=== PATIENT | male | born 1960 | race Caucasian/White ===

== ENCOUNTER 2016-11-01 15:23 | Emergency (ER) | payer BC ==
[~2016-11-01] VITALS: Ht 188 cm; Wt 111.1 kg
[~2016-11-01 15:23] MED LIST: ATEN25TA PO; HYDR25CA PO; LISI-552 PO; OMEP10CA4 PO; PRED10TA22 PO
--- OUTSIDE RECORDS SUMMARY | 2016-11-01 15:29 | XMS REPORT ---
Author Author MARIANA SOLER Organization [employer] Address Unknown Phone Unavailable Care Team Providers Care Transmission Line Engineer Name Role Phone MARIANA SOLER CP Unavailable Allergies, Adverse Reactions, Alerts Substance Reaction Event Type N.K.D.A. Info Not Available Non Drug Allergy Problems Problem Type Condition Code Onset Dates Condition Status Problem Unspecified genital herpes 054.10 Active Problem Dermatophytosis of groin and perianal area 110.3 Active Problem Unspecified viral infection, in conditions classified elsewhere and of unspecified site 079.99 Active Problem Cellulitis and abscess of unspecified site 682.9 Active Problem Accident caused by unspecified cutting and piercing instrument or object E920.9 Active Problem Impacted cerumen 380.4 Active Problem Other acute otitis externa 380.22 Active Problem Screening examination for venereal disease V74.5 Active Problem Other and unspecified hyperlipidemia 272.4 Active Problem Anxiety state, unspecified 300.00 Active Problem Other abnormal glucose 790.29 Active Problem 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 [address]-45 25 MG Orally Once a day 1 tablet Lisinopril-Hydrochlorothiazide [facility] [address]-79 20-12.5 MG Orally Once a day Jan 27, 2013 2 tablets Omeprazole [facility] [address]-52 20 mg Orally Once a day 1 capsule Results No Known Results Summary Purpose [employer] Submission
--- OUTSIDE RECORDS SUMMARY | 2016-11-01 15:29 | XMS REPORT ---
Author Author MARIANA SOLER Organization [employer] Address Unknown Phone Unavailable Care Team Providers Care Rn Surgical [facility] Name Role Phone MARIANA SOLER CP Unavailable Allergies, Adverse Reactions, Alerts Substance Reaction Event Type N.K.D.A. 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 Problem Impacted cerumen 380.4 Active Problem Other acute otitis externa 380.22 Active Problem Cellulitis and abscess of unspecified site 682.9 Active Problem Accident caused by unspecified cutting and piercing instrument or object E920.9 Active Assessment Colon cancer screening Z12.11 Active Problem Unspecified genital herpes 054.10 Active Assessment Essential hypertension I10 Active Problem Unspecified viral infection, in conditions classified elsewhere and of unspecified site 079.99 Active Medications Medication Code System Code Instructions Start Date End Date Status Dosage Atenolol [facility] [address]-34 25 MG Orally Once a day 1 tablet Lisinopril-Hydrochlorothiazide [facility] [address]-39 20-12.5 MG Orally Once a day Jan 27, 2013 [address] [facility] [address]-04 20 mg Orally Once a day 1 capsule Procedures Procedure Coding System Code Date Office Visit, Est Pt., Level 3 CPT-4 60159 Dec 17, 2015 Vital Signs Date/Time: Dec 17, 2015 Cardiac Monitoring Heart Rate 70 bpm Weight 231 lbs Height 75 in BMI 28.87 Index Blood Pressure Diastolic 76 mmHg Blood Pressure Systolic 138 mmHg Results No Known Results Summary Purpose [employer] Submission
--- NOTE | 2016-11-01 15:39 | ED GI ---
General Chief Complaint: Abdominal/GI Problems Stated Complaint: STOMACH PAIN Nursing Triage Note: pt reports nausea and diahrrea/comstipation x 2 weeks. Sepsis Screen: No Definite Risk Source of Information: Patient Exam Limitations: No Limitations History of Present Illness Time Seen By Provider: 15:37 Initial Comments To ER with nausea without vomiting, alternating diarrhea and constipation for the past 2 weeks. Intermittently he has some right-sided abdominal pain. He has not sought care for this. He did take Zofran at home without relief, most recently 2 Zofran tablets 30 minutes prior to arrival to ER but still reports nausea. This time he denies pain. He reports chills but no fevers. No history of this. He formerly drank about 8 beers every night but quit 3 days ago. He also ran out of his lisinopril 2-3 days ago. Timing/Duration: Other (2 weeks) Severity/Quality: Moderate Location: RUQ Radiation: No Radiation Allergies and Home Medications Allergies Coded Allergies: No Known Drug Allergies (Unverified , 01/10/16) Home Medications Atenolol 25 Mg Tablet, 25 MG PO DAILY, (Reported) Hydroxyzine Pamoate 25 Mg Capsule, 25 MG PO Q6H PRN for ITCHING, #30 Ref 0 Prescribed by: HUNTER PALMA on 01/10/16 0940 Lisinopril 20 Mg Tablet, 20 MG PO DAILY, (Reported) Prednisone 10 Mg Tab.ds.pk, 10 MG PO UD, #1 Prescribed by: LENORA CATHERINE on 01/14/16 1751 Promethazine HCl 25 Mg Tablet, 25 MG PO Q8H PRN for NAUSEA/VOMITING, #10 Prescribed by: JD FLORES on 11/01/16 1739 Review of Systems Constitutional: see HPI, chills EENTM: No Symptoms Reported Respiratory: No Symptoms Reported Cardiovascular: No Symptoms Reported Gastrointestinal: See HPI, Abdominal Pain, Constipated, Diarrhea, Nausea, Denies Vomiting Genitourinary: No Symptoms Reported Musculoskeletal: no symptoms reported Skin: no symptoms reported Psychiatric/Neurological: No Symptoms Reported Endocrine: No Symptoms Reported Past Bltkkge-Wuvabw-Uzxavh Hx Patient Social History Alcohol Use: Occasionally Uses Number of Drinks Today: 0 Alcohol Beverage of Choice: Beer Recreational Drug Use: No Smoking Status: Former Smoker Type Used: Cigarettes Former Smoker, Quit: Nov 09, 2015 Recent Foreign Travel: No Contact w/Someone Who Travel: No Recent Infectious Disease Expo: No Recent Hopitalizations: No Physical Abuse: No Sexual Abuse: No Mistreated: No Fear: No Surgeries History of Surgeries: Yes (left elbow surgery) Respiratory History of Respiratory Disorde: No Cardiovascular History of Cardiac Disorders: Yes Cardiac Disorders: Hypertension Neurological History of Neurological Disord: No Reproductive System Hx Reproductive Disorders: No Sexually Transmitted Disease: No Genitourinary History of Genitourinary Disor: No Gastrointestinal History of Gastrointestinal Di: No Musculoskeletal History of Musculoskeletal Dis: No Endocrine History of Endocrine Disorders: No HEENT History of HEENT Disorders: No Cancer History of Cancer: No Psychosocial History of Psychiatric Problem: No Suicide Risk Score: 0 Integumentary History of Skin or Integumenta: No Blood Transfusions History of Blood Disorders: No Physical Exam Vital Signs VS - Last 72 Hours, by Label 11/01/16 15:28 Temp 97.2 Pulse 75 Resp 18 B/P (MAP) 154/104 Pulse Ox 94 Capillary Refill : Less Than 3 Seconds General Appearance: WD/WN, no apparent distress HEENT: PERRL/EOMI, normal ENT inspection Neck: non-tender, full range of motion Respiratory: normal breath sounds, no respiratory distress, no accessory muscle use Cardiovascular: regular rate, rhythm, no murmur Gastrointestinal: normal bowel sounds, soft, other (mild right upper quadrant tenderness to palpation but otherwise no pain) Extremities: normal range of motion, non-tender Neurologic/Psychiatric: alert, normal mood/affect, oriented x 3 Skin: normal color, warm/dry Progress/Results/Core Measures Results/Orders Lab Results Laboratory Tests Test 11/01/16 15:30 11/01/16 17:16 Range/Units White Blood Count 7.4 4.3-11.0 10^3/uL Red Blood Count 5.11 4.35-5.85 10^6/uL Hemoglobin 16.0 13.3-17.7 G/DL Hematocrit 46 40-54 % Mean Corpuscular Volume 89 80-99 FL Mean Corpuscular Hemoglobin 31 25-34 PG Mean Corpuscular Hemoglobin Concent 35 32-36 G/DL Red Cell Distribution Width 12.0 10.0-14.5 % Platelet Count 257 130-400 10^3/uL Mean Platelet Volume 9.7 7.4-10.4 FL Neutrophils (%) (Auto) 38 L 42-75 % Lymphocytes (%) (Auto) 46 H 12-44 % Monocytes (%) (Auto) 14 H 0-12 % Eosinophils (%) (Auto) 3 0-10 % Basophils (%) (Auto) 0 0-10 % Neutrophils # (Auto) 2.8 1.8-7.8 X 10^3 Lymphocytes # (Auto) 3.4 1.0-4.0 X 10^3 Monocytes # (Auto) 1.0 0.0-1.0 X 10^3 Eosinophils # (Auto) 0.2 0.0-0.3 10^3/uL Basophils # (Auto) 0.0 0.0-0.1 10^3/uL Sodium Level 141 135-145 MMOL/L Potassium Level 3.6 3.6-5.0 MMOL/L Chloride Level 104 98-107 MMOL/L Carbon Dioxide Level 27 21-32 MMOL/L Anion Gap 10 5-14 MMOL/L Blood Urea Nitrogen 14 7-18 MG/DL Creatinine 1.23 0.60-1.30 MG/DL Estimat Glomerular Filtration Rate > 60 BUN/Creatinine Ratio 11 Glucose Level 82 70-105 MG/DL Calcium Level 9.3 8.5-10.1 MG/DL Total Bilirubin 0.9 0.1-1.0 MG/DL Aspartate Amino Transf (AST/SGOT) 98 H 5-34 U/L Alanine Aminotransferase (ALT/SGPT) 254 H 0-55 U/L Alkaline Phosphatase 57 40-136 U/L Total Protein 7.3 6.4-8.2 GM/DL Albumin 4.2 3.2-4.5 GM/DL Lipase 47 8-78 U/L Serum Alcohol < 10 <10 MG/DL Urine Color VANDANA H Urine Clarity SLIGHTLY CLOUDY Urine pH 5 5-9 Urine Specific [place] 1.020 1.016-1.022 Urine Protein 2+ H NEGATIVE Urine Glucose (UA) 2+ H NEGATIVE Urine Ketones NEGATIVE NEGATIVE Urine Nitrite NEGATIVE NEGATIVE Urine Bilirubin NEGATIVE NEGATIVE Urine Urobilinogen NORMAL NORMAL MG/DL Urine Leukocyte Esterase NEGATIVE NEGATIVE Urine RBC (Auto) NEGATIVE NEGATIVE Urine RBC NONE /HPF Urine WBC RARE /HPF Urine Squamous Epithelial Cells NONE /HPF Urine Crystals NONE /LPF Urine Bacteria NEGATIVE /HPF Urine Casts NONE /LPF Urine Mucus NEGATIVE /LPF Urine Culture Indicated NO My Orders Orders - JD FLORES APRN Cbc With Automated Diff (11/01/16 15:35) Comprehensive Metabolic Panel (11/01/16 15:35) Lipase (11/01/16 15:35) Ua Culture If Indicated (11/01/16 15:35) Alcohol (11/01/16 15:35) Ct Abdomen/Pelvis W (11/01/16 15:35) Ns Iv 1000 Ml (Sodium Chloride 0.9%) (11/01/16 15:45) Promethazine Injection (Phenergan Injec (11/01/16 15:45) Iohexol Injection (Omnipaque 350 Mg/Ml 1 (11/01/16 16:30) Ns (Ivpb) (Sodium Chloride 0.9% Ivpb Bag (11/01/16 16:30) Us Gallbladder [address] (11/01/16 16:35) Hepatitis Panel Acute (11/01/16 17:39) Medications Given in ED Current Medications Medications Dose Ordered Sig/Eboni Route Start Time Stop Time Status Last Admin Dose Admin Iohexol 100 ml ONCE ONCE IV 11/01/16 16:30 11/01/16 16:34 DC 11/01/16 16:24 100 ML Promethazine HCl 25 mg ONCE ONCE IVP 11/01/16 15:45 11/01/16 15:46 DC 11/01/16 16:36 25 MG Sodium Chloride 100 ml ONCE ONCE IV 11/01/16 16:30 11/01/16 16:34 DC 11/01/16 16:24 100 ML Vital Signs/I&O Vital Sign - Last 12Hours 11/01/16 15:28 Temp 97.2 Pulse 75 Resp 18 B/P (MAP) 154/104 Pulse Ox 94 Blood Pressure Mean: 121 Diagnostic Imaging Diagonstic Imaging: CT Comments NAME: KARLA LLAMAS Sean [facility] REC#: [id number] PT STATUS: REG ER : 1960 PHYSICIAN: JD FLORES APRN ADMIT DATE: 11/01/16/ER Draft Date of Exam:11/01/16 CT ABDOMEN/PELVIS W PROCEDURE: CT abdomen and pelvis with contrast. TECHNIQUE: Multiple contiguous axial images were obtained through the abdomen and pelvis after administration of intravenous contrast. INDICATION: Right-sided abdominal pain, loose stools, one week's duration of symptoms. FINDINGS: The air-containing appendix visualized and normal. There is no large or small bowel wall thickening and no pericolonic or perienteric edema. There is no focal inflammatory process and no abnormal small or large bowel mucosal hyperenhancement. There is no mesenteric or retroperitoneal edema or focal inflammation. There is fatty infiltration of the liver. The pancreas is negative. There is no adrenal mass. The spleen is unremarkable. There is no hydronephrosis. The kidneys are normal. No lymphadenopathy or mass. Prostate, seminal vesicles, and urinary bladder are unremarkable. IMPRESSION: No bowel, biliary, or urinary tract obstruction. Fatty liver with no inflammatory process. No acute abnormality, ascites, or fluid collection. Dictated on workstation # [id number] Dict: 11/01/161642 Trans: 11/01/161648 [id number] Interpreted by: BEATRIZ FERMIN Electronically signed by: Departure Impression Impression: Primary Impression: Elevated liver enzymes Additional Impression: Nausea Disposition: 01 HOME, SELF-CARE Condition: Stable Departure-Patient Inst. Decision time for Depature: 17:37 Referrals: [facility] (PCP/Family) Primary Care Physician Patient Instructions: Nausea and Vomiting, Adult Add. Discharge Instructions: 1. Follow-up with Dr. Soler later this week to recheck liver enzymes 2. Return to ER for any concerns 3. All discharge instructions reviewed with patient and/or family. Voiced understanding. Scripts Promethazine HCl (Promethazine Tablet) 25 Mg Tablet 25 MG PO Q8H Y for NAUSEA/VOMITING, #10 TAB Prov: JD FLORES APRN 11/01/16 Copy Copies To 1: MARIANA SOLER MD, PETER J APRN Nov 01, 2016 15:38
[2016-11-01 15:42] LABS: BASOPHILS % (AUTO) 0 % (0-10); EOSINOPHILS # (AUTO) 0.2 10^3/uL (0.0-0.3); EOSINOPHILS % (AUTO) 3 % (0-10); LYMPHOCYTES # (AUTO) 3.4 X 10^3 (1.0-4.0); LYMPHOCYTES % (AUTO) 46 % (12-44); MEAN CORPUSCULAR HEMOGLOBIN 31 PG (25-34); MEAN CORPUSCULAR HGB CONC 35 G/DL (32-36); MEAN CORPUSCULAR VOLUME 89 FL (80-99); MEAN PLATELET VOLUME 9.7 FL (7.4-10.4); MONOCYTES % (AUTO) 14 % (0-12); NEUTROPHILS # (AUTO) 2.8 X 10^3 (1.8-7.8); NEUTROPHILS % (AUTO) 38 % (42-75); PLATELET COUNT 257 10^3/uL (130-400); RED BLOOD COUNT 5.11 10^6/uL (4.35-5.85); WHITE BLOOD COUNT 7.4 10^3/uL (4.3-11.0)
[2016-11-01] MEDS ORDERED: NS IV 1000 ML 1,000 ML IV SCH (15:45)
[2016-11-01] MEDS ORDERED: PROMETHAZINE INJ 25 MG/ML (PHENERGAN) AMP IVP ONE (15:45)
[2016-11-01 16:04] LABS: ALANINE AMINOTRANSFERASE 254 U/L (0-55); ALBUMIN 4.2 GM/DL (3.2-4.5); ALCOHOL < 10 MG/DL (<10); ANION GAP 10 MMOL/L (5-14); ASPARTATE AMINO TRANSFERASE 98 U/L (5-34); BILIRUBIN,TOTAL 0.9 MG/DL (0.1-1.0); BLOOD UREA NITROGEN 14 MG/DL (7-18); BUN/CREATININE RATIO 11; CALCIUM 9.3 MG/DL (8.5-10.1); CARBON DIOXIDE 27 MMOL/L (21-32); CHLORIDE 104 MMOL/L (98-107); CREATININE SERUM 1.23 MG/DL (0.60-1.30); GFR ESTIMATED > 60; GLUCOSE 82 MG/DL (70-105); LIPASE 47 U/L (8-78); POTASSIUM 3.6 MMOL/L (3.6-5.0); SODIUM 141 MMOL/L (135-145); TOTAL PROTEIN 7.3 GM/DL (6.4-8.2)
[2016-11-01] MEDS ORDERED: NS 100 ML (IVPB) BAG IV ONE (16:30)
[2016-11-01] MEDS ORDERED: IOHEXOL 350 MG/ML 100 ML (OMNIPAQUE 350) VIAL IV ONE (16:30)
--- NOTE | 2016-11-01 16:50 | Diagnostic Imaging Report ---
PROCEDURE: CT abdomen and pelvis with contrast. TECHNIQUE: Multiple contiguous axial images were obtained through the abdomen and pelvis after administration of intravenous contrast. INDICATION: Right-sided abdominal pain, loose stools, one week's duration of symptoms. FINDINGS: The air-containing appendix visualized and normal. There is no large or small bowel wall thickening and no pericolonic or perienteric edema. There is no focal inflammatory process and no abnormal small or large bowel mucosal hyperenhancement. There is no mesenteric or retroperitoneal edema or focal inflammation. There is fatty infiltration of the liver. The pancreas is negative. There is no adrenal mass. The spleen is unremarkable. There is no hydronephrosis. The kidneys are normal. No lymphadenopathy or mass. Prostate, seminal vesicles, and urinary bladder are unremarkable. IMPRESSION: No bowel, biliary, or urinary tract obstruction. Fatty liver with no inflammatory process. No acute abnormality, ascites, or fluid collection. Dictated by: Dictated on workstation # [id number]
--- NOTE | 2016-11-01 17:14 | Diagnostic Imaging Report ---
INDICATION: Abdominal pain with nausea. TECHNIQUE: Multiple grayscale sonographic images were obtained of the right upper quadrant of the abdomen. CORRELATION STUDY: None. FINDINGS: LIVER: Diffuse heterogeneous increased echogenicity may be reflective of fatty infiltration. No definitive focal lesion. Liver size approximately 18 cm. GALLBLADDER: The gallbladder is present and demonstrates no definitive shadowing gallstones. No abnormal gallbladder wall thickening or pericholecystic fluid. COMMON BILE DUCT: Obscured and not visualized. PANCREAS: Obscured by overlying bowel gas. RIGHT KIDNEY: Measures 12.6 cm. No hydronephrosis. OTHER: None. IMPRESSION: 1. Likely changes of hepatic steatosis. 2. Negative for gallstones. Biliary tree is obscured. Dictated by: Dictated on workstation # [id number]
[2016-11-01 17:27] LABS: BILIRUBIN,URINE NEGATIVE (NEGATIVE); KETONES,URINE NEGATIVE (NEGATIVE); LEUKOCYTE ESTERASE ,URINE NEGATIVE (NEGATIVE); NITRITE,URINE NEGATIVE (NEGATIVE); PH,URINE 5 (5-9); PROTEIN,URINE 2+ (NEGATIVE); UROBILINOGEN,URINE NORMAL (NORMAL)
[2016-11-01 17:37] LABS: WBC,URINE RARE /HPF
[2016-11-01] MEDS ORDERED: PROM25TA14 PO (17:39)
[2016-11-01 18:06] VITALS: BP 143/98
== END 2016-11-01 18:06 | disposition home or self-care (01) ==
LOC: EDUNIT# 15:23 → ER 15:24
DX: R94.5 Abnormal results of liver function studies (principal); R11.0 Nausea; I10 Essential (primary) hypertension; Z87.891 Personal history of nicotine dependence
CPT/HCPCS: 36415; 74177; 76705; 80053; 80074; 80320; 81000; 83690; 85025

== ENCOUNTER 2016-11-05 21:34 | Emergency (ER) | payer BC ==
[~2016-11-05] VITALS: Ht 190.5 cm; Wt 108.9 kg
[~2016-11-05 21:34] MED LIST changes: +PROM25TA14 PO
[2016-11-05] MEDS ORDERED: METF500T4 (21:46)
--- NOTE | 2016-11-05 22:01 | ED General ---
General Chief Complaint: General Problems/Pain Stated Complaint: RT KNEE PAIN,LEG CRAMPING Nursing Triage Note: BILATERAL LEG CRAMPING. WORSE TONIGHT Nursing Sepsis Screen: No Definite Risk Source of Information: Patient, Other (significant other) Exam Limitations: No Limitations History of Present Illness Time Seen by Provider: 23:57 Initial Comments Patient presents to ER by private conveyance with his significant other stating that he has had leg cramps in his right thigh tonight that were debilitating. He says he was working on his knees all day she does not typically do. He has a history of these leg cramps for the past several years but has never had them worked up. He is not a smoker nor does he have any discoloration or swelling of his leg or feet. He is not having any pain in his calves. He says a few days ago he was here in the ER to be evaluated for nausea vomiting diarrhea probably a gastroenteritis given some promethazine which helped and he has no motor having the symptoms. He says he gets these cramps couple times a week and sometimes it can make it hard for him to extend his legs. It's better when he stands and moves around. No things tried for this is pickle juice because of the alcohol that might in pickle juice. Allergies and Home Medications Allergies Coded Allergies: No Known Drug Allergies (Unverified , 01/10/16) Home Medications Atenolol 25 Mg Tablet, 25 MG PO DAILY, (Reported) Lisinopril 20 Mg Tablet, 20 MG PO DAILY, (Reported) Metformin HCl 500 Mg Tablet, (Reported) Promethazine HCl 25 Mg Tablet, 25 MG PO Q8H PRN for NAUSEA/VOMITING, #10 Prescribed by: JD FLORES on 11/01/16 8055 Constitutional: No chills, No diaphoresis EENTM: No ear pain, No eye pain, No vision loss Respiratory: No cough, No short of breath Cardiovascular: No chest pain, No palpitations Gastrointestinal: No abdominal pain, No constipation, No diarrhea, No nausea Genitourinary: No discharge, No dysuria Musculoskeletal: No joint pain, No joint swelling Skin: No pruritus, No rash Psychiatric/Neurological: Denies Headache, Denies Numbness, Denies Paresthesia Past Ovnxnmh-Basfnc-Jkhcwe Hx Patient Social History Alcohol Use: Denies Use Number of Drinks Today: AA Alcohol Beverage of Choice: Beer Recreational Drug Use: No Smoking Status: Former Smoker Type Used: Cigarettes Former Smoker, Quit: Nov 09, 2015 2nd Hand Smoke Exposure: Yes Recent Foreign Travel: No Contact w/Someone Who Travel: No Recent Infectious Disease Expo: No Recent Hopitalizations: No Immunizations Up To Date Tetanus Booster (TDap): Unknown Seasonal Allergies Seasonal Allergies: No Surgeries History of Surgeries: Yes (left elbow surgery) Surgeries: Orthopedic Respiratory History of Respiratory Disorde: No Cardiovascular History of Cardiac Disorders: Yes Cardiac Disorders: Hypertension Neurological History of Neurological Disord: No Reproductive System Hx Reproductive Disorders: No Sexually Transmitted Disease: No Genitourinary History of Genitourinary Disor: No Gastrointestinal History of Gastrointestinal Di: No Musculoskeletal History of Musculoskeletal Dis: Yes Musculoskeletal Disorders: Arthritis Endocrine History of Endocrine Disorders: Yes Endocrine Disorders: Diabetes, Non-Insulin dep HEENT History of HEENT Disorders: No Cancer History of Cancer: No Psychosocial History of Psychiatric Problem: No Integumentary History of Skin or Integumenta: No Blood Transfusions History of Blood Disorders: No Physical Exam Vital Signs Vital Sign - Last 12Hours 11/05/16 21:47 Temp 98.1 Pulse 99 Resp 16 B/P (MAP) 145/97 Pulse Ox 96 O2 Delivery Room Air Capillary Refill : Less Than 3 Seconds General Appearance: No Apparent Distress, WD/WN Eyes: Bilateral Eye Normal Inspection, Bilateral Eye PERRL, Bilateral Eye EOMI HEENT: PERRL/EOMI, Pharynx Normal Neck: Non Tender, Supple Respiratory: Lungs Clear, Normal Breath Sounds Cardiovascular: Regular Rate, Rhythm, No Murmur, Normal Peripheral Pulses Gastrointestinal: Normal Bowel Sounds, Non Tender, Soft Extremity: Normal Capillary Refill, Normal Inspection, Normal Range of Motion, Non Tender, No Calf Tenderness, No Pedal Edema Neurologic/Psychiatric: Alert, Oriented x3 Reflexes: 2+ Knee (R), 2+ Knee (L) Skin: Normal Color, Warm/Dry Lymphatic: No Adenopathy Progress/Results/Core Measures Results/Orders Lab Results Laboratory Tests Test 11/05/16 22:11 Range/Units White Blood Count 7.4 4.3-11.0 10^3/uL Red Blood Count 5.16 4.35-5.85 10^6/uL Hemoglobin 16.4 13.3-17.7 G/DL Hematocrit 46 40-54 % Mean Corpuscular Volume 89 80-99 FL Mean Corpuscular Hemoglobin 32 25-34 PG Mean Corpuscular Hemoglobin Concent 36 32-36 G/DL Red Cell Distribution Width 12.4 10.0-14.5 % Platelet Count 250 130-400 10^3/uL Mean Platelet Volume 9.9 7.4-10.4 FL Neutrophils (%) (Auto) 46 42-75 % Lymphocytes (%) (Auto) 39 12-44 % Monocytes (%) (Auto) 12 0-12 % Eosinophils (%) (Auto) 2 0-10 % Basophils (%) (Auto) 1 0-10 % Neutrophils # (Auto) 3.5 1.8-7.8 X 10^3 Lymphocytes # (Auto) 2.9 1.0-4.0 X 10^3 Monocytes # (Auto) 0.9 0.0-1.0 X 10^3 Eosinophils # (Auto) 0.2 0.0-0.3 10^3/uL Basophils # (Auto) 0.1 0.0-0.1 10^3/uL Sodium Level 138 135-145 MMOL/L Potassium Level 3.7 3.6-5.0 MMOL/L Chloride Level 105 98-107 MMOL/L Carbon Dioxide Level 18 L 21-32 MMOL/L Anion Gap 15 H 5-14 MMOL/L Blood Urea Nitrogen 20 H 7-18 MG/DL Creatinine 1.45 H 0.60-1.30 MG/DL Estimat Glomerular Filtration Rate 50 BUN/Creatinine Ratio 14 Glucose Level 148 H 70-105 MG/DL Calcium Level 9.8 8.5-10.1 MG/DL Total Bilirubin 0.7 0.1-1.0 MG/DL Aspartate Amino Transf (AST/SGOT) 76 H 5-34 U/L Alanine Aminotransferase (ALT/SGPT) 191 H 0-55 U/L Alkaline Phosphatase 66 40-136 U/L Total Protein 7.7 6.4-8.2 GM/DL Albumin 4.5 3.2-4.5 GM/DL My Orders Orders - HUNTER PALMA Cbc With Automated Diff (11/05/16 21:58) Comprehensive Metabolic Panel (11/05/16 21:58) Vital Signs/I&O Vital Sign - Last 12Hours 11/05/16 21:47 Temp 98.1 Pulse 99 Resp 16 B/P (MAP) 145/97 Pulse Ox 96 O2 Delivery Room Air Blood Pressure Mean: 113 Progress Note : Time: 22:37 Progress Note This does not appear to be vascular related however he should have that worked up by his primary care physician with an [facility] outpatient. His labs are okay will recommend Gatorade and something quinine and it such as ana kay. Departure Impression Impression: Primary Impression: Leg cramping Disposition: 01 HOME, SELF-CARE Condition: Stable Departure-Patient Inst. Decision time for Depature: 23:26 Referrals: [facility] (PCP/Family) Primary Care Physician Patient Instructions: Nocturnal (Nighttime) Leg Cramps (DC) Add. Discharge Instructions: For leg cramps I recommend drinking a drink with quinine and such as diet ana kay one last night. Follow-up with her primary care physician. Things to discuss with your primary care physician would include your decreased kidney function as well as her elevated liver enzymes. You may also use heating pads and Tylenol to try and block the severity of the cramps. Drink plenty of fluids. All discharge instructions reviewed with patient and/or family. Voiced understanding. Copy Copies To 1: MARION URIBE TITUS J Nov 05, 2016 22:01
[2016-11-05 22:25] LABS: BASOPHILS # (AUTO) 0.1 10^3/uL (0.0-0.1); BASOPHILS % (AUTO) 1 % (0-10); EOSINOPHILS # (AUTO) 0.2 10^3/uL (0.0-0.3); EOSINOPHILS % (AUTO) 2 % (0-10); LYMPHOCYTES # (AUTO) 2.9 X 10^3 (1.0-4.0); LYMPHOCYTES % (AUTO) 39 % (12-44); MEAN CORPUSCULAR HEMOGLOBIN 32 PG (25-34); MEAN CORPUSCULAR HGB CONC 36 G/DL (32-36); MEAN CORPUSCULAR VOLUME 89 FL (80-99); MEAN PLATELET VOLUME 9.9 FL (7.4-10.4); MONOCYTES # (AUTO) 0.9 X 10^3 (0.0-1.0); MONOCYTES % (AUTO) 12 % (0-12); NEUTROPHILS # (AUTO) 3.5 X 10^3 (1.8-7.8); NEUTROPHILS % (AUTO) 46 % (42-75); PLATELET COUNT 250 10^3/uL (130-400); RED BLOOD COUNT 5.16 10^6/uL (4.35-5.85); RED CELL DISTRIBUTION WIDTH 12.4 % (10.0-14.5); WHITE BLOOD COUNT 7.4 10^3/uL (4.3-11.0)
[2016-11-05 22:38] LABS: ALBUMIN 4.5 GM/DL (3.2-4.5); BILIRUBIN,TOTAL 0.7 MG/DL (0.1-1.0); CALCIUM 9.8 MG/DL (8.5-10.1); CREATININE SERUM 1.45 MG/DL (0.60-1.30); POTASSIUM 3.7 MMOL/L (3.6-5.0); TOTAL PROTEIN 7.7 GM/DL (6.4-8.2)
[2016-11-05 23:31] VITALS: BP 145/97
== END 2016-11-05 23:31 | disposition home or self-care (01) ==
LOC: EDUNIT# 21:34 → ER 21:36
DX: R25.2 Cramp and spasm (principal); I10 Essential (primary) hypertension; E11.9 Type 2 diabetes mellitus without complications; Z79.84 Long term (current) use of oral hypoglycemic drugs; Z87.891 Personal history of nicotine dependence
CPT/HCPCS: 36415; 80053; 85025; 99283

== ENCOUNTER 2017-09-28 09:31 | Emergency (ER) | payer BC ==
[~2017-09-28] VITALS: Ht 188 cm; Wt 110.7 kg
[~2017-09-28 09:31] MED LIST changes: +METF500T5
[2017-09-28] MEDS ORDERED: NS IV 1000 ML 1,000 ML IV ONE (10:04)
[2017-09-28 10:12] LABS: BASOPHILS % (AUTO) 1 % (0-10); EOSINOPHILS # (AUTO) 0.1 10^3/uL (0.0-0.3); EOSINOPHILS % (AUTO) 1 % (0-10); HEMATOCRIT 41 % (40-54); HEMOGLOBIN 15.2 G/DL (13.3-17.7); LYMPHOCYTES # (AUTO) 1.7 X 10^3 (1.0-4.0); LYMPHOCYTES % (AUTO) 28 % (12-44); MEAN CORPUSCULAR HEMOGLOBIN 33 PG (25-34); MEAN CORPUSCULAR HGB CONC 37 G/DL (32-36); MEAN CORPUSCULAR VOLUME 88 FL (80-99); MEAN PLATELET VOLUME 9.7 FL (7.4-10.4); MONOCYTES # (AUTO) 0.7 X 10^3 (0.0-1.0); MONOCYTES % (AUTO) 12 % (0-12); NEUTROPHILS # (AUTO) 3.6 X 10^3 (1.8-7.8); NEUTROPHILS % (AUTO) 59 % (42-75); PLATELET COUNT 197 10^3/uL (130-400); RED BLOOD COUNT 4.65 10^6/uL (4.35-5.85); RED CELL DISTRIBUTION WIDTH 11.9 % (10.0-14.5); WHITE BLOOD COUNT 6.1 10^3/uL (4.3-11.0)
--- NOTE | 2017-09-28 10:20 | ED Upper Extremity ---
General Stated Complaint: SPIDER OR SNAKE BITE Source: patient Exam Limitations: no limitations (BARBARA OLIVA MD) History of Present Illness Date Seen by Provider: Sep 28, 2017 Time Seen by Provider: 10:05 Initial Comments Seen and evaluated. Patient presents after being bitten by a presumed insect while moving hay in a barn this past Tuesday. Since that time he states that he has experienced fatigue, shortness of breath, and lightheadedness that worsens when he attempts to exert himself and improves when he rests. He has had an upset stomach that began on Tuesday and has been experiencing occasional diarrhea for the past week. Patient described cold sweats and subjective fever Tuesday which prompted him to seek medical attention today. Onset: other (Tuesday) Pain/Injury Location: right arm Method of Injury: incised Modifying Factors: Worse With Movement; Improves With Rest (YOLANDA PECK) Onset: other (Tuesday) Method of Injury: unknown (BARBARA OLIVA MD) Allergies and Home Medications Allergies Coded Allergies: No Known Allergies (Verified Allergy, Unknown, 09/28/17) Home Medications Atenolol 25 Mg Tablet, 25 MG PO DAILY, (Reported) Lisinopril 20 Mg Tablet, 20 MG PO DAILY, (Reported) Promethazine HCl 25 Mg Tablet, 25 MG PO Q8H PRN for NAUSEA/VOMITING Prescribed by: JD FLORES on 11/01/16 1739 Patient Home Medication List Home Medication List Reviewed: Yes (YOLANDA PECK) Home Medication List Reviewed: Yes (BARBARA OLIVA MD) Constitutional: see HPI EENTM: No blurred vision, No double vision Respiratory: short of breath Cardiovascular: No palpitations, No syncope Gastrointestinal: abdominal pain; No constipation; diarrhea, nausea; No vomiting Genitourinary: no symptoms reported Musculoskeletal: No muscle pain, No muscle stiffness Skin: No pruritus, No rash Psychiatric/Neurological: No Symptoms Reported (YOLANDA PECK) All Other Systems Reviewed Negative Unless Noted: Yes (BARBARA OLIVA MD) Past Wdwqhtm-Ymknxp-Fmjepb Hx Past Med/Social Hx: Reviewed Nursing Past Med/Soc Hx (BARBARA OLIVA MD) Patient Social History Alcohol Use: Denies Use Alcohol Beverage of Choice: Beer Recreational Drug Use: No Type Used: Cigarettes Former Smoker, Quit: Nov 09, 2015 2nd Hand Smoke Exposure: Yes Recent Foreign Travel: No Contact w/Someone Who Travel: No Recent Hopitalizations: No (YOLANDA PECK) Immunizations Up To Date Tetanus Booster (TDap): Unknown (YOLANDA PECK) Seasonal Allergies Seasonal Allergies: No (YOLANDA PECK) Past Medical History Surgeries: Yes (left elbow surgery) Orthopedic Respiratory: No Cardiac: Yes Hypertension Neurological: No Reproductive Disorders: No Sexually Transmitted Disease: No Genitourinary: No Gastrointestinal: Yes Chronic Diarrhea (admits occasional, intermittent diarrhea for years) Musculoskeletal: Yes Arthritis Endocrine: Yes Diabetes, Non-Insulin dep HEENT: No Cancer: No Psychosocial: No Integumentary: No Blood Disorders: No (YOLANDA PECK) Family Medical History Reviewed Nursing Family Hx (BARBARA OLIVA MD) Heart Disease, Diabetes, Hypertension (YOLANDA PECK) Physical Exam Vital Signs Capillary Refill : (YOLANDA PECK) Height, Weight, BMI Height: 6'3.00" Weight: 240lbs. oz. 108.544893no; BMI Method:Stated General Appearance: WD/WN, no apparent distress Cardiovascular: normal peripheral pulses Gastrointestinal: No guarding, No tenderness Elbow/Forearm: non-tender, normal ROM, Bilateral Neurologic/Tendon: normal sensation, normal motor functions (YOLANDA PECK) HEENT: PERRL/EOMI, pharynx normal Neck: full range of motion, supple Cardiovascular: regular rate, rhythm, no murmur Respiratory: lungs clear, normal breath sounds Gastrointestinal: non tender, soft Neurologic/Psychiatric: alert, oriented x 3 Skin: warm/dry, other (small, macular lesions to the right forearm without significant surrounding erythema or significant inflammation.) (BARBARA OLIVA MD) Progress/Results/Core Measures Results/Orders Lab Results Laboratory Tests Test 09/28/17 09:55 09/28/17 11:40 Range/Units White Blood Count 6.1 4.3-11.0 10^3/uL Red Blood Count 4.65 4.35-5.85 10^6/uL Hemoglobin 15.2 13.3-17.7 G/DL Hematocrit 41 40-54 % Mean Corpuscular Volume 88 80-99 FL Mean Corpuscular Hemoglobin 33 25-34 PG Mean Corpuscular Hemoglobin Concent 37 H 32-36 G/DL Red Cell Distribution Width 11.9 10.0-14.5 % Platelet Count 197 130-400 10^3/uL Mean Platelet Volume 9.7 7.4-10.4 FL Neutrophils (%) (Auto) 59 42-75 % Lymphocytes (%) (Auto) 28 12-44 % Monocytes (%) (Auto) 12 0-12 % Eosinophils (%) (Auto) 1 0-10 % Basophils (%) (Auto) 1 0-10 % Neutrophils # (Auto) 3.6 1.8-7.8 X 10^3 Lymphocytes # (Auto) 1.7 1.0-4.0 X 10^3 Monocytes # (Auto) 0.7 0.0-1.0 X 10^3 Eosinophils # (Auto) 0.1 0.0-0.3 10^3/uL Basophils # (Auto) 0.0 0.0-0.1 10^3/uL Sodium Level 136 135-145 MMOL/L Potassium Level 4.8 3.6-5.0 MMOL/L Chloride Level 104 98-107 MMOL/L Carbon Dioxide Level 26 21-32 MMOL/L Anion Gap 6 5-14 MMOL/L Blood Urea Nitrogen 15 7-18 MG/DL Creatinine 0.96 0.60-1.30 MG/DL Estimat Glomerular Filtration Rate > 60 BUN/Creatinine Ratio 16 Glucose Level 119 H 70-105 MG/DL Calcium Level 9.7 8.5-10.1 MG/DL Corrected Calcium 9.5 8.5-10.1 MG/DL Total Bilirubin 0.6 0.1-1.0 MG/DL Aspartate Amino Transf (AST/SGOT) 21 5-34 U/L Alanine Aminotransferase (ALT/SGPT) 36 0-55 U/L Alkaline Phosphatase 55 40-136 U/L Troponin I < 0.30 <0.30 NG/ML C-Reactive Protein High Sensitivity 0.79 H 0.00-0.50 MG/DL Total Protein 6.9 6.4-8.2 GM/DL Albumin 4.2 3.2-4.5 GM/DL Urine Color YELLOW Urine Clarity CLEAR Urine pH 5 5-9 Urine Specific [place] 1.020 1.016-1.022 Urine Protein NEGATIVE NEGATIVE Urine Glucose (UA) NEGATIVE NEGATIVE Urine Ketones NEGATIVE NEGATIVE Urine Nitrite NEGATIVE NEGATIVE Urine Bilirubin NEGATIVE NEGATIVE Urine Urobilinogen NORMAL NORMAL MG/DL Urine Leukocyte Esterase 1+ H NEGATIVE Urine RBC (Auto) NEGATIVE NEGATIVE Urine RBC RARE /HPF Urine WBC 0-2 /HPF Urine Squamous Epithelial Cells NONE /HPF Urine Renal Epithelial Cells NONE /HPF Urine Crystals NONE /LPF Urine Bacteria NEGATIVE /HPF Urine Casts NONE /LPF Urine Mucus NEGATIVE /LPF Urine Culture Indicated NO (BARBARA OLIVA MD) My Orders Orders - BARBARA OLIVA MD Cbc With Automated Diff (09/28/17 10:04) Comprehensive Metabolic Panel (09/28/17 10:04) Hs C Reactive Protein (09/28/17 10:04) Troponin I (09/28/17 10:04) Chest 1 View, Ap/Pa Only (09/28/17 10:04) Ekg Tracing (09/28/17 10:04) Saline Lock/Iv-Start (09/28/17 10:04) Ns Iv 1000 Ml (Sodium Chloride 0.9%) (09/28/17 10:04) Ua Culture If Indicated (09/28/17 11:41) (BARBARA OLIVA MD) Medications Given in ED Current Medications Medications Dose Ordered Sig/Eboni Route Start Time Stop Time Status Last Admin Dose Admin Sodium Chloride 1,000 ml @ 0 mls/hr Q0M ONCE IV 09/28/17 10:04 09/28/17 10:06 DC 09/28/17 10:26 1,000 MLS/HR (BARBARA OLIVA MD) Progress Progress Note : Progress Note I have seen and evaluated the patient and agree with above except as indicated. I have directed the plan of care. Patient here with concerns of bug bite to the right arm as well as some nausea and overall not feeling well for the past couple of days. He was working in a barn on Tuesday when all of this began and has not had any relief since. He is concerned that the bug bite to the right arm may be the cause of his problems. He is not sure what got him but he does note that on the right forearm that he felt something sting him. That wound looks better but he still feels weak and is short of breath with activity. Denies chest pain.. Denies vomiting. We will check labs, UA and chest x-ray as well as EKG. Monitor patient. 1220: Overall feeling much better. No significant findings. Discharged home with return precautions. Patient verbalize understanding instructions and agreement with plan (BARBARA OLIVA MD) Initial ECG Impression Date: Sep 28, 2017 Initial ECG Impression Time: 10:24 Initial ECG Rate: 73 Initial ECG Rhythm: Normal Sinus Initial ECG Impression: Normal Comment Sinus rhythm with normal axis. No evidence of ST elevation ID. No previous available for comparison. Interpreted by me. (BARBARA OLIVA MD) Diagnostic Imaging Diagonstic Imaging: Xray Plain Films/CT/US/NM/MRI: chest Comments [place]IA [place], [place] NAME: KARLA LLAMAS [facility] REC#: [id number] PT STATUS: REG ER : 1960 PHYSICIAN: BARBARA OLIVA MD ADMIT DATE: 09/28/17/ER Draft Date of Exam:09/28/17 CHEST 1 VIEW, AP/PA ONLY INDICATION: Dizziness and nausea. TIME OF EXAM: 10:27 AM No prior studies are available for comparison. FINDINGS: The heart size is normal. The pulmonary vascularity is unremarkable. The lungs are clear. No infiltrate, effusion or pneumothorax is detected. IMPRESSION: No acute cardiopulmonary process is detected. Dictated on workstation # [id number] Dict: 09/28/17 1040 Trans: 09/28/17 1042 [id number] Interpreted by: SERA RICCI MD Electronically signed by: (BARBARA OLIVA MD) Departure Impression Primary Impression: Abdominal pain, epigastric Additional Impressions: Insect bite Qualified Codes: W57.XXXA - Bitten or stung by nonvenomous insect and other nonvenomous arthropods, initial encounter Dehydration Disposition: 01 HOME, SELF-CARE Condition: Improved Departure-Patient Inst. Decision time for Depature: 12:21 (BARBARA OLIVA MD) Referrals: [facility] (PCP/Family) Primary Care Physician Patient Instructions: Acute Abdomen (Belly Pain), Adult (DC), Dehydration, Adult (DC), Insect Bites and Stings (DC) Add. Discharge Instructions: Clear liquid for 24 hours and then advance as tolerated. Follow-up with your Dr. in a few days for recheck. Return for worse pain, fever, vomiting, weakness , breathing problems or other concerns as needed. Work/School Note: Work Release Form Date Seen in the Emergency Department: Sep 28, 2017 Return to Work: Sep 29, 2017 Restrictions: No Restrictions YOLANDA PECK STUDENT Sep 28, 2017 10:20 BARBARA OLIVA MD Sep 28, 2017 11:07
[2017-09-28 10:30] LABS: ALANINE AMINOTRANSFERASE 36 U/L (0-55); ALBUMIN 4.2 GM/DL (3.2-4.5); ALKALINE PHOSPHATASE 55 U/L (40-136); BILIRUBIN,TOTAL 0.6 MG/DL (0.1-1.0); BUN/CREATININE RATIO 16; CALCIUM 9.7 MG/DL (8.5-10.1); CARBON DIOXIDE 26 MMOL/L (21-32); CHLORIDE 104 MMOL/L (98-107); CREATININE SERUM 0.96 MG/DL (0.60-1.30); GFR ESTIMATED > 60; GLUCOSE 119 MG/DL (70-105); POTASSIUM 4.8 MMOL/L (3.6-5.0); SODIUM 136 MMOL/L (135-145); TOTAL PROTEIN 6.9 GM/DL (6.4-8.2)
--- NOTE | 2017-09-28 10:42 | Diagnostic Imaging Report ---
INDICATION: Dizziness and nausea. TIME OF EXAM: 10:27 AM No prior studies are available for comparison. FINDINGS: The heart size is normal. The pulmonary vascularity is unremarkable. The lungs are clear. No infiltrate, effusion or pneumothorax is detected. IMPRESSION: No acute cardiopulmonary process is detected. Dictated by: Dictated on workstation # [id number]
[2017-09-28 11:57] LABS: BILIRUBIN,URINE NEGATIVE (NEGATIVE); CLARITY,URINE CLEAR; COLOR,URINE YELLOW; GLUCOSE, URINE (UA) NEGATIVE (NEGATIVE); KETONES,URINE NEGATIVE (NEGATIVE); LEUKOCYTE ESTERASE ,URINE 1+ (NEGATIVE); NITRITE,URINE NEGATIVE (NEGATIVE); PH,URINE 5 (5-9); PROTEIN,URINE NEGATIVE (NEGATIVE); UROBILINOGEN,URINE NORMAL (NORMAL)
[2017-09-28 12:08] LABS: BACTERIA,URINE NEGATIVE /HPF; RBC,URINE RARE /HPF; WBC,URINE 0-2 /HPF
[2017-09-28 12:46] VITALS: BP 144/91
== END 2017-09-28 12:48 | disposition home or self-care (01) ==
LOC: EDUNIT# 09:31 → ER 09:34
DX: S40.861A Insect bite (nonvenomous) of right upper arm, initial encounter (principal); R10.13 Epigastric pain; E86.0 Dehydration; I10 Essential (primary) hypertension; E11.9 Type 2 diabetes mellitus without complications; Z77.22 Contact with and (suspected) exposure to environmental tobacco smoke (acute) (chronic); W57.XXXA Bitten or stung by nonvenomous insect and other nonvenomous arthropods, initial encounter
CPT/HCPCS: 36415; 71045; 80053; 81000; 84484; 85025; 86141; 93005; 96360; 96361

== ENCOUNTER → 2017-11-17 | Outpatient (CLI) | payer BC ==
[~2017-11-17] MED LIST changes: +FAMO-119 PO; +IOHEXOL 350 MG/ML 100 ML (OMNIPAQUE 350) VIAL IV ONE; +LISI1TAB8 PO; +METF-397; -METF500T5; +NS 250 ML (IVPB) BAG IV ONE; +ONDA4TAB8 SL; +TRAM-42 PO
[2017-11-17 07:53] LABS: BASOPHILS % (AUTO) 1 % (0-10); EOSINOPHILS # (AUTO) 0.1 10^3/uL (0.0-0.3); EOSINOPHILS % (AUTO) 2 % (0-10); HEMATOCRIT 44 % (40-54); HEMOGLOBIN 15.9 G/DL (13.3-17.7); LYMPHOCYTES # (AUTO) 1.9 X 10^3 (1.0-4.0); LYMPHOCYTES % (AUTO) 35 % (12-44); MEAN CORPUSCULAR HEMOGLOBIN 32 PG (25-34); MEAN CORPUSCULAR HGB CONC 36 G/DL (32-36); MEAN CORPUSCULAR VOLUME 87 FL (80-99); MEAN PLATELET VOLUME 9.3 FL (7.4-10.4); MONOCYTES # (AUTO) 0.6 X 10^3 (0.0-1.0); MONOCYTES % (AUTO) 11 % (0-12); NEUTROPHILS # (AUTO) 2.8 X 10^3 (1.8-7.8); NEUTROPHILS % (AUTO) 51 % (42-75); PLATELET COUNT 247 10^3/uL (130-400); RED BLOOD COUNT 5.05 10^6/uL (4.35-5.85); RED CELL DISTRIBUTION WIDTH 12.4 % (10.0-14.5); WHITE BLOOD COUNT 5.5 10^3/uL (4.3-11.0)
[2017-11-17 08:10] LABS: ALANINE AMINOTRANSFERASE 43 U/L (0-55); ALBUMIN 4.4 GM/DL (3.2-4.5); ALKALINE PHOSPHATASE 55 U/L (40-136); BILIRUBIN,TOTAL 0.7 MG/DL (0.1-1.0); BUN/CREATININE RATIO 13; CALCIUM 9.1 MG/DL (8.5-10.1); CARBON DIOXIDE 23 MMOL/L (21-32); CHLORIDE 106 MMOL/L (98-107); CREATININE SERUM 1.21 MG/DL (0.60-1.30); GFR ESTIMATED > 60; GLUCOSE 134 MG/DL (70-105); POTASSIUM 4.4 MMOL/L (3.6-5.0); SODIUM 138 MMOL/L (135-145)
--- NOTE | 2017-11-17 08:54 | Diagnostic Imaging Report ---
PROCEDURE: CT abdomen and pelvis with contrast. TECHNIQUE: Multiple contiguous axial images were obtained through the abdomen and pelvis after administration of intravenous contrast. INDICATION: Nausea and abdominal pain. The prior CT abdomen/pelvis exam of 11/01/2016 failed to show any sign of an acute abnormality of the abdomen or pelvis. On this study there are few fluid-filled segments of small bowel in the upper abdomen. This appearance is somewhat similar to the prior exam and could be secondary to mild ileus perhaps related to enteritis. There is no evidence for a bowel obstruction. If as noted on the prior exam, the liver is of lower density than usually seen. This does suggest fatty metamorphosis. There is no focal mass involving liver and the biliary tree is not abnormally dilated. The spleen, gallbladder, pancreas, adrenals, kidneys, aorta and inferior vena cava are unremarkable for an acute abnormality. The stomach is not well distended and consequently difficult to assess. There is no pelvic mass or free fluid collection noted. The urinary bladder and prostate gland are grossly unremarkable. The appendix was visualized and is not abnormally thickened. The bone windows show no sign of a fracture or destructive lesion. The lung bases are clear. IMPRESSION: 1. There are a few dilated fluid-filled segments of small bowel in the upper abdomen. This appearance is nonspecific but could be secondary to an ileus, perhaps related to mild enteritis. Clinical followup is recommended. 2. There is no acute abnormality of the abdomen or pelvis noted otherwise. Dictated by: Dictated on workstation # [id number]
== END ==
LOC: RAD 07:42
PROVIDERS: ATTEND Surgery
DX: R10.9 Unspecified abdominal pain (principal); R11.0 Nausea
CPT/HCPCS: 36415; 74177; 80053; 85025

== ENCOUNTER 2017-11-18 13:25 | Emergency (ER) | payer BC ==
[~2017-11-18] VITALS: Ht 188 cm; Wt 108.9 kg
[~2017-11-18 13:25] MED LIST changes: -FAMO-119 PO; -IOHEXOL 350 MG/ML 100 ML (OMNIPAQUE 350) VIAL IV ONE; -LISI1TAB8 PO; -NS 250 ML (IVPB) BAG IV ONE; -ONDA4TAB8 SL; -TRAM-42 PO
[2017-11-18 13:58] LABS: BILIRUBIN,URINE NEGATIVE (NEGATIVE); CLARITY,URINE CLEAR; COLOR,URINE YELLOW; GLUCOSE, URINE (UA) NEGATIVE (NEGATIVE); KETONES,URINE NEGATIVE (NEGATIVE); LEUKOCYTE ESTERASE ,URINE 1+ (NEGATIVE); NITRITE,URINE NEGATIVE (NEGATIVE); PH,URINE 5 (5-9); PROTEIN,URINE 1+ (NEGATIVE); UROBILINOGEN,URINE NORMAL (NORMAL)
[2017-11-18 14:04] LABS: BACTERIA,URINE NEGATIVE /HPF; WBC,URINE RARE /HPF
--- OUTSIDE RECORDS SUMMARY | 2017-11-18 14:10 | XMS REPORT ---
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 Name Role Phone MARIANA SOLER Unavailable PROBLEMS Type Condition ICD9-CM Code OGH36-DQ Code Onset Dates Condition Status SNOMED Code Problem History of herpes genitalis Z86.19 Active 189755063 Problem Essential hypertension I10 Active 65658060 Problem Gastroesophageal reflux disease, esophagitis presence not specified K21.9 Active 611166215 Problem Type 2 diabetes mellitus with other specified complication, without long-term current use of insulin E11.69 Active 72837254 Problem Carpal tunnel syndrome of right wrist G56.01 Active 398559236568405 Problem Biceps tendonitis, right M75.21 Active 728361883 Problem Arthritis M19.90 Active 9505241 Problem Mixed hyperlipidemia E78.2 Active 890284453 Problem Prediabetes R73.03 Active 413456824 ALLERGIES No Information ENCOUNTERS Encounter Location Date Diagnosis [place] [address] [address] Nov, [place] [address] [address] Oct, [place] [address] [place] [id number] [place] [address] Oct, Bilateral hand numbness R20.0 [place] [address] [address] Oct, [place] [address] [address] Oct, Dehydration E86.0 ; Acute kidney insufficiency N28.9 ; Essential hypertension I10 ; Bilateral impacted cerumen H61.23 and Colon cancer screening Z12.11 [place] [address] [place] [id number] [place] [address] Sep, Bilateral hand numbness R20.0 and Type 2 diabetes mellitus with other specified complication, without long-term current use of insulin E11.69 [facility] [address] [place] [id number] [place] [address] Aug, Bilateral hand numbness R20.0 ; Essential hypertension I10 ; Mixed hyperlipidemia E78.2 ; Prediabetes R73.03 and Type 2 diabetes mellitus with other specified complication, without long-term current use of insulin E11.69 [place] [address] [place] [id number] [place] [address] Aug, [place] [address] [place] [id number] [place] [address] Jul, Bilateral leg cramps R25.2 [place] [address] [address] June, [place] [address] [place] [id number] [place] [address] May, Essential hypertension I10 ; Mixed hyperlipidemia E78.2 and Prediabetes R73.03 [facility] [address] [place] [id number] [place] [address] Apr, Acute non-recurrent maxillary sinusitis J01.00 and Cough R05 [place] [address] [place] [id number] [place] [address] Apr, [place] [address] [place] [id number] [place] [address] Mar, Pneumonia of right lower lobe due to infectious organism J18.1 [place] [address] [place] [id number] [place] [address] Mar, Pneumonia of right lower lobe due to infectious organism J18.1 and Shortness of breath R06.02 [place] [address] [place] [id number] [place] [address] Mar, [place] [address] [place] [id number] [place] [address] 13 Mar, 2017 Influenza-like illness R69 and Impacted cerumen of both ears H61.23 [place] [address] [place] [id number] [place] [address]10- 58[address] 25 Oct, 2016 [place] [address] [address] 14 Oct, 2016 [place] [address] [address] 08 Oct, 2016 Carpal tunnel syndrome of right wrist G56.01 and RUQ abdominal pain R10.11 [place] [address] [address] Sep, Essential hypertension I10 ; Mixed hyperlipidemia E78.2 and Prediabetes R73.03 [place] [address] [address]- [address] 09 Sep, 2016 Essential hypertension I10 [place] [address] [address]- [address] 08 Jul, 2016 Acute otitis externa of right ear, unspecified type H60.501 [place] [address] [place] [id number] [place] [address] 61069- [address] 16 Jun, 2016 Biceps tendonitis, right M75.21 and Essential hypertension I10 [place] [address] [place] [id number] [place] [address] 38070- 9[address] June, [place] [address] [address] May, Essential hypertension I10 and Cramp of both lower extremities R25.2 [place] [address] [address] 18 May, 2016 Arthritis M19.90 and Cramp of both lower extremities R25.2 [facility] [address] [address] 18 Mar, 2016 [facility] [address] [facility] [id number] 26 Nov, 2015 Essential hypertension I10 and Colon cancer screening Z12.11 [facility] [address] [id number] [place] [address] 14 Nov, 2015 [facility] [address] [id number] [place] [id number] Jul, Dental examination Z01.20 [facility] [address] [facility] [id number] [place] [address] 14 May, 2014 [facility] [address] [place] [id number] [place] [address]70- [address] 13 May, 2014 [facility] [address] [place] [id number] [address] 07 Jan, 2013 [facility] [id number] [address] Jan, [facility] [address] [place] [id number] [address] Aug, [facility] [address] [address] 16 May, 2012 [facility] [address] [address] Mar, [facility] [address] [place] [id number] [address] Feb, [facility] [address] [facility] [id number] [place] [address] Jan, [facility] [address] [facility] [id number] [place] [address] Jan, [facility] [address] [facility] [id number] [place] [address] Jan, [facility] [id number] [address] Jan, [facility] [place] [facility] [address] [id number] [place] [address] Jan, [facility] [place] [facility] [address] [id number] [place] [address] Jan, [facility] [place] [facility] [address] [facility] [id number] [place] [address] Jan, [facility] [place] [facility] [address] [id number] [place] [address] Jan, [facility] [place] [facility] [address] [id number] [place] [address] Jan, [facility] [place] [facility] [address] [id number] [place] [address]- [address] Jan, [facility] [place] [facility] [address] [id number] [place] [address]- [address] Jan, [facility] [place] [facility] [address] [id number] [place] [address]- [address] Jan, [facility] [place] [facility] [address] [id number] [place] [address]- 4598 Jan, [facility] [place] [facility] [address] [id number] [place] [address]- [address] Jan, [facility] [place] [facility] [address] [id number] [place] [address]- [address] Jan, [facility] [place] [facility] [address] [id number] [place] [address]- [address] Dec, [facility] [place] [facility] [address] [id number] [place] [address]- [address] Dec, [facility] [place] [facility] [address] [id number] [place] [address]- [address] Dec, [facility] [place] [facility] [address] [facility] [id number] [place] [address]- [address] Dec, [facility] [place] [facility] [id number] [address] Dec, [facility] [id number] [address] Dec, [facility] [id number] [address] Sep, [facility] [id number] [address] Sep, [facility] [id number] [address]- [address] Sep, [facility] [id number] [place] [address]- [address] Aug, [facility] [id number] [address] Aug, [facility] [id number] [address] May, [facility] [id number] [address]- [address] May, [facility] [address] [address]- [address] May, [facility] [id number] [address] May, [facility] [address] [address] Apr, [facility] [id number] [address] Mar, [facility] [address] [place] [id number] [address] Mar, IMMUNIZATIONS No Known Immunizations SOCIAL HISTORY Never Assessed REASON FOR VISIT PLAN OF CARE VITAL SIGNS MEDICATIONS Unknown Medications RESULTS No Results PROCEDURES No Known procedures INSTRUCTIONS MEDICATIONS ADMINISTERED No Known Medications MEDICAL (GENERAL) HISTORY Type Description Date Medical History hypertension Medical History hyperlipidemia Medical History Arthritis Surgical History orthopedic surgery--Left elbow, removal of bone spur and scar tissue Hospitalization History Surgery only
[2017-11-18 14:11] LABS: BASOPHILS % (AUTO) 0 % (0-10); EOSINOPHILS # (AUTO) 0.1 10^3/uL (0.0-0.3); EOSINOPHILS % (AUTO) 1 % (0-10); HEMATOCRIT 42 % (40-54); HEMOGLOBIN 15.7 G/DL (13.3-17.7); LYMPHOCYTES # (AUTO) 1.7 X 10^3 (1.0-4.0); LYMPHOCYTES % (AUTO) 29 % (12-44); MEAN CORPUSCULAR HEMOGLOBIN 33 PG (25-34); MEAN CORPUSCULAR HGB CONC 37 G/DL (32-36); MEAN CORPUSCULAR VOLUME 87 FL (80-99); MEAN PLATELET VOLUME 9.9 FL (7.4-10.4); MONOCYTES # (AUTO) 0.5 X 10^3 (0.0-1.0); MONOCYTES % (AUTO) 8 % (0-12); NEUTROPHILS # (AUTO) 3.6 X 10^3 (1.8-7.8); NEUTROPHILS % (AUTO) 62 % (42-75); PLATELET COUNT 232 10^3/uL (130-400); RED BLOOD COUNT 4.82 10^6/uL (4.35-5.85); RED CELL DISTRIBUTION WIDTH 12.4 % (10.0-14.5); WHITE BLOOD COUNT 5.8 10^3/uL (4.3-11.0)
--- OUTSIDE RECORDS SUMMARY | 2017-11-18 14:11 | XMS REPORT ---
Author Author MARIANA SOLER Organization [facility] Address [address] [place] [address] Care Team Providers Care Application Software Developer Name Role Phone MARIANA SOLER Unavailable PROBLEMS Type Condition ICD9-CM Code MRZ92-FO Code Onset Dates Condition Status SNOMED Code Problem History of herpes genitalis Z86.19 Active 525273477 Problem Essential hypertension I10 Active 94497120 Problem Gastroesophageal reflux disease, esophagitis presence not specified K21.9 Active 599235930 Problem Type 2 diabetes mellitus with other specified complication, without long-term current use of insulin E11.69 Active 91469730 Problem Carpal tunnel syndrome of right wrist G56.01 Active 241169202071706 Problem Biceps tendonitis, right M75.21 Active 567921944 Problem Arthritis M19.90 Active 8612239 Problem Mixed hyperlipidemia E78.2 Active 405870209 Problem Prediabetes R73.03 Active 386827987 ALLERGIES No Known Allergies ENCOUNTERS Encounter Location Date Diagnosis [place] [address] [address] Nov, [place] [address] [address]- 27[address] Oct, Bilateral hand numbness R20.0 [place] [address] [address]- 9[address] Oct, [place] [address] 8[address]47- 3138 Oct, Dehydration E86.0 ; Acute kidney insufficiency N28.9 ; Essential hypertension I10 ; Bilateral impacted cerumen H61.23 and Colon cancer screening Z12.11 [place] [address] 6[address]- 9245 Sep, Bilateral hand numbness R20.0 and Type 2 diabetes mellitus with other specified complication, without long-term current use of insulin E11.69 [facility] [address] [place] [id number] [place] [address]58- 1825 Aug, Bilateral hand numbness R20.0 ; Essential hypertension I10 ; Mixed hyperlipidemia E78.2 ; Prediabetes R73.03 and Type 2 diabetes mellitus with other specified complication, without long-term current use of insulin E11.69 [facility] [address] [place] [id number] [place] [address] 60398- 7094 Aug, [place] [address] [place] [id number] [place] [address] 17719- 6488 Jul, Bilateral leg cramps R25.2 [place] [address] [place] [id number] [place] [address] 36089- 2168 June, [place] [address] [place] [id number] [place] [address] 93426- 2461 May, Essential hypertension I10 ; Mixed hyperlipidemia E78.2 and Prediabetes R73.03 [facility] [address] [place] [address] [id number] [place] [address] 05855 -6010 Apr, Acute non-recurrent maxillary sinusitis J01.00 and Cough R05 [place] [address] [place] [id number] [place] [address] 80568- 9668 Apr, [place] [address] [place] [id number] [place] [address] 94434- 2389 Mar, Pneumonia of right lower lobe due to infectious organism J18.1 [place] [address] [place] [id number] [place] [address] 35521- 3057 Mar, Pneumonia of right lower lobe due to infectious organism J18.1 and Shortness of breath R06.02 [facility] [address] [place] [id number] [place] [address] 54121- 7129 14 Mar, 2017 [place] [address] [place] [id number] [place] [address] 10331- 3125 Mar, Influenza-like illness R69 and Impacted cerumen of both ears H61.23 [place] [address] [place] [id number] [place] [address] 82077- 1912 25 Oct, 2016 [place] [address] 61225- 1791 14 Oct, 2016 [place] [address] 26409- 6295 08 Oct, 2016 Carpal tunnel syndrome of right wrist G56.01 and RUQ abdominal pain R10.11 [place] [address] 31287- 9332 Sep, Essential hypertension I10 ; Mixed hyperlipidemia E78.2 and Prediabetes R73.03 [place] [address] 72483- 4643 Sep, Essential hypertension I10 [place] [address] 84308- 4445 Jul, Acute otitis externa of right ear, unspecified type H60.501 [place] [address] 76034- 3677 June, Biceps tendonitis, right M75.21 and Essential hypertension I10 [place] [address] 11196- 2450 June, [place] [address] 42405- 2813 May, Essential hypertension I10 and Cramp of both lower extremities R25.2 [place] [address] 42547- 0018 May, Arthritis M19.90 and Cramp of both lower extremities R25.2 [facility] [address] [place] [id number] [place] [address] 90130 -8405 18 Mar, 2016 [facility] [address] 92704- 9233 Nov, Essential hypertension I10 and Colon cancer screening Z12.11 [facility] [address] [id number] [address] 14 Nov, 2015 [facility] [address] [id number] [id number] Jul, Dental examination Z01.20 [facility] [address] [id number] [address]- 1869 14 May, 2014 [facility] [address] [id number] [place] [address]- 0521 13 May, 2014 [facility] [address] [facility] [id number] [place] [address], [place] [address]- 2485 07 Jan, 2013 [facility] [address] [facility] [id number] [place] [address]- 3518 Jan, [facility] [address] [id number] [address]- 2592 Aug, [facility] [address] [facility] [id number] [place] [address]- 2306 16 May, 2012 [facility] [address] [facility] [id number] [place] [address]- 0525 Mar, [facility] [address] [facility] [id number] [place] [address] Feb, [facility] [address] [facility] [id number] [place] [address] Jan, [facility] [address] [id number] [place] [address]- 3272 Jan, [facility] [address] [facility] [id number] [place] [address]- 4606 Jan, [facility] [address] [facility] [id number] [place] [address]- 9246 Jan, [facility] [address] [facility] [id number] [place] [address]- 7031 Jan, [facility] [place] [facility] [address] [id number] [place] [address]- 8572 Jan, [facility] [place] [facility] [address] [id number] [place] [address]- 9026 Jan, [facility] [place] [facility] [address] [facility] [id number] [place] [address]- 1196 Jan, [facility] [place] [facility] [address] [id number] [place] [address]- 9771 Jan, [facility] [place] [facility] [address] [id number] [place] [address]- 4892 Jan, [facility] [place] [facility] [address] [id number] [place] [address]- 0834 Jan, [facility] [place] [facility] [address] [facility] [id number] [place] [address]- 0926 Jan, [facility] [place] [facility] [address] [id number] [place] [address]- 1548 Jan, [facility] [place] [facility] [address] [id number] [place] [address]- 1045 Jan, [facility] [place] [facility] [address] [facility] [id number] [place] [address]- 1958 Jan, [facility] [place] [facility] [address] [id number] [place] [address]- 9602 Dec, [facility] [place] [facility] [address] [id number] [place] [address]- 4278 Dec, [facility] [place] [facility] [address] [id number] [place] [address]- 2360 Dec, [facility] [place] [facility] [address] [facility] [id number] [place] [address]- 2830 Dec, [facility] [place] [facility] [address] [facility] [id number] [place] [address]- 2565 Dec, [facility] [place] [facility] [address] [address]- 3886 Dec, [facility] [address]65100[place] [address]- 6261 Sep, [facility] [address]65[address] Sep, [facility] [address]65100[place] [address]- 0318 Sep, [facility] [address]65[address] [address]- 3530 Aug, [facility] [address] [place] [address] 70626- 5973 Aug, [facility] [address] [place] [id number] [place] [address] 072269- 7054 May, [facility] [address] [place] [id number] [place] [address] 43055- 2885 May, [facility] [address] 5777 May, [facility] [address] 6077 May, [facility] [address] [address]- 0591 Apr, [facility] [address] [address]- 1652 Mar, [facility] [address] [place] [id number] [address]- 5674 Mar, IMMUNIZATIONS No Known Immunizations SOCIAL HISTORY Never Assessed REASON FOR VISIT VC-ER F/U (dehydration/diarrhea); follow up hand numbness -- manuel santillan PLAN OF CARE Activity Details Follow Up 3 Months with Flora COMBS Reason: VITAL SIGNS Height 75 in 2017-10-04 Weight 241.0 lbs 2017-10-04 Temperature 97.4 degrees Fahrenheit 2017-10-04 Heart Rate 86 bpm 2017-10-04 Respiratory Rate 20 2017-10-04 BMI 30.12 kg/m2 2017-10-04 Blood pressure systolic 136 mmHg 2017-10-04 Blood pressure diastolic 84 mmHg 2017-10-04 MEDICATIONS Medication Instructions Dosage Frequency Start Date End Date Duration Status Metformin HCl 500 mg Orally Twice a day (take one tablet for the first week) 1 tablet with meals 30 Active Omeprazole 20 mg Orally Once a day 1 capsule 24h Active Lisinopril-Hydrochlorothiazide 20-12.5 MG Orally Once a day 2 tablets 24h 30 Active Atenolol 25 MG Orally Once a day 1 tablet 24h 1 month Active RESULTS No Results PROCEDURES No Known procedures INSTRUCTIONS MEDICATIONS ADMINISTERED No Known Medications MEDICAL (GENERAL) HISTORY Type Description Date Medical History hypertension Medical History hyperlipidemia Medical History Arthritis Surgical History orthopedic surgery--Left elbow, removal of bone spur and scar tissue Hospitalization History Surgery only
--- OUTSIDE RECORDS SUMMARY | 2017-11-18 14:11 | XMS REPORT ---
Author Author MARIANA SOLER Organization [facility] Address [address] [place] [address] Care Team Providers Care Machine Stone Polisher Apprentice Name Role Phone MARIANA SOLER Unavailable PROBLEMS Type Condition ICD9-CM Code EVL97-SM Code Onset Dates Condition Status SNOMED Code Problem History of herpes genitalis Z86.19 Active 621364214 Problem Essential hypertension I10 Active 39520350 Problem Gastroesophageal reflux disease, esophagitis presence not specified K21.9 Active 454354030 Problem Type 2 diabetes mellitus with other specified complication, without long-term current use of insulin E11.69 Active 63224921 Problem Carpal tunnel syndrome of right wrist G56.01 Active 482820429466153 Problem Biceps tendonitis, right M75.21 Active 594282179 Problem Arthritis M19.90 Active 5345641 Problem Mixed hyperlipidemia E78.2 Active 913152611 Problem Prediabetes R73.03 Active 103931491 ALLERGIES No Known Allergies ENCOUNTERS Encounter Location Date Diagnosis [place] [address] [address] Aug, Bilateral hand numbness R20.0 ; Essential hypertension I10 ; Mixed hyperlipidemia E78.2 ; Prediabetes R73.03 and Type 2 diabetes mellitus with other specified complication, without long-term current use of insulin E11.69 [facility] [address] [place] [address] 23075- 6960 Aug, [facility] [address] [place] [id number] [place] [address] 67722- 1609 Jul, Bilateral leg cramps R25.2 [facility] [address] [place] [id number] [place] [address] 35725- 9882 June, [place] [address] 17965- 7918 May, Essential hypertension I10 ; Mixed hyperlipidemia E78.2 and Prediabetes R73.03 [facility] [address] [place] [id number] [place] [address] 47231 -2920 Apr, Acute non-recurrent maxillary sinusitis J01.00 and Cough R05 [place] [address] [place] [id number] [place] [address] 24965- 6973 Apr, [place] [address] 44561- 2874 Mar, Pneumonia of right lower lobe due to infectious organism J18.[address] [address]- 3368 19 Mar, 2017 Pneumonia of right lower lobe due to infectious organism J18.1 and Shortness of breath R06.[address] 89327- 6510 14 Mar, 2017 [place] [address] 70890- 8621 13 Mar, 2017 Influenza-like illness R69 and Impacted cerumen of both ears H61.23 [place] [address] [place] [id number] [place] [address] 04395- 8658 Oct, [place] [address] 80941- 9528 14 Oct, 2016 [place] [address] 70583- 2006 08 Oct, 2016 Carpal tunnel syndrome of right wrist G56.01 and RUQ abdominal pain R10.[address] 96693- 1174 Sep, Essential hypertension I10 ; Mixed hyperlipidemia E78.2 and Prediabetes R73.03 [place] [address] [place] [id number] [place] [address] 95542- 4236 Sep, Essential hypertension I10 [place] [id number] [place] [address] 78468- 9073 Jul, Acute otitis externa of right ear, unspecified type H60.501 [facility] [address] [place] [id number] [place] [address] 63531- 0973 June, Biceps tendonitis, right M75.21 and Essential hypertension I10 [facility] [address] [place] [id number] [place] [address] 05904- 6644 June, [facility] [address] [place] [id number] [place] [address] 71523- 6096 May, Essential hypertension I10 and Cramp of both lower extremities R25.2 [place] [address] [place] [id number] [place] [address] 03793- 2046 May, Arthritis M19.90 and Cramp of both lower extremities R25.2 [facility] [address] [place] [id number] [place] [address] 13425 -2556 Mar, [facility] [address] [place] [id number] [place] [address] 36363- 8036 Nov, Essential hypertension I10 and Colon cancer screening Z12.11 [place] [address] [place] [id number] [place] [address] 51934- 2535 Nov, [facility] [address] [place] [address] [id number] Jul, Dental examination Z01.20 [facility] [address] [place] [id number] [place] [address] 88698- 0726 May, [facility] [address] [place] [id number] [place] [address] 26582- 1569 May, [facility] [address] [place] [id number] [place] [address] 71262- 8490 Jan, [facility] [address] [place] [id number] [place] [address] 22978- 3135 Jan, [facility] [address] [place] [address]- 1641 Aug, [facility] [address] [id number] [place] [address]- 9746 16 May, 2012 [facility] [place] [facility] [address] [id number] [place] [address]- 2856 Mar, [facility] [address] [id number] [place] [address]- 9316 Feb, [facility] [place] [facility] [address] [id number] [place] [address] 2546 Jan, [facility] [address] [id number] [place] [address]- 1546 Jan, [facility] [place] [facility] [address] [id number] [place] [address]- 7686 Jan, [facility] [address] [id number] [place] [address]- 7751 Jan, [facility] [address] [id number] [place] [address]- 1868 Jan, [facility] [place] [facility] [address] [id number] [place] [address]- 4126 Jan, [facility] [address] [id number] [place] [address]- 9385 Jan, [facility] [place] [facility] [address] [id number] [place] [address] 2546 07 Jan, 2012 [facility] [place] [facility] [address] [id number] [place] [address] 2546 06 Jan, 2012 [facility] [place] [facility] [address] [id number] [place] [address] 2546 05 Jan, 2012 [facility] [place] [facility] [address] [id number] [place] [address] 2546 05 Jan, 2012 [facility] [place] [facility] [address] [id number] [place] [address]- 7496 Jan, [facility] [place] [facility] [address] [id number] [place] [address]- 2746 Jan, [facility] [place] [facility] [address] [id number] [place] [address]- 6411 Jan, [facility] [place] [facility] [address] [id number] [place] [address]- 0759 Jan, [facility] [place] [facility] [address] [id number] [place] [address]- 1749 Dec, [facility] [place] [facility] [address] [id number] [place] [address]- 1933 Dec, [facility] [place] [facility] [address] [id number] [place] [address]- 0648 Dec, [facility] [place] [facility] [address] [id number] [place] [address]- 7208 Dec, [facility] [place] [facility] [address] [id number] [place] [address]- 1039 Dec, [facility] [place] [facility] [address] [id number] [place] [address]- 4176 Dec, [facility] [place] [facility] [address] [id number] [place] [address]- 8714 Sep, [facility] [place] [facility] [address] [id number] [place] [address]- 5754 Sep, [facility] [place] [facility] [address] [id number] [place] [address]- 2504 Sep, [facility] [place] [facility] [address] [id number] [place] [address]- 8342 Aug, [facility] [place] [facility] [address] [id number] [place] [address]- 5372 Aug, [facility] [place] [facility] [address] [id number] [place] [address]- 6913 May, [facility] [place] [facility] [address] [id number], [place] [address]- 6477 May, [facility] [address] [facility] [id number] [address]- 0916 May, [facility] [address] [facility] [id number], [place] [address]- 2026 May, [facility] [address] [facility] [id number], [place] [address]- 2424 Apr, [facility] [address] [facility] [id number], [place] [address]- 8910 Mar, [facility] [address] [facility] [id number]- 9287 Mar, IMMUNIZATIONS No Known Immunizations SOCIAL HISTORY Never Assessed REASON FOR VISIT 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 PLAN OF CARE Activity Details Follow Up 2 Months with Flora f/u HTN Reason: VITAL SIGNS Height 75 in 2017-06-13 Weight 247 lbs 2017-06-13 Temperature 98.3 degrees Fahrenheit 2017-06-13 Heart Rate 90 bpm 2017-06-13 Respiratory Rate 20 2017-06-13 BMI 30.87 kg/m2 2017-06-13 Blood pressure systolic 160 mmHg 2017-06-13 Blood pressure diastolic 110 mmHg 2017-06-13 MEDICATIONS Medication Instructions Dosage Frequency Start Date End Date Duration Status Albuterol Sulfate (2.5 MG/3ML) 0.083% Inhalation 4 times a day as needed 3 ml as needed Apr, Active Metformin HCl 500 mg Orally Twice a day (take one tablet for the first week) 1 tablet with meals 30 Active Nebulizers - as directed Apr, Active Atenolol 25 MG Orally Once a day 1 tablet 24h 1 month Active Lisinopril-Hydrochlorothiazide 20-12.5 MG Orally Once a day 2 tablets 24h 30 Active Omeprazole 20 mg Orally Once a day 1 capsule 24h Active RESULTS No Results PROCEDURES Procedure Date Ordered Result Body Site LIPID PANEL June 13, 2017 COMPREHEN METABOLIC PANEL June 13, 2017 VENIPUNCT, ROUTINE* June 13, 2017 Hemoglobin Test Send Out 0 dollar June 13, 2017 COMPLETE CBC W/AUTO DIFF WBC June 13, 2017 MICROALBUMIN, QUANTITATIVE June 13, 2017 ASSAY OF URINE CREATININE June 13, 2017 INSTRUCTIONS MEDICATIONS ADMINISTERED No Known Medications MEDICAL (GENERAL) HISTORY Type Description Date Medical History hypertension Medical History hyperlipidemia Medical History Arthritis Surgical History orthopedic surgery--Left elbow, removal of bone spur and scar tissue Hospitalization History Surgery only
--- OUTSIDE RECORDS SUMMARY | 2017-11-18 14:11 | XMS REPORT ---
Author Author MARIANA SOLER Organization [facility] Address [address] [place] [address] Care Team Providers Care Bmet Name Role Phone MARIANA SOLER Unavailable PROBLEMS Type Condition ICD9-CM Code XPH17-HE Code Onset Dates Condition Status SNOMED Code Problem History of herpes genitalis Z86.19 Active 785528088 Problem Essential hypertension I10 Active 07394761 Problem Gastroesophageal reflux disease, esophagitis presence not specified K21.9 Active 930217835 Problem Type 2 diabetes mellitus with other specified complication, without long-term current use of insulin E11.69 Active 75641669 Problem Carpal tunnel syndrome of right wrist G56.01 Active 364860613453287 Problem Biceps tendonitis, right M75.21 Active 904473990 Problem Arthritis M19.90 Active 2755441 Problem Mixed hyperlipidemia E78.2 Active 642746566 Problem Prediabetes R73.03 Active 221633846 ALLERGIES No Information ENCOUNTERS Encounter Location Date Diagnosis [place] [address] [address] Sep, Bilateral hand numbness R20.0 and Type 2 diabetes mellitus with other specified complication, without long-term current use of insulin E11.69 [facility] [address] [place] [place] [id number] [place] [address] 88512- 3868 Aug, Bilateral hand numbness R20.0 ; Essential hypertension I10 ; Mixed hyperlipidemia E78.2 ; Prediabetes R73.03 and Type 2 diabetes mellitus with other specified complication, without long-term current use of insulin E11.69 [facility] [address] [id number] [place] [address] 73585- 4533 Aug, [facility] [address] 10[address]- 5048 Jul, Bilateral leg cramps R25.2 [place] [address] [place] [id number] [place] [address] 92126- 0504 June, [place] [address] 42697- 1378 May, Essential hypertension I10 ; Mixed hyperlipidemia E78.2 and Prediabetes R73.03 [facility] WALK IN [facility] [address] [address] Apr, Acute non-recurrent maxillary sinusitis J01.00 and Cough R05 [place] [address] 42684- 2802 Apr, [place] [address] 42886- 6708 21 Mar, 2017 Pneumonia of right lower lobe due to infectious organism J18.1 [place] [address] 49549- 7462 19 Mar, 2017 Pneumonia of right lower lobe due to infectious organism J18.1 and Shortness of breath R06.02 [place] [address] [id number] [place] [address] 20920- 6295 14 Mar, 2017 [place] [address] [id number] [place] [address] 00093- 1655 13 Mar, 2017 Influenza-like illness R69 and Impacted cerumen of both ears H61.23 [place] [address] [place] [id number] [place] [address] 67292- 0087 Oct, [place] [address] [id number] [place] [address] 86893- 7640 14 Oct, 2016 [place] [address] 20914- 3926 08 Oct, 2016 Carpal tunnel syndrome of right wrist G56.01 and RUQ abdominal pain R10.11 [place] [address] [place] [id number] [place] [address] 61579- 8642 Sep, Essential hypertension I10 ; Mixed hyperlipidemia E78.2 and Prediabetes R73.03 [facility] [address] [place] [address] [id number] [place] [address] 88395- 5155 Sep, Essential hypertension I10 [facility] [address] [id number] [place] [address] 42429- 2545 Jul, Acute otitis externa of right ear, unspecified type H60.501 [facility] [address] [place] [id number] [place] [address] 76934- 2798 June, Biceps tendonitis, right M75.21 and Essential hypertension I10 [place] [address] [id number] [place] [address] 71185- 2285 June, [facility] [address] [place] [address] [id number] [place] [address] 01131- 4872 May, Essential hypertension I10 and Cramp of both lower extremities R25.2 [facility] [address] [place] [id number] [place] [address] 12154- 1537 May, Arthritis M19.90 and Cramp of both lower extremities R25.2 [facility] WALK IN [facility] [address] [id number] [place] [address] 49671 -6468 Mar, [facility] [address] [place] [address] [id number] [place] [address] 68367- 4616 Nov, Essential hypertension I10 and Colon cancer screening Z12.11 [facility] [address] [place] [id number] [place] [address] 60857- 5779 Nov, [facility] [address] [id number] [place] [address] [id number] Jul, Dental examination Z01.20 [facility] [address] [place] [id number] [place] [address] 93325- 4531 14 May, 2014 [facility] [address] [place] [id number] [place] [address] 06079- 2541 13 May, 2014 [facility] [address] [address] [id number] [place] [address] 10633- 5046 07 Jan, 2013 [facility] [address] [id number] [place] [address]- 6786 07 Jan, 2013 [facility] [address] [id number] [place] [address]- 6896 Aug, [facility] [address] [id number] [place] [address]- 0806 16 May, 2012 [facility] [address] [id number] [place] [address]- 5893 Mar, [facility] [address] [id number] [place] [address]- 2286 Feb, [facility] [address] [id number] [place] [address]- 5606 Jan, [facility] [address] [id number] [place] [address]- 7590 31 Jan, 2012 [facility] [address] [id number] [place] [address]- 2238 26 Jan, 2012 [facility] [address] [id number] [place] [address]- 0793 18 Jan, 2012 [facility] [address] [facility] [id number] [place] [address]- 2261 Jan, [facility] [address] [id number] [place] [address]- 2201 10 Jan, 2012 [facility] [address] [id number] [place] [address]- 5736 07 Jan, 2012 [facility] [address] [id number] [place] [address]- 7911 07 Jan, 2012 [facility] [address] [id number] [place] [address]- 3016 06 Jan, 2012 [facility] [address] [facility] [id number] [place] [address]- 4824 05 Jan, 2012 [facility] [place] [facility] [address] [id number] [place] [address]- 9802 Jan, [facility] [place] [facility] [address] [id number] [place] [address]- 7326 Jan, [facility] [place] [facility] [address] [id number] [place] [address]- 6416 Jan, [facility] [place] [facility] [address] [id number] [place] [address]- 1676 Jan, [facility] [place] [facility] [address] [id number] [place] [address]- 9996 Jan, [facility] [place] [facility] [address] [id number] [place] [address]- 8902 Dec, [facility] [place] [facility] [address] [id number] [place] [address]- 8295 Dec, [facility] [place] [facility] [address] [id number] [place] [address]- 4229 Dec, [facility] [place] [facility] [address] [id number] [place] [address]- 8768 Dec, [facility] [place] [facility] [address] [id number] [place] [address]- 3215 Dec, [facility] [place] [facility] [address] [id number] [place] [address]- 7742 Dec, [facility] [place] [facility] [address] [id number] [place] [address]- 0913 Sep, [facility] [place] [facility] [address] [id number] [place] [address]- 1781 Sep, [facility] [place] [facility] [address] [id number] [place] [address]- 5026 Sep, [facility] [place] [facility] [address] [id number] [place] [address]- 6227 Aug, [facility] [place] [facility] [address] [id number] [place] 8027 Aug, [facility] [address] [facility] [id number] [address]- 8323 May, [facility] [address] [address]- 8840 May, [facility] [address] [id number] [address]- 2266 May, [facility] [address] [address]- 8213 May, [facility] [address] [address]- 7490 Apr, [facility] [address] [id number] [address]- 3123 Mar, [facility] [address] [address]- 8043 Mar, IMMUNIZATIONS No Known Immunizations SOCIAL HISTORY Never Assessed REASON FOR VISIT Phone call PLAN OF CARE VITAL SIGNS MEDICATIONS No Known Medications RESULTS No Results PROCEDURES No Known procedures INSTRUCTIONS MEDICATIONS ADMINISTERED No Known Medications MEDICAL (GENERAL) HISTORY Type Description Date Medical History hypertension Medical History hyperlipidemia Medical History Arthritis Surgical History orthopedic surgery--Left elbow, removal of bone spur and scar tissue Hospitalization History Surgery only
--- OUTSIDE RECORDS SUMMARY | 2017-11-18 14:11 | XMS REPORT ---
Author Author MARIANA SOLER Organization [facility] Address [address] [place] [address] Care Team Providers Care Jigsawyer Name Role Phone MARIANA SOLER Unavailable PROBLEMS Type Condition ICD9-CM Code RGB25-IG Code Onset Dates Condition Status SNOMED Code Problem History of herpes genitalis Z86.19 Active 377961825 Problem Essential hypertension I10 Active 79455585 Problem Gastroesophageal reflux disease, esophagitis presence not specified K21.9 Active 781183483 Problem Type 2 diabetes mellitus with other specified complication, without long-term current use of insulin E11.69 Active 79973903 Problem Carpal tunnel syndrome of right wrist G56.01 Active 258992844372635 Problem Biceps tendonitis, right M75.21 Active 950046707 Problem Arthritis M19.90 Active 7414730 Problem Mixed hyperlipidemia E78.2 Active 380884452 Problem Prediabetes R73.03 Active 634666817 ALLERGIES No Information ENCOUNTERS Encounter Location Date Diagnosis [place] [address] [address]- 4510 Oct, Bilateral hand numbness R20.0 [place] [address] 69798- 0550 Oct, [place] [address] [place] [id number]- 2647 Oct, Dehydration E86.0 ; Acute kidney insufficiency N28.9 ; Essential hypertension I10 ; Bilateral impacted cerumen H61.23 and Colon cancer screening Z12.11 [place] [address] 39646- 7597 Sep, Bilateral hand numbness R20.0 and Type 2 diabetes mellitus with other specified complication, without long-term current use of insulin E11.69 [place] [address] [place] [address]- 6811 Aug, Bilateral hand numbness R20.0 ; Essential hypertension I10 ; Mixed hyperlipidemia E78.2 ; Prediabetes R73.03 and Type 2 diabetes mellitus with other specified complication, without long-term current use of insulin E11.69 [facility] [address] [place] [id number] [place] [address] 05042- 0597 Aug, [place] [address] 30906- 7465 Jul, Bilateral leg cramps R25.2 [place] [address] 480483- 2519 June, [place] [address] [place] [id number] [place] [address] 03007- 2237 May, Essential hypertension I10 ; Mixed hyperlipidemia E78.2 and Prediabetes R73.03 [facility] IN [facility] [address] [address] -[address]36 Apr, Acute non-recurrent maxillary sinusitis J01.00 and Cough R05 [place] [address] [place] [id number] [place] [address] 47455- 1032 Apr, [place] [address] [place] [id number] [place] [address] 18122- 8939 Mar, Pneumonia of right lower lobe due to infectious organism J18.1 [place] [address] [place] [id number] [place] [address] 23190- 4240 Mar, Pneumonia of right lower lobe due to infectious organism J18.1 and Shortness of breath R06.02 [place] [address] [place] [id number] [place] [address] 65481- 5831 14 Mar, 2017 [place] [address] [place] [id number] [place] [address] 27678- 3857 13 Mar, 2017 Influenza-like illness R69 and Impacted cerumen of both ears H61.23 [place] [address] [place] [id number] [place] [address] 07108- 0755 25 Oct, 2016 [place] [address] [place] [id number] [place] [address] 86195- 1280 14 Oct, 2016 [place] [address] [place] [id number] [place] [address] 13490- 9121 08 Oct, 2016 Carpal tunnel syndrome of right wrist G56.01 and RUQ abdominal pain R10.11 [place] [address] [place] [id number] [place] [address] 42298- 5194 Sep, Essential hypertension I10 ; Mixed hyperlipidemia E78.2 and Prediabetes R73.03 [place] [address] 80199- 9089 Sep, Essential hypertension I10 [place] [address] [place] [id number] [place] [address] 81970- 6547 Jul, Acute otitis externa of right ear, unspecified type H60.501 [place] [address] [place] [id number] [place] [address] 27449- 3331 June, Biceps tendonitis, right M75.21 and Essential hypertension I10 [place] [address] [place] [id number] [place] [address] 38907- 4604 June, [place] [address] [place] [id number] [place] [address] 08117- 9497 May, Essential hypertension I10 and Cramp of both lower extremities R25.2 [place] [address] [place] [id number] [place] [address] 44575- 8713 May, Arthritis M19.90 and Cramp of both lower extremities R25.2 [facility] IN [facility] [address] [place] [id number] [place] [address] 03101 -6835 18 Mar, 2016 [place] [address] [place] [id number] [place] [address] 31848- 3827 Nov, Essential hypertension I10 and Colon cancer screening Z12.11 [place] [address] [id number] [address]- 3824 14 Nov, 2015 [facility] [address] [id number] [place] [id number] Jul, Dental examination Z01.20 [facility] [address] [id number] [place] [address]- 2936 14 May, 2014 [facility] [address] [id number] [place] [address]- 0156 13 May, 2014 [facility] [address] [id number] [place] [address]- 8836 07 Jan, 2013 [facility] [address] [id number] [place] [address]- 2106 Jan, [facility] [address] [id number] [place] [address]- 8396 Aug, [facility] [address] [id number] [place] [address]- 2394 16 May, 2012 [facility] [address] [id number] [place] [address]- 4663 Mar, [facility] [address] [id number] [place] [address]- 6386 Feb, [facility] [address] [id number] [place] [address]75 31 Jan, 2012 [facility] [address] [id number] [place] [address]376 31 Jan, 2012 [facility] [address] [id number] [place] [address]- 7692 26 Jan, 2012 [facility] [address] [id number] [place] [address]- 1966 18 Jan, 2012 [facility] [address] [id number] [place] [address] 2546 Jan, [facility] [address] [id number] [place] [address]- 5896 Jan, [facility] [place] [facility] [address] [id number] [place] [address]- 9082 Jan, [facility] [place] [facility] [address] [id number] [place] [address]- 3386 Jan, [facility] [place] [facility] [address] [facility] [id number] [place] [address]- 7800 Jan, [facility] [place] [facility] [address] [id number] [place] [address]- 8090 Jan, [facility] [place] [facility] [address] [id number] [place] [address]- 1387 Jan, [facility] [place] [facility] [address] [id number] [place] [address]- 1536 Jan, [facility] [place] [facility] [address] [facility] [id number] [place] [address]- 5338 Jan, [facility] [place] [facility] [address] [id number] [place] [address]- 8585 Jan, [facility] [place] [facility] [address] [id number] [place] [address]- 4206 Jan, [facility] [place] [facility] [address] [facility] [id number] [place] [address]- 3024 Dec, [facility] [place] [facility] [address] [id number] [address]- 0841 Dec, [facility] [place] [facility] [address] [id number] [address]- 1932 Dec, [facility] [place] [facility] [address] [id number] [place] [address]- 0954 Dec, [facility] [place] [facility] [address] [id number] [place] [address]- 8541 Dec, [facility] [place] [facility] [address] [facility] [id number] [place] [address]- 6363 Dec, [facility] [place] [facility] [address] [id number], [place] [address]- 7168 Sep, [facility] [address], [place] [address]- 2830 Sep, [facility] [address], [place] [address]- 9373 Sep, [facility] [address], [place] [address]- 4456 Aug, [facility] [address], [place] [address]- 3369 Aug, [facility] [address], [place] [address]- 2209 May, [facility] [address] 2796 May, [facility] [address], [place] [address]- 4641 May, [facility] [address], [place] [address]- 9522 May, [facility] [address], [place] [address]- 7406 Apr, [facility] [address] [id number], [place] [address]- 9116 Mar, [facility] [address] [id number] [address]- 2302 Mar, IMMUNIZATIONS No Known Immunizations SOCIAL HISTORY Never Assessed REASON FOR VISIT Requests return call PLAN OF CARE VITAL SIGNS MEDICATIONS Unknown Medications RESULTS No Results PROCEDURES No Known procedures INSTRUCTIONS MEDICATIONS ADMINISTERED No Known Medications MEDICAL (GENERAL) HISTORY Type Description Date Medical History hypertension Medical History hyperlipidemia Medical History Arthritis Surgical History orthopedic surgery--Left elbow, removal of bone spur and scar tissue Hospitalization History Surgery only
--- OUTSIDE RECORDS SUMMARY | 2017-11-18 14:12 | XMS REPORT ---
Author Author MARIANA SOLER Organization [facility] Address [address] [place] [address] Care Team Providers Care Sales Agent [employer] Name Role Phone MARIANA SOLER Unavailable PROBLEMS Type Condition ICD9-CM Code PFM06-AX Code Onset Dates Condition Status SNOMED Code Problem Unspecified viral infection, in conditions classified elsewhere and of unspecified site 079.99 Active 52412244 Problem Gastroesophageal reflux disease, esophagitis presence not specified K21.9 Active 367228997 Problem Unspecified genital herpes 054.10 Active 16018749 Problem Carpal tunnel syndrome of right wrist G56.01 Active 772026893589810 Problem Mixed hyperlipidemia E78.2 Active 674188306 Problem Arthritis M19.90 Active 1463097 Problem Essential hypertension I10 Active 35357236 Problem Prediabetes R73.03 Active 229506326 Problem Biceps tendonitis, right M75.21 Active 873408749 Problem Other abnormal glucose 790.29 Active 697898024 Problem Cellulitis and abscess of unspecified site 682.9 Active 696855269 Problem Screening examination for venereal disease V74.5 Active 958751564 Problem Accident caused by unspecified cutting and piercing instrument or object E920.9 Active Problem Psychosexual dysfunction with inhibited sexual excitement 302.72 Active 113619421799534 Problem Anxiety state, unspecified 300.00 Active 251836227 Problem Impacted cerumen 380.4 Active 66242658 Problem Other and unspecified hyperlipidemia 272.4 Active 08236353 Problem Other acute otitis externa 380.22 Active 57758587 Problem Dermatophytosis of groin and perianal area 110.3 Active 305129004 ALLERGIES No Information SOCIAL HISTORY Never Assessed PLAN OF CARE VITAL SIGNS MEDICATIONS Medication Instructions Dosage Frequency Start Date End Date Duration Status Lisinopril-Hydrochlorothiazide 20-12.5 MG Orally Once a day 2 tablets 24h 30 Active RESULTS No Results PROCEDURES No Known procedures IMMUNIZATIONS No Known Immunizations MEDICAL (GENERAL) HISTORY Type Description Date Medical History hypertension Medical History hyperlipidemia Medical History Arthritis Surgical History orthopedic surgery--Left elbow, removal of bone spur and scar tissue Hospitalization History Surgery only
--- OUTSIDE RECORDS SUMMARY | 2017-11-18 14:12 | XMS REPORT ---
Author Author NISA HAYNES Organization [facility] Address [address] [place] [address] Care Team Providers Care Hospital Pharmacy Technician Name Role Phone NISA HAYNES Unavailable PROBLEMS Type Condition ICD9-CM Code AVQ73-DU Code Onset Dates Condition Status SNOMED Code Problem Gastroesophageal reflux disease, esophagitis presence not specified K21.9 Active 890581472 Problem History of herpes genitalis Z86.19 Active 802941455 Problem Carpal tunnel syndrome of right wrist G56.01 Active 877633257566707 Problem Mixed hyperlipidemia E78.2 Active 903844998 Problem Arthritis M19.90 Active 1066952 Problem Essential hypertension I10 Active 70567026 Problem Prediabetes R73.03 Active 109594239 Problem Biceps tendonitis, right M75.21 Active 473094902 ALLERGIES No Known Allergies ENCOUNTERS Encounter Location Date Diagnosis [place] [id number] [address] Jul, Bilateral leg cramps R25.2 [facility] [address] [address] June, [facility] [address] [address] May, Essential hypertension I10 ; Mixed hyperlipidemia E78.2 and Prediabetes R73.03 [facility] [address] [address] Apr, Acute non-recurrent maxillary sinusitis J01.00 and Cough R05 [facility] [address] [address] Apr, [facility] [address] [address] Mar, Pneumonia of right lower lobe due to infectious organism J18.1 [place] [address] [place] [id number] [place] [address]- [address] 19 Mar, 2017 Pneumonia of right lower lobe due to infectious organism J18.1 and Shortness of breath R06.02 [place] [address] [address] 14 Mar, 2017 [place] [address] [address] 13 Mar, 2017 Influenza-like illness R69 and Impacted cerumen of both ears H61.23 [place] [address] [address]- [address] 25 Oct, 2016 [place] [address] [address] 14 Oct, 2016 [place] [address] [address] 08 Oct, 2016 Carpal tunnel syndrome of right wrist G56.01 and RUQ abdominal pain R10.11 [place] [address] [address] Sep, Essential hypertension I10 ; Mixed hyperlipidemia E78.2 and Prediabetes R73.03 [place] [address] [address] Sep, Essential hypertension I10 [place] [address] [address] Jul, Acute otitis externa of right ear, unspecified type H60.501 [place] [address] [address] June, Biceps tendonitis, right M75.21 and Essential hypertension I10 [place] [address] [address] June, [place] [address] [address] May, Essential hypertension I10 and Cramp of both lower extremities R25.2 [facility] [address] [place] [id number] [place] [address] 339735- 0992 May, Arthritis M19.90 and Cramp of both lower extremities R25.2 [facility] [address] [place] [address] Mar, [facility] [address] [place] [id number] [place] [address] 093896- 9838 Nov, Essential hypertension I10 and Colon cancer screening Z12.11 [facility] [address] [place] [id number] [place] [address] 037333- 2863 Nov, [facility] [address] [place] [id number] [place] [id number] Jul, Dental examination Z01.20 [facility] [address] [place] [id number] [place] [address]- 4538 May, [facility] [address] [place] [id number] [place] [address] 07886- 8651 May, [facility] [address] [place] [id number] [place] [address]25- 4895 Jan, [facility] [address] [address] Jan, [facility] [address] [place] [address] 75994- 6884 Aug, [facility] [address] [place] [address] 605469- 8714 May, [facility] [address] [place] [id number] [place] [address] 308485- 3079 Mar, [facility] [address] [address] 5[address] Feb, [facility] [address] [place] [id number] [place] [address] 24608- 4710 Jan, [facility] [place] [facility] [address] [id number] [place] [address]- 5086 31 Jan, 2012 [facility] [place] [facility] [address] [id number] [place] [address]- 4436 26 Jan, 2012 [facility] [place] [facility] [address] [id number] [place] [address]- 0706 18 Jan, 2012 [facility] [place] [facility] [address] [id number] [place] [address]- 8696 10 Jan, 2012 [facility] [place] [facility] [address] [id number] [place] [address]- 4326 10 Jan, 2012 [facility] [place] [facility] [address] [id number] [place] [address]- 4096 Jan, [facility] [place] [facility] [address] [id number] [place] [address]- 3613 Jan, [facility] [place] [facility] [address] [id number] [place] [address]- 0617 Jan, [facility] [place] [facility] [address] [id number] [place] [address]- 1107 Jan, [facility] [place] [facility] [address] [id number] [place] [address]- 0578 Jan, [facility] [place] [facility] [address] [id number] [place] [address]- 3241 Jan, [facility] [place] [facility] [address] [id number] [place] [address]- 9666 Jan, [facility] [place] [facility] [address] [id number] [place] [address]- 5086 Jan, [facility] [place] [facility] [address] [id number] [place] [address]- 9766 Jan, [facility] [place] [facility] [address] [id number] [place] [address]- 4340 Dec, [facility] [place] [facility] [address] [id number] [place] [address]- 5968 Dec, [facility] [place] [facility] [address] [id number] [place] [address]- 0426 Dec, [facility] [place] [facility] [address] [id number] [place] [address]- 8856 Dec, [facility] [place] [facility] [address] [id number] [place] [address]- 7389 Dec, [facility] [place] [facility] [address] [id number] [place] [address]- 3789 Dec, [facility] [place] [facility] [address] [id number] [place] [address]- 5032 Sep, [facility] [place] [facility] [address] [id number] [place] [address]- 6800 Sep, [facility] [place] [facility] [address] [id number] [place] [address]- 7667 Sep, [facility] [place] [facility] [address] [id number] [place] [address]- 2442 Aug, [facility] [place] [facility] [address] [id number] [place] [address]- 3743 Aug, [facility] [place] [facility] [address] [id number] [place] [address]- 6489 May, [facility] [place] [facility] [address] [id number] [place] [address]- 4099 May, [facility] [place] [facility] [address] [id number] [place] [address]- 7174 May, [facility] [place] [facility] [address] [id number] [place] [address]- 1676 May, [facility] [place] [facility] [address] [id number] [place] [address]- 2546 Apr, [facility] [place] [facility] [address] [id number] [place] [address] Mar, [facility] [address] [facility] [id number] [place] [address]- [address] Mar, IMMUNIZATIONS No Known Immunizations SOCIAL HISTORY Never Assessed REASON FOR VISIT pt had influenza 3 weeks ago...then developed pneumonia in [place]...was treated outpt...still not feeling well. cough, congestion. [email or web address] PLAN OF CARE Activity Details Follow Up prn Reason: VITAL SIGNS Height 75 in 2017-04-22 Weight 235.0 lbs 2017-04-22 Temperature 99.6 degrees Fahrenheit 2017-04-22 Heart Rate 94 bpm 2017-04-22 Respiratory Rate 20 2017-04-22 BMI 29.37 kg/m2 2017-04-22 Blood pressure systolic 132 mmHg 2017-04-22 Blood pressure diastolic 86 mmHg 2017-04-22 MEDICATIONS Medication Instructions Dosage Frequency Start Date End Date Duration Status Mobic 15 MG Orally Once a day, pc 1 tablet 30 Active Omeprazole 20 mg Orally Once a day 1 capsule 24h Active Nebulizers - as directed Apr, Active Albuterol Sulfate (2.5 MG/3ML) 0.083% Inhalation 4 times a day as needed 3 ml as needed Apr, Active Ondansetron 4 MG Orally every 8 hrs 1 tablet on the tongue and allow to dissolve 8h Oct, 30 day(s) Not-Taking Nebulizers - as directed Apr, Active Levofloxacin 750 MG Orally Once a day 1 tablet 24h Apr, Apr, 10 day(s) Active Promethazine-Codeine 6.25-10 MG/5ML Orally every 6 hrs 5 ml as needed 6h Apr, Active Lisinopril-Hydrochlorothiazide 20-12.5 MG Orally Once a day 2 tablets 24h 30 Active DayQuil Multi-Symptom Not-Taking Atenolol 25 MG Orally Once a day 1 tablet 24h 1 month Active Multivitamin Adults 50+ - Not-Taking Metformin HCl 500 mg Orally Twice a day (take one tablet for the first week) 1 tablet with meals 30 Active RESULTS No Results PROCEDURES Procedure Date Ordered Result Body Site NEBULIZER TREATMENT 2017-04-22 N/A NEB/MDI RX INITIAL April 22, 2017 INSTRUCTIONS MEDICATIONS ADMINISTERED No Known Medications MEDICAL (GENERAL) HISTORY Type Description Date Medical History hypertension Medical History hyperlipidemia Medical History Arthritis Surgical History orthopedic surgery--Left elbow, removal of bone spur and scar tissue Hospitalization History Surgery only
--- OUTSIDE RECORDS SUMMARY | 2017-11-18 14:12 | XMS REPORT ---
Author Author MARIANA SOLER Organization [facility] Address [address] [place] [address] Care Team Providers Care Bushwalking Guide Name Role Phone MARIANA SOLER Unavailable PROBLEMS Type Condition ICD9-CM Code ODO49-JL Code Onset Dates Condition Status SNOMED Code Problem Gastroesophageal reflux disease, esophagitis presence not specified K21.9 Active 937316002 Problem History of herpes genitalis Z86.19 Active 827757775 Problem Carpal tunnel syndrome of right wrist G56.01 Active 890429621204160 Problem Mixed hyperlipidemia E78.2 Active 817123178 Problem Arthritis M19.90 Active 9100922 Problem Essential hypertension I10 Active 38435016 Problem Prediabetes R73.03 Active 593993265 Problem Biceps tendonitis, right M75.21 Active 121602568 ALLERGIES No Known Allergies ENCOUNTERS Encounter Location Date Diagnosis [facility] [address] [address] Aug, [facility] [address] [address] June, [facility] [address] [address]- [address] May, Essential hypertension I10 ; Mixed hyperlipidemia E78.2 and Prediabetes R73.03 [facility] [address] [address] Apr, Acute non-recurrent maxillary sinusitis J01.[address] [facility] [address] [address] Apr, [facility] [address] [address] Mar, Pneumonia of right lower lobe due to infectious organism J18.1 [place] [address] [place] [id number] [place] [address]- 2184 19 Mar, 2017 Pneumonia of right lower lobe due to infectious organism J18.1 and Shortness of breath R06.02 [place] [address] [place] [id number] [place] [address]07- 5862 14 Mar, 2017 [place] [address] [address]- [address] 13 Mar, 2017 Influenza-like illness R69 and Impacted cerumen of both ears H61.23 [place] [address] [address]- 9663 25 Oct, 2016 [place] [address] [address]- 4262 14 Oct, 2016 [place] [address] [address]- 1176 08 Oct, 2016 Carpal tunnel syndrome of right wrist G56.01 and RUQ abdominal pain R10.11 [place] [address] [place] [id number] [place] [address]49- 8746 Sep, Essential hypertension I10 ; Mixed hyperlipidemia E78.2 and Prediabetes R73.03 [place] [address] [place] [id number] [place] [address]019- 2349 09 Sep, 2016 Essential hypertension I10 [place] [address] [address]- 1730 08 Jul, 2016 Acute otitis externa of right ear, unspecified type H60.501 [place] [address] [place] [id number] [place] [address]15- 3855 June, Biceps tendonitis, right M75.21 and Essential hypertension I10 [place] [address] [place] [id number] [place] [address]35- 3287 June, [place] [address] [address]- [address] May, Essential hypertension I10 and Cramp of both lower extremities R25.2 [facility] [address] [address]- [address] May, Arthritis M19.90 and Cramp of both lower extremities R25.2 [facility] [address] [address] Mar, [facility] [address] [place] [id number] [place] [address] 07384- 5785 Nov, Essential hypertension I10 and Colon cancer screening Z12.11 [facility] [address] [place] [id number] [place] [address] 646066- 1193 Nov, [facility] [address] [id number] Jul, Dental examination Z01.20 [facility] [address] [place] [id number] [place] [address] 98248- 2563 14 May, 2014 [facility] [address] [place] [address] 52341- 9477 May, [facility] [address] [place] [address] 003880- 3829 Jan, [facility] [address] [address] Jan, [facility] [address], [place] [address]- [address]444 Aug, [facility] [address], [place] [address]- 5892 [address], [address] [facility] [address], [place] [address]- 5727 Mar, [facility] [address], [place] [address]- [address] Feb, [facility] [address] [place] [address] 019879- 4221 Jan, [facility] [place] [facility] [address] [id number] [place] [address]- 4219 Jan, [facility] [place] [facility] [address] [id number] [place] [address]- 2736 Jan, [facility] [place] [facility] [address] [id number] [place] [address]- 1286 Jan, [facility] [place] [facility] [address] [id number] [place] [address]- 1986 Jan, [facility] [address] [id number] [place] [address]- 3877 Jan, [facility] [place] [facility] [address] [id number] [place] [address]- 9846 Jan, [facility] [address] [id number] [place] [address]- 8074 Jan, [facility] [address] [id number] [place] [address]- 0418 Jan, [facility] [place] [facility] [address] [id number] [place] [address]- 0913 Jan, [facility] [place] [facility] [address] [id number] [place] [address]- 8609 Jan, [facility] [place] [facility] [address] [id number] [place] [address]- 9236 Jan, [facility] [place] [facility] [address] [id number] [place] [address]- 0377 Jan, [facility] [place] [facility] [address] [id number] [place] [address]- 2436 Jan, [facility] [place] [facility] [address] [id number] [place] [address]- 9896 Jan, [facility] [place] [facility] [address] [id number] [place] [address]- 7784 Dec, [facility] [place] [facility] [address] [id number] [place] [address]- 0590 Dec, [facility] [place] [facility] [address] [id number] [place] [address]- 9409 Dec, [facility] [place] [facility] [address] [id number] [place] [address]- 6506 Dec, [facility] [place] [facility] [address] [id number] [place] [address]- 2698 Dec, [facility] [place] [facility] [address] [id number] [place] [address]- 5727 Dec, [facility] [place] [facility] [address] [id number] [place] [address]- 8523 Sep, [facility] [place] [facility] [address] [id number] [place] [address]- 4459 Sep, [facility] [place] [facility] [address] [id number] [place] [address]- 4618 Sep, [facility] [place] [facility] [address] [id number] [place] [address]- 4206 Aug, [facility] [place] [facility] [address] [id number] [place] [address]- 5285 Aug, [facility] [place] [facility] [address] [id number] [place] [address]- 2227 May, [facility] [place] [facility] [address] [id number] [place] [address]- 9926 May, [facility] [place] [facility] [address] [id number] [place] [address]- 0107 May, [facility] [place] [facility] [address] [id number] [place] [address]- 0293 May, [facility] [place] [facility] [address] [id number] [place] [address]- 6779 16 Apr, 2011 [facility] [place] [facility] [address] [id number] [place] [address]- 4949 Mar, [facility] [place] [facility] [address] [facility] [id number] [place] [address]- [address] 10 Mar, 2011 IMMUNIZATIONS No Known Immunizations SOCIAL HISTORY Never Assessed REASON FOR VISIT Blood Pressure f/u -ANA Hightower PLAN OF CARE Activity Details Follow Up 3 Months with Flora for HTN Reason: VITAL SIGNS Height 75 in 2016-07-06 Weight 240 lbs 2016-07-06 Temperature 98 degrees Fahrenheit 2016-07-06 Heart Rate 90 bpm 2016-07-06 Respiratory Rate 18 2016-07-06 BMI 29.99 kg/m2 2016-07-06 Blood pressure systolic 140 mmHg 2016-07-06 Blood pressure diastolic 90 mmHg 2016-07-06 MEDICATIONS Medication Instructions Dosage Frequency Start Date End Date Duration Status Multivitamin Adults 50+ - Active Metformin HCl 500 mg Orally Twice a day (take one tablet for the first week) 1 tablet with meals June, 30 day(s) Active Mobic 15 MG Orally Once a day, pc 1 tablet May, June, 30 day(s) Active Lisinopril-Hydrochlorothiazide 20-12.5 MG Orally Once a day 2 tablets 24h Jan, 1 month Active Atenolol 25 MG Orally Once a day 1 tablet 24h 1 month Active Omeprazole 20 mg Orally Once a day 1 capsule 24h Active RESULTS No Results PROCEDURES No Known procedures INSTRUCTIONS MEDICATIONS ADMINISTERED No Known Medications MEDICAL (GENERAL) HISTORY Type Description Date Medical History hypertension Medical History hyperlipidemia Medical History Arthritis Surgical History orthopedic surgery--Left elbow, removal of bone spur and scar tissue Hospitalization History Surgery only
--- OUTSIDE RECORDS SUMMARY | 2017-11-18 14:12 | XMS REPORT ---
Author Author JOHN CHAPIS Organization [facility] Address [address] [place] [address] Care Team Providers Care Mopper Name Role Phone CHAPIS LOPEZ Unavailable PROBLEMS Type Condition ICD9-CM Code GBX04-YV Code Onset Dates Condition Status SNOMED Code Problem Gastroesophageal reflux disease, esophagitis presence not specified K21.9 Active 164974268 Problem History of herpes genitalis Z86.19 Active 700657982 Problem Carpal tunnel syndrome of right wrist G56.01 Active 955539204476142 Problem Mixed hyperlipidemia E78.2 Active 908806564 Problem Arthritis M19.90 Active 6441845 Problem Essential hypertension I10 Active 09870330 Problem Prediabetes R73.03 Active 671483447 Problem Biceps tendonitis, right M75.21 Active 902494400 ALLERGIES No Known Allergies ENCOUNTERS Encounter Location Date Diagnosis [facility] [address] [address] May, Essential hypertension I10 ; Mixed hyperlipidemia E78.2 and Prediabetes R73.03 [facility] [id number] [place] [address]10 Apr, Acute non-recurrent maxillary sinusitis J01.[address] [facility] [id number] [place] [address]75- 6470 Apr, [facility] [address] [address]- [address] Mar, Pneumonia of right lower lobe due to infectious organism J18.1 [facility] [id number] [place] [address] 01909- 8863 Mar, Pneumonia of right lower lobe due to infectious organism J18.1 and Shortness of breath R06.02 [place] [id number] [place] [address] 27547- 2816 14 Mar, 2017 [place] [address] [address]- [address] 13 Mar, 2017 Influenza-like illness R69 and Impacted cerumen of both ears H61.23 [place] [address] 7[address]- 3852 25 Oct, 2016 [place] [address] 09165- 2458 14 Oct, 2016 [place] [address] 12278- 8132 08 Oct, 2016 Carpal tunnel syndrome of right wrist G56.01 and RUQ abdominal pain R10.[address] [address]- 6[address] Sep, Essential hypertension I10 ; Mixed hyperlipidemia E78.2 and Prediabetes R73.03 [place] [id number] [place] [address] 64063- 9592 Sep, Essential hypertension I10 [address] [address]- 2257 Jul, Acute otitis externa of right ear, unspecified type H60.501 [place] [id number] [place] [address] 83850- 0632 June, Biceps tendonitis, right M75.21 and Essential hypertension I10 [place] [id number] [place] [address] 10166- 6516 June, [address] [address]- 0055 May, Essential hypertension I10 and Cramp of both lower extremities R25.2 [place] [id number] [place] [address] 80857- 8436 18 May, 2016 Arthritis M19.90 and Cramp of both lower extremities R25.2 [facility] [address] [address] Mar, [facility] [id number] [place] [address] 172122- 1212 Nov, Essential hypertension I10 and Colon cancer screening Z12.11 [facility] [id number] [place] [address] 611829- 9108 14 Nov, 2015 [facility] [id number] [place] [address] [id number] Jul, Dental examination Z01.20 [facility] [id number] [place] [address] 73450- 3126 [address] May, [address] [facility] [id number] [place] [address] 21819- 9497 May, [facility] [id number] [place] [address] 01982- 7958 Jan, [facility] [id number] [place] [address]168- 4510 Jan, [facility] [id number] [place] [address] 16530- 5288 Aug, [facility] [id number] [place] [address] 53146- 4056 May, [facility] [id number] [place] [address] 92044- 9928 Mar, [facility] [address] [address] Feb, [facility] [id number] [place] [address] 995651- [address]71 Jan, [facility] [address] [address] Jan, [facility] [id number] [place] [address] 66560- 4169 Jan, [facility] [place] [facility] [address] [id number] [place] [address]- 8206 18 Jan, 2012 [facility] [place] [facility] [address] [id number] [place] [address] Jan, [facility] [place] [facility] [address] [facility] [id number] [place] [address] Jan, [facility] [place] [facility] [address] [id number] [place] [address]- 7866 Jan, [facility] [place] [facility] [address] [id number] [place] [address]- 3166 Jan, [facility] [place] [facility] [address] [id number] [place] [address]- 2711 Jan, [facility] [place] [facility] [address] [id number] [place] [address]- 2002 Jan, [facility] [place] [facility] [address] [id number] [place] [address]- 1147 Jan, [facility] [place] [facility] [address] [id number] [place] [address]- 5074 Jan, [facility] [place] [facility] [address] [id number] [place] [address]- 7888 Jan, [facility] [place] [facility] [address] [id number] [place] [address]- 2176 Jan, [facility] [place] [facility] [address] [id number] [address] 9[address] Jan, [facility] [place] [facility] [address] [id number] [place] [address]- 1366 Dec, [facility] [place] [facility] [address] [id number] [place] [address]- 2741 Dec, [facility] [place] [facility] [address] [facility] [id number] [place] [address]- 3701 Dec, [facility] [place] [facility] [address] [id number] [place] [address] Dec, [facility] [address] [facility] [id number] [place] [address]- 0975 Dec, [facility] [address] [facility] [id number] [place] [address]- 6036 Dec, [facility] [address] [facility] [id number] [place] [address]- [address]309 Sep, [facility] [address] [facility] [id number] [place] [address]- [address]17 Sep, [facility] [address] [facility] [id number] [place] [address]- [address] Sep, [facility] [address] [facility] [id number] [place] [address] Aug, [facility] [id number] [place] [address] Aug, [facility] [id number] [address]- [address]86 May, [facility] [address] [place] [address]- [address] May, [facility] [id number] [address]- 6026 May, [facility] [address] [address]- [address] May, [facility] [address] [facility] [id number] [address] 16 Apr, 2011 [facility] [address] [id number] [address]- 0079 10 [address], [address] 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 Hines after ultrasound Reason: VITAL SIGNS Height 75 in 2016-10-29 Weight 245.0 lbs 2016-10-29 Temperature 98.1 degrees Fahrenheit 2016-10-29 Heart Rate 77 bpm 2016-10-29 Respiratory Rate 18 2016-10-29 BMI 30.62 kg/m2 2016-10-29 Blood pressure systolic 148 mmHg 2016-10-29 Blood pressure diastolic 77 mmHg 2016-10-29 MEDICATIONS Medication Instructions Dosage Frequency Start Date End Date Duration Status Multivitamin Adults 50+ - Active Omeprazole 20 mg Orally Once a day 1 capsule 24h Active Ondansetron 4 MG Orally every 8 hrs 1 tablet on the tongue and allow to dissolve 8h Oct, 30 day(s) Active Mobic 15 MG Orally Once a day, pc 1 tablet 30 Active Metformin HCl 500 mg Orally Twice a day (take one tablet for the first week) 1 tablet with meals June, 30 day(s) Active Atenolol 25 MG Orally Once a day 1 tablet 24h 1 month Active Lisinopril-Hydrochlorothiazide 20-12.5 MG Orally Once a day 2 tablets 24h 30 Active RESULTS Name Result Date Reference Range Ultrasound : Gallbladder 2016-11-05 PROCEDURES No Known procedures INSTRUCTIONS MEDICATIONS ADMINISTERED No Known Medications MEDICAL (GENERAL) HISTORY Type Description Date Medical History hypertension Medical History hyperlipidemia Medical History Arthritis Surgical History orthopedic surgery--Left elbow, removal of bone spur and scar tissue Hospitalization History Surgery only
--- OUTSIDE RECORDS SUMMARY | 2017-11-18 14:12 | XMS REPORT ---
Author Author DOMÍNGUEZBRIAN Mills Organization [facility] Address [address] [place] [address] Care Team Providers Care Cloth Stock Sorter Name Role Phone BRIAN DOMÍNGUEZ Unavailable PROBLEMS Type Condition ICD9-CM Code CZD03-XH Code Onset Dates Condition Status SNOMED Code Problem Gastroesophageal reflux disease, esophagitis presence not specified K21.9 Active 347916247 Problem History of herpes genitalis Z86.19 Active 243168418 Problem Carpal tunnel syndrome of right wrist G56.01 Active 971358963664630 Problem Mixed hyperlipidemia E78.2 Active 090680878 Problem Arthritis M19.90 Active 2370597 Problem Essential hypertension I10 Active 29207118 Problem Prediabetes R73.03 Active 774456497 Problem Biceps tendonitis, right M75.21 Active 988335862 ALLERGIES No Information ENCOUNTERS Encounter Location Date Diagnosis [facility] [address] [address]- [address] Aug, [place] [address] [address]- [address] Jul, Bilateral leg cramps R25.2 [facility] [address] [address]- 8801 June, [facility] [address] 723[address]- 8697 May, Essential hypertension I10 ; Mixed hyperlipidemia E78.2 and Prediabetes R73.03 [facility] [address] [address] -[address]162 Apr, Acute non-recurrent maxillary sinusitis J01.00 and Cough R05 [facility] [address] [address]- 2698 Apr, [place] [id number] [place] [address] 08188- 0450 21 Mar, 2017 Pneumonia of right lower lobe due to infectious organism J18.1 [place] [id number] [place] [address] 61134- 5607 19 Mar, 2017 Pneumonia of right lower lobe due to infectious organism J18.1 and Shortness of breath R06.[address] [address]- 5523 14 Mar, [address] [address]79- 0916 13 Mar, 2017 Influenza-like illness R69 and Impacted cerumen of both ears H61.23 [place] [id number] [place] [address] 01143- 3886 25 Oct, [address] [address]99- 3662 14 Oct, [address] 66[address]- 6834 08 Oct, 2016 Carpal tunnel syndrome of right wrist G56.01 and RUQ abdominal pain R10.11 [place] [id number] [place] [address] 91607- 9908 Sep, Essential hypertension I10 ; Mixed hyperlipidemia E78.2 and Prediabetes R73.03 [place] [id number] [place] [address] 04103- 9352 Sep, Essential hypertension I10 [place] [id number] [place] [address] 76709- 3351 08 Jul, 2016 Acute otitis externa of right ear, unspecified type H60.501 [place] [id number] [place] [address] 88642- 0812 16 Jun, 2016 Biceps tendonitis, right M75.21 and Essential hypertension I10 [address] [address]- 7576 June, [facility] [address] [address]- [address]28 May, Essential hypertension I10 and Cramp of both lower extremities R25.2 [facility] [address] [address]- 9736 May, Arthritis M19.90 and Cramp of both lower extremities R25.2 [facility] [address] [facility] [id number] [address] Mar, [facility] [id number] [place] [address] 016183- 9765 Nov, Essential hypertension I10 and Colon cancer screening Z12.11 [facility] [address] [address]- 5516 Nov, [facility] [id number] [place] [address] [id number] Jul, Dental examination Z01.20 [facility] [address] [address]- 7688 14 May, 2014 [facility] [address] [place] [address] 88527- 2950 May, [facility] [address] [address] Jan, [facility] [address] [address]- 2956 Jan, [facility] [address] [address]- 1099 Aug, [facility] [id number] [place] [address] 179703- 2349 May, [facility] [address] Mar, [facility] [id number] [place] [address] 20175- 2592 Feb, [facility] [address] [id number] [place] [address]- 0566 Jan, [facility] [place] [facility] [address] [id number] [place] [address]- 6286 Jan, [facility] [place] [facility] [address] [facility] [id number] [place] [address]- 9416 Jan, [facility] [place] [facility] [address] [id number] [place] [address]- 1146 18 Jan, 2012 [facility] [place] [facility] [address] [id number] [place] [address]- 1216 Jan, [facility] [place] [facility] [address] [id number] [place] [address]- 8346 Jan, [facility] [place] [facility] [address] [id number] [place] [address]- 3040 Jan, [facility] [place] [facility] [address] [id number] [place] [address]- 7668 Jan, [facility] [place] [facility] [address] [id number] [place] [address]- 3936 Jan, [facility] [place] [facility] [address] [id number] [place] [address]- 1526 Jan, [facility] [place] [facility] [address] [id number] [place] [address]- 1684 Jan, [facility] [place] [facility] [address] [id number] [address]- 1774 Jan, [facility] [place] [facility] [address] [id number] [place] [address]- 9376 Jan, [facility] [place] [facility] [address] [id number] [place] [address]- 2216 Jan, [facility] [place] [facility] [address] [id number] [place] [address]- 4916 Jan, [facility] [place] [facility] [address] [id number] [place] [address]- 9992 Dec, [facility] [place] [facility] [address] [id number] [place] [address]- 0966 Dec, [facility] [place] [facility] [address] [id number] [place] [address]- 2316 Dec, [facility] [place] [facility] [address] [id number] [place] [address]- 2916 Dec, [facility] [place] [facility] [address] [id number] [place] [address]- 4312 Dec, [facility] [place] [facility] [address] [id number] [place] [address]- 7616 Dec, [facility] [place] [facility] [address] [id number] [place] [address]- 2837 Sep, [facility] [place] [facility] [address] [id number] [place] [address]- 0439 Sep, [facility] [place] [facility] [address] [id number] [place] [address]- 2290 Sep, [facility] [place] [facility] [address] [id number] [place] [address]- 7537 Aug, [facility] [place] [facility] [address] [id number] [place] [address]- 6640 Aug, [facility] [place] [facility] [address] [id number] [place] [address]- 2010 May, [facility] [place] [facility] [address] [id number] [place] [address]- 2740 13 May, 2011 [facility] [place] [facility] [address] [id number] [place] [address]- 9669 May, [facility] [place] [facility] [address] [id number] [place]- 3989 10 May, 2011 [facility] [place] [facility] [address] [id number] [place] [address]- 8953 Apr, [facility] [address] [facility] [id number] [place] [address] Mar, [facility] [address] [facility] [id number] [address]- 7581 Mar, IMMUNIZATIONS No Known Immunizations SOCIAL HISTORY Never Assessed REASON FOR VISIT Requesting medication PLAN OF CARE VITAL SIGNS MEDICATIONS Medication Instructions Dosage Frequency Start Date End Date Duration Status Levaquin 750 MG Orally Once a day 1 tablet 24h Mar, Mar, 03 days Active RESULTS No Results PROCEDURES No Known procedures INSTRUCTIONS MEDICATIONS ADMINISTERED No Known Medications MEDICAL (GENERAL) HISTORY Type Description Date Medical History hypertension Medical History hyperlipidemia Medical History Arthritis Surgical History orthopedic surgery--Left elbow, removal of bone spur and scar tissue Hospitalization History Surgery only
--- OUTSIDE RECORDS SUMMARY | 2017-11-18 14:13 | XMS REPORT ---
Author Author DOMÍNGUEZBRIAN Mills Organization [facility] Address [address] [place] [address] Care Team Providers Care Rn Care Transition Name Role Phone BRIAN DOMÍNGUEZ Unavailable PROBLEMS Type Condition ICD9-CM Code DLO52-HB Code Onset Dates Condition Status SNOMED Code Problem Gastroesophageal reflux disease, esophagitis presence not specified K21.9 Active 218042695 Problem History of herpes genitalis Z86.19 Active 402038705 Problem Carpal tunnel syndrome of right wrist G56.01 Active 022192138176922 Problem Mixed hyperlipidemia E78.2 Active 097708539 Problem Arthritis M19.90 Active 3863279 Problem Essential hypertension I10 Active 12949051 Problem Prediabetes R73.03 Active 096883960 Problem Biceps tendonitis, right M75.21 Active 273618897 ALLERGIES No Known Allergies ENCOUNTERS Encounter Location Date Diagnosis [facility] [address] [address] Aug, [facility] [address] [address] Jul, Bilateral leg cramps R25.2 [facility] [address] [address] June, [facility] [address] [address] May, Essential hypertension I10 ; Mixed hyperlipidemia E78.2 and Prediabetes R73.03 [facility] [address] [address] Apr, Acute non-recurrent maxillary sinusitis J01.00 and Cough R05 [facility] [address] [address] Apr, [place] [address] [place] [id number] [place] [address]- 4985 Mar, Pneumonia of right lower lobe due to infectious organism J18.1 [place] [address] [place] [id number] [place] [address]23- 4467 19 Mar, 2017 Pneumonia of right lower lobe due to infectious organism J18.1 and Shortness of breath R06.[address] [address]- [address] 14 Mar, [address] [address]- [address] 13 Mar, 2017 Influenza-like illness R69 and Impacted cerumen of both ears H61.23 [place] [id number] [place] [address]68- [address] 25 Oct, [address] [address]- [address] 14 Oct, 2016 [place] [id number] [place] [address] 35278- 2852 08 Oct, 2016 Carpal tunnel syndrome of right wrist G56.01 and RUQ abdominal pain R10.11 [place] [id number] [place] [address]358- 6773 Sep, Essential hypertension I10 ; Mixed hyperlipidemia E78.2 and Prediabetes R73.03 [place] [id number] [place] [address]26- 7144 Sep, Essential hypertension I10 [place] [id number] [place] [address] 85221- 7306 08 Jul, 2016 Acute otitis externa of right ear, unspecified type H60.501 [place] [id number] [place] [address]12- 7921 16 Jun, 2016 Biceps tendonitis, right M75.21 and Essential hypertension I10 [address] [address]- [address] June, [facility] [address] [address] May, Essential hypertension I10 and Cramp of both lower extremities R25.2 [facility] [address] [address] May, Arthritis M19.90 and Cramp of both lower extremities R25.2 [facility] [address] [facility] [id number] [address] Mar, [facility] [id number] [place] [address] 786826- 0720 Nov, Essential hypertension I10 and Colon cancer screening Z12.11 [facility] [address] [address] Nov, [facility] [place] [facility] [address] [place] [id number] Jul, Dental examination Z01.20 [facility] [address] [address] May, [facility] [id number] [place] [address]998- 7427 May, [facility] [address] [address] Jan, [facility] [address] [address] 16[address] Jan, [facility] [address] [address] Aug, [facility] [address] [address] 16 May, 2012 [facility] [address] [address] Mar, [facility] [id number] [place] [address]90- 7266 Feb, [facility] [place] [facility] [address] [id number] [place] [address]- 7[address] 31 Jan, 2012 [facility] [place] [facility] [address] [id number] [place] [address]- 0726 Jan, [facility] [place] [facility] [address] [id number] [place] [address]- 3166 Jan, [facility] [place] [facility] [address] [id number] [place] [address]- 4796 18 Jan, 2012 [facility] [place] [facility] [address] [id number] [place] [address]- 8076 Jan, [facility] [place] [facility] [address] [id number] [place] [address]- 3996 Jan, [facility] [place] [facility] [address] [id number] [place] [address]- 7758 Jan, [facility] [place] [facility] [address] [id number] [place] [address]- 1689 Jan, [facility] [place] [facility] [address] [id number] [place] [address]- 4671 Jan, [facility] [place] [facility] [address] [id number] [place] [address]- 7835 Jan, [facility] [place] [facility] [address] [id number] [place] [address]- 6820 Jan, [facility] [place] [facility] [address] [id number], [place] [address]- 75[address] Jan, [facility] [place] [facility] [address] [id number] [place] [address]- 4946 Jan, [facility] [place] [facility] [address] [id number] [place] [address]- 6816 Jan, [facility] [place] [facility] [address] [id number] [place] [address]- 5336 Jan, [facility] [place] [facility] [address] [id number] [place] [address]- 1593 Dec, [facility] [address] [id number] [place] [address]- 5008 Dec, [facility] [place] [facility] [address] [id number] [place] [address] Dec, [facility] [place] [facility] [address] [id number] [place] [address]- 8587 Dec, [facility] [place] [facility] [address] [id number] [place] [address]- 7200 Dec, [facility] [place] [facility] [address] [id number] [place] [address]- 3300 Dec, [facility] [place] [facility] [address] [id number] [place] [address]- 1675 Sep, [facility] [place] [facility] [address] [id number] [place] [address]- 5593 Sep, [facility] [place] [facility] [address] [id number] [place] [address]- 4362 Sep, [facility] [place] [facility] [address] [id number] [place] [address]- 2255 Aug, [facility] [place] [facility] [address] [id number] [place] [address]- 5626 Aug, [facility] [place] [facility] [address] [id number] [place] [address]- 5929 May, [facility] [place] [facility] [address] [id number] [place] [address]- 4084 13 May, 2011 [facility] [place] [facility] [address] [id number] [place] [address]- 4186 11 May, 2011 [facility] [place] [facility] [address] [id number] [place] [address]- 1954 10 May, 2011 [facility] [place] [facility] [address] [id number] [place] [address]- 5134 16 Apr, 2011 [facility] [address] [facility] [id number] [place] [address]- 4[address] Mar, [facility] [address] [facility] [id number] [place] [address]- 2546 10 Mar, 2011 IMMUNIZATIONS No Known Immunizations SOCIAL HISTORY Never Assessed REASON FOR VISIT cough/fever/congestion: fever off an and on for 5 days (max 100), productive cough with white mucus neal ruiz PLAN OF CARE Activity Details Follow Up prn Reason: VITAL SIGNS Height 75 in 2017-04-05 Weight 238.8 lbs 2017-04-05 Temperature 97.6 degrees Fahrenheit 2017-04-05 Heart Rate 90 bpm 2017-04-05 Respiratory Rate 20 2017-04-05 Oximetry 99 % 2017-04-05 BMI 29.84 kg/m2 2017-04-05 Blood pressure systolic 138 mmHg 2017-04-05 Blood pressure diastolic 84 mmHg 2017-04-05 MEDICATIONS Medication Instructions Dosage Frequency Start Date End Date Duration Status Lisinopril-Hydrochlorothiazide 20-12.5 MG Orally Once a day 2 tablets 24h 30 Active Mobic 15 MG Orally Once a day, pc 1 tablet 30 Active Ondansetron 4 MG Orally every 8 hrs 1 tablet on the tongue and allow to dissolve 8h Oct, 30 day(s) Not-Taking DayQuil Multi-Symptom Active Atenolol 25 MG Orally Once a day 1 tablet 24h 1 month Active Multivitamin Adults 50+ - Not-Taking Omeprazole 20 mg Orally Once a day 1 capsule 24h Active Metformin HCl 500 mg Orally Twice a day (take one tablet for the first week) 1 tablet with meals 30 Active RESULTS No Results PROCEDURES Procedure Date Ordered Result Body Site EAR LAVAGE 2017-04-05 N/A MEASURE BLOOD OXYGEN LEVEL Apr 05, 2017 INSTRUCTIONS MEDICATIONS ADMINISTERED No Known Medications MEDICAL (GENERAL) HISTORY Type Description Date Medical History hypertension Medical History hyperlipidemia Medical History Arthritis Surgical History orthopedic surgery--Left elbow, removal of bone spur and scar tissue Hospitalization History Surgery only
--- OUTSIDE RECORDS SUMMARY | 2017-11-18 14:13 | XMS REPORT ---
Author Author DOMÍNGUEZBRIAN Mills Organization [facility] Address [address] [place] [address] Care Team Providers Care Vessel Specialist Name Role Phone BRIAN DOMÍNGUEZ Unavailable PROBLEMS Type Condition ICD9-CM Code CXW71-TA Code Onset Dates Condition Status SNOMED Code Problem Gastroesophageal reflux disease, esophagitis presence not specified K21.9 Active 599524687 Problem History of herpes genitalis Z86.19 Active 229439478 Problem Carpal tunnel syndrome of right wrist G56.01 Active 410984617550283 Problem Mixed hyperlipidemia E78.2 Active 952739110 Problem Arthritis M19.90 Active 2171916 Problem Essential hypertension I10 Active 03244650 Problem Prediabetes R73.03 Active 990963213 Problem Biceps tendonitis, right M75.21 Active 566561960 ALLERGIES No Information ENCOUNTERS Encounter Location Date Diagnosis [facility] [address] [address] Aug, [place] [address] [address]- [address] Jul, Bilateral leg cramps R25.2 [facility] [address] [address]- [address] June, [facility] [address] [address]- [address] May, Essential hypertension I10 ; Mixed hyperlipidemia E78.2 and Prediabetes R73.03 [facility] [address] [address] Apr, Acute non-recurrent maxillary sinusitis J01.00 and Cough R05 [facility] [address] [address]- [address] Apr, [place] [address] [place] [id number] [place] [address]- 7518 21 Mar, 2017 Pneumonia of right lower lobe due to infectious organism J18.1 [place] [address] [place] [id number] [place] [address]12- 8133 19 Mar, 2017 Pneumonia of right lower lobe due to infectious organism J18.1 and Shortness of breath R06.[address] [address]- [address] 14 Mar, [address] [address]- 59[address] 13 Mar, 2017 Influenza-like illness R69 and Impacted cerumen of both ears H61.23 [place] [id number] [place] [address]- 2964 25 Oct, [address] [address]- 0163 14 Oct, [address] [address]- 2128 08 Oct, 2016 Carpal tunnel syndrome of right wrist G56.01 and RUQ abdominal pain R10.11 [place] [id number] [place] [address] 25478- 0515 Sep, Essential hypertension I10 ; Mixed hyperlipidemia E78.2 and Prediabetes R73.03 [place] [id number] [place] [address] 40590- 8156 Sep, Essential hypertension I10 [place] [id number] [place] [address] 50496- 5137 08 Jul, 2016 Acute otitis externa of right ear, unspecified type H60.501 [place] [id number] [place] [address] 15073- 2049 16 Jun, 2016 Biceps tendonitis, right M75.21 and Essential hypertension I10 [address] [address]- [address] June, [facility] [address] [address]- 9[address] May, Essential hypertension I10 and Cramp of both lower extremities R25.2 [facility] [address] [address]- 8106 May, Arthritis M19.90 and Cramp of both lower extremities R25.2 [facility] [address] [facility] [id number] [address] Mar, [facility] [id number] [place] [address] 152553- 2723 Nov, Essential hypertension I10 and Colon cancer screening Z12.11 [facility] [address] [address]- 0[address] Nov, [facility] [address] [place] [id number] [place] [address] [id number] Jul, Dental examination Z01.20 [facility] [address] [address]- 7065 14 May, 2014 [facility] [id number] [place] [address] 53874- 6805 May, [facility] [id number] [address] Jan, [facility] [address], [place] [address]- 7246 Jan, [facility] [address], [place] [address]- 0400 Aug, [facility] [address] [place] [id number] [place] [address] 161484- 7673 May, [facility] [address] 7946 Mar, [facility] [id number] [place] [address] 03354- 6546 Feb, [facility] [address] [id number] [place] [address]- 2386 Jan, [facility] [place] [facility] [address] [id number] [place] [address]- 0656 Jan, [facility] [place] [facility] [address] [facility] [id number] [place] [address]- 6046 Jan, [facility] [place] [facility] [address] [id number] [place] [address]- 6646 18 Jan, 2012 [facility] [place] [facility] [address] [id number] [place] [address]- 6556 Jan, [facility] [place] [facility] [address] [id number] [place] [address]- 1746 Jan, [facility] [place] [facility] [address] [id number] [place] [address]- 7301 Jan, [facility] [place] [facility] [address] [id number] [place] [address]- 7560 Jan, [facility] [place] [facility] [address] [id number] [place] [address]- 7724 Jan, [facility] [place] [facility] [address] [id number] [place] [address]- 1766 Jan, [facility] [place] [facility] [address] [id number] [place] [address]- 3775 Jan, [facility] [place] [facility] [address] [id number] [address]- 1396 Jan, [facility] [place] [facility] [address] [id number] [place] [address]- 1836 Jan, [facility] [place] [facility] [address] [id number] [place] [address]- 2796 Jan, [facility] [place] [facility] [address] [id number] [place] [address]- 2906 Jan, [facility] [place] [facility] [address] [id number] [place] [address]- 1139 Dec, [facility] [place] [facility] [address] [id number] [place] [address]- 5336 Dec, [facility] [place] [facility] [address] [id number] [place] [address]- 4206 Dec, [facility] [place] [facility] [address] [id number] [place] [address]- 3016 Dec, [facility] [place] [facility] [address] [id number] [place] [address]- 4908 Dec, [facility] [place] [facility] [address] [id number] [place] [address]- 0618 Dec, [facility] [place] [facility] [address] [id number] [place] [address]- 1131 Sep, [facility] [place] [facility] [address] [id number] [place] [address]- 2315 Sep, [facility] [place] [facility] [address] [id number] [place] [address]- 7202 Sep, [facility] [place] [facility] [address] [id number] [place] [address]- 7197 Aug, [facility] [place] [facility] [address] [id number] [place] [address]- 7426 Aug, [facility] [place] [facility] [address] [id number] [place] [address]- 9151 May, [facility] [place] [facility] [address] [id number] [place] [address]- 3218 13 May, 2011 [facility] [place] [facility] [address] [id number] [place] [address]- 9293 May, [facility] [place] [facility] [address] [id number] [place] [address] 10 May, 2011 [facility] [place] [facility] [address] [id number] [place] [address]- 2508 Apr, [facility] [address] [facility] [id number] [place] [address]- 4857 Mar, [facility] [address] [facility] [id number] [place] [address] Mar, IMMUNIZATIONS No Known Immunizations SOCIAL HISTORY Never Assessed REASON FOR VISIT triage PLAN OF CARE VITAL SIGNS MEDICATIONS Unknown Medications RESULTS No Results PROCEDURES No Known procedures INSTRUCTIONS MEDICATIONS ADMINISTERED No Known Medications MEDICAL (GENERAL) HISTORY Type Description Date Medical History hypertension Medical History hyperlipidemia Medical History Arthritis Surgical History orthopedic surgery--Left elbow, removal of bone spur and scar tissue Hospitalization History Surgery only
--- OUTSIDE RECORDS SUMMARY | 2017-11-18 14:13 | XMS REPORT ---
Author Author MARIANA SOLER Organization [facility] Address [address] [place] [address] Care Team Providers Care [employer] Feeder Name Role Phone MARIANA SLOER Unavailable PROBLEMS Type Condition ICD9-CM Code HBV05-KN Code Onset Dates Condition Status SNOMED Code Problem Gastroesophageal reflux disease, esophagitis presence not specified K21.9 Active 728992309 Problem History of herpes genitalis Z86.19 Active 273509657 Problem Carpal tunnel syndrome of right wrist G56.01 Active 200818793355175 Problem Mixed hyperlipidemia E78.2 Active 488890333 Problem Arthritis M19.90 Active 3721880 Problem Essential hypertension I10 Active 83779473 Problem Prediabetes R73.03 Active 980943372 Problem Biceps tendonitis, right M75.21 Active 501093071 ALLERGIES No Information ENCOUNTERS Encounter Location Date Diagnosis [facility] [address] [address] May, Essential hypertension I10 ; Mixed hyperlipidemia E78.2 and Prediabetes R73.03 [facility] [id number] [place] [address] Apr, Acute non-recurrent maxillary sinusitis J01.00 and Cough R05 [facility] [id number] [place] [address] Apr, [facility] [id number] [place] [address] Mar, Pneumonia of right lower lobe due to infectious organism J18.1 [facility] [address] [address] Mar, Pneumonia of right lower lobe due to infectious organism J18.1 and Shortness of breath R06.02 [facility] [id number] [place] [address] 14 Mar, 2017 [place] [address] [address] 13 Mar, 2017 Influenza-like illness R69 and Impacted cerumen of both ears H61.23 [place] [address] [address] 25 Oct, 2016 [place] [address] [address] 14 Oct, 2016 [place] [address] [address] 08 Oct, 2016 Carpal tunnel syndrome of right wrist G56.01 and RUQ abdominal pain R10.11 [place] [address] [address] Sep, Essential hypertension I10 ; Mixed hyperlipidemia E78.2 and Prediabetes R73.03 [place] [address] [address] Sep, Essential hypertension I10 [place] [address] [address] 08 Jul, 2016 Acute otitis externa of right ear, unspecified type H60.501 [place] [id number] [place] [address] June, Biceps tendonitis, right M75.21 and Essential hypertension I10 [place] [id number] [place] [address] June, [place] [address] [address] May, Essential hypertension I10 and Cramp of both lower extremities R25.2 [place] [id number] [place] [address] May, Arthritis M19.90 and Cramp of both lower extremities R25.2 [facility] [address] [place] [address] 18 Mar, 2016 [facility] [id number] [address] Nov, Essential hypertension I10 and Colon cancer screening Z12.11 [facility] [address] [place] [address] 14 Nov, 2015 [facility] [address] [id number] Jul, Dental examination Z01.20 [facility] [id number] [place] [address] 14 May, 2014 [facility] [id number] [place] [address] May, [facility] [id number] [place] [address] Jan, [facility] [address], [place] [address] Jan, [facility] [id number] [place] [address] Aug, [facility] [address] [place] [address] May, [facility] [address] [place] [address] Mar, [facility] [address] [place] [address] Feb, [facility] [address] Jan, [facility] [address] Jan, [facility] [address] Jan, [facility] [address] [id number] [place] [address] Jan, [facility] [place] [facility] [address] [id number] [place] [address] Jan, [facility] [place] [facility] [address] [id number] [place] [address] Jan, [facility] [place] [facility] [address] [id number] [place] [address] Jan, [facility] [address] [id number] [place] [address] Jan, [facility] [place] [facility] [address] [id number] [place] [address] Jan, [facility] [address] [id number] [place] [address] Jan, [facility] [place] [facility] [address] [id number] [place] [address] Jan, [facility] [place] [facility] [address] [id number] [place] [address] Jan, [facility] [place] [facility] [address] [id number] [place] [address] Jan, [facility] [place] [facility] [address] [id number] [place] [address] Jan, [facility] [place] [facility] [address] [id number] [place] [address] Jan, [facility] [place] [facility] [address] [id number] [place] [address]- [address] Dec, [facility] [place] [facility] [address] [id number] [place] [address] Dec, [facility] [place] [facility] [address] [id number] [place] [address] Dec, [facility] [place] [facility] [address] [id number] [address] Dec, [facility] [address] [place] [address] Dec, [facility] [address], [place] [address] Dec, [facility] [address] [place] [address] Sep, [facility] [address], [place] [address] Sep, [facility] [address] [place] [address] Sep, [facility] [address] [place] [address] Aug, [facility] [address] [place] [address] Aug, [facility] [address] [place] [address] May, [facility] [address] May, [facility] [address], [place] [address] May, [facility] [address], [place] [address] May, [facility] [address], [place] [address] Apr, [facility] [address], [place] [address] Mar, [facility] [address] Mar, IMMUNIZATIONS No Known Immunizations SOCIAL HISTORY Never Assessed REASON FOR VISIT [facility] PLAN OF CARE VITAL SIGNS MEDICATIONS No Known Medications RESULTS No Results PROCEDURES No Known procedures INSTRUCTIONS MEDICATIONS ADMINISTERED No Known Medications MEDICAL (GENERAL) HISTORY Type Description Date Medical History hypertension Medical History hyperlipidemia Medical History Arthritis Surgical History orthopedic surgery--Left elbow, removal of bone spur and scar tissue Hospitalization History Surgery only
--- OUTSIDE RECORDS SUMMARY | 2017-11-18 14:13 | XMS REPORT ---
Author Author MARIANA SOLER Organization [facility] Address [address] [place] [address] Care Team Providers Care Strategy Lead Name Role Phone MARIANA SOLER Unavailable PROBLEMS Type Condition ICD9-CM Code GSX92-NA Code Onset Dates Condition Status SNOMED Code Problem Unspecified viral infection, in conditions classified elsewhere and of unspecified site 079.99 Active 51905523 Problem Gastroesophageal reflux disease, esophagitis presence not specified K21.9 Active 484187853 Problem Unspecified genital herpes 054.10 Active 15052094 Problem Carpal tunnel syndrome of right wrist G56.01 Active 936818959743735 Problem Mixed hyperlipidemia E78.2 Active 317876033 Problem Arthritis M19.90 Active 3336832 Problem Essential hypertension I10 Active 48639799 Problem Prediabetes R73.03 Active 946040301 Problem Biceps tendonitis, right M75.21 Active 005389467 Problem Other abnormal glucose 790.29 Active 437112676 Problem Cellulitis and abscess of unspecified site 682.9 Active 242113378 Problem Screening examination for venereal disease V74.5 Active 835784129 Problem Accident caused by unspecified cutting and piercing instrument or object E920.9 Active Problem Psychosexual dysfunction with inhibited sexual excitement 302.72 Active 999463398378811 Problem Anxiety state, unspecified 300.00 Active 434360464 Problem Impacted cerumen 380.4 Active 90376535 Problem Other and unspecified hyperlipidemia 272.4 Active 74056861 Problem Other acute otitis externa 380.22 Active 35188709 Problem Dermatophytosis of groin and perianal area 110.3 Active 792634806 ALLERGIES No Information SOCIAL HISTORY Never Assessed PLAN OF CARE VITAL SIGNS MEDICATIONS Unknown Medications RESULTS No Results PROCEDURES No Known procedures IMMUNIZATIONS No Known Immunizations MEDICAL (GENERAL) HISTORY Type Description Date Medical History hypertension Medical History hyperlipidemia Medical History Arthritis Surgical History orthopedic surgery--Left elbow, removal of bone spur and scar tissue Hospitalization History Surgery only
--- OUTSIDE RECORDS SUMMARY | 2017-11-18 14:14 | XMS REPORT | Continuity of Care Document ---
Author Author [facility] Address Unknown Phone Unavailable Allergies Active Description Code Type Severity Reaction Onset Reported/Identified Relationship to Patient Clinical Status Yes No Known Drug Allergies [id number] Drug Allergy Unknown N/A 01/10/2016 Yes No Known Allergies [id number] Drug Allergy Unknown N/A 09/28/2017 Medications There is no data. Problems Date Dx Coded Attending Type Code Diagnosis Diagnosed By 04/18/2009 CAITIE BARNES APRN 401.1 ESSENTIAL HYPERTENSION BENIGN 04/18/2009 CAITIE BARNES APRN 401.1 ESSENTIAL HYPERTENSION BENIGN 04/18/2009 CAITIE BARNES APRN 401.1 ESSENTIAL HYPERTENSION BENIGN 04/18/2009 401.1 ESSENTIAL HYPERTENSION BENIGN 04/18/2009 NISA HAYNES APRN 401.1 ESSENTIAL HYPERTENSION BENIGN 04/18/2009 CAITIE BARNES APRN 401.1 ESSENTIAL HYPERTENSION BENIGN 05/07/2011 CAITIE BARNES APRN 110.3 DERMATOPHYTOSIS OF GROIN AND PERIANAL AREA 05/07/2011 CAITIE BARNES APRN 110.3 DERMATOPHYTOSIS OF GROIN AND PERIANAL AREA 05/07/2011 CAITIE BARNES APRN 110.3 DERMATOPHYTOSIS OF GROIN AND PERIANAL AREA 05/07/2011 110.3 DERMATOPHYTOSIS OF GROIN AND PERIANAL AREA 05/07/2011 NISA HAYNES APRN 110.3 DERMATOPHYTOSIS OF GROIN AND PERIANAL AREA 05/07/2011 CAITIE BARNES APRN 110.3 DERMATOPHYTOSIS OF GROIN AND PERIANAL AREA 09/21/2011 CAITIE BARNES APRN 682.9 CELLULITIS AND ABSCESS OF UNSPECIFIED SITES 09/21/2011 CAITIE BARNES APRN E920.9 ACCIDENTS CAUSED BY UNSPECIFIED CUTTING AND PIERCING INSTRUMENT OR OBJECT 09/21/2011 CAITIE BARNES APRN 682.9 CELLULITIS AND ABSCESS OF UNSPECIFIED SITES 09/21/2011 CAMERON WATER RESOURCE SPECIALIST, CAITIE T E920.9 ACCIDENTS CAUSED BY UNSPECIFIED CUTTING AND PIERCING INSTRUMENT OR OBJECT 09/21/2011 CAITIE BARNES APRN 682.9 CELLULITIS AND ABSCESS OF UNSPECIFIED SITES 09/21/2011 CAITIE BARNES APRN E920.9 ACCIDENTS CAUSED BY UNSPECIFIED CUTTING AND PIERCING INSTRUMENT OR OBJECT 09/21/2011 682.9 CELLULITIS AND ABSCESS OF UNSPECIFIED SITES 09/21/2011 E920.9 ACCIDENTS CAUSED BY UNSPECIFIED CUTTING AND PIERCING INSTRUMENT OR OBJECT 09/21/2011 NISA HAYNES APRN S 682.9 CELLULITIS AND ABSCESS OF UNSPECIFIED SITES 09/21/2011 NISA HAYNES APRN S E920.9 ACCIDENTS CAUSED BY UNSPECIFIED CUTTING AND PIERCING INSTRUMENT OR OBJECT 09/21/2011 CAITIE BARNES APRN 682.9 CELLULITIS AND ABSCESS OF UNSPECIFIED SITES 09/21/2011 CAITIE BARNES APRN E920.9 ACCIDENTS CAUSED BY UNSPECIFIED CUTTING AND PIERCING INSTRUMENT OR OBJECT 12/23/2011 CAITIE BARNES APRN 380.4 CERUMEN IMPACTION 12/23/2011 CAITIE BARNES APRN 380.4 CERUMEN IMPACTION 12/23/2011 CAITIE BARNES APRN 380.4 CERUMEN IMPACTION 12/23/2011 380.4 CERUMEN IMPACTION 12/23/2011 NISA HAYNES APRN 380.4 CERUMEN IMPACTION 12/23/2011 CAITIE BARNES APRN 380.4 CERUMEN IMPACTION 12/24/2011 CAITIE BARNES APRN 380.22 OTHER ACUTE OTITIS EXTERNA 12/24/2011 CAITIE BARNES APRN 380.22 OTHER ACUTE OTITIS EXTERNA 12/24/2011 CAITIE BARNES APRN 380.22 OTHER ACUTE OTITIS EXTERNA 12/24/2011 380.22 OTHER ACUTE OTITIS EXTERNA 12/24/2011 NISA HAYNES APRN S 380.22 OTHER ACUTE OTITIS EXTERNA 12/24/2011 CAITIE BARNES APRN 380.22 OTHER ACUTE OTITIS EXTERNA 01/22/2012 CAITIE BARNES APRN V74.5 STD SCREEN 01/22/2012 CAITIE BARNES APRN V74.5 STD SCREEN 01/22/2012 CAITIE BARNES APRN V74.5 STD SCREEN 01/22/2012 V74.5 STD SCREEN 01/22/2012 [place] DANIEL NISA S V74.5 STD SCREEN 01/22/2012 CAMERON WATER RESOURCE SPECIALISTCAITIE Holcomb V74.5 STD SCREEN 01/31/2012 CAITIE BARNES APRN 272.4 HYPERLIPIDEMIA 01/31/2012 CAITIE BARNES APRN T 302.72 ERECTILE DISORDER 01/31/2012 CAITIE BARNES APRN 790.29 HYPERGLYCEMIA 01/31/2012 272.4 HYPERLIPIDEMIA 01/31/2012 302.72 ERECTILE DISORDER 01/31/2012 790.29 HYPERGLYCEMIA 01/31/2012 [place] WATER RESOURCE SPECIALISTKAYCE HolcombNDA S 272.4 HYPERLIPIDEMIA 01/31/2012 [place] DASN, NISA S 302.72 ERECTILE DISORDER 01/31/2012 [place] WATER RESOURCE SPECIALISTKAYCE HolcombNDA S 790.29 HYPERGLYCEMIA 01/31/2012 CAITIE BARNES APRN 272.4 HYPERLIPIDEMIA 01/31/2012 CAITIE BARNES APRN 302.72 ERECTILE DISORDER 01/31/2012 CAITIE BARNES APRN 790.29 HYPERGLYCEMIA 03/15/2012 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 03/15/2012 [place] WATER RESOURCE SPECIALISTYAN HolcombA S 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 03/15/2012 CAMERON WATER RESOURCE SPECIALISTCAITIE Holcomb 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 04/13/2012 KAYCE HAYNES APRNNDA S 079.99 VIRAL SYNDROME 04/13/2012 CAITIE BARNES APRN 079.99 VIRAL SYNDROME 09/01/2012 CAITIE BARNES APRN 300.00 ANXIETY UNSPEC 01/10/2016 MINERVA SOW, HUNTER Fernández Ot L23.5 ALLERGIC CONTACT DERMATITIS DUE TO OTHER 01/10/2016 MINERVA SOW, HUNTER Fernández Ot L30.9 DERMATITIS, UNSPECIFIED 01/14/2016 LENORA CATHERINE COFFERDAM CONSTRUCTION SUPERVISOR Ot I10 ESSENTIAL (PRIMARY) HYPERTENSION 01/14/2016 LENORA CATHERINEP Ot L25.3 UNSP CONTACT DERMATITIS DUE TO OTHER SARAI 01/14/2016 LENORA CATHERINEP Ot Z79.899 OTHER PEDIGREE RESEARCHER (CURRENT) DRUG THERAPY 01/16/2016 LENORA CATHERINE COFFERDAM CONSTRUCTION SUPERVISOR Ot I10 ESSENTIAL (PRIMARY) HYPERTENSION 01/16/2016 LENORA CATHERINEP Ot L25.3 UNSP CONTACT DERMATITIS DUE TO OTHER SARAI 01/16/2016 LENORA CATHERINEP Ot Z79.899 OTHER PEDIGREE RESEARCHER (CURRENT) DRUG THERAPY 11/01/2016 JD FLORES WATER RESOURCE SPECIALIST Ot I10 ESSENTIAL (PRIMARY) HYPERTENSION 11/01/2016 JD FLORES WATER RESOURCE SPECIALIST Ot R10.11 RIGHT UPPER QUADRANT PAIN 11/01/2016 JD FLORES WATER RESOURCE SPECIALIST Ot R11.0 NAUSEA 11/01/2016 JD FLORES WATER RESOURCE SPECIALIST Ot R94.5 ABNORMAL RESULTS OF LIVER FUNCTION STUDI 11/01/2016 JD FLORES WATER RESOURCE SPECIALIST Ot Z87.891 PERSONAL HISTORY OF NICOTINE DEPENDENCE 11/02/2016 JD FLORES WATER RESOURCE SPECIALIST Ot I10 ESSENTIAL (PRIMARY) HYPERTENSION 11/02/2016 JD FLORES WATER RESOURCE SPECIALIST Ot R10.11 RIGHT UPPER QUADRANT PAIN 11/02/2016 JD FLORES WATER RESOURCE SPECIALIST Ot R11.0 NAUSEA 11/02/2016 JD FLORES WATER RESOURCE SPECIALIST Ot R94.5 ABNORMAL RESULTS OF LIVER FUNCTION STUDI 11/02/2016 JD FLORES WATER RESOURCE SPECIALIST Ot Z87.891 PERSONAL HISTORY OF NICOTINE DEPENDENCE 11/05/2016 HUNTER PALMA MD Ot E11.9 TYPE 2 DIABETES MELLITUS WITHOUT COMPLIC 11/05/2016 HUNTER PALMA MD Ot I10 ESSENTIAL (PRIMARY) HYPERTENSION 11/05/2016 HUNTER PALMA MD Ot R25.2 CRAMP AND SPASM 11/05/2016 HUNTER PALMA MD Ot Z79.84 CORRECTION (CURRENT) USE OF ORAL HYPOGLYC 11/05/2016 HUNTER PALMA MD Ot Z87.891 PERSONAL HISTORY OF NICOTINE DEPENDENCE 11/11/2016 HUNTER PALMA MD Ot E11.9 TYPE 2 DIABETES MELLITUS WITHOUT COMPLIC 11/11/2016 HUNTER PALMA MD Ot I10 ESSENTIAL (PRIMARY) HYPERTENSION 11/11/2016 HUNTER PALMA MD Ot M19.90 UNSPECIFIED OSTEOARTHRITIS, UNSPECIFIED 11/11/2016 HUNTER PALMA MD Ot R25.2 CRAMP AND SPASM 11/11/2016 HUNTER PALMA MD Ot Z79.84 PEDIGREE RESEARCHER (CURRENT) USE OF ORAL HYPOGLYC 11/11/2016 HUNTER PALMA MD Ot Z87.891 PERSONAL HISTORY OF NICOTINE DEPENDENCE 11/16/2016 HUNTER PALMA MD Ot E11.9 TYPE 2 DIABETES MELLITUS WITHOUT COMPLIC 11/16/2016 HUNTER PALMA MD Ot I10 ESSENTIAL (PRIMARY) HYPERTENSION 11/16/2016 MINERVA SOW, HUNTER Fernández Ot R25.2 CRAMP AND SPASM 11/16/2016 MINERVA SOW, HUNTER Fernández Ot Z79.84 PEDIGREE RESEARCHER (CURRENT) USE OF ORAL HYPOGLYC 11/16/2016 MINERVA SOW, HUNTER Fernández Ot Z87.891 PERSONAL HISTORY OF NICOTINE DEPENDENCE 09/28/2017 Ot E11.9 TYPE 2 DIABETES MELLITUS WITHOUT COMPLIC 09/28/2017 Ot E86.0 DEHYDRATION 09/28/2017 Ot I10 ESSENTIAL ( PRIMARY) HYPERTENSION 09/28/2017 Ot R10.13 EPIGASTRIC PAIN 09/28/2017 Ot S40.861A INSECT BITE (NONVENOMOUS) OF RIGHT UPPER 09/28/2017 Ot W57.XXXA BIT/STUNG BY NONVENOM INSECT OTH NONVE 09/28/2017 Ot Z77.22 CNTCT W AND EXPSR TO ENVIRON TOBACCO SMO 10/18/2017 JD FLORES APRN Ot E11.9 TYPE 2 DIABETES MELLITUS WITHOUT COMPLIC 10/18/2017 JD FLORES APRN Ot I10 ESSENTIAL (PRIMARY) HYPERTENSION 10/18/2017 JD FLORES APRN Ot N28.9 DISORDER OF KIDNEY AND URETER, UNSPECIFI 10/18/2017 JD FLORES APRN Ot R11.2 NAUSEA WITH VOMITING, UNSPECIFIED 10/18/2017 JD FLORES APRN Ot T67.5XXA HEAT EXHAUSTION, UNSPECIFIED, INITIAL EN 10/18/2017 JD FLORES APRN Ot Z77.22 CNTCT W AND EXPSR TO ENVIRON TOBACCO SMO 10/18/2017 JD FLORES APRN Ot Z87.19 PERSONAL HISTORY OF OTHER DISEASES OF TH 10/20/2017 JD FLORES APRN Ot E11.9 TYPE 2 DIABETES MELLITUS WITHOUT COMPLIC 10/20/2017 JD FLORES APRN Ot I10 ESSENTIAL (PRIMARY) HYPERTENSION 10/20/2017 JD FLORES APRN Ot N28.9 DISORDER OF KIDNEY AND URETER, UNSPECIFI 10/20/2017 JD FLORES APRN Ot R11.2 NAUSEA WITH VOMITING, UNSPECIFIED 10/20/2017 JD FLORES APRN Ot T67.5XXA HEAT EXHAUSTION, UNSPECIFIED, INITIAL EN 10/20/2017 JD FLORES APRN Ot Z77.22 CNTCT W AND EXPSR TO ENVIRON TOBACCO SMO 10/20/2017 FLORESJD WATER RESOURCE SPECIALIST Ot Z87.19 PERSONAL HISTORY OF OTHER DISEASES OF TH Procedures Code Description [place] [address] ROUTINE VENIPUNCTURE 01/26/2012 HERPSM1,2 HERPES SIMPLEX 1 AND 2, IGM, IGG 01/26/2012 88488 ROUTINE VENIPUNCTURE 01/31/2012 55252 PSA FREE AND TOTAL 01/31/2012 93813 TESTOSTERONE FREE 01/31/2012 02377 A1C (IN-HOUSE) 01/31/2012 47654 BMP 01/31/2012 59318 LIPID PANEL 01/31/20125126055 GFR CALC (RESULT ONLY) 01/31/2012 Results Test Result Range Complete blood count (CBC) with automated white blood cell (WBC) differential - 11/01/16 15:30 Blood leukocytes automated count (number/volume) 7.4 10*3/uL 4.3-11.0 Blood erythrocytes automated count (number/volume) 5.11 10*6/uL 4.35-5.85 Venous blood hemoglobin measurement (mass/volume) 16.0 g/dL 13.3-17.7 Blood hematocrit (volume fraction) 46 % 40-54 Automated erythrocyte mean corpuscular volume 89 [foz_us] 80-99 Automated erythrocyte mean corpuscular hemoglobin (mass per erythrocyte) 31 pg 25-34 Automated erythrocyte mean corpuscular hemoglobin concentration measurement ( mass/volume) 35 g/dL 32-36 Automated erythrocyte distribution width ratio 12.0 % 10.0-14.5 Automated blood platelet count (count/volume) 257 10*3/uL 130-400 Automated blood platelet mean volume measurement 9.7 [foz_us] 7.4-10.4 Automated blood neutrophils/100 leukocytes 38 % 42-75 Automated blood lymphocytes/100 leukocytes 46 % 12-44 Blood monocytes/100 leukocytes 14 % 0-12 Automated blood eosinophils/100 leukocytes 3 % 0-10 Automated blood basophils/100 leukocytes 0 % 0-10 Blood neutrophils automated count (number/volume) 2.8 10*3 1.8-7.8 Blood lymphocytes automated count (number/volume) 3.4 10*3 1.0-4.0 Blood monocytes automated count (number/volume) 1.0 10*3 0.0-1.0 Automated eosinophil count 0.2 10*3/uL 0.0-0.3 Automated blood basophil count (count/volume) 0.0 10*3/uL 0.0-0.1 Comprehensive metabolic panel - 11/01/16 15:30 Serum or plasma sodium measurement (moles/volume) 141 mmol/L 135-145 Serum or plasma potassium measurement (moles/volume) 3.6 mmol/L 3.6-5.0 Serum or plasma chloride measurement (moles/volume) 104 mmol/L 98-107 Carbon dioxide 27 mmol/L 21-32 Serum or plasma anion gap determination (moles/volume) 10 mmol/L 5-14 Serum or plasma urea nitrogen measurement (mass/volume) 14 mg/dL 7-18 Serum or plasma creatinine measurement (mass/volume) 1.23 mg/dL 0.60-1.30 Serum or plasma urea nitrogen/creatinine mass ratio 11 NRG Serum or plasma creatinine measurement with calculation of estimated glomerular filtration rate > NRG Serum or plasma glucose measurement (mass/volume) 82 mg/dL 70-105 Serum or plasma calcium measurement (mass/volume) 9.3 mg/dL 8.5-10.1 Serum or plasma total bilirubin measurement (mass/volume) 0.9 mg/dL 0.1-1.0 Serum or plasma alkaline phosphatase measurement (enzymatic activity/volume) 57 U/L 40-136 Serum or plasma aspartate aminotransferase measurement (enzymatic activity/ volume) 98 U/L 5-34 Serum or plasma alanine aminotransferase measurement (enzymatic activity/volume ) 254 U/L 0-55 Serum or plasma protein measurement (mass/volume) 7.3 g/dL 6.4-8.2 Serum or plasma albumin measurement (mass/volume) 4.2 g/dL 3.2-4.5 Lipase - 11/01/16 15:30 Lipase 47 U/L 8-78 Serum or plasma ethanol measurement (mass/volume) - 11/01/16 15:30 Serum or plasma ethanol measurement (mass/volume) < mg/dL <10 Complete urinalysis with reflex to culture - 11/01/16 17:16 Urine color determination VANDANA NRG Urine clarity determination SLIGHTLY CLOUDY NRG Urine pH measurement by test strip 5 5-9 Specific gravity of urine by test strip 1.020 1.016- 1.022 Urine protein assay by test strip, semi-quantitative 2+ NEGATIVE Urine glucose detection by automated test strip 2+ NEGATIVE Erythrocytes detection in urine sediment by light microscopy NEGATIVE NEGATIVE Urine ketones detection by automated test strip NEGATIVE NEGATIVE Urine nitrite detection by test strip NEGATIVE NEGATIVE Urine total bilirubin detection by test strip NEGATIVE NEGATIVE Urine urobilinogen measurement by automated test strip (mass/volume) NORMAL NORMAL Urine leukocyte esterase detection by dipstick NEGATIVE NEGATIVE Automated urine sediment erythrocyte count by microscopy (number/high power field) NONE NRG Automated urine sediment leukocyte count by microscopy (number/high power field ) RARE NRG Bacteria detection in urine sediment by light microscopy NEGATIVE NRG Squamous epithelial cells detection in urine sediment by light microscopy NONE NRG Crystals detection in urine sediment by light microscopy NONE NRG Casts detection in urine sediment by light microscopy NONE NRG Mucus detection in urine sediment by light microscopy NEGATIVE NRG Complete urinalysis with reflex to culture NO NRG Acute hepatitis panel - 11/01/16 17:40 Confirmatory quantitative serum or plasma hepatitis B virus surface antigen measurement Non-Reactive Non-Reactive Hepatitis A virus IgM antibody assay Non-Reactive Non- Reactive Hepatitis B virus core IgM antibody assay Non-Reactive Non-Reactive Serum hepatitis C virus antibody detection Non-Reactive Non-Reactive Complete blood count (CBC) with automated white blood cell (WBC) differential - 11/05/16 22:11 Blood leukocytes automated count (number/volume) 7.4 10*3/uL 4.3-11.0 Blood erythrocytes automated count (number/volume) 5.16 10*6/uL 4.35-5.85 Venous blood hemoglobin measurement (mass/volume) 16.4 g/dL 13.3-17.7 Blood hematocrit (volume fraction) 46 % 40-54 Automated erythrocyte mean corpuscular volume 89 [foz_us] 80-99 Automated erythrocyte mean corpuscular hemoglobin (mass per erythrocyte) 32 pg 25-34 Automated erythrocyte mean corpuscular hemoglobin concentration measurement ( mass/volume) 36 g/dL 32-36 Automated erythrocyte distribution width ratio 12.4 % 10.0-14.5 Automated blood platelet count (count/volume) 250 10*3/uL 130-400 Automated blood platelet mean volume measurement 9.9 [foz_us] 7.4-10.4 Automated blood neutrophils/100 leukocytes 46 % 42-75 Automated blood lymphocytes/100 leukocytes 39 % 12-44 Blood monocytes/100 leukocytes 12 % 0-12 Automated blood eosinophils/100 leukocytes 2 % 0-10 Automated blood basophils/100 leukocytes 1 % 0-10 Blood neutrophils automated count (number/volume) 3.5 10*3 1.8-7.8 Blood lymphocytes automated count (number/volume) 2.9 10*3 1.0-4.0 Blood monocytes automated count (number/volume) 0.9 10*3 0.0-1.0 Automated eosinophil count 0.2 10*3/uL 0.0-0.3 Automated blood basophil count (count/volume) 0.1 10*3/uL 0.0-0.1 Comprehensive metabolic panel - 11/05/16 22:11 Serum or plasma sodium measurement (moles/volume) 138 mmol/L 135-145 Serum or plasma potassium measurement (moles/volume) 3.7 mmol/L 3.6-5.0 Serum or plasma chloride measurement (moles/volume) 105 mmol/L 98-107 Carbon dioxide 18 mmol/L 21-32 Serum or plasma anion gap determination (moles/volume) 15 mmol/L 5-14 Serum or plasma urea nitrogen measurement (mass/volume) 20 mg/dL 7-18 Serum or plasma creatinine measurement (mass/volume) 1.45 mg/dL 0.60-1.30 Serum or plasma urea nitrogen/creatinine mass ratio 14 NRG Serum or plasma creatinine measurement with calculation of estimated glomerular filtration rate 50 NRG Serum or plasma glucose measurement (mass/volume) 148 mg/dL 70-105 Serum or plasma calcium measurement (mass/volume) 9.8 mg/dL 8.5-10.1 Serum or plasma total bilirubin measurement (mass/volume) 0.7 mg/dL 0.1-1.0 Serum or plasma alkaline phosphatase measurement (enzymatic activity/volume) 66 U/L 40-136 Serum or plasma aspartate aminotransferase measurement (enzymatic activity/ volume) 76 U/L 5-34 Serum or plasma alanine aminotransferase measurement (enzymatic activity/volume ) 191 U/L 0-55 Serum or plasma protein measurement (mass/volume) 7.7 g/dL 6.4-8.2 Serum or plasma albumin measurement (mass/volume) 4.5 g/dL 3.2-4.5 A1C - 06/13/17 16:19 HEMOGLOBIN A1c 5.9 % of total Hgb <5.7 CMP - 08/11/17 17:02 GLUCOSE 88 mg/dL 65-99 UREA NITROGEN (BUN) 19 mg/dL 7-25 CREATININE 1.28 mg/dL 0.70-1.33 eGFR NON-AFR. BELARUSIAN 62 mL/min/1.73m2 > OR=60 eGFR 72 mL/min/1.73m2 > OR=60 BUN/CREATININE RATIO NOT APPLICABLE (calc) 6-22 SODIUM 139 mmol/L 135-146 POTASSIUM 4.3 mmol/L 3.5-5.3 CHLORIDE 102 mmol/L 98-110 CARBON DIOXIDE 26 mmol/L 20-31 CALCIUM 10.0 mg/dL 8.6-10.3 PROTEIN, TOTAL 7.5 g/dL 6.1-8.1 ALBUMIN 4.8 g/dL 3.6-5.1 GLOBULIN 2.7 g/dL (calc) 1.9-3.7 ALBUMIN/GLOBULIN RATIO 1.8 (calc) 1.0-2.5 BILIRUBIN, TOTAL 0.6 mg/dL 0.2-1.2 ALKALINE PHOSPHATASE 58 U/L 40-115 AST 30 U/L 10-35 ALT 52 U/L 9-46 MAGNESIUM SERUM - 08/11/17 17:02 MAGNESIUM 2.0 mg/dL 1.5-2.5 Complete blood count (CBC) with automated white blood cell (WBC) differential - 09/28/17 09:55 Blood leukocytes automated count (number/volume) 6.1 10*3/uL 4.3-11.0 Blood erythrocytes automated count (number/volume) 4.65 10*6/uL 4.35-5.85 Venous blood hemoglobin measurement (mass/volume) 15.2 g/dL 13.3-17.7 Blood hematocrit (volume fraction) 41 % 40-54 Automated erythrocyte mean corpuscular volume 88 [foz_us] 80-99 Automated erythrocyte mean corpuscular hemoglobin (mass per erythrocyte) 33 pg 25-34 Automated erythrocyte mean corpuscular hemoglobin concentration measurement ( mass/volume) 37 g/dL 32-36 Automated erythrocyte distribution width ratio 11.9 % 10.0-14.5 Automated blood platelet count (count/volume) 197 10*3/uL 130-400 Automated blood platelet mean volume measurement 9.7 [foz_us] 7.4-10.4 Automated blood neutrophils/100 leukocytes 59 % 42-75 Automated blood lymphocytes/100 leukocytes 28 % 12-44 Blood monocytes/100 leukocytes 12 % 0-12 Automated blood eosinophils/100 leukocytes 1 % 0-10 Automated blood basophils/100 leukocytes 1 % 0-10 Blood neutrophils automated count (number/volume) 3.6 10*3 1.8-7.8 Blood lymphocytes automated count (number/volume) 1.7 10*3 1.0-4.0 Blood monocytes automated count (number/volume) 0.7 10*3 0.0-1.0 Automated eosinophil count 0.1 10*3/uL 0.0-0.3 Automated blood basophil count (count/volume) 0.0 10*3/uL 0.0-0.1 Comprehensive metabolic panel - 09/28/17 09:55 Serum or plasma sodium measurement (moles/volume) 136 mmol/L 135-145 Serum or plasma potassium measurement (moles/volume) 4.8 mmol/L 3.6-5.0 Serum or plasma chloride measurement (moles/volume) 104 mmol/L 98-107 Carbon dioxide 26 mmol/L 21-32 Serum or plasma anion gap determination (moles/volume) 6 mmol/L 5-14 Serum or plasma urea nitrogen measurement (mass/volume) 15 mg/dL 7-18 Serum or plasma creatinine measurement (mass/volume) 0.96 mg/dL 0.60-1.30 Serum or plasma urea nitrogen/creatinine mass ratio 16 NRG Serum or plasma creatinine measurement with calculation of estimated glomerular filtration rate > NRG Serum or plasma glucose measurement (mass/volume) 119 mg/dL 70-105 Serum or plasma calcium measurement (mass/volume) 9.7 mg/dL 8.5-10.1 Serum or plasma total bilirubin measurement (mass/volume) 0.6 mg/dL 0.1-1.0 Serum or plasma alkaline phosphatase measurement (enzymatic activity/volume) 55 U/L 40-136 Serum or plasma aspartate aminotransferase measurement (enzymatic activity/ volume) 21 U/L 5-34 Serum or plasma alanine aminotransferase measurement (enzymatic activity/volume ) 36 U/L 0-55 Serum or plasma protein measurement (mass/volume) 6.9 g/dL 6.4-8.2 Serum or plasma albumin measurement (mass/volume) 4.2 g/dL 3.2-4.5 CALCIUM CORRECTED 9.5 mg/dL 8.5-10.1 Serum or plasma troponin i.cardiac measurement (mass/volume) - 09/28/17 09:55 Serum or plasma troponin i.cardiac measurement (mass/volume) < ng/ mL <0.30 Serum or plasma C reactive protein measurement (mass/volume) - 09/28/17 09:55 Serum or plasma C reactive protein measurement (mass/volume) 0.79 mg /dL 0.00-0.50 Complete urinalysis with reflex to culture - 09/28/17 11:40 Urine color determination YELLOW NRG Urine clarity determination CLEAR NRG Urine pH measurement by test strip 5 5-9 Specific gravity of urine by test strip 1.020 1.016- 1.022 Urine protein assay by test strip, semi-quantitative NEGATIVE NEGATIVE Urine glucose detection by automated test strip NEGATIVE NEGATIVE Erythrocytes detection in urine sediment by light microscopy NEGATIVE NEGATIVE Urine ketones detection by automated test strip NEGATIVE NEGATIVE Urine nitrite detection by test strip NEGATIVE NEGATIVE Urine total bilirubin detection by test strip NEGATIVE NEGATIVE Urine urobilinogen measurement by automated test strip (mass/volume) NORMAL NORMAL Urine leukocyte esterase detection by dipstick 1+ NEGATIVE Automated urine sediment erythrocyte count by microscopy (number/high power field) RARE NRG Automated urine sediment leukocyte count by microscopy (number/high power field ) [HPF] NRG Bacteria detection in urine sediment by light microscopy NEGATIVE NRG Squamous epithelial cells detection in urine sediment by light microscopy NONE NRG Crystals detection in urine sediment by light microscopy NONE NRG Casts detection in urine sediment by light microscopy NONE NRG Mucus detection in urine sediment by light microscopy NEGATIVE NRG Complete urinalysis with reflex to culture NO NRG Renal epithelial cells detection in urine sediment by light microscopy NONE NRG Complete blood count (CBC) with automated white blood cell (WBC) differential - 10/18/17 12:10 Blood leukocytes automated count (number/volume) 7.4 10*3/uL 4.3-11.0 Blood erythrocytes automated count (number/volume) 4.99 10*6/uL 4.35-5.85 Venous blood hemoglobin measurement (mass/volume) 16.0 g/dL 13.3-17.7 Blood hematocrit (volume fraction) 43 % 40-54 Automated erythrocyte mean corpuscular volume 87 [foz_us] 80-99 Automated erythrocyte mean corpuscular hemoglobin (mass per erythrocyte) 32 pg 25-34 Automated erythrocyte mean corpuscular hemoglobin concentration measurement ( mass/volume) 37 g/dL 32-36 Automated erythrocyte distribution width ratio 12.5 % 10.0-14.5 Automated blood platelet count (count/volume) 257 10*3/uL 130-400 Automated blood platelet mean volume measurement 10.0 [foz_us] 7.4-10.4 Automated blood neutrophils/100 leukocytes 59 % 42-75 Automated blood lymphocytes/100 leukocytes 32 % 12-44 Blood monocytes/100 leukocytes 8 % 0-12 Automated blood eosinophils/100 leukocytes 1 % 0-10 Automated blood basophils/100 leukocytes 0 % 0-10 Blood neutrophils automated count (number/volume) 4.4 10*3 1.8-7.8 Blood lymphocytes automated count (number/volume) 2.3 10*3 1.0-4.0 Blood monocytes automated count (number/volume) 0.6 10*3 0.0-1.0 Automated eosinophil count 0.1 10*3/uL 0.0-0.3 Automated blood basophil count (count/volume) 0.0 10*3/uL 0.0-0.1 Comprehensive metabolic panel - 10/18/17 12:10 Serum or plasma sodium measurement (moles/volume) 137 mmol/L 135-145 Serum or plasma potassium measurement (moles/volume) 3.5 mmol/L 3.6-5.0 Serum or plasma chloride measurement (moles/volume) 102 mmol/L 98-107 Carbon dioxide 20 mmol/L 21-32 Serum or plasma anion gap determination (moles/volume) 15 mmol/L 5-14 Serum or plasma urea nitrogen measurement (mass/volume) 25 mg/dL 7-18 Serum or plasma creatinine measurement (mass/volume) 1.37 mg/dL 0.60-1.30 Serum or plasma urea nitrogen/creatinine mass ratio 18 NRG Serum or plasma creatinine measurement with calculation of estimated glomerular filtration rate 54 NRG Serum or plasma glucose measurement (mass/volume) 174 mg/dL 70-105 Serum or plasma calcium measurement (mass/volume) 9.5 mg/dL 8.5-10.1 Serum or plasma total bilirubin measurement (mass/volume) 1.3 mg/dL 0.1-1.0 Serum or plasma alkaline phosphatase measurement (enzymatic activity/volume) 57 U/L 40-136 Serum or plasma aspartate aminotransferase measurement (enzymatic activity/ volume) 27 U/L 5-34 Serum or plasma alanine aminotransferase measurement (enzymatic activity/volume ) 43 U/L 0-55 Serum or plasma protein measurement (mass/volume) 7.5 g/dL 6.4-8.2 Serum or plasma albumin measurement (mass/volume) 4.5 g/dL 3.2-4.5 CALCIUM CORRECTED 9.1 mg/dL 8.5-10.1 Serum or plasma creatine kinase measurement (enzymatic activity/volume) - 10/18 12:10 Serum or plasma creatine kinase measurement (enzymatic activity/volume) 185 U/L 30-200 Myoglobin, serum - 10/18/17 12:10 Myoglobin, serum 84.0 ng/mL 10.0-92.0 Complete urinalysis with reflex to culture - 10/18/17 14:10 Urine color determination YELLOW NRG Urine clarity determination SLIGHTLY CLOUDY NRG Urine pH measurement by test strip 5 5-9 Specific gravity of urine by test strip 1.020 1.016- 1.022 Urine protein assay by test strip, semi-quantitative NEGATIVE NEGATIVE Urine glucose detection by automated test strip 2+ NEGATIVE Erythrocytes detection in urine sediment by light microscopy NEGATIVE NEGATIVE Urine ketones detection by automated test strip NEGATIVE NEGATIVE Urine nitrite detection by test strip NEGATIVE NEGATIVE Urine total bilirubin detection by test strip NEGATIVE NEGATIVE Urine urobilinogen measurement by automated test strip (mass/volume) NORMAL NORMAL Urine leukocyte esterase detection by dipstick 1+ NEGATIVE Automated urine sediment erythrocyte count by microscopy (number/high power field) NONE NRG Automated urine sediment leukocyte count by microscopy (number/high power field ) [HPF] NRG Bacteria detection in urine sediment by light microscopy TRACE NRG Squamous epithelial cells detection in urine sediment by light microscopy RARE NRG Crystals detection in urine sediment by light microscopy NONE NRG Casts detection in urine sediment by light microscopy PRESENT NRG Mucus detection in urine sediment by light microscopy SMALL NRG Complete urinalysis with reflex to culture NO NRG Hyaline casts detection in urine sediment by light microscopy 0-2 NRG Complete blood count (CBC) with automated white blood cell (WBC) differential - 11/17/17 07:50 Blood leukocytes automated count (number/volume) 5.5 10*3/uL 4.3-11.0 Blood erythrocytes automated count (number/volume) 5.05 10*6/uL 4.35-5.85 Venous blood hemoglobin measurement (mass/volume) 15.9 g/dL 13.3-17.7 Blood hematocrit (volume fraction) 44 % 40-54 Automated erythrocyte mean corpuscular volume 87 [foz_us] 80-99 Automated erythrocyte mean corpuscular hemoglobin (mass per erythrocyte) 32 pg 25-34 Automated erythrocyte mean corpuscular hemoglobin concentration measurement ( mass/volume) 36 g/dL 32-36 Automated erythrocyte distribution width ratio 12.4 % 10.0-14.5 Automated blood platelet count (count/volume) 247 10*3/uL 130-400 Automated blood platelet mean volume measurement 9.3 [foz_us] 7.4-10.4 Automated blood neutrophils/100 leukocytes 51 % 42-75 Automated blood lymphocytes/100 leukocytes 35 % 12-44 Blood monocytes/100 leukocytes 11 % 0-12 Automated blood eosinophils/100 leukocytes 2 % 0-10 Automated blood basophils/100 leukocytes 1 % 0-10 Blood neutrophils automated count (number/volume) 2.8 10*3 1.8-7.8 Blood lymphocytes automated count (number/volume) 1.9 10*3 1.0-4.0 Blood monocytes automated count (number/volume) 0.6 10*3 0.0-1.0 Automated eosinophil count 0.1 10*3/uL 0.0-0.3 Automated blood basophil count (count/volume) 0.0 10*3/uL 0.0-0.1 Comprehensive metabolic panel - 11/17/17 07:50 Serum or plasma sodium measurement (moles/volume) 138 mmol/L 135-145 Serum or plasma potassium measurement (moles/volume) 4.4 mmol/L 3.6-5.0 Serum or plasma chloride measurement (moles/volume) 106 mmol/L 98-107 Carbon dioxide 23 mmol/L 21-32 Serum or plasma anion gap determination (moles/volume) 9 mmol/L 5-14 Serum or plasma urea nitrogen measurement (mass/volume) 16 mg/dL 7-18 Serum or plasma creatinine measurement (mass/volume) 1.21 mg/dL 0.60-1.30 Serum or plasma urea nitrogen/creatinine mass ratio 13 NRG Serum or plasma creatinine measurement with calculation of estimated glomerular filtration rate > NRG Serum or plasma glucose measurement (mass/volume) 134 mg/dL 70-105 Serum or plasma calcium measurement (mass/volume) 9.1 mg/dL 8.5-10.1 Serum or plasma total bilirubin measurement (mass/volume) 0.7 mg/dL 0.1-1.0 Serum or plasma alkaline phosphatase measurement (enzymatic activity/volume) 55 U/L 40-136 Serum or plasma aspartate aminotransferase measurement (enzymatic activity/ volume) 24 U/L 5-34 Serum or plasma alanine aminotransferase measurement (enzymatic activity/volume ) 43 U/L 0-55 Serum or plasma protein measurement (mass/volume) 7.0 g/dL 6.4-8.2 Serum or plasma albumin measurement (mass/volume) 4.4 g/dL 3.2-4.5 CALCIUM CORRECTED 8.8 mg/dL 8.5-10.1 Encounters ACCT No. Visit Date/Time Discharge Status Pt. Type Provider Facility Loc./Unit Complaint [id number] 01/27/2013 14:49:00 01/27/2013 23:59:59 CLS Outpatient CAITIE BARNES APRN [id number] 04/13/2012 11:16:00 04/13/2012 23:59:59 CLS Outpatient NISA HAYNES APRN [id number] 03/15/2012 16:57:00 03/15/2012 23:59:59 CLS Outpatient [id number] 01/31/2012 11:03:00 01/31/2012 23:59:59 CLS Outpatient CAITIE BARNES APRN [id number] 01/26/2012 09:23:00 01/26/2012 23:59:59 CLS Outpatient CAITIE BARNES APRN [id number] 12/23/2011 16:45:00 12/23/2011 23:59:59 CLS Outpatient CAITIE BARNES APRN [id number] 10/18/2017 11:48:00 10/18/2017 15:17:00 DIS Emergency JD FLORES APRN [facility] ER NAUSEA,DIZZY [id number] 11/05/2016 21:36:00 11/05/2016 23:31:00 DIS Emergency HUNTER PALMA MD [facility] ER RT KNEE PAIN,LEG CRAMPING [id number] 11/01/2016 13:42:00 11/01/2016 23:59:59 CLS Preadmit OTHER, UNLISTED [facility] RAD RUQ PAIN R10.11 [id number] 11/01/2016 15:24:00 11/01/2016 18:06:00 DIS Emergency JD FLORES APRN [facility] ER STOMACH PAIN [id number] 01/14/2016 16:40:00 01/14/2016 18:07:00 DIS Emergency LENORA CATHERINE [facility] ER DRUG TEST/RASH ON ARM [id number] 01/10/2016 08:54:00 01/10/2016 09:35:00 DIS Emergency HUNTER PALMA MD [facility] ER L EYE SWELLING/POSS FOREIGN PARTICLES IN EYE [id number] 11/17/2017 07:56:00 Document Registration [id number] 09/28/2017 10:13:00 Document Registration [id number] 10/04/2017 13:40:00 10/04/2017 23:59:59 [facility] Outpatient MARIANA SOLER [facility] [id number] 08/11/2017 16:40:00 Document Registration [id number] 06/13/2017 15:40:00 Document Registration [id number] 01/27/2013 15:37:47 ACT Document Registration
[2017-11-18] MEDS ORDERED: LIDOCAINE 2% VISCOUS 15 ML UDC PO ONE (14:15)
[2017-11-18] MEDS ORDERED: FAMOTIDINE 20MG/2ML IV (PEPCID) IVP ONE (14:15)
[2017-11-18] MEDS ORDERED: ONDANSETRON 4 MG/2 ML (SDV) Z0FRAN IVP ONE (14:15)
[2017-11-18] MEDS ORDERED: ANTACID SUSP 30 ML UDC (MYLANTA) PO ONE (14:15)
[2017-11-18 14:24] LABS: ALBUMIN 4.4 GM/DL (3.2-4.5); CALCIUM 9.4 MG/DL (8.5-10.1); CREATININE SERUM 1.26 MG/DL (0.60-1.30); POTASSIUM 3.8 MMOL/L (3.6-5.0); TOTAL PROTEIN 7.3 GM/DL (6.4-8.2)
--- NOTE | 2017-11-18 14:58 | ED Abdominal Pain ---
General Chief Complaint: Abdominal/GI Problems Stated Complaint: DIZZY ABD PAIN Nursing Triage Note: pt presents to ed with complaints of abdominal pain x 6 weeks, progressively getting worse. pt reports nausea/diahrrea. pt states he had a ct scan and lab work done yesterday but has not seen results. Sepsis Screen: No Definite Risk Source of Information: Patient, Old Records Exam Limitations: No Limitations History of Present Illness Date Seen by Provider: Nov 18, 2017 Time Seen by Provider: 13:37 Initial Comments This 57-year-old gentleman presents to the emergency room with complaints of generalized abdominal pain, worse on the right, for about 6 weeks. He also complains of some occasional subjective fever, nausea without vomiting, and some dizziness. He also reports some dark stools. He has had some intermittent loose and constipated stools alternating. Vital signs are unremarkable. He has seen Dr. Moreno who ordered a CT scan and labs which were performed yesterday. These were relatively unremarkable. There was mention of possible enteritis versus mild ileus on the CT scan. His last bowel movement was just before coming to the ER. It was solid and dark. He last ate a sandwich about one hour prior to arrival. Patient states it hurts more with exertion and movement. Pain feels better when he is still. Allergies and Home Medications Allergies Coded Allergies: No Known Allergies (Verified Allergy, Unknown, 09/28/17) Home Medications Atenolol 25 Mg Tablet, 25 MG PO DAILY, (Reported) Famotidine 20 Mg Tablet, 20 MG PO BID Prescribed by: YOLANDA WORLEY on 11/18/17 1640 Lisinopril 20 Mg Tablet, 20 MG PO DAILY, (Reported) Ondansetron 4 Mg Tab.rapdis, 4 MG SL Q4H PRN for NAUSEA/VOMITING-1ST LINE Prescribed by: YOLANDA WORLEY on 11/18/17 1628 Promethazine HCl 25 Mg Tablet, 25 MG PO Q8H PRN for NAUSEA/VOMITING Prescribed by: JD FLORES on 11/01/16 1739 Tramadol HCl 50 Mg Tablet, 50 MG PO QID PRN for PAIN-MODERATE TO SEVERE Prescribed by: YOLANDA WORLEY on 11/18/17 1624 Patient Home Medication List Home Medication List Reviewed: Yes Review of Systems Review of Systems Constitutional: no symptoms reported EENTM: No Symptoms Reported Cardiovascular: No Symptoms Reported Gastrointestinal: See HPI Genitourinary: No Symptoms Reported Musculoskeletal: no symptoms reported Skin: no symptoms reported Psychiatric/Neurological: No Symptoms Reported Endocrine: No Symptoms Reported Hematologic/Lymphatic: No Symptoms Reported Past Cmjzgga-Waeucd-Shrfso Hx Patient Social History Alcohol Use: Rarely Uses Number of Drinks Today: AA Alcohol Beverage of Choice: Beer Recreational Drug Use: No Type Used: Cigarettes Former Smoker, Quit: Nov 09, 2015 2nd Hand Smoke Exposure: Yes Recent Foreign Travel: No Contact w/Someone Who Travel: No Recent Infectious Disease Expo: No Recent Hopitalizations: No Physical Abuse: No Sexual Abuse: No Mistreated: No Fear: No Immunizations Up To Date Tetanus Booster (TDap): Unknown Seasonal Allergies Seasonal Allergies: No Past Medical History Surgeries: Yes (left elbow surgery) Orthopedic Respiratory: No Cardiac: Yes Hypertension Neurological: No Reproductive Disorders: No Sexually Transmitted Disease: No Genitourinary: No Gastrointestinal: Yes Chronic Diarrhea Musculoskeletal: Yes Arthritis Endocrine: Yes Diabetes, Non-Insulin dep HEENT: No Cancer: No Psychosocial: No Integumentary: No Blood Disorders: No Family Medical History Heart Disease, Diabetes, Hypertension Physical Exam Vital Signs Vital Signs - First Documented 11/18/17 13:35 Temp 97.9 Pulse 82 Resp 16 B/P (MAP) 157/97 (117) Pulse Ox 96 Capillary Refill : Less Than 3 Seconds Height/Weight/BMI Height: 6'2.00" Weight: 240lbs. oz. 108.410602nb; BMI Method:Stated General Appearance: WD/WN, no apparent distress HEENT: PERRL/EOMI, normal ENT inspection Neck: normal inspection Respiratory: lungs clear, normal breath sounds, no respiratory distress, no accessory muscle use Cardiovascular: regular rate, rhythm, no edema, no murmur Gastrointestinal: normal bowel sounds, soft, tenderness (throughout the abdomen but seems to spare the left lower quadrant. 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, no motor/sensory deficits, alert, normal mood/affect, oriented x 3 Skin: normal color, warm/dry Progress/Results/Core Measures Results/Orders Lab Results Laboratory Tests Test 11/18/17 13:52 11/18/17 13:55 Range/Units Urine Color YELLOW Urine Clarity CLEAR Urine pH 5 5-9 Urine Specific [place] 1.030 H 1.016-1.022 Urine Protein 1+ H NEGATIVE Urine Glucose (UA) NEGATIVE NEGATIVE Urine Ketones NEGATIVE NEGATIVE Urine Nitrite NEGATIVE NEGATIVE Urine Bilirubin NEGATIVE NEGATIVE Urine Urobilinogen NORMAL NORMAL MG/DL Urine Leukocyte Esterase 1+ H NEGATIVE Urine RBC (Auto) NEGATIVE NEGATIVE Urine RBC NONE /HPF Urine WBC RARE /HPF Urine Squamous Epithelial Cells NONE /HPF Urine Crystals NONE /LPF Urine Bacteria NEGATIVE /HPF Urine Casts NONE /LPF Urine Mucus SMALL H /LPF Urine Culture Indicated NO White Blood Count 5.8 4.3-11.0 10^3/uL Red Blood Count 4.82 4.35-5.85 10^6/uL Hemoglobin 15.7 13.3-17.7 G/DL Hematocrit 42 40-54 % Mean Corpuscular Volume 87 80-99 FL Mean Corpuscular Hemoglobin 33 25-34 PG Mean Corpuscular Hemoglobin Concent 37 H 32-36 G/DL Red Cell Distribution Width 12.4 10.0-14.5 % Platelet Count 232 130-400 10^3/uL Mean Platelet Volume 9.9 7.4-10.4 FL Neutrophils (%) (Auto) 62 42-75 % Lymphocytes (%) (Auto) 29 12-44 % Monocytes (%) (Auto) 8 0-12 % Eosinophils (%) (Auto) 1 0-10 % Basophils (%) (Auto) 0 0-10 % Neutrophils # (Auto) 3.6 1.8-7.8 X 10^3 Lymphocytes # (Auto) 1.7 1.0-4.0 X 10^3 Monocytes # (Auto) 0.5 0.0-1.0 X 10^3 Eosinophils # (Auto) 0.1 0.0-0.3 10^3/uL Basophils # (Auto) 0.0 0.0-0.1 10^3/uL Sodium Level 137 135-145 MMOL/L Potassium Level 3.8 3.6-5.0 MMOL/L Chloride Level 106 98-107 MMOL/L Carbon Dioxide Level 24 21-32 MMOL/L Anion Gap 7 5-14 MMOL/L Blood Urea Nitrogen 14 7-18 MG/DL Creatinine 1.26 0.60-1.30 MG/DL Estimat Glomerular Filtration Rate 59 BUN/Creatinine Ratio 11 Glucose Level 150 H 70-105 MG/DL Calcium Level 9.4 8.5-10.1 MG/DL Corrected Calcium 9.1 8.5-10.1 MG/DL Total Bilirubin 1.0 0.1-1.0 MG/DL Aspartate Amino Transf (AST/SGOT) 27 5-34 U/L Alanine Aminotransferase (ALT/SGPT) 43 0-55 U/L Alkaline Phosphatase 53 40-136 U/L C-Reactive Protein High Sensitivity 0.14 0.00-0.50 MG/DL Total Protein 7.3 6.4-8.2 GM/DL Albumin 4.4 3.2-4.5 GM/DL Lipase 59 8-78 U/L My Orders Orders - YOLANDA HASSAN MD Cbc With Automated Diff (11/18/17 13:45) Comprehensive Metabolic Panel (11/18/17 13:45) Hs C Reactive Protein (11/18/17 13:45) Lipase (11/18/17 13:45) Ua Culture If Indicated (11/18/17 13:45) Saline Lock/Iv-Start (11/18/17 13:45) Famotidine Injection (Pepcid Injection) (11/18/17 14:15) Ondansetron Injection (Zofran Injectio (11/18/17 14:15) Lidocaine 2% Viscous 15 Ml (Xylocaine Vi (11/18/17 14:15) Antacid Suspension (Mylanta Suspension (11/18/17 14:15) Us Gallbladder 91421 (11/18/17 15:21) Medications Given in ED Current Medications Medications Dose Ordered Sig/Eboni Route Start Time Stop Time Status Last Admin Dose Admin Al Hydrox/Mg Hydrox/Simethicone 30 ml ONCE ONCE PO 11/18/17 14:15 11/18/17 14:16 DC 11/18/17 14:40 30 ML Famotidine 20 mg ONCE ONCE IVP 11/18/17 14:15 11/18/17 14:16 DC 11/18/17 14:40 20 MG Lidocaine HCl 15 ml ONCE ONCE PO 11/18/17 14:15 11/18/17 14:16 DC 11/18/17 14:40 15 ML Ondansetron HCl 4 mg ONCE ONCE IVP 11/18/17 14:15 11/18/17 14:16 DC 11/18/17 14:40 4 MG Vital Signs/I&O 11/18/17 11/18/17 13:35 16:46 Temp 97.9 Pulse 82 72 Resp 16 16 B/P (MAP) 157/97 (117) 132/80 Pulse Ox 96 98 Blood Pressure Mean: 117 Progress Progress Note : Progress Note Lab evaluation was unremarkable. Patient received Pepcid, GI cocktail, and Zofran without much benefit. He was reexamined and found to be just as tender as he was prior to treatment. Since there was no improvement, gallbladder ultrasound was obtained. This study also was unremarkable. Case was discussed with Dr. Moreno who agrees with treating symptoms and increasing treatment for possible gastritis or gastric or duodenal ulcer. His omeprazole was increased to twice daily and Pepcid was added. Zofran and Ultram were prescribed for symptom management. Departure Impression Primary Impression: Abdominal pain, generalized Additional Impression: Nausea Disposition: HOME, SELF-CARE Condition: Stable Departure-Patient Inst. Decision time for Depature: 16:23 Referrals: [facility] (PCP/Family) Primary Care Physician Patient Instructions: Acute Abdomen (Belly Pain), Adult (DC), Clear Liquid Diet Add. Discharge Instructions: Take Tylenol (acetaminophen) for primary pain control. Add Ultram (tramadol) as prescribed for pain not controlled by Tylenol. You may take Zofran (ondansetron) as prescribed for nausea. Increase your omeprazole to 20 mg twice daily. Add Pepcid (famotidine) as prescribed. Observe a clear liquid diet which may include Jell-O, broth, sports drinks, etc. for the next 3 days. After that gradually introduce small quantities of bland food as tolerated. Avoid the following: Eating large meals, eating close to bedtime, lying down completely flat, caffeine, carbonation, citrus fruits and juices, chocolate, alcohol, tobacco, tomato products, spicy foods, NSAID medications such as ibuprofen or naproxen, mints, fatty or greasy foods, or anything else you know irritates your stomach. Return to care if symptoms are worsening despite these measures. Please follow-up with Dr. Moreno as soon as possible. He may advise additional studies such as upper endoscopy, colonoscopy, or hepatobiliary scan. All discharge instructions reviewed with patient and/or family. Voiced understanding. Scripts Famotidine (Pepcid) 20 Mg Tablet 20 MG PO BID, #60 TAB Prov: YOLANDA HASSAN MD 11/18/17 Ondansetron (Zofran Odt) 4 Mg Tab.rapdis 4 MG SL Q4H PRN for NAUSEA/VOMITING-1ST LINE, #10 TAB Prov: YOLANDA HASSAN MD 11/18/17 Tramadol HCl (Ultram) 50 Mg Tablet 50 MG PO QID PRN for PAIN-MODERATE TO SEVERE, #15 TAB Prov: YOLANDA HASSAN MD 11/18/17 Work/School Note: Work Release Form Date Seen in the Emergency Department: Nov 18, 2017 Return to Work: Nov 22, 2017 Restrictions: No Restrictions Copy Copies To 1: AMY MORENO DO Copies To 2: MARIANA SOLER MD, JOSHUA T MD Nov 18, 2017 14:58
--- NOTE | 2017-11-18 15:58 | Diagnostic Imaging Report ---
INDICATION: Abdominal pain. TECHNIQUE: Gallbladder sonography performed in the routine fashion. FINDINGS: The liver shows mild diffuse increased echogenicity compatible with fatty change. There is no focal liver lesion. Gallbladder shows no stones or wall thickening. Common duct measures 4.2 mm. Pancreas is not well seen due to overlying gas. Right kidney is normal and measures 11.6 cm in length. There is no ascites. IMPRESSION: The liver shows mild fatty infiltration with no focal lesion. Gallbladder appears unremarkable. Dictated by: Dictated on workstation # [id number]
[2017-11-18] MEDS ORDERED: TRAM-42 PO (16:24)
[2017-11-18] MEDS ORDERED: ONDA4TAB8 SL (16:28)
[2017-11-18] MEDS ORDERED: FAMO-119 PO (16:40)
[2017-11-18 16:46] VITALS: BP 132/80
== END 2017-11-18 16:46 | disposition home or self-care (01) ==
LOC: EDUNIT# 13:25 → ER 13:26
DX: R10.84 Generalized abdominal pain (principal); R11.0 Nausea; I10 Essential (primary) hypertension; E11.9 Type 2 diabetes mellitus without complications; Z87.19 Personal history of other diseases of the digestive system; Z82.49 Family history of ischemic heart disease and other diseases of the circulatory system; Z87.891 Personal history of nicotine dependence
CPT/HCPCS: 36415; 76705; 80053; 81000; 83690; 85025; 86141

== ENCOUNTER 2017-11-23 06:41 | Outpatient (CLI) | payer BC ==
[~2017-11-23] VITALS: Ht 188 cm; Wt 108.9 kg
[~2017-11-23 06:41] MED LIST changes: +FAMO-119 PO; +ONDA4TAB8 SL; +TRAM-42 PO
[2017-11-23] MEDS ORDERED: LISI1TAB8 PO (11:37)
== END 2017-11-23 11:41 | disposition home or self-care (01) ==
LOC: PREOP 06:41
PROVIDERS: ATTEND Surgery
DX: Z01.818 Encounter for other preprocedural examination (principal)

== ENCOUNTER 2017-11-29 12:19 | Day surgery (SDC) | payer BC ==
[~2017-11-29] VITALS: Ht 188 cm; Wt 108.9 kg
[~2017-11-29 12:19] MED LIST changes: +LISI1TAB8 PO
--- OUTSIDE RECORDS SUMMARY | 2017-11-29 12:23 | XMS REPORT ---
Author Author MARIANA SOLER Organization [facility] Address [address] [place] [address] Care Team Providers Care Table Games Floor Supervisor Name Role Phone MARIANA SOLER Unavailable PROBLEMS Type Condition ICD9-CM Code IJH38-WB Code Onset Dates Condition Status SNOMED Code Problem History of herpes genitalis Z86.19 Active 181934695 Problem Essential hypertension I10 Active 31339172 Problem Gastroesophageal reflux disease, esophagitis presence not specified K21.9 Active 754969628 Problem Type 2 diabetes mellitus with other specified complication, without long-term current use of insulin E11.69 Active 05865126 Problem Carpal tunnel syndrome of right wrist G56.01 Active 273168545039942 Problem Biceps tendonitis, right M75.21 Active 006976990 Problem Arthritis M19.90 Active 4964352 Problem Mixed hyperlipidemia E78.2 Active 214521105 Problem Prediabetes R73.03 Active 701223641 ALLERGIES No Information ENCOUNTERS Encounter Location Date Diagnosis [place] [address] [address] Nov, [place] [address] [address] Oct, [place] [address] [place] [id number] [place] [address] Oct, Bilateral hand numbness R20.0 [place] [address] [address] Oct, [place] [address] [address] Oct, Dehydration E86.0 ; Acute kidney insufficiency N28.9 ; Essential hypertension I10 ; Bilateral impacted cerumen H61.23 and Colon cancer screening Z12.11 [place] [address] [place] [id number] [place] [address] Sep, Bilateral hand numbness R20.0 and Type 2 diabetes mellitus with other specified complication, without long-term current use of insulin E11.69 [facility] [address] [place] [id number] [place] [address] 27[address] Aug, Bilateral hand numbness R20.0 ; Essential hypertension I10 ; Mixed hyperlipidemia E78.2 ; Prediabetes R73.03 and Type 2 diabetes mellitus with other specified complication, without long-term current use of insulin E11.69 [place] [address] [place] [id number] [place] [address]- [address] Aug, [place] [address] [place] [id number] [place] [address]- 8611 Jul, Bilateral leg cramps R25.2 [place] [address] [address] June, [place] [address] [place] [id number] [place] [address] May, Essential hypertension I10 ; Mixed hyperlipidemia E78.2 and Prediabetes R73.03 [facility] [address] [place] [id number] [place] [address] Apr, Acute non-recurrent maxillary sinusitis J01.00 and Cough R05 [place] [address] [place] [id number] [place] [address]- [address] Apr, [place] [address] [place] [id number] [place] [address]- 6[address] Mar, Pneumonia of right lower lobe due to infectious organism J18.1 [place] [address] [place] [id number] [place] [address] 31[address] 87[address] Mar, Pneumonia of right lower lobe due to infectious organism J18.1 and Shortness of breath R06.02 [place] [address] [place] [id number] [place] [address]98- 3[address] Mar, [place] [address] [place] [id number] [place] [address] 30749- 0689 13 Mar, 2017 Influenza-like illness R69 and Impacted cerumen of both ears H61.23 [place] [address] [place] [id number] [place] [address] 66078- 37[address] 25 Oct, 2016 [place] [address] [address]- 118[address] 14 Oct, 2016 [place] [address] 6[address]- 32[address] 08 Oct, 2016 Carpal tunnel syndrome of right wrist G56.01 and RUQ abdominal pain R10.11 [place] [address] [address]- 6[address] Sep, Essential hypertension I10 ; Mixed hyperlipidemia E78.2 and Prediabetes R73.03 [place] [address] [address]- 9[address] 09 Sep, 2016 Essential hypertension I10 [place] [address] [address]- [address] 08 Jul, 2016 Acute otitis externa of right ear, unspecified type H60.501 [place] [address] [place] [id number] [place] [address] 35979- 1502 16 Jun, 2016 Biceps tendonitis, right M75.21 and Essential hypertension I10 [place] [address] [place] [id number] [place] [address] 75759- 9277 June, [place] [address] [address]- 6[address] May, Essential hypertension I10 and Cramp of both lower extremities R25.2 [place] [address] [address]- 5697 18 May, 2016 Arthritis M19.90 and Cramp of both lower extremities R25.2 [facility] [address] [address] 18 Mar, 2016 [facility] [address] [facility] [id number] [address] [address] 26 Nov, 2015 Essential hypertension I10 and Colon cancer screening Z12.11 [facility] [address] [id number] [place] [address] 14 Nov, 2015 [facility] [address] [id number] [id number] Jul, Dental examination Z01.20 [facility] [address] [facility] [id number] [address] 14 May, 2014 [facility] [address] [place] [id number] [place] [address] 25127- 2562 13 May, 2014 [facility] [address] [id number] [address] 07 Jan, 2013 [facility] [address] [address] Jan, [facility] [address] [id number] [address] Aug, [facility] [address] [address] 16 May, 2012 [facility] [address] [address] Mar, [facility] [address] [id number] [address] Feb, [facility] [address] [facility] [id number] [address] Jan, [facility] [address] [facility] [id number] [address] 3[address] Jan, [facility] [address] [facility] [id number] [address] 84[address] Jan, [facility] [address] [address] 15[address] Jan, [facility] [place] [facility] [address] [id number] [place] [address]- 95[address] Jan, [facility] [place] [facility] [address] [id number] [place] [address]- 9486 Jan, [facility] [place] [facility] [address] [facility] [id number] [place] [address]- 7270 Jan, [facility] [place] [facility] [address] [id number] [place] [address]- 69[address] Jan, [facility] [place] [facility] [address] [id number] [place] [address]- 2380 Jan, [facility] [place] [facility] [address] [id number] [place] [address]- 3110 Jan, [facility] [place] [facility] [address] [id number] [place] [address]- 5405 Jan, [facility] [place] [facility] [address] [id number] [place] [address]- 0038 Jan, [facility] [place] [facility] [address] [id number] [place] [address]- 6283 Jan, [facility] [place] [facility] [address] [id number] [place] [address]- 8388 Jan, [facility] [place] [facility] [address] [id number] [place] [address]- 7448 Jan, [facility] [place] [facility] [address] [id number] [address]- [address] Dec, [facility] [place] [facility] [address] [id number] [place] [address]- 3[address] Dec, [facility] [place] [facility] [address] [id number] [place] [address]- 0090 Dec, [facility] [place] [facility] [address] [facility] [id number] [place] [address]- 4300 Dec, [facility] [place] [facility] [address] [address]- [address] Dec, [facility] [address] [address]- 117[address] Dec, [facility] [address] [address]- [address] Sep, [facility] [address] [address]- 6[address] Sep, [facility] [address] [address]- [address] Sep, [facility] [id number] [place] [address]25- 8636 Aug, [facility] [address] [address]- 85[address] Aug, [facility] [address] [address]- 7[address] May, [facility] [address] [address]- 9448 May, [facility] [address] [address] May, [facility] [address] [address]- 9053 May, [facility] [address] [address]- 5262 Apr, [facility] [address] [place] [id number] [address]- 12[address] Mar, [facility] [address] [place] [id number] [address] Mar, IMMUNIZATIONS No Known Immunizations SOCIAL HISTORY Never Assessed REASON FOR VISIT Requesting return call PLAN OF CARE VITAL SIGNS MEDICATIONS Unknown Medications RESULTS No Results PROCEDURES No Known procedures INSTRUCTIONS MEDICATIONS ADMINISTERED No Known Medications MEDICAL (GENERAL) HISTORY Type Description Date Medical History hypertension Medical History hyperlipidemia Medical History Arthritis Surgical History orthopedic surgery--Left elbow, removal of bone spur and scar tissue Hospitalization History Surgery only
[2017-11-29] MEDS ORDERED: LACTATED RINGERS 1,000 ML IV ONE (12:24)
[2017-11-29] MEDS ORDERED: LACTATED RINGERS 1,000 ML IV STA (12:25)
--- OUTSIDE RECORDS SUMMARY | 2017-11-29 12:27 | XMS REPORT | Continuity of Care Document ---
Author Author [facility] Address Unknown Phone Unavailable Allergies Active Description Code Type Severity Reaction Onset Reported/Identified Relationship to Patient Clinical Status Yes No Known Drug Allergies [id number] Drug Allergy Unknown N/A 01/10/2016 Yes No Known Allergies [id number] Drug Allergy Unknown N/A 11/23/2017 Medications There is no data. Problems Date Dx Coded Attending Type Code Diagnosis Diagnosed By 04/18/2009 CAITIE BARNES APRN 401.1 ESSENTIAL HYPERTENSION BENIGN 04/18/2009 CAITIE BARNSE APRN 401.1 ESSENTIAL HYPERTENSION BENIGN 04/18/2009 CAITIE [...] AND ABSCESS OF UNSPECIFIED SITES 09/21/2011 CAMERON [employer] SUPERVISOR, CAITIE T E920.9 ACCIDENTS CAUSED BY UNSPECIFIED [...] NISA S V74.5 STD SCREEN 01/22/2012 CAMERON ELECT[employer] PLUM[employer] SUPERVISORCAITIE Holcomb V74.5 STD SCREEN 01/31/2012 CAITIE BARNES APRN 272.4 HYPERLIPIDEMIA 01/31/2012 CAITIE BARNES APRN T 302.72 ERECTILE DISORDER 01/31/2012 CAITIE BARNES APRN 790.29 HYPERGLYCEMIA 01/31/2012 272.4 HYPERLIPIDEMIA 01/31/2012 302.72 ERECTILE DISORDER 01/31/2012 790.29 HYPERGLYCEMIA 01/31/2012 [place] ELECTRICAL PLUMBING SUPERVISORKAYCE HolcombNDA S 272.4 HYPERLIPIDEMIA 01/31/2012 [place] DASN, NISA S 302.72 ERECTILE DISORDER 01/31/2012 [place] E[employer] PLUM[employer] SUPERVISORKAYCE HolcombNDA S 790.29 HYPERGLYCEMIA 01/31/2012 CAITIE BARNES APRN 272.4 HYPERLIPIDEMIA 01/31/2012 CAITIE BARNES APRN 302.72 ERECTILE DISORDER 01/31/2012 CAITIE BARNES APRN 790.29 HYPERGLYCEMIA 03/15/2012 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 03/15/2012 [place] [employer] SUPERVISORYAN HolcombA S 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 03/15/2012 CAMERON E[employer] PLUM[employer] SUPERVISORCAITIE Holcomb 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 04/13/2012 KAYCE HAYNES APRNNDA S 079.99 VIRAL SYNDROME 04/13/2012 CAITIE BARNES APRN 079.99 VIRAL SYNDROME 09/01/2012 CAITIE BARNES APRN 300.00 ANXIETY UNSPEC 01/10/2016 MINERVA SOW, HUNTER Fernández Ot L23.5 ALLERGIC CONTACT DERMATITIS DUE TO OTHER 01/10/2016 MINERVA SOW, HUNTER Fernández Ot L30.9 DERMATITIS, UNSPECIFIED 01/14/2016 LENORA CATHERINE METAL CHECKER Ot I10 ESSENTIAL (PRIMARY) HYPERTENSION 01/14/2016 LENORA CATHERINEP Ot L25.3 UNSP CONTACT DERMATITIS DUE TO OTHER SARAI 01/14/2016 LENORA CATHERINEP Ot Z79.899 OTHER CANE SPLICER (CURRENT) DRUG THERAPY 01/16/2016 LENORA CATHERINE METAL CHECKER Ot I10 ESSENTIAL (PRIMARY) HYPERTENSION 01/16/2016 LENORA CATHERINEP Ot L25.3 UNSP CONTACT DERMATITIS DUE TO OTHER SARAI 01/16/2016 LENORA CATHERINEP Ot Z79.899 OTHER CANE SPLICER (CURRENT) DRUG THERAPY 11/01/2016 JD FLORES ELECTRICAL PLUMBING SUPERVISOR Ot I10 ESSENTIAL (PRIMARY) HYPERTENSION 11/01/2016 JD FLORES ELECTRICAL PLUMBING SUPERVISOR Ot R10.11 RIGHT UPPER QUADRANT PAIN 11/01/2016 JD FLORES ELECTRICAL PLUMBING SUPERVISOR Ot R11.0 NAUSEA 11/01/2016 JD FLORES ELECTRICAL PLUMBING SUPERVISOR Ot R94.5 ABNORMAL RESULTS OF LIVER FUNCTION STUDI 11/01/2016 JD FLORES ELECTRICAL PLUMBING SUPERVISOR Ot Z87.891 PERSONAL HISTORY OF NICOTINE DEPENDENCE 11/02/2016 JD FLORES ELECTRICAL PLUMBING SUPERVISOR Ot I10 ESSENTIAL (PRIMARY) HYPERTENSION 11/02/2016 JD FLORES ELECTRICAL PLUMBING SUPERVISOR Ot R10.11 RIGHT UPPER QUADRANT PAIN 11/02/2016 JD FLORES ELECTRICAL PLUMBING SUPERVISOR Ot R11.0 NAUSEA 11/02/2016 JD FLORES ELECTRICAL PLUMBING SUPERVISOR Ot R94.5 ABNORMAL RESULTS OF LIVER FUNCTION STUDI 11/02/2016 JD FLORES ELECTRICAL PLUMBING SUPERVISOR Ot Z87.891 PERSONAL HISTORY OF NICOTINE DEPENDENCE 11/05/2016 HUNTER PALMA MD Ot E11.9 TYPE 2 DIABETES MELLITUS WITHOUT COMPLIC 11/05/2016 HUNTER PALMA MD Ot I10 ESSENTIAL (PRIMARY) HYPERTENSION 11/05/2016 HUNTER PALMA MD Ot R25.2 CRAMP AND SPASM 11/05/2016 HUNTER PALMA MD Ot Z79.84 SHELTER (CURRENT) USE OF ORAL HYPOGLYC 11/05/2016 HUNTER PALMA MD Ot Z87.891 PERSONAL HISTORY OF NICOTINE DEPENDENCE 11/11/2016 HUNTER PALMA MD Ot E11.9 TYPE 2 DIABETES MELLITUS WITHOUT COMPLIC 11/11/2016 HUNTER PALMA MD Ot I10 ESSENTIAL (PRIMARY) HYPERTENSION 11/11/2016 HUNTER PALMA MD Ot M19.90 UNSPECIFIED OSTEOARTHRITIS, UNSPECIFIED 11/11/2016 HUNTER PALMA MD Ot R25.2 CRAMP AND SPASM 11/11/2016 HUNTER PALMA MD Ot Z79.84 CANE SPLICER (CURRENT) USE OF ORAL HYPOGLYC 11/11/2016 HUNTER PALMA MD Ot Z87.891 PERSONAL HISTORY OF NICOTINE DEPENDENCE 11/16/2016 HUNTER PALMA MD Ot E11.9 TYPE 2 DIABETES MELLITUS WITHOUT COMPLIC 11/16/2016 HUNTER PALMA MD Ot I10 ESSENTIAL (PRIMARY) HYPERTENSION 11/16/2016 MINERVA SOW, HUNTER Fernández Ot R25.2 CRAMP AND SPASM 11/16/2016 MINERVA SOW, HUNTER Fernández Ot Z79.84 CANE SPLICER (CURRENT) USE OF ORAL HYPOGLYC 11/16/2016 MINERVA [...] EXPSR TO ENVIRON TOBACCO SMO 10/20/2017 FLORESJD MCCALL Pradeep DANIEL Ot Z87.19 PERSONAL HISTORY OF OTHER DISEASES OF TH 11/18/2017 AMY MORENO DO Ot R10.9 UNSPECIFIED ABDOMINAL PAIN 11/18/2017 MORENO AMY CLEMENT Ot R11.0 NAUSEA 11/18/2017 AMY MORENO DO Ot R10.9 UNSPECIFIED ABDOMINAL PAIN 11/18/2017 AMY MORENO DO Ot R11.0 NAUSEA 11/21/2017 MO SOW, YOLANDA Richards Ot E11.9 TYPE 2 DIABETES MELLITUS WITHOUT COMPLIC 11/21/2017 MO SOW, YOLANDA Richards Ot I10 ESSENTIAL (PRIMARY) HYPERTENSION 11/21/2017 MO SOW, YOLANDA Richards Ot R10.84 GENERALIZED ABDOMINAL PAIN 11/21/2017 YOLANDA HASSAN MD Ot R11.0 NAUSEA 11/21/2017 MO SOW, YOLANDA Richards Ot Z82.49 FAMILY HX OF ISCHEM HEART DIS AND OTH DI 11/21/2017 YOLANDA HASSAN MD Ot Z87.19 PERSONAL HISTORY OF OTHER DISEASES OF TH 11/21/2017 YOLANDA HASSAN MD Ot Z87.891 PERSONAL HISTORY OF NICOTINE DEPENDENCE 11/24/2017 AMY MORENO DO Ot Z01.818 ENCOUNTER FOR OTHER PREPROCEDURAL EXAMIN Procedures Code Description [place] [address] ROUTINE VENIPUNCTURE 01/26/2012 HERPSM1,2 HERPES SIMPLEX 1 AND 2, IGM, IGG 01/26/2012 05406 ROUTINE VENIPUNCTURE 01/31/2012 39841 PSA FREE AND TOTAL 01/31/2012 61625 TESTOSTERONE FREE 01/31/2012 29894 A1C (IN-HOUSE) 01/31/2012 51980 BMP 01/31/2012 00503 LIPID PANEL 01/31/2012 1218474 GFR CALC (RESULT ONLY) 01/31/2012 Results Test [...] 7-25 CREATININE 1.28 mg/dL 0.70-1.33 eGFR NON-AFR. MALAWIAN 62 mL/min/1.73m2 > OR=60 eGFR 72 mL/min/1.73m2 [...] g/dL 3.2-4.5 CALCIUM CORRECTED 8.8 mg/dL 8.5-10.1 Complete urinalysis with reflex to culture - 11/18/17 13:52 Urine color determination YELLOW NRG Urine clarity determination CLEAR NRG Urine pH measurement by test strip 5 5-9 Specific gravity of urine by test strip 1.030 1.016- 1.022 Urine protein assay by test strip, semi-quantitative 1+ NEGATIVE Urine glucose detection by automated test [...] urinalysis with reflex to culture NO NRG Complete blood count (CBC) with automated white blood cell (WBC) differential - 11/18/17 13:55 Blood leukocytes automated count (number/volume) 5.8 10*3/uL 4.3-11.0 Blood erythrocytes automated count (number/volume) 4.82 10*6/uL 4.35-5.85 Venous blood hemoglobin measurement (mass/volume) 15.7 g/dL 13.3-17.7 Blood hematocrit (volume fraction) 42 % 40-54 Automated erythrocyte mean corpuscular volume 87 [foz_us] 80-99 Automated erythrocyte mean corpuscular hemoglobin (mass per erythrocyte) 33 pg 25-34 Automated erythrocyte mean corpuscular hemoglobin concentration measurement ( mass/volume) 37 g/dL 32-36 Automated erythrocyte distribution width ratio 12.4 % 10.0-14.5 Automated blood platelet count (count/volume) 232 10*3/uL 130-400 Automated blood platelet mean volume measurement 9.9 [foz_us] 7.4-10.4 Automated blood neutrophils/100 leukocytes 62 % 42-75 Automated blood lymphocytes/100 leukocytes 29 % 12-44 Blood monocytes/100 leukocytes 8 % 0-12 Automated blood eosinophils/100 leukocytes 1 % 0-10 Automated blood basophils/100 leukocytes 0 % 0-10 Blood neutrophils automated count (number/volume) 3.6 10*3 1.8-7.8 Blood lymphocytes automated count (number/volume) 1.7 10*3 1.0-4.0 Blood monocytes automated count (number/volume) 0.5 10*3 0.0-1.0 Automated eosinophil count 0.1 10*3/uL 0.0-0.3 Automated blood basophil count (count/volume) 0.0 10*3/uL 0.0-0.1 Comprehensive metabolic panel - 11/18/17 13:55 Serum or plasma sodium measurement (moles/volume) 137 mmol/L 135-145 Serum or plasma potassium measurement (moles/volume) 3.8 mmol/L 3.6-5.0 Serum or plasma chloride measurement (moles/volume) 106 mmol/L 98-107 Carbon dioxide 24 mmol/L 21-32 Serum or plasma anion gap determination (moles/volume) 7 mmol/L 5-14 Serum or plasma urea nitrogen measurement (mass/volume) 14 mg/dL 7-18 Serum or plasma creatinine measurement (mass/volume) 1.26 mg/dL 0.60-1.30 Serum or plasma urea nitrogen/creatinine mass ratio 11 NRG Serum or plasma creatinine measurement with calculation of estimated glomerular filtration rate 59 NRG Serum or plasma glucose measurement (mass/volume) 150 mg/dL 70-105 Serum or plasma calcium measurement (mass/volume) 9.4 mg/dL 8.5-10.1 Serum or plasma total bilirubin measurement (mass/volume) 1.0 mg/dL 0.1-1.0 Serum or plasma alkaline phosphatase measurement (enzymatic activity/volume) 53 U/L 40-136 Serum or plasma aspartate aminotransferase measurement (enzymatic activity/ volume) 27 U/L 5-34 Serum or plasma alanine aminotransferase measurement (enzymatic activity/volume ) 43 U/L 0-55 Serum or plasma protein measurement (mass/volume) 7.3 g/dL 6.4-8.2 Serum or plasma albumin measurement (mass/volume) 4.4 g/dL 3.2-4.5 CALCIUM CORRECTED 9.1 mg/dL 8.5-10.1 Lipase - 11/18/17 13:55 Lipase 59 U/L 8-78 Serum or plasma C reactive protein measurement (mass/volume) - 11/18/17 13:55 Serum or plasma C reactive protein measurement (mass/volume) 0.14 mg /dL 0.00-0.50 Encounters ACCT No. Visit Date/Time Discharge Status Pt. Type Provider Facility Loc./Unit Complaint [id number] 01/27/2013 14:49:00 01/27/2013 23:59:59 CLS Outpatient CAITIE BARNES APRN [id number] 04/13/2012 11:16:00 04/13/2012 23:59:59 CLS Outpatient NISA HAYNES APRN [id number] 03/15/2012 16:57:00 03/15/2012 23:59:59 CLS Outpatient [id number] 01/31/2012 11:03:00 01/31/2012 23:59:59 CLS Outpatient CAITIE BARNES APRN [id number] 01/26/2012 09:23:00 01/26/2012 23:59:59 CLS Outpatient CAITIE BARNES APRN [id number] 12/23/2011 16:45:00 12/23/2011 23:59:59 CLS Outpatient CAITIE BARNES APRN [id number] 11/23/2017 06:41:00 11/23/2017 11:41:00 DIS Outpatient AMY MORENO DO [facility] PREOP COLONOSCOPY/EGD [id number] 11/18/2017 13:26:00 11/18/2017 16:46:00 DIS Outpatient MO SOW, YOLANDA Richards [facility] ER DIZZY ABD PAIN [id number] 11/17/2017 07:42:00 11/17/2017 23:59:59 CLS Outpatient AMY MORENO DO [facility] RAD ABDOMINAL PAIN [id number] 10/18/2017 11:48:00 10/18/2017 15:17:00 DIS Emergency JD FLORES [employer] SUPERVISOR [facility] ER NAUSEA,DIZZY [id number] 11/05/2016 21:36:00 11/05/2016 23:31:00 DIS Emergency HUNTER PALMA MD [facility] ER RT KNEE PAIN,LEG CRAMPING [id number] 11/01/2016 13:42:00 11/01/2016 23:59:59 CLS Preadmit OTHER, UNLISTED [facility] RAD RUQ PAIN R10.11 [id number] 11/01/2016 15:24:00 11/01/2016 18:06:00 DIS Emergency JD FLORES [employer]LECT[employer]UM[employer] SUPERVISOR [facility] ER STOMACH PAIN [id number] 01/14/2016 16:40:00 01/14/2016 18:07:00 DIS Emergency LENORA CATHERINE [facility] ER DRUG TEST/RASH ON ARM [id number] 01/10/2016 08:54:00 01/10/2016 09:35:00 DIS Emergency HUNTER PALMA MD [facility] ER L EYE SWELLING/POSS FOREIGN PARTICLES IN EYE [id number] 11/29/2017 12:19:00 ACT Outpatient AMY MORENO DO [facility] ENDO DIARRHEA/RLQ ABD PAIN/GERD [id number] 09/28/2017 10:13:00 Document Registration [id number] 10/04/2017 13:40:00 10/04/2017 23:59:59 CLS Outpatient MARIANA SOLER [facility] [id number] 08/11/2017 16:40:00 Document Registration [id number] 06/13/2017 15:40:00 Document Registration [email or web address] 01/27/2013 15:37:47 ACT Document Registration
[2017-11-29] MEDS ORDERED: HURRICAINE EXT TUBE (BENZOCAINE) XX PRN (12:30)
[2017-11-29] MEDS ORDERED: MIDAZOLAM 2 MG/2 ML (VERSED) VIAL ONE (12:51)
[2017-11-29] MEDS ORDERED: PROPOFOL INJECTION 50 ML IV ONE (12:52)
--- NOTE | 2017-11-29 13:17 | Progress Note-Pre Operative ---
Pre-Operative Progress Note H&P Reviewed The H&P was reviewed, patient examined and no changes noted. Date Seen by Provider: Nov 29, 2017 Time Seen by Provider: 13:16 Date H&P Reviewed: Nov 29, 2017 Time H&P Reviewed: 13:16 Pre-Operative Diagnosis: rlq abdominal pain, diarrhea GERD AMY MORENO DO Nov 29, 2017 13:17
[2017-11-29 13:18] VITALS: BP 142/97
[2017-11-29] MEDS ORDERED: proPOfol 200 MG/20 ML (DIPRIVAN) VIAL IV ONE (13:38)
--- NOTE | 2017-11-29 13:52 | Progress Note-Post Operative ---
Post-Operative Progess Note Surgeon (s)/Gandy Dancer (s) Surgeon AMY MORENO DO Gandy Dancer: na Pre-Operative Diagnosis rlq abdominal pain, diarrhea GERD Post-Operative Diagnosis gastritis, minimal esophageal varices, rectal polyp Procedure & Operative Findings Date of Procedure 11/29/17 Procedure Performed/Findings egd c biopsy, colonoscopy c cold biopsies random, hot bx polypectomy rectum Anesthesia Type per starch dumper Estimated Blood Loss Estimated blood loss (mL): none Specimens/Packing Specimens Removed antrum, random colon, rectal polyp AMY MORENO DO Nov 29, 2017 13:52
[2017-11-29] MEDS ORDERED: PANT40TA2 PO (13:53)
--- NOTE | 2017-11-29 13:54 | Discharge Inst-Simple/Standard ---
Discharge Inst-Standard Discharge Medications New, Converted or Re-Newed RX: Transmitted to Pharmacy Patient Instructions/Follow Up Plan of Care/Instructions/FU: 2-3 weeks Lis Activity as Tolerated: Yes Discharge Diet: Regular Diet (high fiber) AMY MORENO DO Nov 29, 2017 13:54
[2017-11-29 14:05] VITALS: BP 168/90
[2017-11-29 14:25] VITALS: BP 158/99
--- NOTE | 2017-11-29 14:29 | Anesthesia-General Post-Op ---
MAC Patient Condition Mental Status/LOC: Same as Preop Cardiovascular: Satisfactory Nausea/Vomiting: Absent Respiratory: Satisfactory Pain: Controlled Complications: Absent Post Op Complications Complications None Follow Up Care/Instructions Patient Instructions None needed. Anesthesiology Discharge Order Discharge Order Patient is doing well, no complaints, stable vital signs, no apparent adverse anesthesia problems. No complications reported per nursing. STERLING LAMA CRNA Nov 29, 2017 14:29
[2017-11-29] MEDS ORDERED: HURRICAINE EXT TUBE (BENZOCAINE) ONE (14:42)
[2017-11-29 15:01] VITALS: BP 158/99
--- NOTE | 2017-11-29 15:41 | OPERATIVE REPORT ---
DATE OF SERVICE: 11/29/2017 PREOPERATIVE DIAGNOSES: Right lower quadrant abdominal pain, diarrhea, gastroesophageal reflux disease. POSTOPERATIVE DIAGNOSES: Gastritis, minimal esophageal varices, rectal polyp. PROCEDURE: EGD with biopsy, colonoscopy with cold biopsies. Random and hot biopsy polypectomy of the rectum. ANESTHESIA: Per DISTRICT GAUGER. SURGEON: Amy Hays DO ESTIMATED BLOOD LOSS: None. COMPLICATIONS: None. INDICATIONS: The patient is a 57-year-old male with right lower quadrant abdominal pain, diarrhea and some reflux symptoms. The patient understands risks and benefits of procedure and wished to proceed with procedure. Consent was signed on the chart. DESCRIPTION OF PROCEDURE: The patient was taken to the endoscopy suite, placed in left lateral recumbent position. Timeout was performed. Scope was inserted into the mouth, down the esophagus, stomach and into the duodenum without difficulty. There were no polyps, masses or ulcerations within the duodenum. Scope was slowly retracted back to the stomach, which had some slight erythematous changes consistent with gastritis. No other polyps, masses or ulcerations. Scope was retroflexed noting no other pathology. Scope was returned to its normal position. Biopsy of the antrum was obtained. Scope was then slowly retracted back into the distal esophagus, which had no erythematous changes, no polyps, masses or ulcerations. He did have the appearance of some minimal esophageal varices. Scope was slowly retracted back until completely removed. Digital rectal exam was performed just noting some minimal hemorrhoidal disease. Scope was then inserted in the rectum and advanced all the way to the cecum with minimal difficulty. Prep was adequate. Scope was then slowly retracted back. As scope was being retracted, random cold biopsies were obtained. There were no polyps, masses or ulcerations within the cecum, ascending, transverse, descending and sigmoid colon. Once in the rectum, scope was retroflexed noting a small rectal polyp, which hot biopsy polypectomy was performed. Scope was returned to its normal position, slowly withdrawn until completely removed. The patient tolerated procedure well without any complications, taken to recovery room in stable condition. RECOMMENDATIONS: The patient will be started on Protonix 40 mg daily and . The patient will follow up in the office in two to three weeks. He will need repeat colonoscopy in 5 years. If he has any problems prior to that, he should be reevaluated at that time. Job ID: [id number] DocumentID: [id number] Dictated Date: 11/29/2017 13:57:21 Ice Delivery Driver Date: 11/29/2017 15:40:49 Dictated By: AMY HAYS DO
== END 2017-11-29 14:40 | disposition home or self-care (01) ==
LOC: ENDO 12:19
PROVIDERS: ATTEND Surgery
DX: R19.7 Diarrhea, unspecified (principal); K62.1 Rectal polyp; K29.70 Gastritis, unspecified, without bleeding; I85.00 Esophageal varices without bleeding; K21.9 Gastro-esophageal reflux disease without esophagitis; I10 Essential (primary) hypertension; Z79.899 Other long term (current) drug therapy

== ENCOUNTER 2017-12-14 22:25 | Emergency (ER) | payer BC ==
[~2017-12-14] VITALS: Ht 190.5 cm; Wt 108.9 kg
[~2017-12-14 22:25] MED LIST changes: +PANT40TA2 PO
[2017-12-14] MEDS ORDERED: ASPIRIN 81 MG CHEW (CHILDREN'S ASA) PO ONE (22:30)
[2017-12-14] MEDS ORDERED: NITROGLYCERIN 0.4 MG SL TABS BTL 25'S SL ONE (22:43)
[2017-12-14] MEDS ORDERED: KETOROLAC 30 MG/ML VIAL ONE (23:38)
--- NOTE | 2017-12-15 00:01 | ED Chest Pain ---
General Chief Complaint: Chest Pain Stated Complaint: CP Source: patient Exam Limitations: no limitations History of Present Illness Date Seen by Provider: Dec 14, 2017 Time Seen by Provider: 22:20 Initial Comments Patient presents to ER with chief complaint jr had subjective fever and chills for the past 2 days worse tonight. He felt like he was breaking a fever he was shaking so his brought him here to the ER. He said he is having some pain in his chest on coughing, yawning or deep inspiration midline and nonradiating. No nausea or vomiting diarrhea or constipation. Last bowel movement was yesterday. He has no personal history of coronary artery disease. He says his brother and his late 40s has had heart problems and had to have multiple stents placed. He does have high blood pressure but he does not have diabetes, thyroid, cholesterol, history of tobacco use. He says for the past couple weeks theyve been working up why hes been having some generalized abdominal discomfort and bloating and he thought it might have something to do with the coffee pot he was using having some mold in it. He had a upper and lower endoscopy done by Dr. Hays and carmelitall receive the results of the endoscopy not from the biopsy results yet. Found a polyp in his colon. He has not had any Tylenol Motrin aspirin or Aleve tonight. The patient states he's had an ultrasound of his right upper quadrant as well as CT in the last month trying to workup his symptoms that he presents today for. Allergies and Home Medications Allergies Coded Allergies: No Known Allergies (Verified Allergy, Unknown, 11/23/17) Home Medications Lisinopril/Hydrochlorothiazide 1 Each Tablet, 1 EACH PO DAILY, (Reported) Pantoprazole Sodium 40 Mg Pedro., 40 MG PO DAILY Prescribed by: AMY HAYS on 11/29/17 6170 Patient Home Medication List Home Medication List Reviewed: Yes Review of Systems Review of Systems Constitutional: No chills, No diaphoresis EENTM: No Blurred Vision, No Double Vision Respiratory: Cough (occ) Cardiovascular: See HPI, Chest Pain; Denies Edema Gastrointestinal: Denies Abdomen Distended, Denies Abdominal Pain Genitourinary: Denies Burning, Denies Discharge Musculoskeletal: No back pain, No joint pain Skin: No pruritus, No rash Past Wbotrsg-Nrmgrc-Ehkyto Hx Patient Social History Alcohol Use: Rarely Uses Alcohol Beverage of Choice: Beer Recreational Drug Use: No Smoking Status: Light Tobacco Smoker Type Used: Cigarettes Former Smoker, Quit: Nov 09, 2015 2nd Hand Smoke Exposure: Yes Recent Foreign Travel: No Contact w/Someone Who Travel: No Recent Hopitalizations: No Immunizations Up To Date Tetanus Booster (TDap): Unknown Date of Influenza Vaccine: Dec 06, 2016 Seasonal Allergies Seasonal Allergies: No Past Medical History Surgeries: Yes (left elbow surgery) Orthopedic Respiratory: No Cardiac: Yes Hypertension Neurological: No Reproductive Disorders: No Sexually Transmitted Disease: No HIV/AIDS: No Genitourinary: No Gastrointestinal: Yes Gastroesophageal Reflux, Chronic Diarrhea Musculoskeletal: Yes Arthritis Endocrine: Yes Diabetes, Non-Insulin dep HEENT: No Loss of Vision: Bilateral Hearing Impairment: Denies Cancer: No Psychosocial: No Integumentary: No Blood Disorders: No Adverse Reaction/Blood Tranf: No (N/A) Family Medical History Heart Disease, Diabetes, Hypertension Physical Exam Vital Signs Vital Signs - First Documented 12/14/17 12/14/17 22:27 22:40 Temp 99.9 Pulse 87 Resp 18 B/P (MAP) 184/106 (132) Pulse Ox 94 O2 Delivery Room Air O2 Flow Rate 2.00 Capillary Refill : Height, Weight, BMI Height: 6'2.00" Weight: 240lbs. 0.0oz. 108.496358sw; 30.8 BMI Method:Stated General Appearance: No Apparent Distress, WD/WN HEENT: PERRL/EOMI, Normal ENT Inspection, Pharynx Normal, Moist Mucous Membranes Neck: Full Range of Motion, Normal Inspection, Non Tender, Supple Respiratory: Lungs Clear, Normal Breath Sounds, No Accessory Muscle Use, No Respiratory Distress, Other (chest pain reproducible on palpation) Cardiovascular: Regular Rate, Rhythm, No Edema, Normal Peripheral Pulses Gastrointestinal: Normal Bowel Sounds, No Organomegaly, Soft, Tenderness (mild tenderness upper right and upper left quadrant) Focused Exam Lactate Level 12/15/17 00:00: Lactic Acid Level 1.09 Lactic Acid Level Laboratory Tests Test 12/15/17 00:00 Lactic Acid Level 1.09 MMOL/L (0.50-2.00) Progress/Results/Core Measures Results/Orders Lab Results Laboratory Tests Test 12/14/17 22:40 12/14/17 23:40 12/15/17 00:00 Range/Units White Blood Count 11.0 4.3-11.0 10^3/uL Red Blood Count 5.07 4.35-5.85 10^6/uL Hemoglobin 15.8 13.3-17.7 G/DL Hematocrit 44 40-54 % Mean Corpuscular Volume 87 80-99 FL Mean Corpuscular Hemoglobin 31 25-34 PG Mean Corpuscular Hemoglobin Concent 36 32-36 G/DL Red Cell Distribution Width 12.6 10.0-14.5 % Platelet Count 261 130-400 10^3/uL Mean Platelet Volume 9.2 7.4-10.4 FL Neutrophils (%) (Auto) 66 42-75 % Lymphocytes (%) (Auto) 22 12-44 % Monocytes (%) (Auto) 12 0-12 % Eosinophils (%) (Auto) 1 0-10 % Basophils (%) (Auto) 0 0-10 % Neutrophils # (Auto) 7.2 1.8-7.8 X 10^3 Lymphocytes # (Auto) 2.4 1.0-4.0 X 10^3 Monocytes # (Auto) 1.3 H 0.0-1.0 X 10^3 Eosinophils # (Auto) 0.1 0.0-0.3 10^3/uL Basophils # (Auto) 0.0 0.0-0.1 10^3/uL Prothrombin Time 12.7 12.2-14.7 SEC INR Comment 1.0 0.8-1.4 Activated Partial Thromboplast Time 26 24-35 SEC Sodium Level 139 135-145 MMOL/L Potassium Level 4.2 3.6-5.0 MMOL/L Chloride Level 104 98-107 MMOL/L Carbon Dioxide Level 19 L 21-32 MMOL/L Anion Gap 16 H 5-14 MMOL/L Blood Urea Nitrogen 13 7-18 MG/DL Creatinine 1.16 0.60-1.30 MG/DL Estimat Glomerular Filtration Rate > 60 BUN/Creatinine Ratio 11 Glucose Level 135 H 70-105 MG/DL Calcium Level 9.8 8.5-10.1 MG/DL Corrected Calcium 9.5 8.5-10.1 MG/DL Magnesium Level 2.1 1.8-2.4 MG/DL Total Bilirubin 1.3 H 0.1-1.0 MG/DL Aspartate Amino Transf (AST/SGOT) 16 5-34 U/L Alanine Aminotransferase (ALT/SGPT) 26 0-55 U/L Alkaline Phosphatase 64 40-136 U/L Myoglobin 30.2 10.0-92.0 NG/ML Troponin I < 0.30 < 0.30 <0.30 NG/ML B-Type Natriuretic Peptide 10.0 <100.0 PG/ML Total Protein 7.8 6.4-8.2 GM/DL Albumin 4.4 3.2-4.5 GM/DL Lipase 24 8-78 U/L Monoscreen NEGATIVE NEGATIVE Lactic Acid Level 1.09 0.50-2.00 MMOL/L Micro Results Microbiology 12/15/17 Influenza Types A,B Antigen (ROCÍO) - Final, Complete My Orders Orders - HUNTER PALMA Cbc With Automated Diff (12/14/17:) Magnesium (12/14/17:) Cardiac Profile 1 (12/14/17:) Comprehensive Metabolic Panel (12/14/17:) Myoglobin Serum (12/14/17:) Protime With Inr (12/14/17:) Partial Thromboplastin Time (12/14/17:) Lipase (12/14/17 22:) BNP (12/14/17:) Chest 1 View, Ap/Pa Only (12/14/17:) Ekg Tracing (12/14/17:) O2 (12/14/17:) Monitor-Rhythm Ecg Trace Only (12/14/17:) Lipid Panel (12/15/17 06:00) Aspirin Chewable Tablet (Baby Aspirin Ch (12/14/17 22:30) Saline Lock/Iv-Start (12/14/17 22:26) Nitroglycerin 0.4 Mg Btl 25's (Nitrostat (12/14/17 22:43) Ketorolac Injection (Toradol Injection) (12/14/17 23:38) Monotest (12/14/17 23:40) Influenza A And B Antigens (12/15/17 00:04) Blood Culture (12/15/17 00:04) Lactic Acid Analyzer (12/15/17 00:04) Troponin I (12/15/17 00:00) Tramadol Tablet (Ultram Tablet) (12/15/17 00:45) Medications Given in ED Current Medications Medications Dose Ordered Sig/Eboni Route Start Time Stop Time Status Last Admin Dose Admin Aspirin 324 mg ONCE ONCE PO 12/14/17 22:30 12/14/17 22:31 DC 12/14/17 22:45 324 MG Ketorolac Tromethamine 30 mg STK-MED ONCE .ROUTE 12/14/17 23:38 12/14/17 23:39 DC 12/14/17 23:43 30 MG Nitroglycerin 0.4 mg STK-MED ONCE SL 12/14/17 22:43 12/14/17 23:30 DC 12/14/17 22:45 0.4 MG Tramadol HCl 50 mg ONCE ONCE PO 12/15/17 00:45 12/15/17 00:46 DC 12/15/17 00:42 50 MG Vital Signs/I&O 12/14/17 12/14/17 12/14/17 22:27 22:27 22:40 Temp 99.9 Pulse 87 Resp 18 B/P (MAP) 184/106 (132) Pulse Ox 94 94 O2 Delivery Room Air Room Air Nasal Cannula O2 Flow Rate 2.00 Progress Progress Note : Time: 23:59 Progress Note The chest pain seems to precede related to the chest wall and is reproducible on palpation. He has no personal history of coronary disease but we'll get a couple troponins 2 hours apart to rule this out. Initial EKG is unremarkable. We reviewed the ultrasound of the gallbladder and it was unremarkable for a few weeks ago and the CT of the abdomen pelvis did demonstrate some mild dilatation of the small bowel possible ileus versus infectious enteritis. Is now actually having elevated temperature and feeling of subjective fevers. We are going to give him some Toradol to help with his chest wall pain and since he's having bowel movements regularly we would consider letting him follow up outpatient with the general surgeon. We'll check a Monospot and if this is negative we've offered him a CT of the abdomen pelvis but at this time the patient and spouse are declining. Pathology results from 11/29/2017 demonstrates a hyperplastic polyp and no evidence of hyperplasia or neoplasia and no evidence of H. pylori in the stomach biopsies. Patient feels his Toradol has not helped his pains were going to offer him hydrocodone. 2 doses of nitroglycerin had no effect on his pain Initial ECG Impression Date: Dec 14, 2017 Initial ECG Impression Time: 22:29 Initial ECG Rate: 86 Initial ECG Rhythm: Normal Sinus Initial ECG Intervals: Normal Initial ECG Impression: Normal Initial ECG Comparisson: No Previous ECG Available Comment No ST elevation or depression. Diagnostic Imaging Diagonstic Imaging: Xray Plain Films/CT/US/NM/MRI: chest Comments No acute cardiopulmonary processes noted on one view chest. Reviewed: Reviewed by Me Departure Impression Primary Impression: Chest wall pain Disposition: HOME, SELF-CARE Condition: Improved Departure-Patient Inst. Decision time for Depature: 01:44 Referrals: [facility] (PCP/Family) Primary Care Physician Patient Instructions: Chest Pain That Is Not Caused by the Heart (DC) Add. Discharge Instructions: Start taking the Advil 4 tablets 3 times a day on a schedule for the next week. Follow-up with your primary care doctor. You can use Tylenol 1000 mg every 8 hours as needed as well. Call Dr. Hays, General Surgery and request results or an appointment to get the results. All discharge instructions reviewed with patient and/or family. Voiced understanding. Scripts Tramadol HCl (Tramadol HCl) 50 Mg Tablet 50 MG PO Q6H PRN for PAIN, #10 TAB 0 Refills Prov: HUNTER PALMA 12/15/17 Work/School Note: Work Release Form Date Seen in the Emergency Department: Dec 15, 2017 Return to Work: Dec 16, 2017 Restrictions: No Restrictions Copy Copies To 1: MARION URIBE TITUS J Dec 15, 2017 00:01
[2017-12-15 00:26] LABS: PROTHROMBIN TIME PATIENT 12.7 SEC (12.2-14.7)
[2017-12-15 00:27] LABS: BASOPHILS % (AUTO) 0 % (0-10); EOSINOPHILS % (AUTO) 1 % (0-10); HEMATOCRIT 44 % (40-54); HEMOGLOBIN 15.8 G/DL (13.3-17.7); LYMPHOCYTES % (AUTO) 22 % (12-44); MEAN CORPUSCULAR HEMOGLOBIN 31 PG (25-34); MEAN CORPUSCULAR HGB CONC 36 G/DL (32-36); MEAN CORPUSCULAR VOLUME 87 FL (80-99); MEAN PLATELET VOLUME 9.2 FL (7.4-10.4); MONOCYTES % (AUTO) 12 % (0-12); NEUTROPHILS % (AUTO) 66 % (42-75); PLATELET COUNT 261 10^3/uL (130-400); RED BLOOD COUNT 5.07 10^6/uL (4.35-5.85); RED CELL DISTRIBUTION WIDTH 12.6 % (10.0-14.5)
[2017-12-15 00:28] LABS: EOSINOPHILS # (AUTO) 0.1 10^3/uL (0.0-0.3); LYMPHOCYTES # (AUTO) 2.4 X 10^3 (1.0-4.0); MONOCYTES # (AUTO) 1.3 X 10^3 (0.0-1.0); NEUTROPHILS # (AUTO) 7.2 X 10^3 (1.8-7.8)
[2017-12-15 00:29] LABS: ALKALINE PHOSPHATASE 64 U/L (40-136); BILIRUBIN,TOTAL 1.3 MG/DL (0.1-1.0); BUN/CREATININE RATIO 11; CALCIUM 9.8 MG/DL (8.5-10.1); CARBON DIOXIDE 19 MMOL/L (21-32); CHLORIDE 104 MMOL/L (98-107); CREATININE SERUM 1.16 MG/DL (0.60-1.30); GFR ESTIMATED > 60; GLUCOSE 135 MG/DL (70-105); MAGNESIUM 2.1 MG/DL (1.8-2.4); POTASSIUM 4.2 MMOL/L (3.6-5.0); SODIUM 139 MMOL/L (135-145)
[2017-12-15 00:30] LABS: ALANINE AMINOTRANSFERASE 26 U/L (0-55); ALBUMIN 4.4 GM/DL (3.2-4.5); LIPASE 24 U/L (8-78); MYOGLOBIN SERUM 30.2 NG/ML (10.0-92.0); TOTAL PROTEIN 7.8 GM/DL (6.4-8.2)
[2017-12-15] MEDS ORDERED: TRAM50TA2 PO (01:45)
[2017-12-15 01:53] VITALS: BP 143/83
--- NOTE | 2017-12-15 05:28 | Diagnostic Imaging Report ---
INDICATION: Chest pain Portable chest 10:55 PM Heart size and pulmonary vascularity are normal. Lungs are clear. There are no effusions or pneumothoraces. IMPRESSION: Negative chest Dictated by: Dictated on workstation # [id number]
== END 2017-12-15 01:55 | disposition home or self-care (01) ==
LOC: EDUNIT# 22:25 → ER 22:26
DX: R07.89 Other chest pain (principal); I10 Essential (primary) hypertension; K21.9 Gastro-esophageal reflux disease without esophagitis; E11.9 Type 2 diabetes mellitus without complications; Z82.49 Family history of ischemic heart disease and other diseases of the circulatory system; Z87.19 Personal history of other diseases of the digestive system; Z95.5 Presence of coronary angioplasty implant and graft; Z86.010 Personal history of colon polyps; Z87.891 Personal history of nicotine dependence
CPT/HCPCS: 36415; 71045; 80053; 83605; 83690; 83735; 83874; 83880; 84484; 85025; 85610; 85730; 86308; 87040; 87804; 93041; 96374

== ENCOUNTER 2018-06-10 14:01 | Inpatient (IN) | payer BC, OTHER ==
[~2018-06-10] VITALS: Ht 188 cm; Wt 106.2 kg
[2018-06-10] VITALS (12 sets, daily range): BP systolic 148–185; BP diastolic 94–113
[~2018-06-10 14:01] MED LIST changes: +TRAM50TA2 PO
--- NOTE | 2018-06-10 14:02 | NUR ---
MS 5MG IV 1412 BRILINTA 180MG PO 1412 ASA 324MG PO 1412 HEPARIN 5000U IV 1427APRESOLINE 10MG IV 1430 FENTANYL 100MCG IV
--- NOTE | 2018-06-10 14:05 | NUR ---
BRIM CURLER TEAM CALLED
[2018-06-10] MEDS ORDERED: morphine INJ 10 MG/ML 1ML (SYR OR VIAL) IVP STA (14:08)
[2018-06-10] MEDS ORDERED: HEParin 1000 UNIT/ML (10ML VIAL) FOR BOLUS ONE ×2 (14:09→15:28)
[2018-06-10] MEDS ORDERED: TICAGRELOR 90 MG TABLET (BRILINTA) PO ONE ×2 (14:10→14:15)
[2018-06-10] MEDS: morphine INJ 10 MG/ML 1ML (SYR OR VIAL) ONE (14:10)
[2018-06-10] MEDS ORDERED: ASPIRIN 81 MG CHEW (CHILDREN'S ASA) ONE (14:10)
[2018-06-10] MEDS ORDERED: HEParin 1000 UNIT/ML (10ML VIAL) FOR BOLUS IV SCH (14:15)
[2018-06-10] MEDS ORDERED: ASPIRIN 81 MG CHEW (CHILDREN'S ASA) PO ONE (14:15)
[2018-06-10 14:16] LABS: BASOPHILS % (AUTO) 1 % (0-10); EOSINOPHILS # (AUTO) 0.1 10^3/uL (0.0-0.3); EOSINOPHILS % (AUTO) 2 % (0-10); HEMATOCRIT 50 % (40-54); HEMOGLOBIN 17.9 G/DL (13.3-17.7); LYMPHOCYTES % (AUTO) 41 % (12-44); MEAN CORPUSCULAR HEMOGLOBIN 31 PG (25-34); MEAN CORPUSCULAR HGB CONC 36 G/DL (32-36); MEAN CORPUSCULAR VOLUME 87 FL (80-99); MEAN PLATELET VOLUME 9.9 FL (7.4-10.4); MONOCYTES # (AUTO) 0.9 X 10^3 (0.0-1.0); MONOCYTES % (AUTO) 13 % (0-12); NEUTROPHILS # (AUTO) 3.3 X 10^3 (1.8-7.8); NEUTROPHILS % (AUTO) 44 % (42-75); PLATELET COUNT 276 10^3/uL (130-400); RED CELL DISTRIBUTION WIDTH 12.7 % (10.0-14.5); WHITE BLOOD COUNT 7.4 10^3/uL (4.3-11.0)
--- NOTE | 2018-06-10 14:22 | NUR ---
CONSENT SIGNED Addendum: 06/10/18 at 1422 by PMCCLURE MONITOR PATCHES FOR RN CLINICIAN PLACED ON
--- NOTE | 2018-06-10 14:23 | NUR ---
DR OROURKE HERE
[2018-06-10] MEDS ORDERED: hydrALAZINE (APESOLINE) 20 MG/ML VIAL ONE (14:24)
--- NOTE | 2018-06-10 14:25 | ED Chest Pain ---
General Chief Complaint: Chest Pain Stated Complaint: CHEST PAINS Nursing Triage Note: AMB TO ROOM C/O CHEST PAIN ONSET WHILE WORKING IN GARDEN Nursing Sepsis Screen: No Definite Risk Source: patient, family Exam Limitations: no limitations History of Present Illness Date Seen by Provider: Jun 10, 2018 Time Seen by Provider: 14:04 Initial Comments This 57 old gentleman presents to the emergency room with sudden onset of severe right-sided chest pain while working in the garden. Pain started within 30 minutes of arrival to the ER. He is in distress on arrival, short of breath , and diaphoretic. He has no history of coronary artery disease. He states a remote stress test was negative. He denies smoking. He has been told he is close to borderline diabetes. He has hypertension. Allergies and Home Medications Allergies Coded Allergies: No Known Allergies (Verified Allergy, Unknown, 11/23/17) Home Medications Lisinopril/Hydrochlorothiazide 1 Each Tablet, 1 EACH PO DAILY, (Reported) Patient Home Medication List Home Medication List Reviewed: Yes Review of Systems Review of Systems Constitutional: see HPI EENTM: No Symptoms Reported Respiratory: See HPI Cardiovascular: See HPI Gastrointestinal: No Symptoms Reported Genitourinary: No Symptoms Reported Musculoskeletal: no symptoms reported Skin: see HPI Psychiatric/Neurological: No Symptoms Reported Endocrine: No Symptoms Reported Hematologic/Lymphatic: No Symptoms Reported Past Muvibas-Wlgrda-Wlabfr Hx Patient Social History Alcohol Use: Denies Use Number of Drinks Today: AA Alcohol Beverage of Choice: Beer Recreational Drug Use: No Smoking Status: Current Everyday Smoker Type Used: Cigarettes Former Smoker, Quit: Nov 09, 2015 2nd Hand Smoke Exposure: Yes Recent Foreign Travel: No Contact w/Someone Who Travel: No Recent Infectious Disease Expo: No Recent Hopitalizations: No Immunizations Up To Date Tetanus Booster (TDap): Unknown Date of Influenza Vaccine: Dec 06, 2016 Seasonal Allergies Seasonal Allergies: No Past Medical History Surgeries: Yes (left elbow surgery) Orthopedic Respiratory: No Cardiac: Yes Hypertension Neurological: No Reproductive Disorders: No Sexually Transmitted Disease: No HIV/AIDS: No Genitourinary: No Gastrointestinal: Yes Gastroesophageal Reflux, Chronic Diarrhea Musculoskeletal: Yes Arthritis Endocrine: No Diabetes, Non-Insulin dep HEENT: No Loss of Vision: Bilateral Hearing Impairment: Denies Cancer: No Psychosocial: No Integumentary: No Blood Disorders: No Adverse Reaction/Blood Tranf: No (N/A) Family Medical History Reviewed Nursing Family Hx Heart Disease, Diabetes, Hypertension Physical Exam Vital Signs Vital Signs - First Documented 06/10/18 14:01 Pulse 89 Resp 48 B/P (MAP) 171/124 (140) Pulse Ox 98 O2 Delivery Room Air Capillary Refill : Less Than 3 Seconds Height, Weight, BMI Height: 6'2.00" Weight: 220lbs. 0.0oz. 99.518058vv; 30.8 BMI Method:Stated General Appearance: WD/WN, Severe Distress HEENT: PERRL/EOMI, Normal ENT Inspection Neck: Normal Inspection Respiratory: Lungs Clear, Normal Breath Sounds, No Accessory Muscle Use, No Respiratory Distress Cardiovascular: Regular Rate, Rhythm, No Edema, No Murmur Extremity: Normal Inspection, No Pedal Edema Neurologic/Psychiatric: Alert, Oriented x3, No Motor/Sensory Deficits, Normal Mood/Affect, brazer assembler II-XII Norm as Tested Skin: Normal Color, Diaphoresis Progress/Results/Core Measures Results/Orders Lab Results Laboratory Tests Test 06/10/18 14:06 Range/Units White Blood Count 7.4 4.3-11.0 10^3/uL Red Blood Count 5.69 4.35-5.85 10^6/uL Hemoglobin 17.9 H 13.3-17.7 G/DL Hematocrit 50 40-54 % Mean Corpuscular Volume 87 80-99 FL Mean Corpuscular Hemoglobin 31 25-34 PG Mean Corpuscular Hemoglobin Concent 36 32-36 G/DL Red Cell Distribution Width 12.7 10.0-14.5 % Platelet Count 276 130-400 10^3/uL Mean Platelet Volume 9.9 7.4-10.4 FL Neutrophils (%) (Auto) 44 42-75 % Lymphocytes (%) (Auto) 41 12-44 % Monocytes (%) (Auto) 13 H 0-12 % Eosinophils (%) (Auto) 2 0-10 % Basophils (%) (Auto) 1 0-10 % Neutrophils # (Auto) 3.3 1.8-7.8 X 10^3 Lymphocytes # (Auto) 3.0 1.0-4.0 X 10^3 Monocytes # (Auto) 0.9 0.0-1.0 X 10^3 Eosinophils # (Auto) 0.1 0.0-0.3 10^3/uL Basophils # (Auto) 0.0 0.0-0.1 10^3/uL My Orders Orders - YOLANDA HASSAN MD Ekg Tracing (06/10/18 14:02) Morphine Injection (Morphine Injection (06/10/18 14:06) Cbc With Automated Diff (06/10/18 14:08) Magnesium (06/10/18 14:08) Chest 1 View, Ap/Pa Only (06/10/18 14:08) Cardiac Profile 1 (06/10/18 14:08) Comprehensive Metabolic Panel (06/10/18 14:08) Myoglobin Serum (06/10/18 14:08) Protime With Inr (06/10/18 14:08) Partial Thromboplastin Time (06/10/18 14:08) O2 (06/10/18 14:08) Monitor-Rhythm Ecg Trace Only (06/10/18 14:08) Lipid Panel (06/11/18 06:00) Ed Iv/Invasive Line Start (06/10/18 14:08) Aspirin Chewable Tablet (Baby Aspirin Ch (06/10/18 14:15) Ticagrelor Tablet (Brilinta Tablet) (06/10/18 14:15) Heparin (Bolus Per Protocol) (Heparin (B (06/10/18 14:15) Morphine Injection (Morphine Injection (06/10/18 14:08) Heparin (Bolus Per Protocol) (Heparin (B (06/10/18 14:09) Aspirin Chewable Tablet (Baby Aspirin Ch (06/10/18 14:10) Ticagrelor Tablet (Brilinta Tablet) (06/10/18 14:10) Hydralazine Injection (Apresoline Inject (06/10/18 14:30) Fentanyl Injection (Sublimaze Injection (06/10/18 14:30) Hydralazine Injection (Apresoline Inject (06/10/18 14:24) Fentanyl Injection (Sublimaze Injection (06/10/18 14:25) Medications Given in ED Current Medications Medications Dose Ordered Sig/Eboni Route Start Time Stop Time Status Last Admin Dose Admin Aspirin 324 mg ONCE ONCE PO 06/10/18 14:15 06/10/18 14:16 DC 06/10/18 14:11 324 MG Morphine Sulfate 10 mg STK-MED ONCE .ROUTE 06/10/18 14:06 06/10/18 14:08 DC 06/10/18 14:10 10 MG Ticagrelor 180 mg ONCE ONCE PO 06/10/18 14:15 06/10/18 14:16 DC 06/10/18 14:12 180 MG Vital Signs/I&O 06/10/18 14:01 Pulse 89 Resp 48 B/P (MAP) 171/124 (140) Pulse Ox 98 O2 Delivery Room Air Blood Pressure Mean: 140 Progress Progress Note #1: Time: 14:33 Progress Note Chest pain protocol was initiated. Patient was found to have STEMI on EKG at 14 :02. Dr. Conley was immediately notified and Internal Grinder was activated. Per Dr. Conley's instructions patient received aspirin 324 mg chewed, Brilinta 180 mg swallowed, heparin 5000 units IV, and hydralazine 10 mg. Pain was treated first with morphine 5 mg and then with fentanyl 100 g. Progress Note #2: Time: 14:38 Progress Note Patient is now in Lab. Initial ECG Impression Date: Jun 10, 2018 Initial ECG Impression Time: 14:06 Initial ECG Rate: 77 Comment Sinus rhythm with ST elevation [place] with probable inferior injury. No abnormal intervals. LVH by automated read. Departure Communication (Admissions) Time/Spoke to Admitting Phy: 14:08 Dr. Conley Impression Primary Impression: ST elevation (STEMI) myocardial infarction Qualified Codes: I21.3 - ST elevation (STEMI) myocardial infarction of unspecified site Disposition: ADMITTED INPATIENT Condition: Critical Admissions Decision to Admit Reason: Admit from ER (General) Decision to Admit/Date: Jun 10, 2018 Time/Decision to Admit Time: 14:06 Departure-Patient Inst. Referrals: [facility] (PCP/Family) Primary Care Physician YOLANDA HASSAN MD Jun 10, 2018 14:25
[2018-06-10] MEDS: fentaNYL INJECTION 100 MCG/2 ML AMP ONE ×2 (14:27→14:37)
[2018-06-10] MEDS ORDERED: fentaNYL INJECTION 100 MCG/2 ML AMP IVP ONE (14:30)
[2018-06-10] MEDS ORDERED: hydrALAZINE (APESOLINE) 20 MG/ML VIAL IV ONE ×2 (14:30→23:30)
--- NOTE | 2018-06-10 14:33 | History & Physicial-Cardiolgy ---
HPI-Cardiology Cardiology Consultation: Date of Consultation 06/10/18 Date of Admission Attending Physician Admitting Physician [facility] Consulting Physician Kvng HURT MD HPI: Time Seen by a Provider: 14:33 Chief Complaint: Chest pain. This is a 57-year-old gentleman with borderline diabetes, hypertension. Denies active smoking, family history or hyperlipidemia. History to have severe 10 out of 10 chest pain 45 minutes ago. No associated cardiac symptoms. Severe intensity. Substernal. No radiation. No exacerbating or relieving factors. EKG shows acute inferior VA. Given aspirin, Brilinta, heparin bolus. Review of Systems-Cardiology Review of Systems Constitutional: As described under HPI; No As described under HPI, No no symptoms reported, No chills, No fever, No lightheadedness Eyes: No As described under HPI, No no symptoms reported, No blindness, No blurred vision, No contact lenses, No drainage, No decreased acuity, No foreign body sensation, No pain, No vision change Ears/Nose/Throat: No As described under HPI, No no symptoms reported, No chronic hearing loss, No ear discharge, No ear pain, No nasal drainage, No ulcerations Respiratory: No no symptoms reported; As described under HPI; No As described under HPI, No cough, No orthopnea, No shortness of breath, No SOB with excertion Cardiovascular: No no symptoms reported; As described under HPI; No As described under HPI; chest pain; No edema, No irregular heart rate, No lightheadedness, No palpitations Gastrointestinal: No no symptoms reported, No As described under HPI, No abdomen distended, No abdominal pain, No blood streaked bowels, No constipation , No diarrhea, No nausea, No vomiting, No stool coloration changes Genitourinary: No As described under HPI, No burning, No dysuria, No discharge , No frequency, No flank pain, No hematuria, No urgency Skin: No rash, No skin related problems, No ulcerations Psychiatric/Neurological: No anxiety, No depression, No seizure, No focal weakness, No syncope Hematologic: No bleeding abnormalities RUX-[id number]-Cdoscf Hx Patient Social History Alcohol Use: Denies Use Recreational Drug Use: No Smoking Status: Former Smoker Type Used: Cigarettes 2nd Hand Smoke Exposure: Yes Recent Foreign Travel: No Recent Infectious Disease Expo: No Hospitalization with Isolation: Denies Immunizations Up To Date Tetanus Booster (TDap): Unknown Date of Influenza Vaccine: Dec 06, 2016 Past Medical History PMH As described under Assessment. Allergies and Home Medications Allergies Coded Allergies: No Known Allergies (Verified Allergy, Unknown, 11/23/17) Home Medications Lisinopril/Hydrochlorothiazide 1 Each Tablet, 1 EACH PO DAILY, (Reported) Patient Home Medication List Home Medication List Reviewed: Yes Physical Exam-Cardiology Physical Exam Vital Signs/I&O 06/10/18 14:01 Pulse 89 Resp 48 B/P (MAP) 171/124 (140) Pulse Ox 98 O2 Delivery Room Air Capillary Refill : Less Than 3 Seconds Constitutional: appears stated age, apparent distress, well-developed, well- nourished HEENT: PERRL; No normal ENT inspection, No TMs normal, No pharynx normal, No scleral icterus (R), No scleral icterus (L), No pale conjunctivae (R), No pale conjunctivae (L), No photophobia, No TM abnormal (R), No TM abnormal (L), No pharyngeal erythema, No tonsillar exudate, No other, No discharge, No EOMI; hearing is well preserved; No hard of hearing; oral hygience is good; No ulceration, No xanthelasmas are seen Neck: No non-tender, No full range of motion, No supple, No normal inspection, No carotid bruit, No limited range of motion, No lymphadenopathy (R), No lymphadenopathy (L), No tender lateral, No tender midline, No thyromegaly, No other; carotid pulses are 2 + bilaterally; No with good upstrokes Respiratory: chest is bilaterally symmetric, lungs clear to auscultation Cardiovascular: regular rate-rhythm, S1 and S2 Gastrointestinal: No tender, No soft, No round, No distended, No pulsatile mass , No organomegaly, No guarding, No rebound, No tenderness, No hernia, No mass, No audible bowel sounds, No abnormal bowel sounds, No abdominal bruits, No spleenomegaly, No other Rectal: deferred Extremities: No normal range of motion, No non-tender, No normal inspection, No pedal edema, No calf tenderness, No normal capillary refill, No pelvis stable , No calf tenderness, No inflammation, No pedal edema, No slow capillary refill , No swelling, No other, No abrasion, No clubbing, No cyanosis, No ecchymosis, No laceration, No no lower extremity edema bilateral, No significant edema, No tenderness, No wound Neurologic/Psychiatric: no motor/sensory deficits, alert, normal mood/affect, oriented x 3, power is 5/5 both on sides Skin: No normal color, No warm/dry, No cyanosis, No cool, No diaphoresis, No damp, No ecchymosis, No jaundice, No mottled, No pallor, No rash, No tattoos/ piercings, No ulcerations, No rash on exposed areas, No ulcerations on exposed areas, No other Data Review Labs Laboratory Tests 06/10/18 14:06: White Blood Count 7.4, Red Blood Count 5.69, Hemoglobin 17.9H, Hematocrit 50, Mean Corpuscular Volume 87, Mean Corpuscular Hemoglobin 31, Mean Corpuscular Hemoglobin Concent 36, Red Cell Distribution Width 12.7, Platelet Count 276, Mean Platelet Volume 9.9, Neutrophils (%) (Auto) 44, Lymphocytes (%) (Auto) 41, Monocytes (%) (Auto) 13H, Eosinophils (%) (Auto) 2, Basophils (%) (Auto) 1, Neutrophils # (Auto) 3.3, Lymphocytes # (Auto) 3.0, Monocytes # (Auto) 0.9, Eosinophils # (Auto) 0.1, Basophils # (Auto) 0.0 ECG Impression ECG Initial ECG Impression: Acute VA A/P-Cardiology Assessment/Admission Diagnosis Acute inferior VA, Hypertension, Borderline diabetes Admission Status: Inpatient Order (span 2 midnights) Reason for Inpatient Admission: Acute STEMI. Plan Bolus aspirin, Brilinta 180 mg, heparin 5000 units. Emergent coronary angiography is recommended. Catheter lab was activated. Informed consent was taken from the patient and . Patient is in extremis. Echocardiogram tomorrow morning. Hypertension: IV hydralazine 10 mg. Borderline diabetes. Kvng HURT MD Jun 10, 2018 14:33
--- OUTSIDE RECORDS SUMMARY | 2018-06-10 14:33 | XMS REPORT ---
Author Author Migration, Doctor Organization [facility] Address Unknown Phone Unavailable Care Team Providers Care Director Of Human Resources Name Role Phone Migration, Doctor Unavailable Unavailable PROBLEMS Type Condition ICD9-CM Code [id number] Code Onset Dates Condition Status SNOMED Code Problem History of herpes genitalis Z86.19 Active 199839225 Problem Gastroesophageal reflux disease, esophagitis presence not specified K21.9 Active 672299300 Problem Essential hypertension I10 Active 96528181 Problem Carpal tunnel syndrome of right wrist G56.01 Active 640341976226731 Problem Type 2 diabetes mellitus with other specified complication, without long-term current use of insulin E11.69 Active 63185716 Problem Arthritis M19.90 Active 6583448 Problem Biceps tendonitis, right M75.21 Active 695857542 Problem Prediabetes R73.03 Active 477728368 Problem Mixed hyperlipidemia E78.2 Active [id number] ALLERGIES No Information ENCOUNTERS Encounter Location Date Diagnosis [place] [id number] [place] [address] 12892- 5307 Mar, [place] [address] [address]99- 0229 Feb, [place] [id number] [place] [address] 06313- 5313 Nov, Atypical chest pain R07.89 ; Essential hypertension I10 ; Spasm of muscle of lower back M62.830 and Encounter for immunization Z23 [place] [id number] [place] [address] 99749- 7388 Nov, [place] [address] 98046- 1207 Nov, Somatic dysfunction of thoracic region M99.02 ; Somatic dysfunction of cervical region M99.01 ; Somatic dysfunction of head region M99.00 and Somatic dysfunction of upper extremity M99.07 [place] [id number] [place] [address] 43970- 8437 Oct, [place] [address] 95127- 2948 Oct, Bilateral hand numbness R20.0 [place] [address] 09243- 3589 Oct, [place] [address] 50132- 6107 Oct, Dehydration E86.0 ; Acute kidney insufficiency N28.9 ; Essential hypertension I10 ; Bilateral impacted cerumen H61.23 and Colon cancer screening Z12.11 [place] [address] 54530- 5594 Sep, Bilateral hand numbness R20.0 and Type 2 diabetes mellitus with other specified complication, without long-term current use of insulin E11.69 [place] [address] 33365- 7237 Aug, Bilateral hand numbness R20.0 ; Essential hypertension I10 ; Mixed hyperlipidemia E78.2 and Prediabetes R73.03 [place] [address] 70122- 6158 Aug, [place] [address] 01862- 1755 Jul, Bilateral leg cramps R25.2 [place] [id number] [place] [address] 39878- 8862 June, [place] [address] 54159- 0066 May, Essential hypertension I10 ; Mixed hyperlipidemia E78.2 and Prediabetes R73.03 [facility] [id number] [place] [address] 73205 -1935 Apr, Acute non-recurrent maxillary sinusitis J01.00 and Cough R05 [place] [address] [place] [address]- 3055 Apr, [place] [address] 47316- 2294 21 Mar, 2017 Pneumonia of right lower lobe due to infectious organism J18.1 [place] [address] 63864- 5950 19 Mar, 2017 Pneumonia of right lower lobe due to infectious organism J18.1 and Shortness of breath R06.02 [place] [address] 08809- 3980 14 Mar, 2017 [place] [address] 36460- 2009 13 Mar, 2017 Influenza-like illness R69 and Impacted cerumen of both ears H61.23 [place] [address] 46717- 1646 25 Oct, 2016 [place] [address] 37869- 4374 14 Oct, 2016 [place] [address] 48081- 3268 08 Oct, 2016 Carpal tunnel syndrome of right wrist G56.01 and RUQ abdominal pain R10.11 [place] [address] 18409- 4949 Sep, Essential hypertension I10 ; Mixed hyperlipidemia E78.2 and Prediabetes R73.03 [place] [address] 02526- 9882 09 Sep, 2016 Essential hypertension I10 [place] [address] 21966- 9081 08 Jul, 2016 Acute otitis externa of right ear, unspecified type H60.501 [place] [address] 22260- 8886 16 Jun, 2016 Biceps tendonitis, right M75.21 and Essential hypertension I10 [facility] [address] [address] 450[address] June, [facility] [id number] [place] [address] 59528- 7110 May, Essential hypertension I10 and Cramp of both lower extremities R25.2 [facility] [id number] [place] [address] 40200- 8875 May, Arthritis M19.90 and Cramp of both lower extremities R25.2 [facility] [address] [address] Mar, [facility] [id number] [place] [address] 05614- 2777 Nov, Essential hypertension I10 and Colon cancer screening Z12.11 [facility] [id number] [place] [address] 91072- 8166 Nov, [facility] [id number] [place] [address] [id number] Jul, Dental examination Z01.20 [facility] [address] [place] [address] 07300- 1831 14 May, 2014 [facility] [address] [address]- 2267 May, [facility] [address] [address]- 0608 Jan, [facility] [address] [address]- 0933 Jan, [facility] [address] [place] [address] 80090- 8265 Aug, [facility] [address] [address]- 3392 May, [facility] [address] [address]- 5867 Mar, [facility] [address] [id number] [place] [address]- 8912 Feb, [facility] [place] [facility] [address] [id number] [place] [address]- 2356 Jan, [facility] [place] [facility] [address] [id number] [place] [address]- 2722 Jan, [facility] [place] [facility] [address] [id number] [place] [address]- 2496 Jan, [facility] [place] [facility] [address] [id number] [place] [address]- 9322 Jan, [facility] [place] [facility] [address] [id number] [place] [address]- 2280 Jan, [facility] [address] [id number] [place] [address]- 6172 Jan, [facility] [address] [id number] [place] [address]- 5186 Jan, [facility] [place] [facility] [address] [id number] [place] [address]- 0714 Jan, [facility] [place] [facility] [address] [id number] [place] [address]- 3913 Jan, [facility] [place] [facility] [address] [id number] [place] [address]- 1556 Jan, [facility] [place] [facility] [address] [id number] [place] [address]- 3910 Jan, [facility] [place] [facility] [address] [id number] [place] [address]- 3348 Jan, [facility] [place] [facility] [address] [id number] [place] [address]- 5591 Jan, [facility] [place] [facility] [address] [id number] [place] [address]- 1198 Jan, [facility] [place] [facility] [address] [id number] [place] [address]- 6426 Jan, [facility] [place] [facility] [address] [id number] [place] [address]- 8199 Dec, [facility] [place] [facility] [address] [id number] [place] [address]- 0590 Dec, [facility] [place] [facility] [address] [id number] [place] [address]- 3571 Dec, [facility] [place] [facility] [address] [id number] [place] [address]- 9855 Dec, [facility] [place] [facility] [address] [id number] [place] [address]- 1634 Dec, [facility] [place] [facility] [address] [id number] [place] [address]- 5467 Dec, [facility] [place] [facility] [address] [id number] [place] [address]- 8803 Sep, [facility] [place] [facility] [address] [id number] [place] [address]- 7957 Sep, [facility] [place] [facility] [address] [id number] [place] [address]- 0195 Sep, [facility] [place] [facility] [address] [id number] [place] [address]- 6796 Aug, [facility] [place] [facility] [address] [id number] [place] [address]- 9900 Aug, [facility] [place] [facility] [address] [id number] [place] [address]- 8406 May, [facility] [place] [facility] [address] [id number] [place] [address]- 5290 May, [facility] [place] [facility] [address] [id number] [place] [address]- 1994 May, [facility] [place] [facility] [address] [id number] [place] [address]- 9524 May, [facility] [place] [facility] [address] [facility] [id number] [place] [address]- 2607 Apr, [facility] [address] [facility] [id number] [place] 2838 Mar, [facility] [address] [facility] [id number] [place] [address] [address]80 10 Mar, 2011 IMMUNIZATIONS No Known Immunizations SOCIAL HISTORY Never Assessed REASON FOR VISIT EMR-[facility] [place] PLAN OF CARE VITAL SIGNS MEDICATIONS Medication Instructions Dosage Frequency Start Date End Date Duration Status Ativan 1 mg 1 tablet by Oral route 2 times per day PRN Aug, Active Clindamycin HCl 300 mg 1 capsule by Oral route every 6 hours for 10 days Aug, Active Acyclovir 400 mg take 2 tablets (800 mg) by oral route 4 times per day for 7 days Feb, Active Lisinopril-Hydrochlorothiazide 20-25 mg take 1 tablet by Oral route 1 time per day Take in AM Jan, Active Ofloxacin 0.3 % take 3 drop by Otic route 2 times per day for 10 day(s) Dec, Active Flagyl 500 mg 1 tablet by Oral route 2 times per day for 7 days Sep Active Terbinafine 250 mg 1 tablet by Oral route 1 time per day for 30 day(s) Apr, Active Levitra 20 mg take 1 tablet (20 mg) by oral route once daily as needed approximately 1 hour before sexual activity PRN Jan, Active RESULTS No Results PROCEDURES No Known procedures INSTRUCTIONS MEDICATIONS ADMINISTERED No Known Medications MEDICAL (GENERAL) HISTORY Type Description Date Medical History hypertension Medical History hyperlipidemia Medical History Arthritis Surgical History orthopedic surgery--Left elbow, removal of bone spur and scar tissue Surgical History EGD/colonoscopy 11/29/17 Hospitalization History Surgery only
--- OUTSIDE RECORDS SUMMARY | 2018-06-10 14:33 | XMS REPORT ---
Author Author MARIANA SOLER Organization [facility] Address [address] [place] [address] Care Team Providers Care Cuffer Name Role Phone MARIANA SOLER Unavailable PROBLEMS Type Condition ICD9-CM Code [id number] Code Onset Dates Condition Status SNOMED Code Problem History of herpes genitalis Z86.19 Active 137180045 Problem Essential hypertension I10 Active 55000374 Problem Gastroesophageal reflux disease, esophagitis presence not specified K21.9 Active 893451379 Problem Type 2 diabetes mellitus with other specified complication, without long-term current use of insulin E11.69 Active 51981805 Problem Carpal tunnel syndrome of right wrist G56.01 Active 855254403501326 Problem Biceps tendonitis, right M75.21 Active 540661407 Problem Arthritis M19.90 Active 6383127 Problem Mixed hyperlipidemia E78.2 Active 217916603 Problem Prediabetes R73.03 Active 891720732 ALLERGIES No Information ENCOUNTERS Encounter Location Date Diagnosis [place] [address] [address]- [address] Nov, Atypical chest pain R07.89 ; Essential hypertension I10 ; Spasm of muscle of lower back M62.830 and Encounter for immunization Z23 [place] [address] [id number] [place] [address] 68332- 1431 Nov, [place] [address] [id number] [place] [address] 93927- 1983 Nov, Somatic dysfunction of thoracic region M99.02 ; Somatic dysfunction of cervical region M99.01 ; Somatic dysfunction of head region M99.00 and Somatic dysfunction of upper extremity M99.07 [place] [address] [place] [address] 32314- 7654 Oct, [place] [id number] [place] [address] 39493- 2262 Oct, Bilateral hand numbness R20.0 [place] [address] 65200- 6269 Oct, [facility] [address] 88576- 9225 Oct, Dehydration E86.0 ; Acute kidney insufficiency N28.9 ; Essential hypertension I10 ; Bilateral impacted cerumen H61.23 and Colon cancer screening Z12.11 [place] [address] 46335- 1343 Sep, Bilateral hand numbness R20.0 and Type 2 diabetes mellitus with other specified complication, without long-term current use of insulin E11.69 [place] [address] 08482- 6781 Aug, Bilateral hand numbness R20.0 ; Essential hypertension I10 ; Mixed hyperlipidemia E78.2 and Prediabetes R73.03 [place] [address] 41900- 0497 Aug, [place] [address] 45925- 0273 Jul, Bilateral leg cramps R25.2 [facility] [address] 14181- 0778 June, [facility] [address] 89591- 7606 May, Essential hypertension I10 ; Mixed hyperlipidemia E78.2 and Prediabetes R73.03 [facility] [address] 27819 -5864 Apr, Acute non-recurrent maxillary sinusitis J01.00 and Cough R05 [facility] [address] 50972- 1611 Apr, [facility] [address] 60563- 2337 Mar, Pneumonia of right lower lobe due to infectious organism J18.1 [place] [id number] [place] [address] 04880- 8405 19 Mar, 2017 Pneumonia of right lower lobe due to infectious organism J18.1 and Shortness of breath R06.02 [place] [address] 29496- 2466 14 Mar, 2017 [place] [address] 65125- 0129 13 Mar, 2017 Influenza-like illness R69 and Impacted cerumen of both ears H61.[address] 76311- 0424 25 Oct, [address] 91486- 5126 Oct, [address] 80519- 1741 08 Oct, 2016 Carpal tunnel syndrome of right wrist G56.01 and RUQ abdominal pain R10.[address] 32456- 6258 Sep, Essential hypertension I10 ; Mixed hyperlipidemia E78.2 and Prediabetes R73.03 [place] [id number] [place] [address] 95772- 0726 Sep, Essential hypertension I10 [place] [id number] [place] [address] 91124- 9763 Jul, Acute otitis externa of right ear, unspecified type H60.[address] 92149- 4480 June, Biceps tendonitis, right M75.21 and Essential hypertension I10 [address] 45531- 8711 June, [address] [id number] [address]- 4526 May, Essential hypertension I10 and Cramp of both lower extremities R25.2 [facility] [address] [id number] [address]- 8584 May, Arthritis M19.90 and Cramp of both lower extremities R25.2 [facility] [address], [place] [address]26 Mar, [facility] [address], [place] [address]- 6320 Nov, Essential hypertension I10 and Colon cancer screening Z12.11 [facility] [address] [place] [address] 35312- 9827 Nov, [facility] [address] [id number] Jul, Dental examination Z01.20 [facility] [address], [place] [address]- 8888 14 May, 2014 [facility] [address], [place] [address]- 6150 May, [facility] [address], [place] [address]- 3690 Jan, [facility] [address], [place] [address]- 1915 Jan, [facility] [address], [place] [address]- 9256 Aug, [facility] [address], [place] [address]- 5377 May, [facility] [address], [place] [address]- 2778 Mar, [facility] [address], [place] [address]- 0848 Feb, [facility] [address] [place] [address]- 3661 31 Jan, 2012 [facility] [address] [id number] [place] [address]- 5536 31 Jan, 2012 [facility] [place] [facility] [address] [id number] [place] [address]- 1146 26 Jan, 2012 [facility] [address] [id number] [place] [address]- 6696 18 Jan, 2012 [facility] [address] [id number] [place] [address]- 0446 10 Jan, 2012 [facility] [address] [id number] [place] [address]- 8636 10 Jan, 2012 [facility] [address] [id number] [place] [address]- 1374 07 Jan, 2012 [facility] [address] [id number] [place] [address]- 2342 Jan, [facility] [address] [id number] [place] [address]- 4116 Jan, [facility] [address] [id number] [place] [address]- 3873 Jan, [facility] [address] [id number] [place] [address]- 7134 05 Jan, 2012 [facility] [place] [facility] [address] [id number] [place] [address]- 1410 Jan, [facility] [address] [id number] [place] [address]- 1946 Jan, [facility] [place] [facility] [address] [id number] [place] [address]- 4966 Jan, [facility] [place] [facility] [address] [id number] [place] [address]- 3286 Jan, [facility] [place] [facility] [address] [id number] [place] [address]- 0151 Dec, [facility] [place] [facility] [address] [id number] [place] [address]- 7114 Dec, [facility] [place] [facility] [address] [id number] [place] [address]- 7222 Dec, [facility] [place] [facility] [address] [id number] [place] 1650 Dec, [facility] [place] [facility] [address] [id number] [place] [address]- 2641 Dec, [facility] [place] [facility] [address] [id number] [place] [address]- 0509 Dec, [facility] [place] [facility] [address] [id number] [place] [address]- 7860 Sep, [facility] [place] [facility] [address] [id number] [place] [address]- 9900 Sep, [facility] [place] [facility] [address] [id number] [place] [address]- 2241 Sep, [facility] [place] [facility] [address] [id number] [place] [address]- 6115 Aug, [facility] [place] [facility] [address] [id number] [place] [address]- 1000 Aug, [facility] [place] [facility] [address] [id number] [place] [address]- 1516 May, [facility] [place] [facility] [address] [id number], [place] [address]- 6491 13 May, 2011 [facility] [place] [facility] [address] [id number] [place] [address]- 7819 May, [facility] [place] [facility] [address] [id number] [place] [address]- 0125 May, [facility] [place] [facility] [address] [id number] [place] [address]- 1598 16 Apr, 2011 [facility] [place] [facility] [address] [id number], [place] [address]- 0345 Mar, [facility] [address] [facility] [id number] [place] [address]- 6238 Mar, IMMUNIZATIONS No Known Immunizations SOCIAL HISTORY Never Assessed REASON FOR VISIT Records Request PLAN OF CARE VITAL SIGNS MEDICATIONS No [...]
--- OUTSIDE RECORDS SUMMARY | 2018-06-10 14:33 | XMS REPORT ---
Author Author MARIANA SOLER Organization [facility] Address [address] [place] [address] Care Team Providers Care Airplane Gastank Liner Assembler Name Role Phone MARIANA SOLER Unavailable PROBLEMS Type Condition ICD9-CM Code NUA29-PV Code Onset Dates Condition Status SNOMED Code Problem History of herpes genitalis Z86.19 Active 141224015 Problem Essential hypertension I10 Active 18685054 Problem Gastroesophageal reflux disease, esophagitis presence not specified K21.9 Active 672787068 Problem Type 2 diabetes mellitus with other specified complication, without long-term current use of insulin E11.69 Active 71513738 Problem Carpal tunnel syndrome of right wrist G56.01 Active 396691597938731 Problem Biceps tendonitis, right M75.21 Active 551057110 Problem Arthritis M19.90 Active 5336528 Problem Mixed hyperlipidemia E78.2 Active 559634603 Problem Prediabetes R73.03 Active 107736301 ALLERGIES No Known Allergies ENCOUNTERS Encounter Location Date Diagnosis [place] [address] [address] Dec, [place] [address] [address] Nov, Atypical chest pain R07.89 ; Essential hypertension I10 ; Spasm of muscle of lower back M62.830 and Encounter for immunization Z23 [place] [id number] [place] [address]- [address]45 Nov, [place] [address] [address] Nov, Somatic dysfunction of thoracic region M99.02 ; Somatic dysfunction of cervical region M99.01 ; Somatic dysfunction of head region M99.00 and Somatic dysfunction of upper extremity M99.07 [place] [address] [place] [address] 38[address] Oct, [place] [address] [address]- 9[address] Oct, Bilateral hand numbness R20.0 [place] [address] [address]72- 8987 Oct, [place] [address] 91581- 9309 Oct, Dehydration E86.0 ; Acute kidney insufficiency N28.9 ; Essential hypertension I10 ; Bilateral impacted cerumen H61.23 and Colon cancer screening Z12.11 [place] [address] 64957- 6803 Sep, Bilateral hand numbness R20.0 and Type 2 diabetes mellitus with other specified complication, without long-term current use of insulin E11.69 [place] [address] [address]- 4066 Aug, Bilateral hand numbness R20.0 ; Essential hypertension I10 ; Mixed hyperlipidemia E78.2 and Prediabetes R73.03 [place] [address] [address]- 8989 Aug, [place] [address] 39055- 9129 Jul, Bilateral leg cramps R25.2 [place] [address] 33148- 1765 June, [place] [address] [address]- 1596 May, Essential hypertension I10 ; Mixed hyperlipidemia E78.2 and Prediabetes R73.03 [facility] [address] [address] Apr, Acute non-recurrent maxillary sinusitis J01.00 and Cough R05 [place] [address] 85[address]- 0184 Apr, [place] [address] [place] [id number] [place] [address]27- 6533 21 Mar, 2017 Pneumonia of right lower lobe due to infectious organism J18.1 [place] [address] [place] [id number] [place] [address] 85604- 3991 19 Mar, 2017 Pneumonia of right lower lobe due to infectious organism J18.1 and Shortness of breath R06.02 [place] [address] [place] [id number] [place] [address] 46637- 6715 14 Mar, 2017 [place] [address] 7[address]- 0405 13 Mar, 2017 Influenza-like illness R69 and Impacted cerumen of both ears H61.23 [place] [address] [place] [id number] [place] [address] 79214- 1519 25 Oct, 2016 [place] [address] [place] [id number] [place] [address] 26074- 3105 14 Oct, 2016 [place] [address] [place] [id number] [place] [address] 30590- 1821 08 Oct, 2016 Carpal tunnel syndrome of right wrist G56.01 and RUQ abdominal pain R10.11 [place] [address] [place] [id number] [place] [address] 81113- 9377 Sep, Essential hypertension I10 ; Mixed hyperlipidemia E78.2 and Prediabetes R73.03 [place] [address] [place] [id number] [place] [address] 05184- 9819 09 Sep, 2016 Essential hypertension I10 [place] [address] [place] [id number] [place] [address] 39524- 3100 08 Jul, 2016 Acute otitis externa of right ear, unspecified type H60.501 [place] [address] [place] [id number] [place] [address] 83080- 7628 16 Jun, 2016 Biceps tendonitis, right M75.21 and Essential hypertension I10 [place] [address] [address] June, [facility] [address] [place] [id number] [place] [address] 82930- 3629 May, Essential hypertension I10 and Cramp of both lower extremities R25.2 [facility] [address] 65[address] May, Arthritis M19.90 and Cramp of both lower extremities R25.2 [facility] [address] [address] Mar, [facility] [address] [place] [id number] [place] [address] 01940- 0283 Nov, Essential hypertension I10 and Colon cancer screening Z12.11 [facility] [address] [address] 288[address] Nov, [facility] [address] [id number] Jul, Dental examination Z01.20 [facility] [address], [place] [address]- 6899 May, [facility] [address], [place] [address]- 0241 May, [facility] [address] [address]- 8054 Jan, [facility] [address], [place] [address]- 0204 Jan, [facility] [address], [place] [address]- 0229 Aug, [facility] [address] 7924 May, [facility] [address], [place] [address]- 6256 Mar, [facility] [place] [facility] [address] [id number] [place] [address]- 9993 Feb, [facility] [address] [id number] [place] [address]- 9746 Jan, [facility] [address] [id number] [place] [address]- 0356 Jan, [facility] [address] [id number] [place] [address]- 4346 Jan, [facility] [address] [id number] [place] [address]- 3407 18 Jan, 2012 [facility] [address] [id number] [place] [address]- 6076 Jan, [facility] [address] [id number] [place] [address]- 6366 Jan, [facility] [address] [id number] [place] [address]- 1596 Jan, [facility] [address] [id number] [place] [address]- 1857 Jan, [facility] [address] [id number] [place] [address]- 4272 Jan, [facility] [address] [id number] [place] [address]- 3564 Jan, [facility] [place] [facility] [address] [id number] [place] [address]- 0896 Jan, [facility] [address] [id number] [place] [address]- 2086 Jan, [facility] [place] [facility] [address] [id number] [place] [address]- 3556 Jan, [facility] [address] [id number] [place] [address]- 6956 Jan, [facility] [address] [id number] [place] [address]- 7117 Jan, [facility] [place] [facility] [address] [id number] [place] [address]- 1636 Dec, [facility] [place] [facility] [address] [id number] [place] [address]- 4191 Dec, [facility] [place] [facility] [address] [id number] [place] [address]- 1077 Dec, [facility] [place] [facility] [address] [id number] [place] [address]- 7078 Dec, [facility] [place] [facility] [address] [id number] [place] [address]- 4130 Dec, [facility] [place] [facility] [address] [id number] [place] [address]- 1403 Dec, [facility] [place] [facility] [address] [id number] [place] [address]- 3317 Sep, [facility] [place] [facility] [address] [id number] [place] [address]- 4285 Sep, [facility] [place] [facility] [address] [id number] [place] [address]- 5602 Sep, [facility] [place] [facility] [address] [id number] [place] [address]- 3029 Aug, [facility] [place] [facility] [address] [id number] [place] [address]- 7819 Aug, [facility] [place] [facility] [address] [id number] [place] [address]- 2697 May, [facility] [place] [facility] [address] [id number] [place] [address]- 6122 May, [facility] [place] [facility] [address] [id number] [place] [address]- 7389 May, [facility] [place] [facility] [address] [id number] [place] [address]- 7691 May, [facility] [place] [facility] [address] [id number] [place] [address]- 2066 Apr, [facility] [address] [facility] [id number] [place] [address]- 9348 Mar, [facility] [address] [facility] [id number] [place] [address]- 4246 10 Mar, 2011 IMMUNIZATIONS No Known Immunizations SOCIAL HISTORY Never Assessed REASON FOR VISIT [facility] follow up--[place] PLAN OF CARE Activity Details Follow Up Keep scheduled appt with Flora Reason: Pending Test Exercise Stress Nuclear Test VITAL SIGNS Height 75 in 2017-12-20 Weight 243.0 lbs 2017-12-20 Temperature 98.4 degrees Fahrenheit 2017-12-20 Heart Rate 84 bpm 2017-12-20 Respiratory Rate 20 2017-12-20 BMI 30.37 kg/m2 2017-12-20 Blood pressure systolic 124 mmHg 2017-12-20 Blood pressure diastolic 88 mmHg 2017-12-20 MEDICATIONS Medication Instructions Dosage Frequency Start Date End Date Duration Status Cyclobenzaprine HCl 10 mg Orally qhs 1 tablet as needed Nov, Dec, 14 days Active Advil 200 MG Orally Three times a day 1 tablet with food or milk as needed 8h Active Lisinopril 40 MG Orally Once a day 1 tablet 24h Oct, 30 day(s) Active Atenolol 25 MG Orally Once a day 1 tablet 24h 1 month Active Metformin HCl 500 mg Orally Twice a day (take one tablet for the first week) 1 tablet with meals 30 Not-Taking Omeprazole 20 mg Orally Once a [...]
--- OUTSIDE RECORDS SUMMARY | 2018-06-10 14:33 | XMS REPORT ---
Author Author Migration, Doctor Organization [facility] Address Unknown Phone Unavailable Care Team Providers Care Wrister Name Role Phone Migration, Doctor Unavailable Unavailable PROBLEMS Type Condition ICD9-CM Code UUD58-EJ Code Onset Dates Condition Status SNOMED Code Problem History of herpes genitalis Z86.19 Active 004277081 Problem Gastroesophageal reflux disease, esophagitis presence not specified K21.9 Active 011136226 Problem Essential hypertension I10 Active 36722285 Problem Carpal tunnel syndrome of right wrist G56.01 Active 369781967114877 Problem Type 2 diabetes mellitus with other specified complication, without long-term current use of insulin E11.69 Active 98319264 Problem Arthritis M19.90 Active 1774703 Problem Biceps tendonitis, right M75.21 Active 770172295 Problem Prediabetes R73.03 Active 759796993 Problem Mixed hyperlipidemia E78.2 Active 500276432 ALLERGIES No Information ENCOUNTERS Encounter Location Date Diagnosis [place] [address] [place] [id number] [place] [address]- 6786 Mar, [place] [address] [address]- 0933 Feb, [place] [address] [place] [id number] [place] [address] 49878- 3205 Nov, Atypical chest pain R07.89 ; Essential hypertension I10 ; Spasm of muscle of lower back M62.830 and Encounter for immunization Z23 [place] [address] [place] [id number] [place] [address] 31294- 7285 Nov, [place] [address] 79242- 0760 Nov, Somatic dysfunction of thoracic region M99.02 ; Somatic dysfunction of cervical region M99.01 ; Somatic dysfunction of head region M99.00 and Somatic dysfunction of upper extremity M99.07 [place] [address] [place] [id number] [place] [address] 46713- 0053 Oct, [place] [address] 91422- 8632 Oct, Bilateral hand numbness R20.0 [place] [address] 13207- 1105 Oct, [place] [address] 13927- 0710 Oct, Dehydration E86.0 ; Acute kidney insufficiency N28.9 ; Essential hypertension I10 ; Bilateral impacted cerumen H61.23 and Colon cancer screening Z12.11 [place] [address] 25362- 5175 Sep, Bilateral hand numbness R20.0 and Type 2 diabetes mellitus with other specified complication, without long-term current use of insulin E11.69 [place] [address] 92245- 9622 Aug, Bilateral hand numbness R20.0 ; Essential hypertension I10 ; Mixed hyperlipidemia E78.2 and Prediabetes R73.03 [place] [address] 78468- 4231 Aug, [place] [address] 76347- 0231 Jul, Bilateral leg cramps R25.2 [place] [address] [place] [id number] [place] [address] 30761- 2461 June, [place] [address] 32387- 8167 May, Essential hypertension I10 ; Mixed hyperlipidemia E78.2 and Prediabetes R73.03 [facility] [address] [place] [id number] [place] [address] 45191 -6087 Apr, Acute non-recurrent maxillary sinusitis J01.00 and Cough R05 [place] [address] [place] [address]- 1086 Apr, [place] [address] 00551- 7691 21 Mar, 2017 Pneumonia of right lower lobe due to infectious organism J18.1 [place] [address] 60313- 6642 19 Mar, 2017 Pneumonia of right lower lobe due to infectious organism J18.1 and Shortness of breath R06.02 [place] [address] 37381- 1559 14 Mar, 2017 [place] [address] 92115- 8167 13 Mar, 2017 Influenza-like illness R69 and Impacted cerumen of both ears H61.23 [place] [address] 58391- 5769 25 Oct, 2016 [place] [address] 25257- 3507 14 Oct, 2016 [place] [address] 25300- 5209 08 Oct, 2016 Carpal tunnel syndrome of right wrist G56.01 and RUQ abdominal pain R10.11 [place] [address] 85222- 6575 Sep, Essential hypertension I10 ; Mixed hyperlipidemia E78.2 and Prediabetes R73.03 [place] [address] 43159- 1700 09 Sep, 2016 Essential hypertension I10 [place] [address] 78536- 4511 08 Jul, 2016 Acute otitis externa of right ear, unspecified type H60.501 [place] [address] 30398- 0231 16 Jun, 2016 Biceps tendonitis, right M75.21 and Essential hypertension I10 [facility] [address] [address]- 7112 June, [facility] [address] [place] [id number] [place] [address] 47136- 2385 May, Essential hypertension I10 and Cramp of both lower extremities R25.2 [facility] [address] [place] [id number] [place] [address] 88259- 6179 May, Arthritis M19.90 and Cramp of both lower extremities R25.2 [facility] [address] [address] -1651 Mar, [facility] [address] [place] [id number] [place] [address] 37940- 8332 Nov, Essential hypertension I10 and Colon cancer screening Z12.11 [facility] [address] [place] [id number] [place] [address] 90366- 5632 Nov, [facility] [address] [place] [id number] [place] [address] [id number] Jul, Dental examination Z01.20 [facility] [address] [place] [address] 43673- 6891 14 May, 2014 [facility] [address] [address]- 0854 May, [facility] [address] [address]- 4811 Jan, [facility] [address] [address]- 5941 Jan, [facility] [address] [place] [address] 60620- 7453 Aug, [facility] [address] [address]- 6033 May, [facility] [address] [address]- 7253 Mar, [facility] [address] [id number] [place] [address]- 2750 Feb, [facility] [place] [facility] [address] [id number] [place] [address]- 4306 Jan, [facility] [place] [facility] [address] [id number] [place] [address]- 3892 Jan, [facility] [place] [facility] [address] [id number] [place] [address]- 0216 Jan, [facility] [place] [facility] [address] [id number] [place] [address]- 2448 Jan, [facility] [place] [facility] [address] [id number] [place] [address]- 0265 Jan, [facility] [address] [id number] [place] [address]- 4646 Jan, [facility] [address] [id number] [place] [address]- 4016 Jan, [facility] [place] [facility] [address] [id number] [place] [address]- 7356 Jan, [facility] [place] [facility] [address] [id number] [place] [address]- 7996 Jan, [facility] [place] [facility] [address] [id number] [place] [address]- 2449 Jan, [facility] [place] [facility] [address] [id number] [place] [address]- 2028 Jan, [facility] [place] [facility] [address] [id number] [place] [address]- 7012 Jan, [facility] [place] [facility] [address] [id number] [place] [address]- 1258 Jan, [facility] [place] [facility] [address] [id number] [place] [address]- 8631 Jan, [facility] [place] [facility] [address] [id number] [place] [address]- 7476 Jan, [facility] [place] [facility] [address] [id number] [place] [address]- 4556 Dec, [facility] [place] [facility] [address] [id number] [place] [address]- 7192 Dec, [facility] [place] [facility] [address] [id number] [place] [address]- 9998 Dec, [facility] [place] [facility] [address] [id number] [place] [address]- 8027 Dec, [facility] [place] [facility] [address] [id number] [place] [address]- 4566 Dec, [facility] [place] [facility] [address] [id number] [place] [address]- 6962 Dec, [facility] [place] [facility] [address] [id number] [place] [address]- 3501 Sep, [facility] [place] [facility] [address] [id number] [place] [address]- 9453 Sep, [facility] [place] [facility] [address] [id number] [place] [address]- 9811 Sep, [facility] [place] [facility] [address] [id number] [place] [address]- 3474 Aug, [facility] [place] [facility] [address] [id number] [place] [address]- 2016 Aug, [facility] [place] [facility] [address] [id number] [place] [address]- 3848 May, [facility] [place] [facility] [address] [id number] [place] [address]- 4560 May, [facility] [place] [facility] [address] [id number] [place] [address]- 7627 May, [facility] [place] [facility] [address] [id number] [place] [address]- 5268 May, [facility] [place] [facility] [address] [facility] [place] [id number] [place] [address]- 2546 Apr, [facility] [address] [facility] [id number] [place] [address]- 5214 Mar, [facility] [address] [facility] [id number] [place] [address]- 0727 10 Mar, 2011 IMMUNIZATIONS No Known Immunizations SOCIAL HISTORY Never Assessed REASON FOR VISIT [facility] PLAN OF CARE VITAL SIGNS MEDICATIONS Unknown Medications RESULTS No Results PROCEDURES No Known procedures INSTRUCTIONS MEDICATIONS ADMINISTERED No Known Medications MEDICAL (GENERAL) HISTORY Type Description Date Medical History hypertension Medical History hyperlipidemia Medical History Arthritis Surgical History orthopedic surgery--Left elbow, removal of bone spur and scar tissue Surgical History EGD/colonoscopy 11/29/17 Hospitalization History Surgery only
--- OUTSIDE RECORDS SUMMARY | 2018-06-10 14:33 | XMS REPORT ---
Author Author Migration, Doctor Organization [facility] Address Unknown Phone Unavailable Care Team Providers Care Recruitment Coordinator Name Role Phone Migration, Doctor Unavailable Unavailable PROBLEMS Type Condition ICD9-CM Code RKS20-TF Code Onset Dates Condition Status SNOMED Code Problem History of herpes genitalis Z86.19 Active 954439640 Problem Gastroesophageal reflux disease, esophagitis presence not specified K21.9 Active 849569149 Problem Essential hypertension I10 Active 24504386 Problem Carpal tunnel syndrome of right wrist G56.01 Active 481637520084124 Problem Type 2 diabetes mellitus with other specified complication, without long-term current use of insulin E11.69 Active 59227027 Problem Arthritis M19.90 Active 6052379 Problem Biceps tendonitis, right M75.21 Active 762784290 Problem Prediabetes R73.03 Active 931106039 Problem Mixed hyperlipidemia E78.2 Active [id number] ALLERGIES No Information ENCOUNTERS Encounter Location Date Diagnosis [facility] [id number] [place] [address]451 Mar, [place] [address] [address] Feb, [place] [id number] [place] [address] 79914- 0557 Nov, Atypical chest pain R07.89 ; Essential hypertension I10 ; Spasm of muscle of lower back M62.830 and Encounter for immunization Z23 [facility] [id number] [place] [address] 76991- 0868 Nov, [place] [address] [address]- [address] Nov, Somatic dysfunction of thoracic region M99.02 ; Somatic dysfunction of cervical region M99.01 ; Somatic dysfunction of head region M99.00 and Somatic dysfunction of upper extremity M99.07 [place] [id number] [place] [address] 44477- 4716 Oct, [place] [address] [address] Oct, Bilateral hand numbness R20.0 [place] [address] [address]4719- 1610 Oct, [place] [address] [address]- 8931 Oct, Dehydration E86.0 ; Acute kidney insufficiency N28.9 ; Essential hypertension I10 ; Bilateral impacted cerumen H61.23 and Colon cancer screening Z12.11 [place] [address] 8[address]17- 8754 Sep, Bilateral hand numbness R20.0 and Type 2 diabetes mellitus with other specified complication, without long-term current use of insulin E11.69 [place] [address] 78[address]- 7706 Aug, Bilateral hand numbness R20.0 ; Essential hypertension I10 ; Mixed hyperlipidemia E78.2 and Prediabetes R73.03 [place] [address] [address]- [address]794 Aug, [place] [address] 6[address]- 5472 Jul, Bilateral leg cramps R25.2 [place] [id number] [place] [address] 77814- 8575 June, [place] [address] 56[address]- [address]503 May, Essential hypertension I10 ; Mixed hyperlipidemia E78.2 and Prediabetes R73.03 [facility] [id number] [place] [address] 76297 -4865 Apr, Acute non-recurrent maxillary sinusitis J01.00 and Cough R05 [place] [address] [place] [address] Apr, [place] [address] 78082- 7913 21 Mar, 2017 Pneumonia of right lower lobe due to infectious organism J18.1 [place] [address] 69054- 0873 19 Mar, 2017 Pneumonia of right lower lobe due to infectious organism J18.1 and Shortness of breath R06.02 [place] [address] 33392- 8784 14 Mar, 2017 [place] [address] 08252- 8571 13 Mar, 2017 Influenza-like illness R69 and Impacted cerumen of both ears H61.23 [place] [address] 22489- 4231 25 Oct, 2016 [place] [address] 84189- 6712 14 Oct, 2016 [place] [address] 04264- 4614 08 Oct, 2016 Carpal tunnel syndrome of right wrist G56.01 and RUQ abdominal pain R10.11 [place] [address] 00546- 2774 Sep, Essential hypertension I10 ; Mixed hyperlipidemia E78.2 and Prediabetes R73.03 [place] [address] 30063- 1338 09 Sep, 2016 Essential hypertension I10 [place] [address] 58387- 4367 08 Jul, 2016 Acute otitis externa of right ear, unspecified type H60.501 [place] [address] 21233- 3571 16 Jun, 2016 Biceps tendonitis, right M75.21 and Essential hypertension I10 [facility] [address] [address] June, [facility] [id number] [place] [address] 95750- 1892 May, Essential hypertension I10 and Cramp of both lower extremities R25.2 [facility] [id number] [place] [address] 63396- 5229 May, Arthritis M19.90 and Cramp of both lower extremities R25.2 [facility] [address] [address] Mar, [facility] [id number] [place] [address] 35494- 1052 Nov, Essential hypertension I10 and Colon cancer screening Z12.11 [facility] [id number] [place] [address] 53496- 6851 Nov, [facility] [id number] [place] [address] [id number] Jul, Dental examination Z01.20 [facility] [address] [place] [address] 89563- 1464 14 May, 2014 [facility] [address], [place] [address] May, [facility] [address] [address] 6[address] Jan, [facility] [address], [place] [address]- 78[address] Jan, [facility] [address] [place] [address] 00288- 8080 Aug, [facility] [address] [place] [address] 4[address] May, [facility] [address] [place] [address] 8046 Mar, [facility] [address] [id number] [place] [address]- 0[address] Feb, [facility] [place] [facility] [address] [id number] [place] [address]- 0606 Jan, [facility] [place] [facility] [address] [id number] [place] [address]- 3297 Jan, [facility] [place] [facility] [address] [id number] [place] [address]- 1546 Jan, [facility] [place] [facility] [address] [id number] [place] [address]- 4037 Jan, [facility] [place] [facility] [address] [id number] [place] [address]- 3686 Jan, [facility] [address] [id number] [place] [address]- 3357 Jan, [facility] [address] [id number] [place] [address]- 0429 Jan, [facility] [place] [facility] [address] [id number] [place] [address]- 8588 Jan, [facility] [place] [facility] [address] [id number] [place] [address] Jan, [facility] [place] [facility] [address] [id number] [place] [address]- 2425 Jan, [facility] [place] [facility] [address] [id number] [place] [address]- 6184 Jan, [facility] [place] [facility] [address] [id number] [place] [address]- 5072 Jan, [facility] [place] [facility] [address] [id number] [place] [address]- 6957 Jan, [facility] [place] [facility] [address] [id number] [place] [address]- 6843 Jan, [facility] [place] [facility] [address] [id number] [place] [address]- 8356 Jan, [facility] [place] [facility] [address] [id number] [place] [address]- 8670 Dec, [facility] [place] [facility] [address] [id number] [place] [address]- 0471 Dec, [facility] [place] [facility] [address] [id number] [place] [address]- 5278 Dec, [facility] [place] [facility] [address] [id number] [place] [address]- 1849 Dec, [facility] [place] [facility] [address] [id number] [place] [address]- 4360 Dec, [facility] [place] [facility] [address] [id number] [place] [address]- 6919 Dec, [facility] [place] [facility] [address] [id number] [place] [address]- 2101 Sep, [facility] [place] [facility] [address] [id number] [place] [address]- 1064 Sep, [facility] [place] [facility] [address] [id number] [place] [address]- 8454 Sep, [facility] [place] [facility] [address] [id number] [place] [address]- 8222 Aug, [facility] [place] [facility] [address] [id number] [place] [address]- 9853 Aug, [facility] [place] [facility] [address] [id number] [place] [address]- 1968 May, [facility] [place] [facility] [address] [id number] [place] [address]- 4796 May, [facility] [place] [facility] [address] [id number] [place] [address]- 5135 May, [facility] [place] [facility] [address] [id number] [place] [address]- 0028 May, [facility] [place] [facility] [address] [facility] [id number] [place] [address]- 2546 Apr, [facility] [address] [facility] [id number] [place] [address]- 6122 Mar, [facility] [address] [facility] [id number] [place] [address]- 7070 10 Mar, 2011 IMMUNIZATIONS No Known Immunizations SOCIAL HISTORY Never Assessed REASON FOR VISIT EMR-[facility] PLAN OF CARE VITAL SIGNS MEDICATIONS Unknown Medications RESULTS No Results PROCEDURES No Known procedures INSTRUCTIONS MEDICATIONS ADMINISTERED No Known Medications MEDICAL (GENERAL) HISTORY Type Description Date Medical History hypertension Medical History hyperlipidemia Medical History Arthritis Surgical History orthopedic surgery--Left elbow, removal of bone spur and scar tissue Surgical History EGD/colonoscopy 11/29/17 Hospitalization History Surgery only
--- OUTSIDE RECORDS SUMMARY | 2018-06-10 14:34 | XMS REPORT ---
Author Author MARIANA SOLER Organization [facility] Address [address] [place] [address] Care Team Providers Care Distributor Advertising Material Name Role Phone MARIANA SOLER Unavailable PROBLEMS Type Condition ICD9-CM Code SPE62-GW Code Onset Dates Condition Status SNOMED Code Problem History of herpes genitalis Z86.19 Active 985830981 Problem Essential hypertension I10 Active 31708591 Problem Gastroesophageal reflux disease, esophagitis presence not specified K21.9 Active 648970305 Problem Type 2 diabetes mellitus with other specified complication, without long-term current use of insulin E11.69 Active 56441545 Problem Carpal tunnel syndrome of right wrist G56.01 Active 817117147798690 Problem Biceps tendonitis, right M75.21 Active 794443807 Problem Arthritis M19.90 Active 5581281 Problem Mixed hyperlipidemia E78.2 Active 210427286 Problem Prediabetes R73.03 Active 511327956 ALLERGIES No Known Allergies ENCOUNTERS Encounter Location Date Diagnosis [place] [id number] [place] [address] 87519- 8145 Dec, [place] [id number] [place] [address] 41298- 2735 Nov, Somatic dysfunction of thoracic region M99.02 ; Somatic dysfunction of cervical region M99.01 ; Somatic dysfunction of head region M99.00 and Somatic dysfunction of upper extremity M99.07 [facility] [address], [place] [address] 3[address] Oct, [place] [id number] [place] [address] 72081- 9795 Oct, Bilateral hand numbness R20.0 [place] [id number] [place] [address] 23882- 6606 Oct, [place] [id number] [place] [address] 75699- 0482 04 Oct, 2017 Dehydration E86.0 ; Acute kidney insufficiency N28.9 ; Essential hypertension I10 ; Bilateral impacted cerumen H61.23 and Colon cancer screening Z12.11 [place] [id number] [place] [address] 45283- 4135 Sep, Bilateral hand numbness R20.0 and Type 2 diabetes mellitus with other specified complication, without long-term current use of insulin E11.69 [place] [id number] [place] [address] 45297- 6426 Aug, Bilateral hand numbness R20.0 ; Essential hypertension I10 ; Mixed hyperlipidemia E78.2 and Prediabetes R73.03 [place] [id number] [place] [address] 89958- 3488 Aug, [place] [address] 71485- 0158 Jul, Bilateral leg cramps R25.2 [place] [id number] [place] [address] 20547- 3654 June, [place] [address] 05200- 8212 May, Essential hypertension I10 ; Mixed hyperlipidemia E78.2 and Prediabetes R73.03 [facility] [id number] [place] [address] 16033 -1917 Apr, Acute non-recurrent maxillary sinusitis J01.00 and Cough R05 [place] [id number] [place] [address] 92872- 3527 Apr, [facility] [address] 08787- 8837 Mar, Pneumonia of right lower lobe due to infectious organism J18.1 [facility] [id number] [place] [address] 55409- 5936 Mar, Pneumonia of right lower lobe due to infectious organism J18.1 and Shortness of breath R06.02 [place] [id number] [place] [address] 58750- 1237 14 Mar, 2017 [place] [address] 95556- 2296 13 Mar, 2017 Influenza-like illness R69 and Impacted cerumen of both ears H61.23 [facility] [address] 51517- 2986 25 Oct, 2016 [place] [address] 80186- 3449 14 Oct, 2016 [place] [address] 33896- 4207 08 Oct, 2016 Carpal tunnel syndrome of right wrist G56.01 and RUQ abdominal pain R10.[address] 37593- 3396 Sep, Essential hypertension I10 ; Mixed hyperlipidemia E78.2 and Prediabetes R73.[address] 03974- 1711 Sep, Essential hypertension I10 [address] 02380- 0061 Jul, Acute otitis externa of right ear, unspecified type H60.501 [place] [id number] [place] [address] 87262- 9448 June, Biceps tendonitis, right M75.21 and Essential hypertension I10 [address] 28321- 5062 June, [address] 47278- 8642 May, Essential hypertension I10 and Cramp of both lower extremities R25.2 [place] [address] 27353- 6994 May, Arthritis M19.90 and Cramp of both lower extremities R25.2 [facility] [id number] [place] [address] 50808 -6225 18 Mar, 2016 [facility] [id number] [place] [address] 26364- 3521 Nov, Essential hypertension I10 and Colon cancer screening Z12.11 [facility] [id number] [place] [address] 37313- 1154 14 Nov, 2015 [facility] [id number] [place] [address] [id number] Jul, Dental examination Z01.20 [facility] [id number] [place] [address] 37073- 0601 14 May, 2014 [facility] [id number] [place] [address] 00473- 6766 May, [facility] [id number] [place] [address] 64256- 6920 Jan, [facility] [id number] [place] [address] 53682- 2272 Jan, [facility] [id number] [place] [address] 72623- 5311 Aug, [facility] [id number] [place] [address] 33947- 9031 May, [facility] [id number] [place] [address] 01867- 7724 Mar, [facility] [id number] [place] [address] 20081- 5710 Feb, [facility] [id number] [place] [address] 60469- 0091 Jan, [facility] [id number] [place] [address] 315030- 2816 Jan, [facility] [place] [facility] [address] [id number] [place] [address]- 1076 26 Jan, 2012 [facility] [place] [facility] [address] [id number] [place] [address]- 6096 18 Jan, 2012 [facility] [place] [facility] [address] [id number] [place] [address]- 1466 Jan, [facility] [place] [facility] [address] [id number] [place] [address]- 0746 Jan, [facility] [place] [facility] [address] [id number] [place] [address]- 5236 Jan, [facility] [place] [facility] [address] [id number] [place] [address]- 5996 Jan, [facility] [place] [facility] [address] [id number] [place] [address]- 2626 Jan, [facility] [place] [facility] [address] [id number] [place] [address]- 9522 Jan, [facility] [place] [facility] [address] [id number] [place] [address]- 8790 Jan, [facility] [place] [facility] [address] [id number] [place] [address]- 6986 Jan, [facility] [place] [facility] [address] [id number] [place] [address]- 4446 Jan, [facility] [place] [facility] [address] [id number] [place] [address]- 9516 Jan, [facility] [place] [facility] [address] [id number] [place] [address]- 2036 Jan, [facility] [place] [facility] [address] [id number] [place] [address]- 3476 Dec, [facility] [place] [facility] [address] [id number] [place] [address]- 9596 Dec, [facility] [place] [facility] [address] [id number] [place] [address]- 2469 Dec, [facility] [address] [facility] [id number] [place] [address]- 5254 Dec, [facility] [address] [facility] [id number] [place] [address]- 5794 Dec, [facility] [address] [place] [address]- 0919 Dec, [facility] [address] [facility] [id number] [address]- 9273 Sep, [facility] [address] [facility] [id number] [place] [address]- 2075 Sep, [facility] [address] [facility] [id number], [place] [address]- 5486 Sep, [facility] [address], [place] [address]- 2098 Aug, [facility] [address], [place] [address]- 3510 Aug, [facility] [address], [place] [address]- 2204 May, [facility] [address], [place] [address]- 5219 May, [facility] [address], [place] [address]- 5730 May, [facility] [address], [place] [address]- 0708 May, [facility] [address] [facility] [id number], [place] [address]- 2713 16 Apr, 2011 [facility] [address] 1065 10 Mar, 2011 [facility] [id number], [place] [address]- 0207 10 Mar, 2011 IMMUNIZATIONS No Known Immunizations SOCIAL HISTORY Never Assessed REASON FOR VISIT Numbness/hands getting worst -- manuel santillan PLAN OF CARE Activity Details Follow Up 4 Weeks with Flora franklin numbness Reason: VITAL SIGNS Height 75 in 2017-09-13 Weight 242.0 lbs 2017-09-13 Temperature 98.0 degrees Fahrenheit 2017-09-13 Heart Rate 90 bpm 2017-09-13 Respiratory Rate 22 2017-09-13 BMI 30.24 kg/m2 2017-09-13 Blood pressure systolic 138 mmHg 2017-09-13 Blood pressure diastolic 92 mmHg 2017-09-13 MEDICATIONS Medication Instructions Dosage Frequency Start Date End Date Duration Status PredniSONE 20 mg Orally Once a day 1 tablet 24h Aug, Aug, 07 days Active Metformin HCl 500 mg Orally Twice a day (take one tablet for the first week) 1 tablet with meals 30 Active Lisinopril-Hydrochlorothiazide 20-12.5 MG Orally Once a [...]
--- OUTSIDE RECORDS SUMMARY | 2018-06-10 14:34 | XMS REPORT ---
Author Author MARIANA SOLER Organization [facility] Address [address] [place] [address] Care Team Providers Care Account Liaison Name Role Phone MARIANA SOLER Unavailable PROBLEMS Type Condition ICD9-CM Code FPH97-IJ Code Onset Dates Condition Status SNOMED Code Problem History of herpes genitalis Z86.19 Active 550226195 Problem Essential hypertension I10 Active 05039045 Problem Gastroesophageal reflux disease, esophagitis presence not specified K21.9 Active 842442523 Problem Type 2 diabetes mellitus with other specified complication, without long-term current use of insulin E11.69 Active 13528993 Problem Carpal tunnel syndrome of right wrist G56.01 Active 262433869661366 Problem Biceps tendonitis, right M75.21 Active 672314751 Problem Arthritis M19.90 Active 4934528 Problem Mixed hyperlipidemia E78.2 Active 692725054 Problem Prediabetes R73.03 Active 542268406 ALLERGIES No Known Allergies ENCOUNTERS Encounter Location Date Diagnosis [place] [id number] [place] [address] 37260- 6598 Dec, [place] [id number] [place] [address] 11333- 6117 Nov, Somatic dysfunction of thoracic region M99.02 ; Somatic dysfunction of cervical region M99.01 ; Somatic dysfunction of head region M99.00 and Somatic dysfunction of upper extremity M99.07 [facility] [address] [address]- 7316 Oct, [place] [id number] [place] [address] 22913- 8094 Oct, Bilateral hand numbness R20.0 [place] [id number] [place] [address] 88588- 7334 Oct, [place] [id number] [place] [address] 22752- 3047 04 Oct, 2017 Dehydration E86.0 ; Acute kidney insufficiency N28.9 ; Essential hypertension I10 ; Bilateral impacted cerumen H61.23 and Colon cancer screening Z12.11 [place] [id number] [place] [address] 17395- 3437 Sep, Bilateral hand numbness R20.0 and Type 2 diabetes mellitus with other specified complication, without long-term current use of insulin E11.69 [place] [id number] [place] [address] 80311- 2737 Aug, Bilateral hand numbness R20.0 ; Essential hypertension I10 ; Mixed hyperlipidemia E78.2 and Prediabetes R73.03 [place] [id number] [place] [address] 88551- 1934 Aug, [place] [address] 11965- 3473 Jul, Bilateral leg cramps R25.2 [place] [id number] [place] [address] 11544- 3454 June, [place] [address] 71193- 2984 May, Essential hypertension I10 ; Mixed hyperlipidemia E78.2 and Prediabetes R73.03 [facility] [id number] [place] [address] 99464 -5531 Apr, Acute non-recurrent maxillary sinusitis J01.00 and Cough R05 [place] [id number] [place] [address] 31656- 2068 Apr, [place] [address] 95221- 3367 Mar, Pneumonia of right lower lobe due to infectious organism J18.1 [place] [id number] [place] [address] 76808- 3010 Mar, Pneumonia of right lower lobe due to infectious organism J18.1 and Shortness of breath R06.02 [place] [id number] [place] [address] 73162- 2666 14 Mar, 2017 [place] [address] 02603- 6878 13 Mar, 2017 Influenza-like illness R69 and Impacted cerumen of both ears H61.23 [place] [address] 56440- 0841 25 Oct, 2016 [place] [address] 59996- 7901 14 Oct, 2016 [place] [address] 52123- 7095 08 Oct, 2016 Carpal tunnel syndrome of right wrist G56.01 and RUQ abdominal pain R10.[address] 92933- 1899 Sep, Essential hypertension I10 ; Mixed hyperlipidemia E78.2 and Prediabetes R73.[address] 14561- 3507 Sep, Essential hypertension I10 [address] 11068- 1070 Jul, Acute otitis externa of right ear, unspecified type H60.501 [place] [id number] [place] [address] 63541- 0748 June, Biceps tendonitis, right M75.21 and Essential hypertension I10 [address] 96983- 8667 June, [address] 96895- 4128 May, Essential hypertension I10 and Cramp of both lower extremities R25.2 [place] [address] 05423- 3691 May, Arthritis M19.90 and Cramp of both lower extremities R25.2 [facility] [id number] [place] [address] 61010 -8639 18 Mar, 2016 [facility] [id number] [place] [address] 71024- 6793 Nov, Essential hypertension I10 and Colon cancer screening Z12.11 [facility] [id number] [place] [address] 74104- 2712 14 Nov, 2015 [facility] [id number] [place] [address] [id number] Jul, Dental examination Z01.20 [facility] [id number] [place] [address] 50806- 7226 14 May, 2014 [facility] [id number] [place] [address] 15177- 6136 May, [facility] [id number] [place] [address] 93856- 5081 Jan, [facility] [id number] [place] [address] 44851- 9740 Jan, [facility] [id number] [place] [address] 39728- 6372 Aug, [facility] [address] [place] [address] 72716- 7186 May, [facility] [id number] [place] [address] 52911- 7314 Mar, [facility] [id number] [place] [address] 00343- 2951 Feb, [facility] [id number] [place] [address] 70664- 2443 Jan, [facility] [id number] [place] [address] 903971- 0726 Jan, [facility] [place] [facility] [address] [id number] [place] [address]- 7235 26 Jan, 2012 [facility] [place] [facility] [address] [id number] [place] [address]- 6856 18 Jan, 2012 [facility] [place] [facility] [address] [id number] [place] [address]- 5686 Jan, [facility] [place] [facility] [address] [id number] [place] [address]- 7516 Jan, [facility] [place] [facility] [address] [id number] [place] [address]- 9156 Jan, [facility] [place] [facility] [address] [id number] [place] [address]- 2246 Jan, [facility] [place] [facility] [address] [id number] [place] [address]- 0116 Jan, [facility] [place] [facility] [address] [id number] [place] [address]- 8285 Jan, [facility] [place] [facility] [address] [id number] [place] [address]- 5650 Jan, [facility] [place] [facility] [address] [id number] [place] [address]- 7066 Jan, [facility] [place] [facility] [address] [id number] [place] [address]- 2796 Jan, [facility] [place] [facility] [address] [id number] [place] [address]- 9306 Jan, [facility] [place] [facility] [address] [id number] [place] [address]- 1256 Jan, [facility] [place] [facility] [address] [id number] [place] [address]- 9336 Dec, [facility] [place] [facility] [address] [id number] [place] [address]- 7916 Dec, [facility] [place] [facility] [address] [id number] [place] [address] Dec, [facility] [address] [facility] [id number] [place] [address]- 8248 Dec, [facility] [address] [facility] [id number] [place] [address]- 3130 Dec, [facility] [address] [facility] [id number] [place] [address]- 3483 Dec, [facility] [address] [facility] [id number] [place] [address]- 6781 Sep, [facility] [address] [facility] [id number] [place] [address]- 0572 Sep, [facility] [address] [facility] [id number] [place] [address]- 8099 Sep, [facility] [address] [place] [address]- 9812 Aug, [facility] [id number] [address]- 4135 Aug, [facility] [id number] [place] [address]- 4805 May, [facility] [address] [address]- 5987 May, [facility] [address] [address]- 3167 May, [facility] [address] [facility] [id number] [address]- 6419 May, [facility] [address] [facility] [id number] [address]- 6232 16 Apr, 2011 [facility] [address] [facility] [id number] [address]- 6744 10 Mar, 2011 [facility] [id number] [address]- 0514 10 Mar, 2011 IMMUNIZATIONS No Known Immunizations SOCIAL HISTORY Never Assessed REASON FOR VISIT VC ER F/U--tcuppettRN, --Dehydration and heat exhaustion PLAN OF CARE Activity Details Follow Up 3 Months with Flora franklin HTN, med changes Reason: VITAL SIGNS Height 75 in 2017-10-25 Weight 247.9 lbs 2017-10-25 Temperature 98.1 degrees Fahrenheit 2017-10-25 Heart Rate 92 bpm 2017-10-25 Respiratory Rate 20 2017-10-25 BMI 30.98 kg/m2 2017-10-25 Blood pressure systolic 140 mmHg 2017-10-25 Blood pressure diastolic 94 mmHg 2017-10-25 MEDICATIONS Medication Instructions Dosage Frequency Start Date End Date Duration Status Omeprazole 20 mg Orally Once a day 1 capsule 24h Active Lisinopril 40 MG Orally Once a day 1 tablet 24h Oct, 30 day(s) Active Metformin HCl 500 mg Orally Twice a day (take one tablet for the first week) 1 tablet with meals 30 Not-Taking Atenolol 25 MG Orally Once a [...]
--- OUTSIDE RECORDS SUMMARY | 2018-06-10 14:34 | XMS REPORT ---
Author Author MARIANA SOLER Organization [facility] [place] Address [address] [place] [address] Care Team Providers Care Cheese Processor Name Role Phone MARIANA SOLER Unavailable PROBLEMS Type Condition ICD9-CM Code XSH68-DF Code Onset Dates Condition Status SNOMED Code Problem History of herpes genitalis Z86.19 Active 145466628 Problem Essential hypertension I10 Active 15681499 Problem Gastroesophageal reflux disease, esophagitis presence not specified K21.9 Active 883450270 Problem Type 2 diabetes mellitus with other specified complication, without long-term current use of insulin E11.69 Active 19177749 Problem Carpal tunnel syndrome of right wrist G56.01 Active 830502346413246 Problem Biceps tendonitis, right M75.21 Active 696631568 Problem Arthritis M19.90 Active 8501159 Problem Mixed hyperlipidemia E78.2 Active 695890655 Problem Prediabetes R73.03 Active 826968650 ALLERGIES No Information ENCOUNTERS Encounter Location Date Diagnosis [facility] [place] [id number] [place] [address]60- 7692 Dec, [facility] [place] [address] [place] [address] 95394- 1844 Nov, [facility] [place] [id number] [place] [address] 86115- 9372 Nov, [facility] [place] [id number] [place] [address] 95008- 4289 Nov, Somatic dysfunction of thoracic region M99.02 ; Somatic dysfunction of cervical region M99.01 ; Somatic dysfunction of head region M99.00 and Somatic dysfunction of upper extremity M99.07 [facility] [place] [address] [address] Oct, [facility] [place] [address] [address]- 2333 04 Oct, 2017 Bilateral hand numbness R20.0 [place] [address] 12730- 3763 Oct, [facility] [place] [address] 17160- 5095 Oct, Dehydration E86.0 ; Acute kidney insufficiency N28.9 ; Essential hypertension I10 ; Bilateral impacted cerumen H61.23 and Colon cancer screening Z12.11 [place] [address] 68193- 0844 Sep, Bilateral hand numbness R20.0 and Type 2 diabetes mellitus with other specified complication, without long-term current use of insulin E11.69 [place] [address] 85275- 9602 Aug, Bilateral hand numbness R20.0 ; Essential hypertension I10 ; Mixed hyperlipidemia E78.2 and Prediabetes R73.03 [place] [address] 07597- 4685 Aug, [place] [address] 74775- 7793 Jul, Bilateral leg cramps R25.2 [place] [address] 41831- 9113 June, [facility] [place] [address] 7[address]85- 7563 May, Essential hypertension I10 ; Mixed hyperlipidemia E78.2 and Prediabetes R73.03 [facility] [address] 7[address]84 -1054 Apr, Acute non-recurrent maxillary sinusitis J01.00 and Cough R05 [place] [address] 99262- 5047 Apr, [place] [address] [place] [id number]- 2546 21 Mar, 2017 Pneumonia of right lower lobe due to infectious organism J18.1 [place] [address] 07892- 1366 19 Mar, 2017 Pneumonia of right lower lobe due to infectious organism J18.1 and Shortness of breath R06.[address] 56749- 7778 14 Mar, 2017 [place] [address] 83996- 9833 13 Mar, 2017 Influenza-like illness R69 and Impacted cerumen of both ears H61.[address] 76398- 3584 25 Oct, 2016 [place] [address] 83180- 1412 14 Oct, 2016 [place] [address] 21323- 4312 08 Oct, 2016 Carpal tunnel syndrome of right wrist G56.01 and RUQ abdominal pain R10.[address] 84463- 3441 Sep, Essential hypertension I10 ; Mixed hyperlipidemia E78.2 and Prediabetes R73.[address] 26953- 3279 Sep, Essential hypertension I10 [address] 81502- 6627 Jul, Acute otitis externa of right ear, unspecified type H60.[address] 89408- 4540 June, Biceps tendonitis, right M75.21 and Essential hypertension I10 [address] 51449- 2587 June, [address] [address] May, Essential hypertension I10 and Cramp of both lower extremities R25.2 [facility] [place] [address] [address] 8878 May, Arthritis M19.90 and Cramp of both lower extremities R25.2 [facility] [address] [address] Mar, [facility] [place] [address] [address]- 6785 Nov, Essential hypertension I10 and Colon cancer screening Z12.11 [facility] [place] [address] [address]- 3686 Nov, [facility] [address] [address] Jul, Dental examination Z01.20 [facility] [place] [address], [place] [address]- 5804 14 May, 2014 [facility] [place] [address], [place] [address]- 6125 May, [facility] [place] [address], [place] [address]- 9604 Jan, [facility] [place] [address], [place] [address]- 0201 Jan, [facility] [place] [address], [place] [address]- 6360 Aug, [facility] [place] [address], [place] [address]- 0753 May, [facility] [place] [address], [place] [address]- 6272 Mar, [facility] [place] [address], [place] [address]- 7716 Feb, [facility] [place] [address] [facility] [id number] [place] [address]- 8166 31 Jan, 2012 [facility] [place] [facility] [address] [id number] [place] [address]- 3786 31 Jan, 2012 [facility] [place] [facility] [address] [id number] [place] [address]- 3026 26 Jan, 2012 [facility] [place] [facility] [address] [id number] [place] [address]- 2306 18 Jan, 2012 [facility] [place] [facility] [address] [id number] [place] [address]- 9966 10 Jan, 2012 [facility] [place] [facility] [address] [id number] [place] [address]- 7176 Jan, [facility] [place] [facility] [address] [id number] [place] [address]- 8771 07 Jan, 2012 [facility] [place] [facility] [address] [id number] [place] [address]- 8522 Jan, [facility] [place] [facility] [address] [id number] [place] [address]- 0167 Jan, [facility] [place] [facility] [address] [id number] [place] [address]- 9626 Jan, [facility] [place] [facility] [address] [id number] [place] [address]- 0518 Jan, [facility] [place] [facility] [address] [id number] [place] [address]- 8646 Jan, [facility] [place] [facility] [address] [id number] [place] [address]- 1946 Jan, [facility] [place] [facility] [address] [id number] [place] [address]- 9466 Jan, [facility] [place] [facility] [address] [id number] [place] [address]- 1296 Jan, [facility] [place] [facility] [address] [id number] [place] [address]- 0354 Dec, [facility] [place] [facility] [address] [id number] [place] [address]- 2044 Dec, [facility] [place] [facility] [address] [id number] [place] [address]- 1110 Dec, [facility] [place] [facility] [address] [id number] [place] [address]- 4442 Dec, [facility] [place] [facility] [address] [id number] [place] [address]- 9817 Dec, [facility] [place] [facility] [address] [id number] [place] [address]- 0988 Dec, [facility] [place] [facility] [address] [id number] [place] [address]- 4657 Sep, [facility] [place] [facility] [address] [id number] [place] [address]- 7206 Sep, [facility] [place] [facility] [address] [id number] [place] [address]- 9129 Sep, [facility] [place] [facility] [address] [id number] [place] [address]- 5911 Aug, [facility] [place] [facility] [address] [id number] [place] [address]- 5800 Aug, [facility] [place] [facility] [address] [id number] [place] [address]- 8924 May, [facility] [place] [facility] [address] [id number] [place] [address]- 4192 May, [facility] [place] [facility] [address] [id number] [place] [address]- 3631 May, [facility] [place] [facility] [address] [id number] [place] [address]- 8482 10 May, 2011 [facility] [place] [facility] [address] [id number] [place] [address]- 2720 16 Apr, 2011 [facility] [place] [facility] [address] [facility] [id number] [place] [address]- 6875 Mar, [facility] [place] [address] [facility] [id number] [place] [address]- 0929 Mar, IMMUNIZATIONS No Known Immunizations SOCIAL HISTORY Never Assessed REASON FOR VISIT ED visit note PLAN OF CARE VITAL SIGNS MEDICATIONS Unknown Medications RESULTS No Results PROCEDURES No Known procedures INSTRUCTIONS MEDICATIONS ADMINISTERED No Known Medications MEDICAL (GENERAL) HISTORY Type Description Date Medical History hypertension Medical History hyperlipidemia Medical History Arthritis Surgical History orthopedic surgery--Left elbow, removal of bone spur and scar tissue Surgical History EGD/colonoscopy 11/29/17 Hospitalization History Surgery only
--- OUTSIDE RECORDS SUMMARY | 2018-06-10 14:34 | XMS REPORT ---
Author Author MARION URIBE [facility] Address [address] [place] [address] Care Team Providers Care Docketing Specialist Name Role Phone MARION URIBE Unavailable PROBLEMS Type Condition ICD9-CM Code AIW90-ZB Code Onset Dates Condition Status SNOMED Code Problem History of herpes genitalis Z86.19 Active 331950024 Problem Essential hypertension I10 Active 44521736 Problem Gastroesophageal reflux disease, esophagitis presence not specified K21.9 Active 068661729 Problem Type 2 diabetes mellitus with other specified complication, without long-term current use of insulin E11.69 Active 99016700 Problem Carpal tunnel syndrome of right wrist G56.01 Active 248127657286856 Problem Biceps tendonitis, right M75.21 Active 727940304 Problem Arthritis M19.90 Active 1176569 Problem Mixed hyperlipidemia E78.2 Active 721323361 Problem Prediabetes R73.03 Active 153220885 ALLERGIES No Known Allergies ENCOUNTERS Encounter Location Date Diagnosis [place] [address] [place] [address] 79093- 7114 Dec, [place] [address] [place] [address] 37403- 6267 Nov, Somatic dysfunction of thoracic region M99.02 ; Somatic dysfunction of cervical region M99.01 ; Somatic dysfunction of head region M99.00 and Somatic dysfunction of upper extremity M99.07 [facility] [address], [place] [address]- 2029 Oct, [place] [address] [place] [id number] [place] [address] 32005- 5908 Oct, Bilateral hand numbness R20.0 [facility] [address] [place] [address] 29834- 9772 Oct, [place] [address] [place] [id number] [place] [address] 99484- 0146 04 Oct, 2017 Dehydration E86.0 ; Acute kidney insufficiency N28.9 ; Essential hypertension I10 ; Bilateral impacted cerumen H61.23 and Colon cancer screening Z12.11 [place] [address] [place] [address] [id number] [place] [address] 03016- 8762 Sep, Bilateral hand numbness R20.0 and Type 2 diabetes mellitus with other specified complication, without long-term current use of insulin E11.69 [place] [address] [place] [id number] [place] [address] 80963- 4426 Aug, Bilateral hand numbness R20.0 ; Essential hypertension I10 ; Mixed hyperlipidemia E78.2 and Prediabetes R73.03 [place] [address] [place] [id number] [place] [address] 40344- 3988 Aug, [place] [address] 23078- 4026 Jul, Bilateral leg cramps R25.2 [place] [address] [place] [id number] [place] [address] 74611- 8151 June, [place] [address] 05535- 4852 May, Essential hypertension I10 ; Mixed hyperlipidemia E78.2 and Prediabetes R73.03 [facility] [id number] [place] [address] 99212 -5398 Apr, Acute non-recurrent maxillary sinusitis J01.00 and Cough R05 [place] [address] [place] [id number] [place] [address] 17152- 0363 Apr, [place] [address] [place] [address] [id number] [place] [address] 45097- 0011 Mar, Pneumonia of right lower lobe due to infectious organism J18.1 [place] [address] [place] [address] [id number] [place] [address] 27468- 4600 19 Feb, 2018 Pneumonia of right lower lobe due to infectious organism J18.1 and Shortness of breath R06.02 [place] [address] 67504- 4302 14 Mar, 2017 [place] [address] 48648- 4683 13 Mar, 2017 Influenza-like illness R69 and Impacted cerumen of both ears H61.23 [place] [address] 05986- 6629 25 Oct, 2016 [place] [address] 14620- 6676 14 Oct, 2016 [place] [address] 55342- 6566 08 Oct, 2016 Carpal tunnel syndrome of right wrist G56.01 and RUQ abdominal pain R10.[address] 92895- 6700 Sep, Essential hypertension I10 ; Mixed hyperlipidemia E78.2 and Prediabetes R73.[address] 59035- 6945 Sep, Essential hypertension I10 [address] 65634- 5283 Jul, Acute otitis externa of right ear, unspecified type H60.501 [place] [address] 02503- 8160 June, Biceps tendonitis, right M75.21 and Essential hypertension I10 [address] 00404- 7847 June, [address] 16518- 6720 May, Essential hypertension I10 and Cramp of both lower extremities R25.2 [place] [address] 83585- 1676 May, Arthritis M19.90 and Cramp of both lower extremities R25.2 [facility] [id number] [place] [address] 28475 -1824 Mar, [facility] [address] [id number] [place] [address] 89673- 2452 Nov, Essential hypertension I10 and Colon cancer screening Z12.11 [facility] [address] [place] [id number] [place] [address] 40739- 1196 14 Nov, 2015 [facility] [id number] [place] [address] [id number] Jul, Dental examination Z01.20 [facility] [id number] [place] [address] 98220- 8116 14 May, 2014 [facility] [address] [id number] [place] [address] 15624- 8206 May, [facility] [id number] [place] [address] 67145- 4697 Jan, [facility] [id number] [place] [address] 45417- 9567 Jan, [facility] [id number] [place] [address] 53371- 9863 Aug, [facility] [address], [place] [address]- 9507 May, [facility] [id number] [place] [address] 11032- 7357 Mar, [facility] [address] [place] [address] 69151- 0237 Feb, [facility] [address] [place] [id number] [place] [address] 80298- 2981 Jan, [facility] [address] 7993 Jan, [facility] [address] [place] [id number] [place] [address]- 7033 26 Jan, 2012 [facility] [address] [id number] [place] [address]- 3136 18 Jan, 2012 [facility] [place] [facility] [address] [id number] [place] [address]- 0576 Jan, [facility] [address] [id number] [place] [address]- 8016 Jan, [facility] [place] [facility] [address] [id number] [place] [address]- 4386 Jan, [facility] [address] [id number] [place] [address]- 6076 Jan, [facility] [address] [id number] [place] [address]- 2593 Jan, [facility] [address] [id number] [place] [address]- 1486 Jan, [facility] [address] [id number] [place] [address]- 4657 Jan, [facility] [place] [facility] [address] [id number] [place] [address]- 2795 Jan, [facility] [address] [id number] [place] [address]- 3138 Jan, [facility] [place] [facility] [address] [id number] [place] [address]- 6626 Jan, [facility] [place] [facility] [address] [id number] [place] [address]- 6896 Jan, [facility] [place] [facility] [address] [id number] [place] [address]- 0286 Dec, [facility] [place] [facility] [address] [id number] [place] [address]- 0006 Dec, [facility] [place] [facility] [address] [id number] [place] [address]- 5450 Dec, [facility] [address] [id number] [place] [address]- 5968 Dec, [facility] [address] [id number] [place] [address]- 0796 Dec, [facility] [address] [id number] [place] [address]- 2987 Dec, [facility] [address] [id number] [place] [address]- 8363 Sep, [facility] [address] [id number] [place] [address]- 7094 Sep, [facility] [address] [id number] [place] [address]- 8472 Sep, [facility] [address] [id number] [place] [address]- 1496 Aug, [facility] [address] [id number] [place] [address]- 8101 Aug, [facility] [address] [id number] [place] [address]- 6160 May, [facility] [address] [id number] [address]- 3500 May, [facility] [address] [id number] [address]- 8564 May, [facility] [address] [id number], [place] [address]- 4566 May, [facility] [address] [id number], [place] [address]- 9632 16 Apr, 2011 [facility] [address] [id number]- 2926 10 Mar, 2011 [facility] [address] [id number][place]- 6003 10 Mar, 2011 IMMUNIZATIONS No Known Immunizations SOCIAL HISTORY Never Assessed REASON FOR VISIT OMM--[id number] PLAN OF CARE Activity Details Follow Up prn Reason: Future/Pending Procedure OMT/3-4 [facility] VITAL SIGNS Height 75 in 2017-11-30 Weight 241.2 lbs 2017-11-30 Temperature 98.7 degrees Fahrenheit 2017-11-30 Heart Rate 80 bpm 2017-11-30 Respiratory Rate 20 2017-11-30 BMI 30.14 kg/m2 2017-11-30 Blood pressure systolic 144 mmHg 2017-11-30 Blood pressure diastolic 82 mmHg 2017-11-30 MEDICATIONS Medication Instructions Dosage Frequency Start Date End Date Duration Status Metformin HCl 500 mg Orally Twice a day (take one tablet for the first week) 1 tablet with meals 30 Not-Taking Lisinopril 40 MG Orally Once a day 1 tablet 24h Oct, 30 day(s) Active Omeprazole 20 mg Orally Once a day 1 capsule 24h Active Atenolol 25 MG Orally Once a day 1 tablet 24h 1 month Active RESULTS No Results PROCEDURES Procedure Date Ordered Result Body Site OSTEOPATHIC MANIPULATION Nov 30, 2017 INSTRUCTIONS MEDICATIONS ADMINISTERED No Known Medications MEDICAL (GENERAL) HISTORY Type Description Date Medical History hypertension Medical History hyperlipidemia Medical History Arthritis Surgical History orthopedic surgery--Left elbow, removal of bone spur and scar tissue Surgical History EGD/colonoscopy 11/29/17 Hospitalization History Surgery only
[2018-06-10 14:35] LABS: INR 0.9 (0.8-1.4); PROTHROMBIN TIME PATIENT 12.2 SEC (12.2-14.7)
[2018-06-10 14:36] LABS: ALANINE AMINOTRANSFERASE 100 U/L (0-55); ALBUMIN 4.9 GM/DL (3.2-4.5); ALKALINE PHOSPHATASE 69 U/L (40-136); BUN/CREATININE RATIO 9; CALCIUM 10.5 MG/DL (8.5-10.1); CARBON DIOXIDE 22 MMOL/L (21-32); CHLORIDE 107 MMOL/L (98-107); CREATININE SERUM 1.34 MG/DL (0.60-1.30); GFR ESTIMATED 55; GLUCOSE 118 MG/DL (70-105); MAGNESIUM 2.4 MG/DL (1.8-2.4); SODIUM 142 MMOL/L (135-145)
--- NOTE | 2018-06-10 14:37 | NUR ---
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
--- NOTE | 2018-06-10 14:37 | Cardiac Procedure Note-CS/ASA ---
Pre-Procedure Note Pre-Op Procedure Note H&P Reviewed The H&P was reviewed, patient examined and no changes noted. Date H&P Reviewed: Jun 10, 2018 Time H&P Reviewed: 14:37 Conscious Sedation Pre-Proced Time 14:37 ASA Score 3 For ASA 3 and 4: Consider anesthesia and medical clearance. Also, for patients with a history of failed moderate sedation consider anesthesia. Airway Lungs Heart ASA score ASA 1: a normal healthy patient ASA 2: a patient with a mild systemic disease (mid diabetes, controlled hypertension, obesity ASA 3: a patient with a severe systemic disease that limits activity (angina , COPD, prior Myocardial infarction) ASA 4: a patient with an incapacitating disease that is a constant threat to life (CHF, renal failure) ASA 5: a moribund patient not expected to survive 24 hrs. (ruptured aneurysm) ASA 6: a declared brain- patient whose organs are being harvested. For emergent operations, add the letter E after the classification Mallampati Classification Grade 1 Sedation Plan Analgesia, Amnesia, Plan communicated to team members, Discussed options with patient/fam, Discussed risks with patient/fam The patient is an appropriate candidate to undergo the planned procedure, sedation, and anesthesia. The patient immediately re-assessed prior to indication. Kvng HURT MD Jun 10, 2018 14:37
--- OUTSIDE RECORDS SUMMARY | 2018-06-10 14:38 | XMS REPORT | Continuity of Care Document ---
Author Organization Unknown Address Unknown Allergies Active Description Code Type Severity Reaction Onset Reported/Identified Relationship to Patient Clinical Status Yes No Known Drug Allergies [id number] Drug Allergy Unknown N/A 01/10/2016 Yes No Known Allergies [id number] Drug Allergy Unknown N/A 11/23/2017 Medications There [...] AND ABSCESS OF UNSPECIFIED SITES 09/21/2011 CAITIE BRANES APRN E920.9 ACCIDENTS CAUSED BY UNSPECIFIED CUTTING [...] ACUTE OTITIS EXTERNA 12/24/2011 NISA HAYNES APRN 380.22 OTHER ACUTE OTITIS EXTERNA 12/24/2011 CAITIE BARNES APRN 380.22 OTHER ACUTE OTITIS EXTERNA 01/22/2012 CAITIE BARNES APRN V74.5 STD SCREEN 01/22/2012 CAITIE BARNES APRN V74.5 STD SCREEN 01/22/2012 CAITIE BARNES APRN V74.5 STD SCREEN 01/22/2012 V74.5 STD SCREEN 01/22/2012 NISA HAYNES APRN V74.5 STD SCREEN 01/22/2012 CAMERON DASAicha CAITIE Maurice V74.5 STD SCREEN 01/31/2012 CAITIE BARNES APRN 272.4 HYPERLIPIDEMIA 01/31/2012 CAITIE BARNES APRN 302.72 ERECTILE DISORDER 01/31/2012 CAITIE BARNES APRN 790.29 HYPERGLYCEMIA 01/31/2012 272.4 HYPERLIPIDEMIA 01/31/2012 302.72 ERECTILE DISORDER 01/31/2012 790.29 HYPERGLYCEMIA 01/31/2012 [place] DANIEL, NISA S 272.4 HYPERLIPIDEMIA 01/31/2012 [place] GAME MODERATOR, NISA S 302.72 ERECTILE DISORDER 01/31/2012 [place] DANIEL, NISA S 790.29 HYPERGLYCEMIA 01/31/2012 CAITIE BARNES APRN 272.4 HYPERLIPIDEMIA 01/31/2012 CAITIE BARNES APRN T 302.72 ERECTILE DISORDER 01/31/2012 CAITIE BARNES APRN 790.29 HYPERGLYCEMIA 03/15/2012 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 03/15/2012 [place] DANIEL NISA S 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 03/15/2012 CAMER[place] GAME MODERATORCAITIE Holcomb 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 04/13/2012 [place] DANIEL NISA S 079.99 VIRAL SYNDROME 04/13/2012 CAITIE BARNES APRN 079.99 VIRAL SYNDROME 09/01/2012 CAITIE BARNES APRN 300.00 ANXIETY UNSPEC 01/10/2016 MINERVA SOW, HUNTER Fernández Ot L23.5 ALLERGIC CONTACT DERMATITIS DUE TO OTHER 01/10/2016 MINERVA SOW, HUNTER Fernández Ot L30.9 DERMATITIS, UNSPECIFIED 01/14/2016 LENORA CATHERINE ACCOUNTS SUPERVISOR Ot I10 ESSENTIAL (PRIMARY) HYPERTENSION 01/14/2016 LENORA CATHERINE ACCOUNTS SUPERVISOR Ot L25.3 UNSP CONTACT DERMATITIS DUE TO OTHER SARAI 01/14/2016 LENORA CATHERINE ACCOUNTS SUPERVISOR Ot 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 01/16/2016 FLORIN, LENORA ACCOUNTS SUPERVISOR Ot I10 ESSENTIAL (PRIMARY) HYPERTENSION 01/16/2016 LENORA CATHERINE ACCOUNTS SUPERVISOR Ot L25.3 UNSP CONTACT DERMATITIS DUE TO OTHER SARAI 01/16/2016 LENORA CATHERINEP Ot Z79.899 OTHER PRISON (CURRENT) DRUG THERAPY 11/01/2016 FLORES, PETER J GAME MODERATOR Ot I10 ESSENTIAL (PRIMARY) HYPERTENSION 11/01/2016 JD FLORES GAME MODERATOR Ot R10.11 RIGHT UPPER QUADRANT PAIN 11/01/2016 JD FLORES GAME MODERATOR Ot R11.0 NAUSEA 11/01/2016 JD FLORES GAME MODERATOR Ot R94.5 ABNORMAL RESULTS OF LIVER FUNCTION STUDI 11/01/2016 JD FLORES GAME MODERATOR Ot Z87.891 PERSONAL HISTORY OF NICOTINE DEPENDENCE 11/02/2016 JD FLORES GAME MODERATOR Ot I10 ESSENTIAL (PRIMARY) HYPERTENSION 11/02/2016 JD FLORES GAME MODERATOR Ot R10.11 RIGHT UPPER QUADRANT PAIN 11/02/2016 JD FLORES GAME MODERATOR Ot R11.0 NAUSEA 11/02/2016 JD FLORES GAME MODERATOR Ot R94.5 ABNORMAL RESULTS OF LIVER FUNCTION STUDI 11/02/2016 JD FLORES GAME MODERATOR Ot Z87.891 PERSONAL HISTORY OF NICOTINE DEPENDENCE 11/05/2016 HUNTER PALMA MD Ot E11.9 TYPE 2 DIABETES MELLITUS WITHOUT COMPLIC 11/05/2016 HUNTER PALMA MD Ot I10 ESSENTIAL (PRIMARY) HYPERTENSION 11/05/2016 HUNTER PALMA MD Ot R25.2 CRAMP AND SPASM 11/05/2016 HUNTER PALMA MD Ot 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 11/05/2016 HUNTER PALMA MD Ot Z87.891 PERSONAL HISTORY OF NICOTINE DEPENDENCE 11/11/2016 HUNTER PALMA MD Ot E11.9 TYPE 2 DIABETES MELLITUS WITHOUT COMPLIC 11/11/2016 HUNTER PALMA MD Ot I10 ESSENTIAL (PRIMARY) HYPERTENSION 11/11/2016 HUNTER PALMA MD Ot M19.90 UNSPECIFIED OSTEOARTHRITIS, UNSPECIFIED 11/11/2016 HUNTER PALMA MD Ot R25.2 CRAMP AND SPASM 11/11/2016 HUNTER PALMA MD Ot Z79.84 PRISON (CURRENT) USE OF ORAL HYPOGLYC 11/11/2016 HUNTER PALMA MD Ot Z87.891 PERSONAL HISTORY OF NICOTINE DEPENDENCE 11/16/2016 HUNTER PALMA MD Ot E11.9 TYPE 2 DIABETES MELLITUS WITHOUT COMPLIC 11/16/2016 HUNTER PALMA MD Ot I10 ESSENTIAL (PRIMARY) HYPERTENSION 11/16/2016 HUNTER PALMA MD Ot R25.2 CRAMP AND SPASM 11/16/2016 HUNTER PALMA MD Ot Z79.84 PRISON (CURRENT) USE OF ORAL HYPOGLYC 11/16/2016 HUNTER PALMA MD Ot Z87.891 PERSONAL HISTORY [...] AND EXPSR TO ENVIRON TOBACCO SMO 10/20/2017 DJ FLORES APRN Ot Z87.19 PERSONAL HISTORY OF OTHER DISEASES OF TH 11/18/2017 MORENO , AMY Block Ot R10.9 UNSPECIFIED ABDOMINAL PAIN 11/18/2017 MORENO AMY CLEMENT D Ot R11.0 NAUSEA 11/18/2017 HAVANA DOAMY Ot R10.9 UNSPECIFIED ABDOMINAL PAIN 11/18/2017 MORENO , AMY Block Ot R11.0 NAUSEA 11/18/2017 YOLANDA HASSAN MD Ot E11.9 TYPE 2 DIABETES MELLITUS WITHOUT COMPLIC 11/18/2017 YOLANDA HASSAN MD Ot I10 ESSENTIAL (PRIMARY) HYPERTENSION 11/18/2017 YOLANDA HASSAN MD Ot R10.84 GENERALIZED ABDOMINAL PAIN 11/18/2017 YOLANDA HASSAN MD Ot R11.0 NAUSEA 11/18/2017 YOLANDA HASSAN MD Ot Z82.49 FAMILY HX OF ISCHEM HEART DIS AND OTH DI 11/18/2017 YOLANDA HASSAN MD Ot Z87.19 PERSONAL HISTORY OF OTHER DISEASES OF TH 11/18/2017 YOLANDA HASSAN MD Ot Z87.891 PERSONAL HISTORY OF NICOTINE DEPENDENCE 11/21/2017 YOLANDA HASSAN MD Ot E11.9 TYPE 2 DIABETES MELLITUS WITHOUT COMPLIC 11/21/2017 YOLANDA HASSAN MD Ot I10 ESSENTIAL (PRIMARY) HYPERTENSION 11/21/2017 YOLANDA HASSAN MD Ot R10.84 GENERALIZED ABDOMINAL PAIN 11/21/2017 YOLANDA HASSAN MD Ot R11.0 NAUSEA 11/21/2017 YOLANDA HASSAN MD Ot Z82.49 FAMILY HX OF ISCHEM HEART DIS AND OTH DI 11/21/2017 YOLANDA HASSAN MD Ot Z87.19 PERSONAL HISTORY OF OTHER DISEASES OF 11/21/2017 YOLANDA HASSAN MD Ot Z87.891 PERSONAL HISTORY OF NICOTINE DEPENDENCE 11/23/2017 AMY MORENO DO Ot Z01.818 ENCOUNTER FOR OTHER PREPROCEDURAL EXAMIN 11/24/2017 AMY MORENO DO Ot Z01.818 ENCOUNTER FOR OTHER PREPROCEDURAL EXAMIN 11/29/2017 MORENO DO, AMY D Ot I10 ESSENTIAL (PRIMARY) HYPERTENSION 11/29/2017 MORENO DO, AMY D Ot I85.00 ESOPHAGEAL VARICES WITHOUT BLEEDING 11/29/2017 MORENO DO, AMY D Ot K21.9 GASTRO-ESOPHAGEAL REFLUX DISEASE WITHOUT 11/29/2017 MORENO DO, AMY D Ot K29.70 GASTRITIS, UNSPECIFIED, WITHOUT BLEEDING 11/29/2017 MORENO DO, AMY D Ot K62.1 RECTAL POLYP 11/29/2017 MORENO DO, AMY D Ot R19.7 DIARRHEA, UNSPECIFIED 11/29/2017 MORENO DO, AMY D Ot Z79.899 OTHER PRISON (CURRENT) DRUG THERAPY 12/01/2017 MORENO DO, AMY D Ot I10 ESSENTIAL (PRIMARY) HYPERTENSION 12/01/2017 MORENO DO, AMY D Ot I85.00 ESOPHAGEAL VARICES WITHOUT BLEEDING 12/01/2017 MORENO DO, AMY D Ot K21.9 GASTRO-ESOPHAGEAL REFLUX DISEASE WITHOUT 12/01/2017 MORENO DO, AMY D Ot K29.70 GASTRITIS, UNSPECIFIED, WITHOUT BLEEDING 12/01/2017 MORENO DO, AMY D Ot K62.1 RECTAL POLYP 12/01/2017 OMRENO DO, AMY D Ot R19.7 DIARRHEA, UNSPECIFIED 12/01/2017 MORENO DO, AMY D Ot Z79.899 OTHER PRISON (CURRENT) DRUG THERAPY 12/15/2017 HUNTER PALMA MD Ot E11.9 TYPE 2 DIABETES MELLITUS WITHOUT COMPLIC 12/15/2017 HUNTER PALMA MD Ot I10 ESSENTIAL (PRIMARY) HYPERTENSION 12/15/2017 HUNTER PALMA MD Ot K21.9 GASTRO-ESOPHAGEAL REFLUX DISEASE WITHOUT 12/15/2017 HUNTER PALMA MD Ot R05 COUGH 12/15/2017 HUNTER PALMA MD Ot R07.89 OTHER CHEST PAIN 12/15/2017 HUNTER PALMA MD Ot Z82.49 FAMILY HX OF ISCHEM HEART DIS AND OTH DI 12/15/2017 HUNTER PALMA MD Ot Z86.010 PERSONAL HISTORY OF COLONIC POLYPS 12/15/2017 HUNTER PALMA MD Ot Z87.19 PERSONAL HISTORY OF OTHER DISEASES OF TH 12/15/2017 HUNTER PALMA MD Ot Z87.891 PERSONAL HISTORY OF NICOTINE DEPENDENCE 12/15/2017 HUNTER PALMA MD Ot Z95.5 PRESENCE OF CORONARY ANGIOPLASTY IMPLANT 12/19/2017 HUNTER PALMA MD Ot E11.9 TYPE 2 DIABETES MELLITUS WITHOUT COMPLIC 12/19/2017 HUNTER PALMA MD Ot I10 ESSENTIAL (PRIMARY) HYPERTENSION 12/19/2017 HUNTER PALMA MD Ot K21.9 GASTRO-ESOPHAGEAL REFLUX DISEASE WITHOUT 12/19/2017 HUNTER PALMA MD Ot R05 COUGH 12/19/2017 HUNTER PALMA MD Ot R07.89 OTHER CHEST PAIN 12/19/2017 HUNTER PALMA MD Ot Z82.49 FAMILY HX OF ISCHEM HEART DIS AND OTH DI 12/19/2017 HUNTER PALMA MD Ot Z86.010 PERSONAL HISTORY OF COLONIC POLYPS 12/19/2017 HUNTER PALMA MD Ot Z87.19 PERSONAL HISTORY OF OTHER DISEASES OF TH 12/19/2017 HUNTER PALMA MD Ot Z87.891 PERSONAL HISTORY OF NICOTINE DEPENDENCE 12/19/2017 HUNTER PALMA MD Ot Z95.5 PRESENCE OF CORONARY ANGIOPLASTY IMPLANT 12/19/2017 AMY MORENO DO Ot R10.9 UNSPECIFIED ABDOMINAL PAIN 12/19/2017 AMY MORENO DO Ot R11.0 NAUSEA 05/10/2018 AMY MORENO DO Ot R10.9 UNSPECIFIED ABDOMINAL PAIN 05/10/2018 AMY MORENO DO Ot R11.0 NAUSEA 06/02/2018 AMY MORENO DO Ot R10.9 UNSPECIFIED ABDOMINAL PAIN 06/02/2018 AMY MORENO DO Ot R11.0 NAUSEA Procedures Code Description [place] [address] ROUTINE VENIPUNCTURE 01/26/2012 HERPSM1,2 HERPES SIMPLEX 1 AND 2, IGM, IGG 01/26/2012 76387 ROUTINE VENIPUNCTURE 01/31/2012 49043 PSA FREE AND TOTAL 01/31/2012 66498 TESTOSTERONE FREE 01/31/2012 36273 A1C (IN-HOUSE) 01/31/2012 07951 BMP 01/31/2012 80373 LIPID PANEL 01/31/2012 7109895 GFR CALC (RESULT ONLY) 01/31/2012 Results Test [...] 7-25 CREATININE 1.28 mg/dL 0.70-1.33 eGFR NON-AFR. BURMESE 62 mL/min/1.73m2 > OR=60 eGFR 72 mL/min/1.73m2 [...] protein measurement (mass/volume) 0.14 mg /dL 0.00-0.50 PT panel in platelet poor plasma by coagulation assay - 12/14/17 22:40 Prothrombin time (PT) in platelet poor plasma by coagulation assay 12.7 s 12.2-14.7 INR in platelet poor plasma or blood by coagulation assay 1.0 0.8-1.4 Activated partial thromboplastin time (aPTT) in platelet poor plasma bycoagulation assay - 12/14/17 22:40 Activated partial thromboplastin time (aPTT) in platelet poor plasma bycoagulation assay 26 s 24-35 Complete blood count (CBC) with automated white blood cell (WBC) differential - 12/14/17 22:40 Blood leukocytes automated count (number/volume) 11.0 10*3/uL 4.3-11.0 Blood erythrocytes automated count (number/volume) 5.07 10*6/uL 4.35-5.85 Venous blood hemoglobin measurement (mass/volume) 15.8 g/dL 13.3-17.7 Blood hematocrit (volume fraction) 44 % 40-54 Automated erythrocyte mean corpuscular volume 87 [foz_us] 80-99 Automated erythrocyte mean corpuscular hemoglobin (mass per erythrocyte) 31 pg 25-34 Automated erythrocyte mean corpuscular hemoglobin concentration measurement ( mass/volume) 36 g/dL 32-36 Automated erythrocyte distribution width ratio 12.6 % 10.0-14.5 Automated blood platelet count (count/volume) 261 10*3/uL 130-400 Automated blood platelet mean volume measurement 9.2 [foz_us] 7.4-10.4 Automated blood neutrophils/100 leukocytes 66 % 42-75 Automated blood lymphocytes/100 leukocytes 22 % 12-44 Blood monocytes/100 leukocytes 12 % 0-12 Automated blood eosinophils/100 leukocytes 1 % 0-10 Automated blood basophils/100 leukocytes 0 % 0-10 Blood neutrophils automated count (number/volume) 7.2 10*3 1.8-7.8 Blood lymphocytes automated count (number/volume) 2.4 10*3 1.0-4.0 Blood monocytes automated count (number/volume) 1.3 10*3 0.0-1.0 Automated eosinophil count 0.1 10*3/uL 0.0-0.3 Automated blood basophil count (count/volume) 0.0 10*3/uL 0.0-0.1 Serum or plasma lithium measurement (moles/volume) - 12/14/17 22:40 BNP level 10.0 pg/mL <100.0 Comprehensive metabolic panel - 12/14/17 22:40 Serum or plasma sodium measurement (moles/volume) 139 mmol/L 135-145 Serum or plasma potassium measurement (moles/volume) 4.2 mmol/L 3.6-5.0 Serum or plasma chloride measurement (moles/volume) 104 mmol/L 98-107 Carbon dioxide 19 mmol/L 21-32 Serum or plasma anion gap determination (moles/volume) 16 mmol/L 5-14 Serum or plasma urea nitrogen measurement (mass/volume) 13 mg/dL 7-18 Serum or plasma creatinine measurement (mass/volume) 1.16 mg/dL 0.60-1.30 Serum or plasma urea nitrogen/creatinine mass ratio 11 NRG Serum or plasma creatinine measurement with calculation of estimated glomerular filtration rate > NRG Serum or plasma glucose measurement (mass/volume) 135 mg/dL 70-105 Serum or plasma calcium measurement (mass/volume) 9.8 mg/dL 8.5-10.1 Serum or plasma total bilirubin measurement (mass/volume) 1.3 mg/dL 0.1-1.0 Serum or plasma alkaline phosphatase measurement (enzymatic activity/volume) 64 U/L 40-136 Serum or plasma aspartate aminotransferase measurement (enzymatic activity/ volume) 16 U/L 5-34 Serum or plasma alanine aminotransferase measurement (enzymatic activity/volume ) 26 U/L 0-55 Serum or plasma protein measurement (mass/volume) 7.8 g/dL 6.4-8.2 Serum or plasma albumin measurement (mass/volume) 4.4 g/dL 3.2-4.5 CALCIUM CORRECTED 9.5 mg/dL 8.5-10.1 Magnesium - 12/14/17 22:40 Magnesium 2.1 mg/dL 1.8-2.4 Serum or plasma troponin i.cardiac measurement (mass/volume) - 12/14/17 22:40 Serum or plasma troponin i.cardiac measurement (mass/volume) < ng/ mL <0.30 Myoglobin, serum - 12/14/17 22:40 Myoglobin, serum 30.2 ng/mL 10.0-92.0 Lipase - 12/14/17 22:40 Lipase 24 U/L 8-78 Bacterial blood culture - 12/14/17 22:40 QUANTITY OF GROWTH . [facility] Bacterial blood culture SEE COMMEN [facility] Bacterial blood culture - 12/14/17 23:00 QUANTITY OF GROWTH . [facility] Bacterial blood culture SEE COMMEN [facility] Serum heterophile antibody titer - 12/14/17 23:40 Serum heterophile antibody titer NEGATIVE NEGATIVE Blood lactic acid measurement (moles/volume) - 12/15/17 00:00 Blood lactic acid measurement (moles/volume) 1.09 mmol/L 0.50-2.00 Influenza virus A and B antigen detection - 12/15/17 00:00 FLU RESULT NEGATIVE FOR INFLUENZA A AND B ANTIGENS BY [facility] Serum or plasma troponin i.cardiac measurement (mass/volume) - 12/15/17 00:00 Serum or plasma troponin i.cardiac measurement (mass/volume) < ng/ mL <0.30 Complete blood count (CBC) with automated white blood cell (WBC) differential - 06/10/18 14:06 Blood leukocytes automated count (number/volume) 7.4 10*3/uL 4.3-11.0 Blood erythrocytes automated count (number/volume) 5.69 10*6/uL 4.35-5.85 Venous blood hemoglobin measurement (mass/volume) 17.9 g/dL 13.3-17.7 Blood hematocrit (volume fraction) 50 % 40-54 Automated erythrocyte mean corpuscular volume 87 [foz_us] 80-99 Automated erythrocyte mean corpuscular hemoglobin (mass per erythrocyte) 31 pg 25-34 Automated erythrocyte mean corpuscular hemoglobin concentration measurement ( mass/volume) 36 g/dL 32-36 Automated erythrocyte distribution width ratio 12.7 % 10.0-14.5 Automated blood platelet count (count/volume) 276 10*3/uL 130-400 Automated blood platelet mean volume measurement 9.9 [foz_us] 7.4-10.4 Automated blood neutrophils/100 leukocytes 44 % 42-75 Automated blood lymphocytes/100 leukocytes 41 % 12-44 Blood monocytes/100 leukocytes 13 % 0-12 Automated blood eosinophils/100 leukocytes 2 % 0-10 Automated blood basophils/100 leukocytes 1 % 0-10 Blood neutrophils automated count (number/volume) 3.3 10*3 1.8-7.8 Blood lymphocytes automated count (number/volume) 3.0 10*3 1.0-4.0 Blood monocytes automated count (number/volume) 0.9 10*3 0.0-1.0 Automated eosinophil count 0.1 10*3/uL 0.0-0.3 Automated blood basophil count (count/volume) 0.0 10*3/uL 0.0-0.1 Encounters ACCT No. Visit Date/Time Discharge Status Pt. Type Provider Facility Loc./Unit Complaint [id number] 01/27/2013 14:49:00 01/27/2013 23:59:59 CLS Outpatient CAITIE BARNES APRN [id number] 04/13/2012 11:16:00 04/13/2012 23:59:59 CLS Outpatient NISA HAYNES APRN [id number] 03/15/2012 16:57:00 03/15/2012 23:59:59 CLS Outpatient [id number] 01/31/2012 11:03:00 01/31/2012 23:59:59 CLS Outpatient CAITIE BARNES APRN [id number] 01/26/2012 09:23:00 01/26/2012 23:59:59 CLS Outpatient CAITIE BARNES APRN [id number] 12/23/2011 16:45:00 12/23/2011 23:59:59 CLS Outpatient CAITIE BARNES APRN [id number] 12/14/2017 22:26:00 12/15/2017 01:55:00 DIS Emergency HUNTER PALMA MD [facility] ER CP [id number] 11/29/2017 12:19:00 11/29/2017 14:40:00 DIS Outpatient AMY MORENO DO [facility] ENDO DIARRHEA/RLQ ABD PAIN/ GERD [id number] 11/23/2017 06:41:00 11/23/2017 11:41:00 DIS Outpatient AMY MORENO DO [facility] PREOP COLONOSCOPY/EGD [id number] 11/18/2017 13:26:00 11/18/2017 16:46:00 DIS Emergency YOLANDA HASSAN MD [facility] ER DIZZY ABD PAIN [id number] 11/17/2017 07:42:00 11/17/2017 23:59:59 CLS Outpatient AMY MORENO DO [facility] RAD ABDOMINAL PAIN [id number] 10/18/2017 11:48:00 10/18/2017 15:17:00 DIS Emergency JD FLORES APRN [facility] ER NAUSEA,DIZZY [id number] 11/05/2016 21:36:00 11/05/2016 23:31:00 DIS Emergency HUNTER PALMA MD [facility] ER RT KNEE PAIN,LEG CRAMPING [id number] 11/01/2016 13:42:00 11/01/2016 23:59:59 CLS Preadmit OTHER, UNLISTED [facility] RAD RUQ PAIN R10.11 [id number] 11/01/2016 15:24:00 11/01/2016 18:06:00 DIS Emergency JD FLORES APRN [facility] ER STOMACH PAIN [id number] 01/14/2016 16:40:00 01/14/2016 18:07:00 DIS Emergency LENORA CATHERINE [facility] ER DRUG TEST/RASH ON ARM [id number] 01/10/2016 08:54:00 01/10/2016 09:35:00 DIS Emergency HUNTER PALMA MD [facility] ER L EYE SWELLING/POSS FOREIGN PARTICLES IN EYE [id number] 06/10/2018 14:28:00 ACT Outpatient Kvng HURT MD [facility] CATH STEMI [id number] 09/28/2017 10:13:00 Document Registration [id number] 10/04/2017 13:40:00 10/04/2017 23:59:59 CLS Outpatient MARIANA SOLER [facility] [id number] 08/11/2017 16:40:00 Document Registration [id number] 06/13/2017 15:40:00 Document Registration [id number] 01/27/2013 15:37:47 ACT Document Registration
[2018-06-10] MEDS ORDERED: ONDANSETRON 4 MG/2 ML (SDV) Z0FRAN ONE ×2 (14:49→20:58)
[2018-06-10] MEDS ORDERED: NITRO DRIP 25000 MCG/D5W 250 ML IV ONE (14:49)
[2018-06-10] MEDS ORDERED: ATROPINE INJECTION 1 MG/10 ML SYR (ABBOTT) ONE (14:58)
[2018-06-10] MEDS ORDERED: EPTIFIBATIDE BOLUS 20 ML IV ONE (15:01)
[2018-06-10] MEDS ORDERED: NS IV 1000 ML 1,000 ML ONE (15:28)
[2018-06-10] MEDS ORDERED: MIDAZOLAM 5 MG/5 ML (VERSED) VIAL ONE (15:28)
[2018-06-10] MEDS ORDERED: LIDOCAINE 1% INJ 20 ML 20 ML VIAL ONE (15:28)
[2018-06-10] MEDS ORDERED: fentaNYL INJECTION 100 MCG/2 ML AMP ONE (15:28)
--- NOTE | 2018-06-10 15:50 | Coronary Angiography & PCI ---
Coronary Angiography & PCI DATE OF PROCEDURE: 06/10/18 INDICATION: STEMI. PREOPERATIVE DIAGNOSIS: Acute inferior STEMI. POSTOPERATIVE DIAGNOSIS: Totally occluded RCA, Emergent PCI. HISTORY: This is a 57-year-old gentleman with severe chest pain with EKG showing inferior ST injury pattern. Emergent coronary angiography and possible primary PCI. PROCEDURES PERFORMED: 1.Coronary angiography. 2.Left heart catheterization. 3.PCI to the proximal RCA with drug-eluting stent. 4. Aortic arch angiogram; medical necessity large proximal ascending thoracic aorta. COMPLICATIONS: None. SPECIMENS: None. ESTIMATED BLOOD LOSS: 10 mL ANESTHESIA: Conscious sedation ANTICOAGULATION: IV heparin CONTRAST: 107 mL. FLUOROSCOPY: 8.6 minutes. FLOUROSCOPY DOSE: 1253 mgy. PROCEDURE DETAILS: The patient is a 57 male and was brought to the veterinary laboratory technician after informed consent was taken. All the risks and complications were explained in detail; this included the risk of bleeding, vascular damage, stroke , HI and even . The patient was draped and prepped in the usual sterile fashion. Access was gained in the right femoral artery with a 6 Turkmen sheath. Coronary angiography, aortic arch angiogram and left heart catheterization was performed with a JL4 and pigtail catheter. FINDINGS: 1.Left main: Patent. 2.LAD: Mild mid LAD disease with mild to moderate disease in a diagonal artery. 3.Left circumflex artery: No significant disease. 4.RCA: Proximal total occlusion. 5.Left heart catheterization: Aortic pressure 148/92 mmHg. LV pressure 136/6 mmHg. LVEDP 22 mmHg. Normal LV function with no wall motion abnormalities. Gradient across the aortic valve. 6. Aortic arch angiogram: Medical necessity, dilated aortic root. Aortic arch angiogram showed dilated ascending thoracic aorta. Patent proximal segments of the great arteries including brachycephalic artery, common carotid artery and subclavian artery. RECOMMENDATIONS: Primary PCI to proximal RCA is recommended. INTERVENTION DETAILS: JR4 guide catheter, whisper extra-support guidewire, IV heparin for anticoagulation. ACT was done twice. First ACT was 184 seconds, second ACT was 270 seconds. The lesion was crossed with the whisper wire. The tip of the wire was placed in distal RCA. Initial balloon dilatation was done with a 2.0 x 12 emerge balloon at 6 adonis. Door to balloon time was 58 minutes. 2 inflations were done with the semi-compliant balloon. Significant clot burden was noted distally therefore double bolus of Integrilin was given. We then took a Xience Tiffanie 4 x 28 mm drug-eluting stent and deployed it at 18 adonis for 23 seconds. We then took an NC Quantum 4.5 x 20 mm noncompliant balloon and did 2 inflations at 18 and 20 adonis for 30 seconds each. Excellent post angiographic results with no residual stenosis and NGUYỄN-3 flow. Initial NGUYỄN flow was 0. Patient tolerated the procedure well and did not have any complications. Right femoral artery was closed with a minx device. CONCLUSIONS: 1. Acute inferior STEMI, primary PCI to proximal RCA with drug-eluting stent. Door to balloon time 58 minutes. 2. Dilated thoracic ascending aorta, echocardiogram and further imaging is recommended. 3. Dual antiplatelet therapy, Lipitor, lisinopril and beta yoana. 4. Admit to the ICU. Anita Conley MD, FACP, FACC, [facility] Interventional Cardiology Kvng CONLEY MD Jun 10, 2018 15:50
[2018-06-10] MEDS ORDERED: PATIENT MAY USE OWN MEDS, ALL PO SCH (16:00)
[2018-06-10] MEDS: NS IV 1000 ML 1,000 ML IV SCH ×2 (16:25→21:00)
[2018-06-10] MEDS: ATORVASTATIN 80 MG (LIPITOR) TABLET PO SCH ×2 (16:56→21:00)
[2018-06-10] MEDS: lisINopril 40 MG (PRINIVIL) TABLET PO SCH (17:57)
--- NOTE | 2018-06-10 20:50 | NUR ---
CALLED E-ICU TO REPORT THAT PATIENT C/O NAUSEA. RECEIVED ORDER FOR ZOFRAN 8MG NOW AND PRN. SEE EMAR FOR DETAILS.
[2018-06-10] MEDS: meTOprolol TARTRATE 25 MG (LOPRESSOR) TABLET PO SCH (21:00)
[2018-06-10] MEDS ORDERED: ONDANSETRON 4 MG/2 ML (SDV) Z0FRAN IVP PRN (22:15)
[2018-06-10] MEDS ORDERED: ONDANSETRON 4 MG/2 ML (SDV) Z0FRAN IVP ONE (22:15)
[2018-06-10] MEDS ORDERED: PROCHLORPERAZINE 10 MG/2ML INJ (COMPAZINE) IV ONE (23:30)
[2018-06-10] MEDS ORDERED: meTOprolol 5 MG/5 ML (LOPRESSOR) VIAL IV ONE (23:30)
[2018-06-10] MEDS: TICAGRELOR 90 MG TABLET (BRILINTA) PO SCH (23:40)
[2018-06-11] VITALS (16 sets, daily range): BP systolic 133–168; BP diastolic 61–103
[2018-06-11] MEDS ORDERED: PROCHLORPERAZINE 10 MG/2ML INJ (COMPAZINE) ONE (00:07)
[2018-06-11 03:39] LABS: HEMOGLOBIN 15.4 G/DL (13.3-17.7); MEAN PLATELET VOLUME 10.4 FL (7.4-10.4); RED CELL DISTRIBUTION WIDTH 12.6 % (10.0-14.5); WHITE BLOOD COUNT 9.1 10^3/uL (4.3-11.0)
[2018-06-11 04:00] LABS: BUN/CREATININE RATIO 9; CALCIUM 9.2 MG/DL (8.5-10.1); CARBON DIOXIDE 19 MMOL/L (21-32); CHLORIDE 110 MMOL/L (98-107); CHOLESTEROL 208 MG/DL (< 200); CREATININE SERUM 1.15 MG/DL (0.60-1.30); GFR ESTIMATED > 60; GLUCOSE 172 MG/DL (70-105); HDL CHOLESTEROL 31 MG/DL (40-60); SODIUM 141 MMOL/L (135-145); TRIGLYCERIDES 186 MG/DL (<150); VLDL CHOLESTEROL 37 MG/DL (5-40)
[2018-06-11] MEDS: POTASSIUM CL 10MEQ/50ML IVPB 50 ML IV SCH (04:43)
[2018-06-11] MEDS: KCL 20 MEQ TAB (K-DUR) PO SCH (04:44)
[2018-06-11] MEDS: MAGNESIUM 1 GM/100 ML IVPB 100 ML IV SCH (04:44)
[2018-06-11] MEDS: NS IV 1000 ML 1,000 ML IV SCH ×2 (07:32→22:02)
--- NOTE | 2018-06-11 08:54 | Diagnostic Imaging Report ---
INDICATION: Dyspnea. Comparison is made with prior examination from 12/14/2017. FINDINGS: The heart size, mediastinal configuration, and pulmonary vascularity are within normal limits. There is no pleural effusion, pneumothorax, or pneumonia. The osseous structures are unremarkable. IMPRESSION: No acute cardiopulmonary abnormality. Dictated by: Dictated on workstation # [id number]
[2018-06-11] MEDS: lisINopril 40 MG (PRINIVIL) TABLET PO SCH (09:40)
[2018-06-11] MEDS: meTOprolol TARTRATE 25 MG (LOPRESSOR) TABLET PO SCH ×2 (09:40→22:01)
[2018-06-11] MEDS: TICAGRELOR 90 MG TABLET (BRILINTA) PO SCH ×2 (09:40→22:01)
[2018-06-11] MEDS: ASPIRIN E.C. 81 MG (ECOTRIN) TAB PO SCH (09:41)
[2018-06-11] MEDS ORDERED: lisINopril 20 MG (PRINIVIL) TABLET PO NR (12:44)
[2018-06-11] MEDS ORDERED: meTOprolol TARTRATE 25 MG (LOPRESSOR) TABLET PO NR (12:44)
--- NOTE | 2018-06-11 14:17 | Cardiology Progress Note ---
Cardiology SOAP Progress Note Subjective: No further chest pain. Objective: I&O/Vital Signs 06/11/18 06/11/18 06/11/18 06/11/18 03:00 04:00 04:00 04:00 Temp 98.8 Pulse 85 85 Resp 25 26 B/P (MAP) 133/61 (85) 136/74 (94) Pulse Ox 92 96 92 O2 Delivery Room Air Room Air Room Air 06/11/18 06/11/18 06/11/18 06/11/18 05:00 06:00 07:00 07:00 Pulse 93 77 81 84 Resp 25 24 24 B/P (MAP) 143/83 (103) 140/68 (92) 145/79 (101) Pulse Ox 95 92 93 O2 Delivery Room Air Room Air Room Air 06/11/18 06/11/18 06/11/18 06/11/18 08:00 08:00 09:00 09:00 Temp 98.1 Pulse 81 83 Resp 25 16 B/P (MAP) 146/83 (104) 155/88 (110) Pulse Ox 91 94 O2 Delivery Room Air Room Air Room Air 06/11/18 06/11/18 06/11/18 06/11/18 10:00 11:00 12:00 12:00 Pulse 81 79 77 Resp 28 19 B/P (MAP) 153/83 (106) 139/78 (98) 155/103 (120) Pulse Ox 92 92 94 O2 Delivery Room Air Room Air Room Air Room Air 06/11/18 06/11/18 13:00 13:00 Pulse 76 76 Resp 17 O2 Delivery Room Air 06/11/18 00:00 Intake Total 0 ml Output Total 100 ml Balance -100 ml Weight (Pounds): 235 Weight (Ounces): 0.0 Weight (Calculated Kilograms): 106.823071 Constitutional: appears stated age, AAO x 3, well-developed, well-nourished Respiratory: chest is bilaterally symmetric, lungs clear to auscultation Cardiovascular: regular rate-rhythm, S1 and S2 Gastrointestional: No tender, No soft, No round, No distended, No pulsatile mass, No organomegaly, No guarding, No rebound, No tenderness, No hernia, No mass, No audible bowel sounds, No abnormal bowel sounds, No abdominal bruits, No spleenomegaly, No other Extremities: No normal range of motion, No non-tender, No normal inspection, No pedal edema, No calf tenderness, No normal capillary refill, No pelvis stable , No calf tenderness, No inflammation, No pedal edema, No slow capillary refill , No swelling, No other, No abrasion, No clubbing, No cyanosis, No ecchymosis, No laceration, No no lower extremity edema bilateral, No significant edema, No tenderness, No wound Neurologic/Psychiatric: no motor/sensory deficits, alert, normal mood/affect, oriented x 3, power is 5/5 both on sides Skin: No normal color, No warm/dry, No cyanosis, No cool, No diaphoresis, No damp, No ecchymosis, No jaundice, No mottled, No pallor, No rash, No tattoos/ piercings, No ulcerations, No rash on exposed areas, No ulcerations on exposed areas, No other Results/Procedures: Labs Laboratory Tests 06/11/18 03:30: White Blood Count 9.1, Red Blood Count 4.93, Hemoglobin 15.4, Hematocrit 44, Mean Corpuscular Volume 88, Mean Corpuscular Hemoglobin 31, Mean Corpuscular Hemoglobin Concent 35, Red Cell Distribution Width 12.6, Platelet Count 193, Mean Platelet Volume 10.4, Sodium Level 141, Potassium Level 4.0, Chloride Level 110H, Carbon Dioxide Level 19L, Anion Gap 12, Blood Urea Nitrogen 10, Creatinine 1.15, Estimat Glomerular Filtration Rate > 60, BUN/Creatinine Ratio 9 , Glucose Level 172H, Calcium Level 9.2, Troponin I 9.130*H, Triglycerides Level 186H, Cholesterol Level 208H, LDL Cholesterol Direct 153H, VLDL Cholesterol 37, HDL Cholesterol 31L A/P: Assessment/Dx: Acute inferior HI, Hypertension, Borderline diabetes Plan: Coronary angiography revealed proximal RCA occlusion, primary PCI performed with a drug-eluting stent. Continue aspirin, Brilinta, high-dose statin. Echocardiogram pending Hypertension: Increase lisinopril to 40 mg daily. Increase metoprolol to 50 mg twice a day. Borderline diabetes. Discussed at length about has been living and healthy eating. Cardiac rehabilitation as an outpatient. Thank you for your consultation. Please call me if you have any questions. Anita Conley MD, FACP, FACC, FSCAI, FHRS, CCDS Interventional Cardiology Cardiac Electrophysiology Vascular Medicine and Endovascular Interventions Clinical Quality Measures AMI/AHF: ASA po Prior to arrival: Kvng Dunn MD Jun 11, 2018 2:17 pm
[2018-06-11] MEDS: ATORVASTATIN 80 MG (LIPITOR) TABLET PO SCH (22:02)
[2018-06-12 04:00] VITALS: BP 173/96
[2018-06-12 04:36] LABS: BASOPHILS % (AUTO) 0 % (0-10); EOSINOPHILS # (AUTO) 0.1 10^3/uL (0.0-0.3); EOSINOPHILS % (AUTO) 2 % (0-10); HEMATOCRIT 44 % (40-54); HEMOGLOBIN 15.4 G/DL (13.3-17.7); LYMPHOCYTES # (AUTO) 2.7 X 10^3 (1.0-4.0); LYMPHOCYTES % (AUTO) 29 % (12-44); MEAN CORPUSCULAR HEMOGLOBIN 31 PG (25-34); MEAN CORPUSCULAR HGB CONC 35 G/DL (32-36); MEAN CORPUSCULAR VOLUME 89 FL (80-99); MEAN PLATELET VOLUME 10.2 FL (7.4-10.4); MONOCYTES % (AUTO) 10 % (0-12); NEUTROPHILS # (AUTO) 5.6 X 10^3 (1.8-7.8); NEUTROPHILS % (AUTO) 59 % (42-75); PLATELET COUNT 198 10^3/uL (130-400); RED CELL DISTRIBUTION WIDTH 12.6 % (10.0-14.5); WHITE BLOOD COUNT 9.5 10^3/uL (4.3-11.0)
[2018-06-12 04:59] LABS: BUN/CREATININE RATIO 11; CALCIUM 9.3 MG/DL (8.5-10.1); CARBON DIOXIDE 19 MMOL/L (21-32); CHLORIDE 107 MMOL/L (98-107); CREATININE SERUM 1.18 MG/DL (0.60-1.30); GFR ESTIMATED > 60; GLUCOSE 133 MG/DL (70-105); MAGNESIUM 2.1 MG/DL (1.8-2.4); POTASSIUM 4.1 MMOL/L (3.6-5.0); SODIUM 138 MMOL/L (135-145)
[2018-06-12 05:58] VITALS: BP 173/96
[2018-06-12] MEDS: POTASSIUM CL 10MEQ/50ML IVPB 50 ML IV SCH (06:46)
[2018-06-12] MEDS: MAGNESIUM 1 GM/100 ML IVPB 100 ML IV SCH (06:47)
[2018-06-12] MEDS: KCL 20 MEQ TAB (K-DUR) PO SCH (06:47)
[2018-06-12 08:00] VITALS: BP 136/85
[2018-06-12] MEDS ORDERED: lisINopril 40 MG (PRINIVIL) TABLET PO SCH (09:00)
[2018-06-12] MEDS ORDERED: OMEP20TA33 PO (09:10)
[2018-06-12] MEDS ORDERED: LISI40TA PO ×2 (09:12→16:45)
--- NOTE | 2018-06-12 09:12 | NUR ---
SPOKE WITH THE PATIENT ABOUT HIS MEDICATIONS. HE STATES HE TAKES LISINOPRIL AND OTC PRILOSEC OTC DAILY. HE HAS HIS BOTTLES WITH HIM. THEY WERE LEFT UPSTAIRS IN THE ICU1 LOCKED CABINET. I RETRIEVED THEM AND BROUGHT THEM DOWN TO HIS ROOM ON 4TH FLOOR AT THIS TIME. APOTHECARE BOTTLE: 05-09-18 LISINOPRIL 40MG DAILY #30 OTC: OMEPRAZOLE 20MG DAILY
[2018-06-12] MEDS: meTOprolol TARTRATE 25 MG (LOPRESSOR) TABLET PO SCH (09:43)
[2018-06-12] MEDS: TICAGRELOR 90 MG TABLET (BRILINTA) PO SCH (09:43)
[2018-06-12] MEDS: ASPIRIN E.C. 81 MG (ECOTRIN) TAB PO SCH (09:43)
[2018-06-12] MEDS: NS IV 1000 ML 1,000 ML IV SCH (11:48)
[2018-06-12 12:00] VITALS: BP 132/70
[2018-06-12 16:00] VITALS: BP 134/83
--- NOTE | 2018-06-12 16:43 | Cardiology Discharge Summary ---
Diagnosis/Chief Complaint Date of Admission 06/10/2018 Date of Discharge 06/12/2018 Admission Diagnosis Acute inferior STEMI Final/Discharge Diagnosis CAD Chief Complaint/HPI Chief Complaint/HPI This is a 57-year-old gentleman with borderline diabetes, hypertension. Denies active smoking, family history or hyperlipidemia. History to have severe 10 out of 10 chest pain 45 minutes ago. No associated cardiac symptoms. Severe intensity. Substernal. No radiation. No exacerbating or relieving factors. EKG shows acute inferior HI. Given aspirin, Brilinta, heparin bolus. Discharge Summary Procedures Primary PCI to proximal RCA with a drug-eluting stent. Normal LV function. Discharge Physical Examination Unremarkable. Hospital Course Was the Problem List Reviewed?: Yes Unremarkable. Discussion & Recommendations Discussion Discharge took over 30 minutes to complete. All the discharge instructions were discussed at length with the patient. Healthy living was discussed. Medical compliance with medicines was emphasized especially Brilinta. Follow up appt.: Follow-up with Dr. Conley in 2-3 weeks. Dicharge Diet: Cardiac Diet Activity as Tolerated: Yes Home Medications Reviewed patient Home Medication Reconciliation performed by pharmacy medication reconciliations solder technician and/or nursing. Patients Allergies have been reviewed. Discharge Home Medications: Reviewed and agree with Discharge Medication list on patient's Discharge Instruction sheet Condition at discharge Stable. Instructions to patient/family Discharge instructions discussed with the patient and family. Clinical Quality Measures AMI/AHF: ASA po Prior to arrival: No DVT/VTE Risk/Contraindication: Risk Factor Score Per Nursin RFS Level Per Nursing on Admit: 4+=Very High Kvng CONLEY MD Jun 12, 2018 4:42 pm
[2018-06-12] MEDS ORDERED: ASPI-983 PO (16:45)
[2018-06-12] MEDS ORDERED: ATOR80TA76 PO (16:45)
[2018-06-12] MEDS ORDERED: METO-333 PO (16:45)
[2018-06-12] MEDS ORDERED: TICA90TA PO (16:45)
--- NOTE | 2018-06-12 16:45 | Discharge Inst-Post CATH ---
Discharge Inst-CATH/EP Post Cardiac Cath/EP D/C Inst Follow Up/Plan Dr. Conley in 2-3 weeks. <b>CARDIAC CATH/EP PROCEDURE DISCHARGE INSTRUCTIONS</b> Cardiac Rehab Please be expecting a follow up call from Cardiac Rehab within in one week. ACTIVITY * Go Home directly and rest. * Limit activity of the leg (or wrist if it was used) for 7 days including aerobics, swimming, jogging, bicycling, etc. * Restrict stair-climbing for 7 days if possible, if not, climb up with your non -cath leg, then bring together on the same step. * Avoid lifting, pushing, pulling or excessive movement of the affected extremity for 7 days. * Customary sexual activity may be resumed after 2 days-use caution not to use a position that strains or causes pain to the affected extremity. * No driving for 24 hours. * NO SMOKING. * Avoid straining for bowel movements for 7 days. * Gentle walking on level ground is allowed. * Returning to work will depend on the type of procedure and the results. Your doctor will discuss this with you. CALL YOUR DOCTOR FOR ANY OF THE FOLLOWING: *If bleeding from the puncture site occurs- Apply gentle pressure to site with clean cloth and call your doctor or EMS. * If a knot or lump forms under the skin, increases in size, or causes pain. * If bruising appears to be worsening or moving further down your leg instead of disappearing. * Temperature above 101 F. CARE OF YOUR GROIN INCISION; * Bruising or purple discoloration of the skin near the puncture site is common. * You may shower only, no bathtub bathing for 5 days. Be careful to avoid slipping as your leg may feel stiff. * If a closure device was used on your femoral artery, please see the attached guide regarding care of the device and your leg. * Leave dressing on FOR 24 hours. CARE OF YOUR WRIST INCISION; * Bruising or purple discoloration of the skin near the puncture site is common. * You may shower. * DO NOT submerge wrist. * Leave dressing on FOR 24 hours. Kvng CONLEY MD Jun 12, 2018 4:45 pm
--- OUTSIDE RECORDS SUMMARY | 2018-06-14 15:35 | XMS REPORT | Continuity of Care Document ---
Author Organization Unknown Address Unknown Allergies There is no data. Medications There is no data. Problems Date [...] INSTRUMENT OR OBJECT 09/21/2011 NISA HAYNES APRN 682.9 CELLULITIS AND ABSCESS OF UNSPECIFIED SITES 09/21/2011 NISA HAYNES APRN E920.9 ACCIDENTS CAUSED BY UNSPECIFIED CUTTING [...] NISA HAYNES APRN V74.5 STD SCREEN 01/22/2012 CAITIE BARNES APRN V74.5 STD SCREEN 01/31/2012 CAITIE BARNES APRN 272.4 HYPERLIPIDEMIA 01/31/2012 CAMERON RELAY MAN, CAITIE T 302.72 ERECTILE DISORDER 01/31/2012 CAITIE BARNES APRN 790.29 HYPERGLYCEMIA 01/31/2012 272.4 HYPERLIPIDEMIA 01/31/2012 302.72 ERECTILE DISORDER 01/31/2012 790.29 HYPERGLYCEMIA 01/31/2012 NISA HAYNES APRN S 272.4 HYPERLIPIDEMIA 01/31/2012 NISA HAYNES APRN S 302.72 ERECTILE DISORDER 01/31/2012 NISA HAYNES APRN S 790.29 HYPERGLYCEMIA 01/31/2012 CAITIE BARNES APRN 272.4 HYPERLIPIDEMIA 01/31/2012 CAITIE BARNES APRN 302.72 ERECTILE DISORDER 01/31/2012 CAITIE BARNES APRN 790.29 HYPERGLYCEMIA 03/15/2012 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 03/15/2012 NISA HAYNES APRN S 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 03/15/2012 CAITIE BARNES APRN 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 Encounters ACCT No. Visit Date/Time Discharge Status Pt. Type Provider Facility Loc./Unit Complaint [id number] 01/27/2013 14:49:00 01/27/2013 23:59:59 CLS Outpatient CAITIE BARNES APRN [id number] 04/13/2012 11:16:00 04/13/2012 23:59:59 CLS Outpatient NISA HAYNES APRN [id number] 03/15/2012 16:57:00 03/15/2012 23:59:59 CLS Outpatient [id number] 01/31/2012 11:03:00 01/31/2012 23:59:59 CLS Outpatient CAITIE BARNES APRN [id number] 01/26/2012 09:23:00 01/26/2012 23:59:59 CLS Outpatient CAITIE BARNES APRN [id number] 12/23/2011 16:45:00 12/23/2011 23:59:59 CLS Outpatient CAITIE BARNES APRN
== END 2018-06-12 16:56 | disposition home or self-care (01) | DRG 247 ==
LOC: EDUNIT# 14:01 → ER 14:02 → CATH 14:28 → ICU 14:28 → CATH 16:24 → UNDOFXSDCRRACCOM 06-11 13:42 → UNDOFXSDCACCOM 06-11 13:42 → UNDOFXSDCSVC 06-11 13:42 → UNDOFXSDCACCOM 06-12 02:50 → 4TH 06-12 02:50 → UNDOFXSDCSVC 06-12 02:50 → ICU 06-12 02:50 → 4TH 06-12 02:50 → CATH 06-12 16:56 → 4TH 06-12 16:56
PROVIDERS: ADMIT Internal Medicine Interventional Cardiology; ATTEND Internal Medicine Interventional Cardiology
PROC: 027034Z Dilation of Coronary Artery, One Artery with Drug-eluting Intraluminal Device, Percutaneous Approach (ICD-10-PCS; principal; 2018-06-10)
PROC: 4A023N7 Measurement of Cardiac Sampling and Pressure, Left Heart, Percutaneous Approach (ICD-10-PCS; 2018-06-10)
PROC: B2151ZZ Fluoroscopy of Left Heart using Low Osmolar Contrast (ICD-10-PCS; 2018-06-10)
PROC: B2101ZZ Fluoroscopy of Single Coronary Artery using Low Osmolar Contrast (ICD-10-PCS; 2018-06-10)
PROC: B3101ZZ Fluoroscopy of Thoracic Aorta using Low Osmolar Contrast (ICD-10-PCS; 2018-06-10)
DX: I21.19 ST elevation (STEMI) myocardial infarction involving other coronary artery of inferior wall (principal); I25.10 Atherosclerotic heart disease of native coronary artery without angina pectoris; I10 Essential (primary) hypertension; R73.03 Prediabetes; K21.9 Gastro-esophageal reflux disease without esophagitis; K52.9 Noninfective gastroenteritis and colitis, unspecified; Z87.891 Personal history of nicotine dependence; Z79.899 Other long term (current) drug therapy
CPT/HCPCS: 36221; 36415; 71045; 80048; 80053; 83735; 83874; 84484; 85025; 85347; 85610; 85730; 93005; 93041; 93306; 93458

== ENCOUNTER 2018-06-14 09:10 | Emergency (ER) | payer SELFPAY ==
[~2018-06-14] VITALS: Ht 188 cm; Wt 110.7 kg
[~2018-06-14 09:10] MED LIST changes: +ASPI-983 PO; +ATOR80TA76 PO; +LISI40TA PO; +METO-333 PO; +OMEP20TA33 PO; +TICA90TA PO
[2018-06-14 09:29] LABS: BASOPHILS % (AUTO) 0 % (0-10); EOSINOPHILS # (AUTO) 0.2 10^3/uL (0.0-0.3); EOSINOPHILS % (AUTO) 2 % (0-10); HEMATOCRIT 49 % (40-54); HEMOGLOBIN 17.4 G/DL (13.3-17.7); LYMPHOCYTES % (AUTO) 22 % (12-44); MEAN CORPUSCULAR HEMOGLOBIN 31 PG (25-34); MEAN CORPUSCULAR HGB CONC 36 G/DL (32-36); MEAN CORPUSCULAR VOLUME 87 FL (80-99); MEAN PLATELET VOLUME 10.3 FL (7.4-10.4); MONOCYTES # (AUTO) 0.8 X 10^3 (0.0-1.0); MONOCYTES % (AUTO) 8 % (0-12); NEUTROPHILS # (AUTO) 6.1 X 10^3 (1.8-7.8); NEUTROPHILS % (AUTO) 67 % (42-75); PLATELET COUNT 274 10^3/uL (130-400); RED CELL DISTRIBUTION WIDTH 12.5 % (10.0-14.5); WHITE BLOOD COUNT 9.1 10^3/uL (4.3-11.0)
--- OUTSIDE RECORDS SUMMARY | 2018-06-14 09:35 | XMS REPORT | Continuity of Care Document ---
Author Organization Unknown Address Unknown Allergies Active Description Code Type Severity Reaction Onset Reported/Identified Relationship to Patient Clinical Status Yes No Known Drug Allergies [id number] Drug Allergy Unknown N/A 01/10/2016 Yes No Known Allergies [id number] Drug Allergy Unknown N/A 11/23/2017 Medications There [...] DANIEL, NISA S 272.4 HYPERLIPIDEMIA 01/31/2012 [place] FLUX MIXER, NISA S 302.72 ERECTILE DISORDER 01/31/2012 [place] DANIEL, NISA S 790.29 HYPERGLYCEMIA 01/31/2012 CAITIE BARNES APRN 272.4 HYPERLIPIDEMIA 01/31/2012 CAITIE BARNES APRN T 302.72 ERECTILE DISORDER 01/31/2012 CAITIE BARNES APRN 790.29 HYPERGLYCEMIA 03/15/2012 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 03/15/2012 [place] DANIEL NISA S 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 03/15/2012 CAMER[place] FLUX MIXERCAITIE Holcomb 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 04/13/2012 [place] DANIEL NISA S 079.99 VIRAL SYNDROME 04/13/2012 CAITIE BARNES APRN 079.99 VIRAL SYNDROME 09/01/2012 CAITIE BARNES APRN 300.00 ANXIETY UNSPEC 01/10/2016 MINERVA SOW, HUNTER Fernández Ot L23.5 ALLERGIC CONTACT DERMATITIS DUE TO OTHER 01/10/2016 MINERVA SOW, HUNTER Fernández Ot L30.9 DERMATITIS, UNSPECIFIED 01/14/2016 LENORA CATHERINE FEED MILL MANAGER Ot I10 ESSENTIAL (PRIMARY) HYPERTENSION 01/14/2016 LENORA CATHERINE FEED MILL MANAGER Ot L25.3 UNSP CONTACT DERMATITIS DUE TO OTHER ASRAI 01/14/2016 LENORA CATHERINE FEED MILL MANAGER Ot Z79.899 OTHER MARINE MAMMAL TRAINER (CURRENT) DRUG THERAPY 01/16/2016 FLORIN, LENORA FEED MILL MANAGER Ot I10 ESSENTIAL (PRIMARY) HYPERTENSION 01/16/2016 LENORA CATHERINE FEED MILL MANAGER Ot L25.3 UNSP CONTACT DERMATITIS DUE TO OTHER SARAI 01/16/2016 LENORA CATHERINEP Ot Z79.899 OTHER [facility] (CURRENT) DRUG THERAPY 11/01/2016 FLORES, PETER J FLUX MIXER Ot I10 ESSENTIAL (PRIMARY) HYPERTENSION 11/01/2016 JD FLORES FLUX MIXER Ot R10.11 RIGHT UPPER QUADRANT PAIN 11/01/2016 JD FLORES FLUX MIXER Ot R11.0 NAUSEA 11/01/2016 JD FLORES FLUX MIXER Ot R94.5 ABNORMAL RESULTS OF LIVER FUNCTION STUDI 11/01/2016 JD FLORES FLUX MIXER Ot Z87.891 PERSONAL HISTORY OF NICOTINE DEPENDENCE 11/02/2016 JD FLORES FLUX MIXER Ot I10 ESSENTIAL (PRIMARY) HYPERTENSION 11/02/2016 JD FLORES FLUX MIXER Ot R10.11 RIGHT UPPER QUADRANT PAIN 11/02/2016 JD FLORES FLUX MIXER Ot R11.0 NAUSEA 11/02/2016 JD FLORES FLUX MIXER Ot R94.5 ABNORMAL RESULTS OF LIVER FUNCTION STUDI 11/02/2016 JD FLORES FLUX MIXER Ot Z87.891 PERSONAL HISTORY OF NICOTINE DEPENDENCE 11/05/2016 HUNTER PALMA MD Ot E11.9 TYPE 2 DIABETES MELLITUS WITHOUT COMPLIC 11/05/2016 HUNTER PALMA MD Ot I10 ESSENTIAL (PRIMARY) HYPERTENSION 11/05/2016 HUNTER PALMA MD Ot R25.2 CRAMP AND SPASM 11/05/2016 HUNTER PALMA MD Ot Z79.84 MARINE MAMMAL TRAINER (CURRENT) USE OF ORAL HYPOGLYC 11/05/2016 HUNTER PALMA MD Ot Z87.891 PERSONAL HISTORY OF NICOTINE DEPENDENCE 11/11/2016 HUNTER PALMA MD Ot E11.9 TYPE 2 DIABETES MELLITUS WITHOUT COMPLIC 11/11/2016 HUNTER PALMA MD Ot I10 ESSENTIAL (PRIMARY) HYPERTENSION 11/11/2016 HUNTER PALMA MD Ot M19.90 UNSPECIFIED OSTEOARTHRITIS, UNSPECIFIED 11/11/2016 HUNTER PALMA MD Ot R25.2 CRAMP AND SPASM 11/11/2016 HUNTER PALMA MD Ot Z79.84 [facility] (CURRENT) USE OF ORAL HYPOGLYC 11/11/2016 HUNTER PALMA MD Ot Z87.891 PERSONAL HISTORY OF NICOTINE DEPENDENCE 11/16/2016 HUNTER PALMA MD Ot E11.9 TYPE 2 DIABETES MELLITUS WITHOUT COMPLIC 11/16/2016 HUNTER PALMA MD Ot I10 ESSENTIAL (PRIMARY) HYPERTENSION 11/16/2016 HUNTER PALMA MD Ot R25.2 CRAMP AND SPASM 11/16/2016 HUNTER PALMA MD Ot Z79.84 [facility] (CURRENT) USE OF ORAL HYPOGLYC 11/16/2016 HUNTER [...] AND EXPSR TO ENVIRON TOBACCO SMO 10/20/2017 JD FLORES APRN Ot Z87.19 PERSONAL HISTORY OF OTHER DISEASES OF TH 11/18/2017 MORENO , AMY Block Ot R10.9 UNSPECIFIED ABDOMINAL PAIN 11/18/2017 MORENO AMY CLEMENT D Ot R11.0 NAUSEA 11/18/2017 CASCADIA DOAMY Ot R10.9 UNSPECIFIED ABDOMINAL PAIN 11/18/2017 [...] MORENO DO, AMY D Ot Z79.899 OTHER [facility] (CURRENT) DRUG THERAPY 12/01/2017 MORENO DO, AMY D Ot I10 ESSENTIAL (PRIMARY) HYPERTENSION 12/01/2017 MORENO DO, AMY D Ot I85.00 ESOPHAGEAL VARICES WITHOUT BLEEDING 12/01/2017 MORENO DO, AMY D Ot K21.9 GASTRO-ESOPHAGEAL REFLUX DISEASE WITHOUT 12/01/2017 MORENO DO, AMY D Ot K29.70 GASTRITIS, UNSPECIFIED, WITHOUT BLEEDING 12/01/2017 MORENO DO, AMY D Ot K62.1 RECTAL POLYP 12/01/2017 MORENO DO, AMY D Ot R19.7 DIARRHEA, UNSPECIFIED 12/01/2017 MORENO DO, AMY D Ot Z79.899 OTHER [facility] (CURRENT) DRUG THERAPY 12/15/2017 HUNTER PALMA MD [...] Z95.5 PRESENCE OF CORONARY ANGIOPLASTY IMPLANT 12/19/2017 TIFFANIE DO, AMY D Ot R10.9 UNSPECIFIED ABDOMINAL PAIN 12/19/2017 TIFFANIE DO, AMY D Ot R11.0 NAUSEA 05/10/2018 MORENO DO, AMY D Ot R10.9 UNSPECIFIED ABDOMINAL PAIN 05/10/2018 MORENO DO, AMY D Ot R11.0 NAUSEA 06/02/2018 MORENO DO, AMY D Ot R10.9 UNSPECIFIED ABDOMINAL PAIN 06/02/2018 MORENO DO, AMY D Ot R11.0 NAUSEA 06/10/2018 MORENO DO, AMY D Ot R10.9 UNSPECIFIED ABDOMINAL PAIN 06/10/2018 MORENO DO, AMY D Ot R11.0 NAUSEA 06/10/2018 MORENO DO, AMY D Ot R10.9 UNSPECIFIED ABDOMINAL PAIN 06/10/2018 MORENO DO, AMY D Ot R11.0 NAUSEA 06/12/2018 MORENO DO, AMY D Ot R10.9 UNSPECIFIED ABDOMINAL PAIN 06/12/2018 MORENO DO, AMY D Ot R11.0 NAUSEA Procedures Code Description [place] [address] ROUTINE VENIPUNCTURE 01/26/2012 HERPSM1,2 HERPES SIMPLEX 1 AND 2, IGM, IGG 01/26/2012 10337 ROUTINE VENIPUNCTURE 01/31/2012 80738 PSA FREE AND TOTAL 01/31/2012 93248 TESTOSTERONE FREE 01/31/2012 97725 A1C (IN-HOUSE) 01/31/2012 77750 BMP 01/31/2012 33684 LIPID PANEL 01/31/2012 2779229 GFR CALC (RESULT ONLY) 01/31/2012 Results Test [...] culture - 11/01/16 17:16 Urine color determination VNADANA NRG Urine clarity determination SLIGHTLY CLOUDY NRG [...] 7-25 CREATININE 1.28 mg/dL 0.70-1.33 eGFR NON-AFR. [place] 62 mL/min/1.73m2 > OR=60 eGFR 72 mL/min/1.73m2 [...] - 12/14/17 22:40 QUANTITY OF GROWTH . [facility] Bacterial blood culture [facility] Bacterial blood culture - 12/14/17 23:00 QUANTITY OF GROWTH . [facility]NER Bacterial blood culture [facility] Serum heterophile antibody titer - 12/14/17 23:40 Serum heterophile antibody titer NEGATIVE NEGATIVE Blood lactic acid measurement (moles/volume) - 12/15/17 00:00 Blood lactic acid measurement (moles/volume) 1.09 mmol/L 0.50-2.00 Influenza virus A and B antigen detection - 12/15/17 00:00 FLU RESULT NEGATIVE FOR INFLUENZA A AND B ANTIGENS BY [facility] Serum or plasma troponin i.cardiac measurement (mass/volume) [...] 0.0 10*3/uL 0.0-0.1 Comprehensive metabolic panel - 06/10/18 14:06 Serum or plasma sodium measurement (moles/volume) 142 mmol/L 135-145 Serum or plasma potassium measurement (moles/volume) 4.0 mmol/L 3.6-5.0 Serum or plasma chloride measurement (moles/volume) 107 mmol/L 98-107 Carbon dioxide 22 mmol/L 21-32 Serum or plasma anion gap determination (moles/volume) 13 mmol/L 5-14 Serum or plasma urea nitrogen measurement (mass/volume) 12 mg/dL 7-18 Serum or plasma creatinine measurement (mass/volume) 1.34 mg/dL 0.60-1.30 Serum or plasma urea nitrogen/creatinine mass ratio 9 NRG Serum or plasma creatinine measurement with calculation of estimated glomerular filtration rate 55 NRG Serum or plasma glucose measurement (mass/volume) 118 mg/dL 70-105 Serum or plasma calcium measurement (mass/volume) 10.5 mg/dL 8.5-10.1 Serum or plasma total bilirubin measurement (mass/volume) 1.0 mg/dL 0.1-1.0 Serum or plasma alkaline phosphatase measurement (enzymatic activity/volume) 69 U/L 40-136 Serum or plasma aspartate aminotransferase measurement (enzymatic activity/ volume) 42 U/L 5-34 Serum or plasma alanine aminotransferase measurement (enzymatic activity/volume ) 100 U/L 0-55 Serum or plasma protein measurement (mass/volume) 8.0 g/dL 6.4-8.2 Serum or plasma albumin measurement (mass/volume) 4.9 g/dL 3.2-4.5 Magnesium - 06/10/18 14:06 Magnesium 2.4 mg/dL 1.8-2.4 Serum or plasma troponin i.cardiac measurement (mass/volume) - 06/10/18 14:06 Serum or plasma troponin i.cardiac measurement (mass/volume) < ng/ mL <0.028 Myoglobin, serum - 06/10/18 14:06 Myoglobin, serum 76.1 ng/mL 10.0-92.0 PT panel in platelet poor plasma by coagulation assay - 06/10/18 14:06 Prothrombin time (PT) in platelet poor plasma by coagulation assay 12.2 s 12.2-14.7 INR in platelet poor plasma or blood by coagulation assay 0.9 0.8-1.4 Activated partial thromboplastin time (aPTT) in platelet poor plasma bycoagulation assay - 06/10/18 14:06 Activated partial thromboplastin time (aPTT) in platelet poor plasma bycoagulation assay 24 s 24-35 Automated blood complete blood count (hemogram) panel - 06/11/18 03:30 Blood leukocytes automated count (number/volume) 9.1 10*3/uL 4.3-11.0 Blood erythrocytes automated count (number/volume) 4.93 10*6/uL 4.35-5.85 Venous blood hemoglobin measurement (mass/volume) 15.4 g/dL 13.3-17.7 Blood hematocrit (volume fraction) 44 % 40-54 Automated erythrocyte mean corpuscular volume 88 [foz_us] 80-99 Automated erythrocyte mean corpuscular hemoglobin (mass per erythrocyte) 31 pg 25-34 Automated erythrocyte mean corpuscular hemoglobin concentration measurement ( mass/volume) 35 g/dL 32-36 Automated erythrocyte distribution width ratio 12.6 % 10.0-14.5 Automated blood platelet count (count/volume) 193 10*3/uL 130-400 Automated blood platelet mean volume measurement 10.4 [foz_us] 7.4-10.4 Whole blood basic metabolic panel - 06/11/18 03:30 Serum or plasma sodium measurement (moles/volume) 141 mmol/L 135-145 Serum or plasma potassium measurement (moles/volume) 4.0 mmol/L 3.6-5.0 Serum or plasma chloride measurement (moles/volume) 110 mmol/L 98-107 Carbon dioxide 19 mmol/L 21-32 Serum or plasma anion gap determination (moles/volume) 12 mmol/L 5-14 Serum or plasma urea nitrogen measurement (mass/volume) 10 mg/dL 7-18 Serum or plasma creatinine measurement (mass/volume) 1.15 mg/dL 0.60-1.30 Serum or plasma urea nitrogen/creatinine mass ratio 9 NRG Serum or plasma creatinine measurement with calculation of estimated glomerular filtration rate > NRG Serum or plasma glucose measurement (mass/volume) 172 mg/dL 70-105 Serum or plasma calcium measurement (mass/volume) 9.2 mg/dL 8.5-10.1 Serum or plasma troponin i.cardiac measurement (mass/volume) - 06/11/18 03:30 Serum or plasma troponin i.cardiac measurement (mass/volume) 9.130 ng/mL <0.028 Lipid 1996 panel - 06/11/18 03:30 Serum or plasma triglyceride measurement (mass/volume) 186 mg/dL <150 Serum or plasma cholesterol measurement (mass/volume) 208 mg/dL < 200 Serum or plasma cholesterol in HDL measurement (mass/volume) 31 mg/ dL 40-60 Cholesterol in LDL [mass/volume] in serum or plasma by direct assay 153 mg/dL 1-129 Serum or plasma cholesterol in VLDL measurement (mass/volume) 37 mg/ dL 5-40 Complete blood count (CBC) with automated white blood cell (WBC) differential - 06/12/18 04:00 Blood leukocytes automated count (number/volume) 9.5 10*3/uL 4.3-11.0 Blood erythrocytes automated count (number/volume) 4.98 10*6/uL 4.35-5.85 Venous blood hemoglobin measurement (mass/volume) 15.4 g/dL 13.3-17.7 Blood hematocrit (volume fraction) 44 % 40-54 Automated erythrocyte mean corpuscular volume 89 [foz_us] 80-99 Automated erythrocyte mean corpuscular hemoglobin (mass per erythrocyte) 31 pg 25-34 Automated erythrocyte mean corpuscular hemoglobin concentration measurement ( mass/volume) 35 g/dL 32-36 Automated erythrocyte distribution width ratio 12.6 % 10.0-14.5 Automated blood platelet count (count/volume) 198 10*3/uL 130-400 Automated blood platelet mean volume measurement 10.2 [foz_us] 7.4-10.4 Automated blood neutrophils/100 leukocytes 59 % 42-75 Automated blood lymphocytes/100 leukocytes 29 % 12-44 Blood monocytes/100 leukocytes 10 % 0-12 Automated blood eosinophils/100 leukocytes 2 % 0-10 Automated blood basophils/100 leukocytes 0 % 0-10 Blood neutrophils automated count (number/volume) 5.6 10*3 1.8-7.8 Blood lymphocytes automated count (number/volume) 2.7 10*3 1.0-4.0 Blood monocytes automated count (number/volume) 1.0 10*3 0.0-1.0 Automated eosinophil count 0.1 10*3/uL 0.0-0.3 Automated blood basophil count (count/volume) 0.0 10*3/uL 0.0-0.1 Whole blood basic metabolic panel - 06/12/18 04:00 Serum or plasma sodium measurement (moles/volume) 138 mmol/L 135-145 Serum or plasma potassium measurement (moles/volume) 4.1 mmol/L 3.6-5.0 Serum or plasma chloride measurement (moles/volume) 107 mmol/L 98-107 Carbon dioxide 19 mmol/L 21-32 Serum or plasma anion gap determination (moles/volume) 12 mmol/L 5-14 Serum or plasma urea nitrogen measurement (mass/volume) 13 mg/dL 7-18 Serum or plasma creatinine measurement (mass/volume) 1.18 mg/dL 0.60-1.30 Serum or plasma urea nitrogen/creatinine mass ratio 11 NRG Serum or plasma creatinine measurement with calculation of estimated glomerular filtration rate > NRG Serum or plasma glucose measurement (mass/volume) 133 mg/dL 70-105 Serum or plasma calcium measurement (mass/volume) 9.3 mg/dL 8.5-10.1 Magnesium - 06/12/18 04:00 Magnesium 2.1 mg/dL 1.8-2.4 Complete blood count (CBC) with automated white blood cell (WBC) differential - 06/14/18 09:18 Blood leukocytes automated count (number/volume) 9.1 10*3/uL 4.3-11.0 Blood erythrocytes automated count (number/volume) 5.60 10*6/uL 4.35-5.85 Venous blood hemoglobin measurement (mass/volume) 17.4 g/dL 13.3-17.7 Blood hematocrit (volume fraction) 49 % 40-54 Automated erythrocyte mean corpuscular volume 87 [foz_us] 80-99 Automated erythrocyte mean corpuscular hemoglobin (mass per erythrocyte) 31 pg 25-34 Automated erythrocyte mean corpuscular hemoglobin concentration measurement ( mass/volume) 36 g/dL 32-36 Automated erythrocyte distribution width ratio 12.5 % 10.0-14.5 Automated blood platelet count (count/volume) 274 10*3/uL 130-400 Automated blood platelet mean volume measurement 10.3 [foz_us] 7.4-10.4 Automated blood neutrophils/100 leukocytes 67 % 42-75 Automated blood lymphocytes/100 leukocytes 22 % 12-44 Blood monocytes/100 leukocytes 8 % 0-12 Automated blood eosinophils/100 leukocytes 2 % 0-10 Automated blood basophils/100 leukocytes 0 % 0-10 Blood neutrophils automated count (number/volume) 6.1 10*3 1.8-7.8 Blood lymphocytes automated count (number/volume) 2.0 10*3 1.0-4.0 Blood monocytes automated count (number/volume) 0.8 10*3 0.0-1.0 Automated eosinophil count 0.2 10*3/uL 0.0-0.3 Automated blood basophil count (count/volume) 0.0 10*3/uL 0.0-0.1 Encounters ACCT No. Visit Date/Time Discharge Status Pt. Type Provider Facility Loc./Unit Complaint [id number] 01/27/2013 14:49:00 01/27/2013 23:59:59 CLS Outpatient CAITIE BARNES APRN [id number] 04/13/2012 11:16:00 04/13/2012 23:59:59 CLS Outpatient NISA HAYNES APRN [id number] 03/15/2012 16:57:00 03/15/2012 23:59:59 CLS Outpatient [id number] 01/31/2012 11:03:00 01/31/2012 23:59:59 CLS Outpatient CAITIE BARNES APRN [id number] 01/26/2012 09:23:00 01/26/2012 23:59:59 CLS Outpatient CAITIE BARNES APRN [id number] 12/23/2011 16:45:00 12/23/2011 23:59:59 CLS Outpatient CAMERON FLUX MIXERCAITIE Holcomb [id number] 06/10/2018 14:28:00 06/12/2018 16:56:00 DIS Outpatient Kvng HURT MD [facility] CATH STEMI [id number] 12/14/2017 22:26:00 12/15/2017 01:55:00 DIS Emergency HUNTER PALMA MD [facility] ER CP [id number] 11/29/2017 12:19:00 11/29/2017 14:40:00 DIS Outpatient MORENO AMY CLEMENT [facility] ENDO DIARRHEA/RLQ ABD PAIN/ GERD [id number] 11/23/2017 06:41:00 11/23/2017 11:41:00 DIS Outpatient AMY MORENO DO [facility] PREOP COLONOSCOPY/EGD [id number] 11/18/2017 13:26:00 11/18/2017 16:46:00 DIS Emergency YOLANDA HASSAN MD [facility] ER DIZZY ABD PAIN [id number] 11/17/2017 07:42:00 11/17/2017 23:59:59 CLS Outpatient AMY MORENO DO [facility] RAD ABDOMINAL PAIN [id number] 10/18/2017 11:48:00 10/18/2017 15:17:00 DIS Emergency JD FLORES FLUX MIXER [facility] ER NAUSEA,DIZZY [id number] 11/05/2016 21:36:00 11/05/2016 23:31:00 DIS Emergency HUNTER PALMA MD [facility] ER RT KNEE PAIN,LEG CRAMPING [id number] 11/01/2016 13:42:00 11/01/2016 23:59:59 CLS Preadmit OTHER, UNLISTED [facility] RAD RUQ PAIN R10.11 [id number] 11/01/2016 15:24:00 11/01/2016 18:06:00 DIS Emergency JD FLORES FLUX MIXER [facility] ER STOMACH PAIN [id number] 01/14/2016 16:40:00 01/14/2016 18:07:00 DIS Emergency LENORA CATHERINE [facility] ER DRUG TEST/RASH ON ARM [id number] 01/10/2016 08:54:00 01/10/2016 09:35:00 DIS Emergency HUNTER PALMA MD [facility] ER L EYE SWELLING/POSS FOREIGN PARTICLES IN EYE [id number] 06/14/2018 09:29:00 Document Registration [id number] 09/28/2017 10:13:00 Document Registration [id number] 10/04/2017 13:40:00 10/04/2017 23:59:59 [facility] Outpatient MARIANA SOLER [facility] [id number] 08/11/2017 16:40:00 Document Registration [id number] 06/13/2017 15:40:00 Document Registration [email or web address] 01/27/2013 15:37:47 ACT Document Registration
--- NOTE | 2018-06-14 09:38 | ED Respiratory ---
General Chief Complaint: Respiratory Problems Stated Complaint: TROUBLE BREATHING;NAUSEA Nursing Triage Note: PT AMBULATES TO ROOM 5 PT [facility] OF [facility] SINCE GOING HOME FROM HOSPITAL ON TUESDAY AFTER HAVING CA AND STENT. DENIES C/P AT THIS X Source: patient Exam Limitations: no limitations History of Present Illness Date Seen by Provider: Jun 14, 2018 Time Seen by Provider: 09:35 Initial Comments Patient complains of dyspnea especially with any exertion over the past 1-2 days. 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 He denies chest pain currently. He is unable to walk across a room without becoming very dyspneic. Allergies and Home Medications Allergies Coded Allergies: No Known Allergies (Verified Allergy, Unknown, 11/23/17) Home Medications Aspirin 81 Mg Tablet., 81 MG PO DAILY Prescribed by: Kvng CONLEY on 06/12/18 164 Atorvastatin Calcium 80 Mg Tablet, 80 MG PO HS Prescribed by: Kvng CONLEY on 06/12/18 1645 Lisinopril 40 Mg Tablet, 40 MG PO DAILY, (Reported) Lisinopril 40 Mg Tablet, 40 MG PO DAILY Prescribed by: Kvng CONLEY on 06/12/18 1645 Metoprolol Tartrate 25 Mg Tablet, 50 MG PO BID Prescribed by: Kvng CONLEY on 06/12/18 1645 Omeprazole Magnesium 20 Mg Tablet.dr, 20 MG PO DAILY, (Reported) Ticagrelor 90 Mg Tablet, 90 MG PO BID Prescribed by: Kvng CONLEY on 06/12/18 1645 Patient Home Medication List Home Medication List Reviewed: Yes Review of Systems Review of Systems Constitutional: no symptoms reported Respiratory: No cough; short of breath Cardiovascular: no symptoms reported; No edema Gastrointestinal: no symptoms reported All Other Systems Reviewed Negative Unless Noted: Yes Past Jmttghd-Neltod-Lblpyz Hx Patient Social History Alcohol Use: Denies Use Number of Drinks Today: AA Alcohol Beverage of Choice: Beer Recreational Drug Use: No Smoking Status: Former Smoker Type Used: Cigarettes Former Smoker, Quit: Nov 09, 2015 2nd Hand Smoke Exposure: Yes Recent Foreign Travel: No Contact w/Someone Who Travel: No Recent Infectious Disease Expo: No Recent Hopitalizations: Yes (STENT CA) Immunizations Up To Date Tetanus Booster (TDap): Unknown Date of Influenza Vaccine: Dec 06, 2016 Seasonal Allergies Seasonal Allergies: No Past Medical History Surgeries: Yes (left elbow surgery) Coronary Stent, Orthopedic Respiratory: No Cardiac: Yes Hypertension Neurological: No Reproductive Disorders: No Sexually Transmitted Disease: No HIV/AIDS: No Genitourinary: No Gastrointestinal: Yes Gastroesophageal Reflux, Chronic Diarrhea Musculoskeletal: Yes Arthritis Endocrine: No Diabetes, Non-Insulin dep HEENT: No Loss of Vision: Bilateral Hearing Impairment: Denies Cancer: No Psychosocial: No Integumentary: No Blood Disorders: No Adverse Reaction/Blood Tranf: No (N/A) Family Medical History Heart Disease, Diabetes, Hypertension Physical Exam Vital Signs - First Documented 06/14/18 09:10 Temp 98.2 Pulse 87 Resp 17 B/P (MAP) 153/100 (117) Pulse Ox 98 O2 Delivery Room Air Capillary Refill : Less Than 3 Seconds Height: 6'2.00" Weight: 244lbs. 3.2oz. 110.768790rn; 30.2 BMI Method:Stated General Appearance: WD/WN, no apparent distress Eyes: Bilateral Eye Normal Inspection, Bilateral Eye PERRL, Bilateral Eye EOMI HEENT: pharynx normal Neck: supple Respiratory: lungs clear, normal breath sounds Cardiovascular: regular rate, rhythm, no edema Gastrointestinal: non tender, soft Extremities: normal inspection Neurologic/Psychiatric: alert, normal mood/affect Skin: normal color, warm/dry Progress/Results/Core Measures Suspected Sepsis Recent Fever Within 48 Hours: No Infection Criteria Present: None New/Unexplained Altered Menta: No Sepsis Screen: No Definite Risk SIRS Temperature:98.2 Pulse: 87 Respiratory Rate: 17 Laboratory Tests 06/14/18 09:18: White Blood Count 9.1 Blood Pressure 153 /100 Mean: 117 Laboratory Tests 06/14/18 09:18: Creatinine 1.50H, Platelet Count 274, Total Bilirubin 1.6H Results/Orders Lab Results Laboratory Tests Test 06/14/18 09:18 06/14/18 11:45 Range/Units White Blood Count 9.1 4.3-11.0 10^3/uL Red Blood Count 5.60 4.35-5.85 10^6/uL Hemoglobin 17.4 13.3-17.7 G/DL Hematocrit 49 40-54 % Mean Corpuscular Volume 87 80-99 FL Mean Corpuscular Hemoglobin 31 25-34 PG Mean Corpuscular Hemoglobin Concent 36 32-36 G/DL Red Cell Distribution Width 12.5 10.0-14.5 % Platelet Count 274 130-400 10^3/uL Mean Platelet Volume 10.3 7.4-10.4 FL Neutrophils (%) (Auto) 67 42-75 % Lymphocytes (%) (Auto) 22 12-44 % Monocytes (%) (Auto) 8 0-12 % Eosinophils (%) (Auto) 2 0-10 % Basophils (%) (Auto) 0 0-10 % Neutrophils # (Auto) 6.1 1.8-7.8 X 10^3 Lymphocytes # (Auto) 2.0 1.0-4.0 X 10^3 Monocytes # (Auto) 0.8 0.0-1.0 X 10^3 Eosinophils # (Auto) 0.2 0.0-0.3 10^3/uL Basophils # (Auto) 0.0 0.0-0.1 10^3/uL Sodium Level 134 L 135-145 MMOL/L Potassium Level 5.7 H 3.6-5.0 MMOL/L Chloride Level 103 98-107 MMOL/L Carbon Dioxide Level 20 L 21-32 MMOL/L Anion Gap 11 5-14 MMOL/L Blood Urea Nitrogen 19 H 7-18 MG/DL Creatinine 1.50 H 0.60-1.30 MG/DL Estimat Glomerular Filtration Rate 48 BUN/Creatinine Ratio 13 Glucose Level 260 H 70-105 MG/DL Calcium Level 10.1 8.5-10.1 MG/DL Corrected Calcium 8.5-10.1 MG/DL Magnesium Level 2.9 H 1.8-2.4 MG/DL Total Bilirubin 1.6 H 0.1-1.0 MG/DL Aspartate Amino Transf (AST/SGOT) 60 H 5-34 U/L Alanine Aminotransferase (ALT/SGPT) 84 H 0-55 U/L Alkaline Phosphatase 65 40-136 U/L Troponin I 1.475 *H <0.028 NG/ML B-Type Natriuretic Peptide 71.7 <100.0 PG/ML Total Protein 8.7 H 6.4-8.2 GM/DL Albumin 4.6 H 3.2-4.5 GM/DL My Orders Orders - PIOTR LAZCANO MD Cbc With Automated Diff (06/14/18 09:20) Comprehensive Metabolic Panel (06/14/18 09:20) BNP (06/14/18 09:20) Magnesium (06/14/18 09:20) Ekg Tracing (06/14/18 09:20) O2 (06/14/18 09:20) Ed Iv/Invasive Line Start (06/14/18 09:20) Monitor-Rhythm Ecg Trace Only (06/14/18 09:20) Chest 1 View, Ap/Pa Only (06/14/18 09:20) Troponin I (06/14/18 09:20) Ct Angio Chest W (06/14/18 10:07) Ns Iv 1000 Ml (Sodium Chloride 0.9%) (06/14/18 10:15) Iohexol Injection (Omnipaque 350 Mg/Ml 1 (06/14/18 10:30) Received Contrast (Hold Metformin- Contr (06/14/18 10:30) Troponin I (06/14/18 11:41) Medications Given in ED Current Medications Medications Dose Ordered Sig/Eboni Route Start Time Stop Time Status Last Admin Dose Admin Iohexol 125 ml ONCE ONCE IV 06/14/18 10:30 06/14/18 10:31 DC 06/14/18 11:06 125 ML Vital Signs/I&O 06/14/18 09:10 Temp 98.2 Pulse 87 Resp 17 B/P (MAP) 153/100 (117) Pulse Ox 98 O2 Delivery Room Air Capillary Refill : Less Than 3 Seconds Blood Pressure Mean: 117 Progress Note : Time: 11:54 Progress Note Chest x-ray and chest CT negative. BNP normal. We'll check 2 hour troponin. I discussed the patient with Dr. Conley. He thinks this is probably secondary to Brillinta. Will dc Brillinta and start Plavix. 300 mg by mouth now then 75 mg per day. ECG Initial ECG Impression Date: Jun 14, 2018 Initial ECG Impression Time: 09:37 Initial ECG Rate: 84 Initial ECG Rhythm: Normal Sinus Initial ECG Intervals: Normal Comment lvh Departure Impression Primary Impression: Dyspnea Disposition: 01 HOME, SELF-CARE Condition: Stable Departure-Patient Inst. Decision time for Depature: 11:55 Referrals: [facility] (PCP/Family) Primary Care Physician Patient Instructions: Shortness of Breath (Dyspnea) (DC) Add. Discharge Instructions: Stop Brillinta. Start Plavix prescription tomorrow. 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 All discharge instructions reviewed with patient and/or family. Voiced understanding. Scripts Clopidogrel Bisulfate (Plavix) 75 Mg Tablet 75 MG PO DAILY for 30 Days, TAB Prov: PIOTR LAZCANO MD 06/14/18 PIOTR LAZCANO MD Jun 14, 2018 09:37
[2018-06-14 09:45] LABS: ALANINE AMINOTRANSFERASE 84 U/L (0-55); ALBUMIN 4.6 GM/DL (3.2-4.5); ALKALINE PHOSPHATASE 65 U/L (40-136); BILIRUBIN,TOTAL 1.6 MG/DL (0.1-1.0); BUN/CREATININE RATIO 13; CALCIUM 10.1 MG/DL (8.5-10.1); CARBON DIOXIDE 20 MMOL/L (21-32); CHLORIDE 103 MMOL/L (98-107); GFR ESTIMATED 48; GLUCOSE 260 MG/DL (70-105); MAGNESIUM 2.9 MG/DL (1.8-2.4); SODIUM 134 MMOL/L (135-145); TOTAL PROTEIN 8.7 GM/DL (6.4-8.2)
--- NOTE | 2018-06-14 10:04 | Diagnostic Imaging Report ---
INDICATION: Shortness of breath Portable chest 1:43 AM Heart size and pulmonary vascularity are normal. Lungs are clear. There are no effusions or pneumothoraces. IMPRESSION: Negative chest Dictated by: Dictated on workstation # [id number]
[2018-06-14 10:10] LABS: POTASSIUM 5.7 MMOL/L (3.6-5.0)
[2018-06-14] MEDS ORDERED: NS IV 1000 ML 1,000 ML IV SCH (10:15)
[2018-06-14] MEDS ORDERED: IOHEXOL 350 MG/ML 150 ML (OMNIPAQUE 350) VIAL IV ONE (10:30)
[2018-06-14] MEDS ORDERED: HOLD METFORMIN - RECEIVED CONTRAST 20 ML VIAL IV SCH (10:30)
--- NOTE | 2018-06-14 11:28 | Diagnostic Imaging Report ---
PROCEDURE: CT angiography of the chest with contrast. TECHNIQUE: Multiple contiguous axial images were obtained through the chest after uneventful bolus administration of intravenous contrast. 2D reconstructed CTA MIP acquisitions were also performed. Auto Exposure Controls were utilized during the CT exam to meet ALARA standards for radiation dose reduction. INDICATION: Right-sided chest pain. No prior studies are available for comparison. Ascending thoracic aorta is prominent measuring 4.6 cm in AP diameter. Aortic arch and descending thoracic aorta are normal in caliber. No dissection is identified. The central pulmonary arteries are unremarkable. There is no pericardial or pleural fluid identified. No pulmonary infiltrates, nodules or masses are seen. Upper abdomen is unremarkable. IMPRESSION: No evidence of thoracic aortic dissection. The ascending thoracic aorta is prominent at 4.6 cm. No central pulmonary emboli are detected. Dictated by: Dictated on workstation # [id number]
[2018-06-14] MEDS ORDERED: CLOPIDOGREL 300 MG (PLAVIX) TABLET PO ONE (12:30)
[2018-06-14] MEDS ORDERED: CLOP75TA69 PO (12:30)
[2018-06-14 13:00] VITALS: BP 130/82
== END 2018-06-14 13:02 | disposition home or self-care (01) ==
LOC: EDUNIT# 09:11 → ER 09:12
DX: R06.00 Dyspnea, unspecified (principal); I25.2 Old myocardial infarction; I10 Essential (primary) hypertension; K21.9 Gastro-esophageal reflux disease without esophagitis; E11.9 Type 2 diabetes mellitus without complications; Z87.19 Personal history of other diseases of the digestive system; Z82.49 Family history of ischemic heart disease and other diseases of the circulatory system; Z79.82 Long term (current) use of aspirin; Z87.891 Personal history of nicotine dependence; Z95.5 Presence of coronary angioplasty implant and graft; Z98.890 Other specified postprocedural states
CPT/HCPCS: 36415; 71045; 71275; 80053; 83735; 83880; 84484; 85025; 93005; 93041

== ENCOUNTER 2018-07-05 18:40 | Emergency (ER) | payer SELFPAY ==
[~2018-07-05] VITALS: Ht 188 cm; Wt 108.4 kg
[~2018-07-05 18:40] MED LIST changes: +CLOP75TA69 PO
[2018-07-05 19:28] VITALS: BP 152/79
[2018-07-05 19:38] LABS: BASOPHILS % (AUTO) 1 % (0-10); EOSINOPHILS # (AUTO) 0.1 10^3/uL (0.0-0.3); EOSINOPHILS % (AUTO) 2 % (0-10); HEMATOCRIT 44 % (40-54); HEMOGLOBIN 15.7 G/DL (13.3-17.7); LYMPHOCYTES # (AUTO) 1.8 X 10^3 (1.0-4.0); LYMPHOCYTES % (AUTO) 33 % (12-44); MEAN CORPUSCULAR HEMOGLOBIN 31 PG (25-34); MEAN CORPUSCULAR HGB CONC 36 G/DL (32-36); MEAN CORPUSCULAR VOLUME 88 FL (80-99); MONOCYTES # (AUTO) 0.8 X 10^3 (0.0-1.0); MONOCYTES % (AUTO) 16 % (0-12); NEUTROPHILS # (AUTO) 2.7 X 10^3 (1.8-7.8); NEUTROPHILS % (AUTO) 49 % (42-75); PLATELET COUNT 210 10^3/uL (130-400); RED CELL DISTRIBUTION WIDTH 12.4 % (10.0-14.5); WHITE BLOOD COUNT 5.4 10^3/uL (4.3-11.0)
[2018-07-05] MEDS ORDERED: ASPIRIN 81 MG CHEW (CHILDREN'S ASA) PO ONE (19:45)
--- NOTE | 2018-07-05 19:50 | Diagnostic Imaging Report ---
INDICATION: Chest pain. Frontal chest obtained at 07:35 p.m. Heart and mediastinal silhouette are normal in appearance. The lungs are clear. There is no pneumothorax or pleural fluid. There is no change from 06/14/2018. IMPRESSION: Negative chest. Dictated by: Dictated on workstation # [id number]
[2018-07-05 19:57] LABS: ALANINE AMINOTRANSFERASE 51 U/L (0-55); ALBUMIN 4.5 GM/DL (3.2-4.5); ALKALINE PHOSPHATASE 77 U/L (40-136); BILIRUBIN,TOTAL 1.2 MG/DL (0.1-1.0); BUN/CREATININE RATIO 11; CARBON DIOXIDE 18 MMOL/L (21-32); CHLORIDE 107 MMOL/L (98-107); CREATININE SERUM 1.24 MG/DL (0.60-1.30); GFR ESTIMATED 60; GLUCOSE 128 MG/DL (70-105); POTASSIUM 3.9 MMOL/L (3.6-5.0); SODIUM 139 MMOL/L (135-145)
[2018-07-05] MEDS ORDERED: RT-ALBUTEROL/IPRATROPIUM 3 ML (DUONEB) VIAL INH ONE (20:00)
--- NOTE | 2018-07-05 20:07 | ED Chest Pain ---
General Chief Complaint: Chest Pain Stated Complaint: FATIGUE,FEVER, DIARHEA, NAUSEA, RECENT OLSON Nursing Triage Note: PT AMB TO RM 2 WITH COMPLAINT OF CHEST PIAN, FEVER, FATIGUE, DIARRHEA, NAUSEA, AND VOMITING. STATES HE HAD A HEARTATTACK ON [place]AST[place]. Nursing Sepsis Screen: No Definite Risk Source: patient Exam Limitations: no limitations History of Present Illness Date Seen by Provider: July 05, 2018 Time Seen by Provider: 19:44 Initial Comments Patient presents to ER by private conveyance with his spouse and chief complaint that today started noticing some subjective fevers and chills sweats cough and chest pain in his right chest on coughing. The pain does not radiate and only last momentarily for a few seconds. 2 weeks ago he had to have a stent placed in his LAD secondary to an AR. He has a history of high blood pressure hypercholesterolemia but he is not diabetic and does not smoke. He has no history of COPD or asthma. Allergies and Home Medications Allergies Coded Allergies: No Known Allergies (Verified Allergy, Unknown, 11/23/17) Home Medications Aspirin 81 Mg Tablet., 81 MG PO DAILY Prescribed by: Kvng CONLEY on 06/12/18 164 Atorvastatin Calcium 80 Mg Tablet, 80 MG PO HS Prescribed by: Kvng CONLEY on 06/12/18 1645 Clopidogrel Bisulfate 75 Mg Tablet, 75 MG PO DAILY Prescribed by: PIOTR LAZCANO on 06/14/18 1230 Lisinopril 40 Mg Tablet, 40 MG PO DAILY, (Reported) Lisinopril 40 Mg Tablet, 40 MG PO DAILY Prescribed by: Kvng CONLEY on 06/12/18 1645 Metoprolol Tartrate 25 Mg Tablet, 50 MG PO BID Prescribed by: Kvng CONLEY on 06/12/18 1645 Omeprazole Magnesium 20 Mg Tablet., 20 MG PO DAILY, (Reported) Ticagrelor 90 Mg Tablet, 90 MG PO BID Prescribed by: Kvng CONLEY on 06/12/18 164 Patient Home Medication List Home Medication List Reviewed: Yes Review of Systems Review of Systems Constitutional: chills, diaphoresis, fever, malaise EENTM: No Blurred Vision, No Double Vision Respiratory: Cough; Denies Shortness of Air, Denies Wheezing Cardiovascular: See HPI, Chest Pain; Denies Edema, Denies Palpitations Gastrointestinal: Denies Abdomen Distended, Denies Abdominal Pain Genitourinary: Denies Burning, Denies Discharge Musculoskeletal: No back pain, No gout, No joint pain Skin: No pruritus, No rash Psychiatric/Neurological: Denies Headache, Denies Numbness Past Eafvbso-Zhgtnj-Xdgzzk Hx Patient Social History Alcohol Use: Occasionally Uses Number of Drinks Today: AA Alcohol Beverage of Choice: Beer Recreational Drug Use: No Smoking Status: Former Smoker Type Used: Cigarettes Former Smoker, Quit: Nov 09, 2015 2nd Hand Smoke Exposure: Yes Recent Foreign Travel: No Contact w/Someone Who Travel: No Recent Infectious Disease Expo: No Recent Hopitalizations: Yes (STENT AR) Immunizations Up To Date Tetanus Booster (TDap): Unknown Date of Influenza Vaccine: Dec 06, 2016 Seasonal Allergies Seasonal Allergies: No Past Medical History Surgeries: Yes (left elbow surgery) Coronary Stent, Orthopedic Respiratory: No Cardiac: Yes Hypertension Neurological: No Reproductive Disorders: No Sexually Transmitted Disease: No HIV/AIDS: No Genitourinary: No Gastrointestinal: Yes Gastroesophageal Reflux, Chronic Diarrhea Musculoskeletal: Yes Arthritis Endocrine: No Diabetes, Non-Insulin dep HEENT: No Loss of Vision: Bilateral Hearing Impairment: Denies Cancer: No Psychosocial: No Integumentary: No Blood Disorders: No Adverse Reaction/Blood Tranf: No (N/A) Family Medical History Heart Disease, Diabetes, Hypertension Physical Exam Vital Signs Vital Signs - First Documented 07/05/18 18:50 Temp 98.6 Pulse 78 Resp 12 B/P (MAP) 130/70 (90) Pulse Ox 99 O2 Delivery Room Air Capillary Refill : Less Than 3 Seconds Height, Weight, BMI Height: 6'2.00" Weight: 239lbs. 3.2oz. 108.655046th; 30.2 BMI Method:Stated General Appearance: No Apparent Distress, WD/WN, Anxious HEENT: PERRL/EOMI, TMs Normal, Normal ENT Inspection, Pharynx Normal, Moist Mucous Membranes Neck: Full Range of Motion, Normal Inspection, Non Tender, Supple Respiratory: Chest Non Tender, Lungs Clear, Normal Breath Sounds, No Accessory Muscle Use, No Respiratory Distress, Other (discomfort is recreatable inspiration.) Cardiovascular: Regular Rate, Rhythm, No Edema, No JVD, No Murmur, Normal Peripheral Pulses Gastrointestinal: Normal Bowel Sounds, Non Tender, Soft Extremity: Normal Capillary Refill, Normal Inspection, Non Tender, No Calf Tenderness, No Pedal Edema Neurologic/Psychiatric: Alert, Oriented x3 Skin: Normal Color, Warm/Dry Progress/Results/Core Measures Results/Orders Lab Results Laboratory Tests Test 07/05/18 18:57 07/05/18 22:15 Range/Units White Blood Count 5.4 4.3-11.0 10^3/uL Red Blood Count 5.01 4.35-5.85 10^6/uL Hemoglobin 15.7 13.3-17.7 G/DL Hematocrit 44 40-54 % Mean Corpuscular Volume 88 80-99 FL Mean Corpuscular Hemoglobin 31 25-34 PG Mean Corpuscular Hemoglobin Concent 36 32-36 G/DL Red Cell Distribution Width 12.4 10.0-14.5 % Platelet Count 210 130-400 10^3/uL Mean Platelet Volume 10.0 7.4-10.4 FL Neutrophils (%) (Auto) 49 42-75 % Lymphocytes (%) (Auto) 33 12-44 % Monocytes (%) (Auto) 16 H 0-12 % Eosinophils (%) (Auto) 2 0-10 % Basophils (%) (Auto) 1 0-10 % Neutrophils # (Auto) 2.7 1.8-7.8 X 10^3 Lymphocytes # (Auto) 1.8 1.0-4.0 X 10^3 Monocytes # (Auto) 0.8 0.0-1.0 X 10^3 Eosinophils # (Auto) 0.1 0.0-0.3 10^3/uL Basophils # (Auto) 0.0 0.0-0.1 10^3/uL Sodium Level 139 135-145 MMOL/L Potassium Level 3.9 3.6-5.0 MMOL/L Chloride Level 107 98-107 MMOL/L Carbon Dioxide Level 18 L 21-32 MMOL/L Anion Gap 14 5-14 MMOL/L Blood Urea Nitrogen 14 7-18 MG/DL Creatinine 1.24 0.60-1.30 MG/DL Estimat Glomerular Filtration Rate 60 BUN/Creatinine Ratio 11 Glucose Level 128 H 70-105 MG/DL Calcium Level 10.0 8.5-10.1 MG/DL Corrected Calcium 9.6 8.5-10.1 MG/DL Total Bilirubin 1.2 H 0.1-1.0 MG/DL Aspartate Amino Transf (AST/SGOT) 34 5-34 U/L Alanine Aminotransferase (ALT/SGPT) 51 0-55 U/L Alkaline Phosphatase 77 40-136 U/L Troponin I < 0.028 < 0.028 <0.028 NG/ML B-Type Natriuretic Peptide 86.9 <100.0 PG/ML Total Protein 8.0 6.4-8.2 GM/DL Albumin 4.5 3.2-4.5 GM/DL My Orders Orders - HUNTER PALMA Ekg Tracing (07/05/18 18:53) Cbc With Automated Diff (07/05/18 19:31) Comprehensive Metabolic Panel (07/05/18:) Troponin I (07/05/18:) Chest 1 View, Ap/Pa Only (07/05/18:31) Iv/Invasive Line Insertion .IV start (07/05/18:31) Aspirin Chewable Tablet (Baby Aspirin Ch (07/05/18 19:45) Continuous Ekg Monitoring (07/05/18:31) BNP (07/05/18 19:59) Albuterol/Ipra Inhalation Soln (Duoneb I (07/05/18 20:00) Svn Small Volume Nebulizer (07/05/18 19:59) Ekg Tracing (07/05/18 21:15) Troponin I (07/05/18 21:15) Medications Given in ED Current Medications Medications Dose Ordered Sig/Eboni Route Start Time Stop Time Status Last Admin Dose Admin Albuterol/ Ipratropium 3 ml ONCE ONCE INH 07/05/18 20:00 07/05/18 20:02 DC 07/05/18 20:10 3 ML Aspirin 324 mg ONCE ONCE PO 07/05/18 19:45 07/05/18 19:46 DC 07/05/18 19:45 324 MG Vital Signs/I&O 07/05/18 07/05/18 18:50 19:28 Temp 98.6 Pulse 78 74 Resp 12 16 B/P (MAP) 130/70 (90) 152/79 (103) Pulse Ox 99 O2 Delivery Room Air Blood Pressure Mean: 103 Progress Progress Note : Time: 20:07 Progress Note After careful examination patient has normal vital signs and is afebrile. I will trust that he is actually having fevers and sounds like he has a bronchitis. His pain could be pleuritic as is not reproducible to direct palpation over the chest. We will obtain initial EKG and troponins. June 10, 2018: Proximal RCA occlusion and a drug-eluting stent. Brilinta was changed to Plavix. June 11, [address] Conley: EF 50-55%., Concentric hypertrophy and mildly increased wall thickness and cavity size. Grade 1 diastolic dysfunction. Enmc-bx-qarkkeal mitral valve regurgitation. Low risk by ED ACS score 13 points. If the patient also has: (1) EKG without new ischemic changes and (2) negative initial and 2-hour troponins, then this patient is safe for discharge to early outpatient follow-up investigation (or proceed to earlier inpatient testing). If EKG with ischemic changes or positive troponin, they are not low risk and require normal risk stratification. Initial ECG Impression Date: July 05, 2018 Initial ECG Impression Time: 19:00 Initial ECG Rate: 74 Initial ECG Rhythm: Normal Sinus Initial ECG Intervals: Normal Initial ECG Impression: Normal, Nonspecific Changes Initial ECG Comparisson: Unchanged Comment Normal sinus rhythm without acute ST elevation or depression. EKG : EKG Time: 21:29 Rate: 80 Rhythm: Normal Sinus Intervals: Normal ECG Comparisson: Unchanged ECG Impression: Normal Comment Normal sinus rhythm without ST elevation or depression. Some respiratory artifact. Diagnostic Imaging Diagonstic Imaging: Xray Plain Films/CT/US/NM/MRI: chest Comments NAME: [facility] REC#: [id number] PT STATUS: REG ER : 1960 PHYSICIAN: HUNTER PALMA MD ADMIT DATE: 07/05/18/ER Draft Date of Exam:07/05/18 CHEST 1 VIEW, AP/PA ONLY INDICATION: Chest pain. Frontal chest obtained at 07:35 p.m. Heart and mediastinal silhouette are normal in appearance. The lungs are clear. There is no pneumothorax or pleural fluid. There is no change from 06/14/2018. IMPRESSION: Negative chest. Dictated on workstation # [id number] Dict: 07/05/[id number] Trans: 07/05/181948 [id number] Interpreted by: RIKI GHOTRA MD Electronically signed by: Reviewed: Reviewed by Me Departure Impression Primary Impression: Chest pain Qualified Codes: R07.9 - Chest pain, unspecified Additional Impressions: Pleurisy Acute bronchitis Qualified Codes: J20.9 - Acute bronchitis, unspecified Disposition: 01 HOME, SELF-CARE Condition: Stable Departure-Patient Inst. Decision time for Depature: 22:57 Referrals: [facility] (PCP/Family) Primary Care Physician Patient Instructions: Pleuritic Chest Pain (DC) Add. Discharge Instructions: Use Tylenol, heating pads, topical creams for the discomfort. Use vapor rubs such as Vicks or Mentholatum. Use the cough drops [id number] as well as the Tessalon Perles 1-2 capsule every 6 hours as needed for cough. 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 If you're not seeing some resolution in the next week you can also follow-up with primary care for reexamination of your bronchitis. All discharge instructions reviewed with patient and/or family. Voiced understanding. Scripts Benzonatate (TESSALON PERLES) 100 Mg Capsule 100 MG PO Q6H PRN for COUGH, #20 CAP 0 Refills Prov: HUNTER PALMA 07/05/18 HUNTER PALMA July 05, 2018 20:07
--- OUTSIDE RECORDS SUMMARY | 2018-07-05 20:38 | XMS REPORT ---
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 Name Role Phone Migration, Doctor Unavailable Unavailable PROBLEMS Type Condition ICD9-CM Code IWO56-SU Code Onset Dates Condition Status SNOMED Code Problem History of herpes genitalis Z86.19 Active 657111249 Problem Gastroesophageal reflux disease, esophagitis presence not specified K21.9 Active 311572776 Problem Essential hypertension I10 Active 24449705 Problem Carpal tunnel syndrome of right wrist G56.01 Active 205846019070227 Problem Type 2 diabetes mellitus with other specified complication, without long-term current use of insulin E11.69 Active 07496785 Problem Arthritis M19.90 Active 7088890 Problem Biceps tendonitis, right M75.21 Active 660508269 Problem Prediabetes R73.03 Active 661299754 Problem Mixed hyperlipidemia E78.2 Active 854994103 ALLERGIES No Information ENCOUNTERS Encounter Location Date Diagnosis [facility] [address] [address] May, [place] [address] [address] May, [facility] [address] [place] [id number] [place] [address]- 4681 May, [facility] [address] [place] [id number] [place] [address] 635[address]- 2506 May, [facility] [address] [address] Mar, [facility] [address] [address] Feb, [facility] [address] [address] Nov, Atypical chest pain R07.89 ; Essential hypertension I10 ; Spasm of muscle of lower back M62.830 and Encounter for immunization Z23 [place] [address] [address] Nov, [place] [address] [place] [id number] Nov, Somatic dysfunction of thoracic region M99.02 ; Somatic dysfunction of cervical region M99.01 ; Somatic dysfunction of head region M99.00 and Somatic dysfunction of upper extremity M99.07 [place] [address] [address] Oct, [place] [address] 9[address]- [address] Oct, Bilateral hand numbness R20.0 [place] [address] [address] Oct, [place] [address] [address] Oct, Dehydration E86.0 ; Acute kidney insufficiency N28.9 ; Essential hypertension I10 ; Bilateral impacted cerumen H61.23 and Colon cancer screening Z12.11 [place] [address] [address]- [address] Sep, Bilateral hand numbness R20.0 and Type 2 diabetes mellitus with other specified complication, without long-term current use of insulin E11.69 [place] [address] [address] Aug, Bilateral hand numbness R20.0 ; Essential hypertension I10 ; Mixed hyperlipidemia E78.2 and Prediabetes R73.03 [place] [address] [address]- [address] Aug, [place] [address] [address]- [address] Jul, Bilateral leg cramps R25.2 [place] [address] [place] [address] June, [facility] [address] [place] [id number] [place] [address]- [address] May, Essential hypertension I10 ; Mixed hyperlipidemia E78.2 and Prediabetes R73.03 [facility] [address] [place] [address] -[address] 02 Apr, 2017 Acute non-recurrent maxillary sinusitis J01.00 and Cough R05 [facility] [address] [place] [id number] [place] [address] 05542- 6459 Apr, [facility] [address] [address]- [address] Mar, Pneumonia of right lower lobe due to infectious organism J18.1 [place] [address] [place] [id number] [place] [address] 52745- 9311 19 Mar, 2017 Pneumonia of right lower lobe due to infectious organism J18.1 and Shortness of breath R06.02 [facility] [address] [place] [id number] [place] [address] 59077- 1662 14 Mar, 2017 [facility] [address] [place] [id number] [place] [address] 73841- 3692 13 Mar, 2017 Influenza-like illness R69 and Impacted cerumen of both ears H61.23 [place] [address] [place] [id number] [place] [address] 28511- 3352 Oct, [facility] [address] [place] [id number] [place] [address] 10530- 7262 14 Oct, 2016 [place] [address] [place] [id number] [place] [address] 64681- 7709 08 Oct, 2016 Carpal tunnel syndrome of right wrist G56.01 and RUQ abdominal pain R10.11 [place] [address] [place] [id number] [place] [address] 01220- 4805 Sep, Essential hypertension I10 ; Mixed hyperlipidemia E78.2 and Prediabetes R73.03 [facility] [address] [place] [address] 63603- 4416 Sep, Essential hypertension I10 [facility] [address] [place] [id number] [place] [address] 90232- 8632 Jul, Acute otitis externa of right ear, unspecified type H60.501 [facility] [address] [place] [id number] [place] [address] 25852- 8362 June, Biceps tendonitis, right M75.21 and Essential hypertension I10 [facility] [address] [place] [id number] [place] [address] 28469- 6346 June, [facility] [address] [place] [id number] [place] [address] 87806- 6312 May, Essential hypertension I10 and Cramp of both lower extremities R25.2 [facility] [address] [place] [id number] [place] [address] 61999- 5265 May, Arthritis M19.90 and Cramp of both lower extremities R25.2 [facility] [address] [place] [address] 63362 -3022 Mar, [facility] [address] [place] [id number] [place] [address] 30922- 2562 Nov, Essential hypertension I10 and Colon cancer screening Z12.11 [facility] [address] [place] [address] 50789- 2883 Nov, [facility] [address] [place] [id number] Jul, Dental examination Z01.20 [facility] [address] [place] [id number] [place] [address] 88498- 4841 14 May, 2014 [facility] [address] [place] [id number] [place] [address] 95972- 0546 13 May, 2014 [facility] [address] [place] [address] 61832- 7[address] Jan, [place] [id number] [id number] [place] [address]- [address] 07 Jan, 2013 [facility] [address] [id number] [place] [address]- 4[address] Aug, [facility] [place] [facility] [address] [id number] [place] [address]- [address] 16 May, 2012 [facility] [address] [id number] [place] [address]- 4112 Mar, [facility] [address] [id number] [place] [address]- 7968 Feb, [facility] [address] [id number] [place] [address]- 1129 Jan, [facility] [address] [id number] [place] [address]- 3522 Jan, [facility] [address] [id number] [place] [address]- 6084 Jan, [facility] [address] [id number] [place] [address]- 5551 18 Jan, 2012 [facility] [address] [id number] [place] [address]- 2082 Jan, [facility] [address] [id number] [place] [address]- 7305 10 Jan, 2012 [facility] [place] [facility] [address] [id number] [place] [address]- 4375 07 Jan, 2012 [facility] [place] [facility] [address] [id number] [place] [address]- 7547 07 Jan, 2012 [facility] [place] [facility] [address] [id number] [place] [address]- 3175 06 Jan, 2012 [facility] [place] [facility] [address] [id number] [place] [address]- 8200 05 Jan, 2012 [facility] [place] [facility] [address] [id number] [place] [address]- 7246 Jan, [facility] [place] [facility] [address] [id number] [place] [address] Jan, [facility] [place] [facility] [address] [id number] [place] [address]- 6156 Jan, [facility] [place] [facility] [address] [id number] [place] [address]- 6290 Jan, [facility] [place] [facility] [address] [id number] [place] [address]- 7447 Jan, [facility] [place] [facility] [address] [id number] [place] [address]- 9312 Dec, [facility] [place] [facility] [address] [id number] [place] [address]- 3046 Dec, [facility] [place] [facility] [address] [id number] [place] [address]- 6034 Dec, [facility] [place] [facility] [address] [id number] [place] [address]- 4562 Dec, [facility] [place] [facility] [address] [id number] [place] [address]- 3507 Dec, [facility] [place] [facility] [address] [id number] [place] [address]- 9432 Dec, [facility] [place] [facility] [address] [id number] [place] [address]- 2469 Sep, [facility] [place] [facility] [address] [id number] [place] [address]- 7618 Sep, [facility] [place] [facility] [address] [id number] [place] [address]- 8280 Sep, [facility] [place] [facility] [address] [id number] [place] [address]- 7101 Aug, [facility] [place] [facility] [address] [id number] [place] [address]- 5408 Aug, [facility] [place] [facility] [address] [place] [id number] [address]- [address] 23 May, 2011 [facility] [address] [place] [address]- [address] May, [facility] [address] [place] [address]- 655[address] May, [facility] [address] [place] [address]- 32[address] May, [facility] [address] [place] [address]- 2098 Apr, [facility] [address] [place] [address]- 6[address] Mar, [facility] [address] [id number] [address]- [address] 10 Mar, 2011 IMMUNIZATIONS No Known Immunizations SOCIAL HISTORY Never Assessed [place] [place] VITAL SIGNS MEDICATIONS Unknown Medications RESULTS No Results PROCEDURES No Known procedures INSTRUCTIONS MEDICATIONS ADMINISTERED No Known Medications MEDICAL (GENERAL) HISTORY Type Description Date Medical History hypertension Medical History hyperlipidemia Medical History Arthritis Surgical History orthopedic surgery--Left elbow, removal of bone spur and scar tissue Surgical History EGD/colonoscopy 11/29/17 Hospitalization History Surgery only
--- OUTSIDE RECORDS SUMMARY | 2018-07-05 20:41 | XMS REPORT | Continuity of Care Document ---
[...] CAITIE BARNES APRN 272.4 HYPERLIPIDEMIA 01/31/2012 [employer] [employer], CAITIE T 302.72 ERECTILE DISORDER 01/31/2012 CAITIE BARNES APRN T 790.29 HYPERGLYCEMIA 01/31/2012 272.4 HYPERLIPIDEMIA 01/31/2012 302.72 ERECTILE DISORDER 01/31/2012 790.29 HYPERGLYCEMIA 01/31/2012 NISA HAYNES APRN S 272.4 HYPERLIPIDEMIA 01/31/2012 NISA HAYNES APRN S 302.72 ERECTILE DISORDER 01/31/2012 NISA HAYNES APRN S 790.29 HYPERGLYCEMIA 01/31/2012 CAITIE BARNES APRN T 272.4 HYPERLIPIDEMIA 01/31/2012 CAITIE BARNES APRN T 302.72 ERECTILE DISORDER 01/31/2012 CAITIE BARNES APRN T 790.29 HYPERGLYCEMIA 03/15/2012 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 03/15/2012 NISA HAYNES APRN S 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 03/15/2012 CAITIE BARNES APRN 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 04/13/2012 NISA HAYNES APRN S 079.99 VIRAL SYNDROME 04/13/2012 CAITIE BARNES APRN 079.99 VIRAL SYNDROME 09/01/2012 CAITIE BARNES APRN 300.00 ANXIETY UNSPEC Procedures Code [place] [address] ROUTINE VENIPUNCTURE 01/26/2012 HERPSM1,2 HERPES SIMPLEX 1 AND 2, IGM, IGG 01/26/2012 36184 ROUTINE VENIPUNCTURE 01/31/2012 17199 PSA FREE AND TOTAL 01/31/2012 59902 TESTOSTERONE FREE 01/31/2012 32697 A1C (IN-HOUSE) 01/31/2012 30429 BMP 01/31/2012 67006 LIPID PANEL 01/31/2012 9790796 GFR CALC (RESULT ONLY) 01/31/2012 Results Test Result Range A1C - 06/13/17 16:19 HEMOGLOBIN A1c 5.9 % of total Hgb <5.7 CMP - 08/11/17 17:02 GLUCOSE 88 mg/dL 65-99 UREA NITROGEN (BUN) 19 mg/dL 7-25 CREATININE 1.28 mg/dL 0.70-1.33 eGFR NON-AFR. ALGERIAN 62 mL/min/1.73m2 > OR=60 eGFR 72 mL/min/1.73m2 [...] - 08/11/17 17:02 MAGNESIUM 2.0 mg/dL 1.5-2.5 Encounters ACCT No. Visit Date/Time Discharge Status Pt. Type Provider Facility Loc./Unit Complaint [id number] 01/27/2013 14:49:00 01/27/2013 23:59:59 CLS Outpatient CAITIE BARNES APRN [id number] 04/13/2012 11:16:00 04/13/2012 23:59:59 CLS Outpatient NISA HAYNES APRN [id number] 03/15/2012 16:57:00 03/15/2012 23:59:59 CLS Outpatient [id number] 01/31/2012 11:03:00 01/31/2012 23:59:59 CLS Outpatient CAITIE BARNES APRN [id number] 01/26/2012 09:23:00 01/26/2012 23:59:59 CLS Outpatient CAITIE BARNES APRN [id number] 12/23/2011 16:45:00 12/23/2011 23:59:59 CLS Outpatient CAITIE BARNES APRN [id number] 06/29/2018 13:20:00 06/29/2018 23:59:59 CLS Outpatient MARIANA SOLER [facility] [id number] 08/11/2017 16:40:00 Document Registration [id number] 06/13/2017 15:40:00 Document Registration
[2018-07-05] MEDS ORDERED: BENZ100C18 PO (23:05)
[2018-07-05] MEDS ORDERED: BENZONATATE 100 MG (TESSALON) CAPSULE PO ONE ×2 (23:11→23:15)
[2018-07-05 23:15] VITALS: BP 141/97
== END 2018-07-05 23:24 | disposition home or self-care (01) ==
LOC: EDUNIT# 18:40 → ER 18:42
DX: R07.81 Pleurodynia (principal); J20.9 Acute bronchitis, unspecified; I25.2 Old myocardial infarction; I10 Essential (primary) hypertension; K21.9 Gastro-esophageal reflux disease without esophagitis; E11.9 Type 2 diabetes mellitus without complications; E78.00 Pure hypercholesterolemia, unspecified; Z79.02 Long term (current) use of antithrombotics/antiplatelets; Z82.49 Family history of ischemic heart disease and other diseases of the circulatory system; Z87.19 Personal history of other diseases of the digestive system; Z87.891 Personal history of nicotine dependence; Z79.82 Long term (current) use of aspirin; Z95.5 Presence of coronary angioplasty implant and graft
CPT/HCPCS: 36415; 71045; 80053; 83880; 84484; 85025; 93005

== ENCOUNTER 2018-07-12 08:50 | Outpatient (RCR) | payer OTHER ==
[~2018-07-12 08:50] MED LIST changes: +BENZ100C18 PO; -OMEP10CA4 PO; +OMEP10CA5 PO
== END 2018-10-10 | disposition home or self-care (01) ==
LOC: CR 08:50
PROVIDERS: ATTEND Internal Medicine Interventional Cardiology
DX: Z48.812 Encounter for surgical aftercare following surgery on the circulatory system (principal); I25.2 Old myocardial infarction; Z95.5 Presence of coronary angioplasty implant and graft

== ENCOUNTER 2018-09-10 19:29 | Emergency (ER) | payer OTHER ==
[~2018-09-10] VITALS: Ht 188 cm; Wt 111.1 kg
[~2018-09-10 19:29] MED LIST changes: +OMEP10CA4 PO; -OMEP10CA5 PO
[2018-09-10 20:00] LABS: BASOPHILS % (AUTO) 1 % (0-10); EOSINOPHILS # (AUTO) 0.2 10^3/uL (0.0-0.3); EOSINOPHILS % (AUTO) 3 % (0-10); HEMATOCRIT 39 % (40-54); HEMOGLOBIN 14.1 G/DL (13.3-17.7); LYMPHOCYTES # (AUTO) 2.4 X 10^3 (1.0-4.0); LYMPHOCYTES % (AUTO) 37 % (12-44); MEAN CORPUSCULAR HEMOGLOBIN 32 PG (25-34); MEAN CORPUSCULAR HGB CONC 36 G/DL (32-36); MEAN CORPUSCULAR VOLUME 88 FL (80-99); MEAN PLATELET VOLUME 9.6 FL (7.4-10.4); MONOCYTES # (AUTO) 0.7 X 10^3 (0.0-1.0); MONOCYTES % (AUTO) 10 % (0-12); NEUTROPHILS # (AUTO) 3.2 X 10^3 (1.8-7.8); NEUTROPHILS % (AUTO) 50 % (42-75); PLATELET COUNT 231 10^3/uL (130-400); RED CELL DISTRIBUTION WIDTH 12.7 % (10.0-14.5); WHITE BLOOD COUNT 6.4 10^3/uL (4.3-11.0)
[2018-09-10 20:15] LABS: ALANINE AMINOTRANSFERASE 51 U/L (0-55); ALBUMIN 4.2 GM/DL (3.2-4.5); ALKALINE PHOSPHATASE 78 U/L (40-136); BILIRUBIN,TOTAL 0.5 MG/DL (0.1-1.0); BUN/CREATININE RATIO 11; CALCIUM 9.3 MG/DL (8.5-10.1); CARBON DIOXIDE 14 MMOL/L (21-32); CHLORIDE 104 MMOL/L (98-107); CREATININE SERUM 1.18 MG/DL (0.60-1.30); GFR ESTIMATED > 60; GLUCOSE 261 MG/DL (70-105); MAGNESIUM 2.9 MG/DL (1.8-2.4); POTASSIUM 4.8 MMOL/L (3.6-5.0); SODIUM 134 MMOL/L (135-145); TOTAL PROTEIN 7.9 GM/DL (6.4-8.2)
--- NOTE | 2018-09-10 20:21 | ED Chest Pain ---
General Chief Complaint: Chest Pain Stated Complaint: HX OF HEART ATTACK,CHEST PAIN,TROUBLE BREATHING Nursing Triage Note: Patient advises chest pain that began at approximately 1900. He advises pain lasted approximately 10 minutes accompanied by shortness of breath that subsided. Patient is currently pain free at this time. Nursing Sepsis Screen: No Definite Risk Source: patient Exam Limitations: no limitations (BARBARA OLIVA MD) History of Present Illness Date Seen by Provider: Sep 10, 2018 Time Seen by Provider: 19:34 Initial Comments Here with report of chest pain to the right side that started about 7 PM and was associated with shortness of breath. Pain lasted about 10 minutes and then went away. Shortness of breath remained. States it feels like when he had his big he art attack in May. He did have stent placed to the LAD at that time. He is on aspirin and Plavix and has been taking that as directed and has had aspirin today. Currently pain-free. Denies nausea, vomiting, diarrhea or diaphoresis with the event. Timing/Duration: 1/2 hour, gone now Severity/Quality: moderate, pressure Location: other (right upper chest wall) Radiation: no radiation Activities at Onset: none Prior CP/Workup: cardiac cath, echocardiography Modifying Factors: improves with rest ASA po GENERAL INTERN: Yes NTG SL GENERAL INTERN: No Associated Symptoms: No abdominal pain, No back pain, No diaphoresis, No edema, No fever/chills, No nausea/vomiting; shortness of breath; No weakness (BARBARA OLIVA MD) Allergies and Home Medications Allergies Coded Allergies: No Known Allergies (Verified Allergy, Unknown, 11/23/17) Home Medications Aspirin 81 Mg Tablet.dr, 81 MG PO DAILY Prescribed by: Kvng HURT on 06/12/18 1645 Atorvastatin Calcium 80 Mg Tablet, 80 MG PO HS Prescribed by: Kvng HURT on 06/12/18 1645 Benzonatate 100 Mg Capsule, 100 MG PO Q6H PRN for COUGH Prescribed by: HUNTER PALMA on 07/05/18 2305 Clopidogrel Bisulfate 75 Mg Tablet, 75 MG PO DAILY Prescribed by: PIOTR LAZCANO on 06/14/18 1230 Lisinopril 40 Mg Tablet, 40 MG PO DAILY, (Reported) Lisinopril 40 Mg Tablet, 40 MG PO DAILY Prescribed by: Kvng HURT on 06/12/181644 Metoprolol Tartrate 25 Mg Tablet, 50 MG PO BID Prescribed by: Kvng HURT on 06/12/181644 Omeprazole Magnesium 20 Mg Tablet.dr, 20 MG PO DAILY, (Reported) Ticagrelor 90 Mg Tablet, 90 MG PO BID Prescribed by: Kvng HURT on 06/12/181644 Patient Home Medication List Home Medication List Reviewed: Yes (BARBARA OLIVA MD) Review of Systems Review of Systems Constitutional: no symptoms reported EENTM: No Symptoms Reported Respiratory: See HPI, SOA at Rest; Denies Wheezing Cardiovascular: Chest Pain; Denies Edema Gastrointestinal: Denies Abdominal Pain, Denies Nausea, Denies Vomiting Genitourinary: No Symptoms Reported (BARBARA OLIVA MD) All Other Systems Reviewed Negative Unless Noted: Yes (BARBARA OLIVA MD) Past Esiayvb-Gwstsv-Jzvzqp Hx Past Med/Social Hx: Reviewed Nursing Past Med/Soc Hx (BARBARA OLIVA MD) Patient Social History Alcohol Use: Occasionally Uses Number of Drinks Today: AA Alcohol Beverage of Choice: Beer Recreational Drug Use: No Type Used: Cigarettes Former Smoker, Quit: Nov 09, 2015 2nd Hand Smoke Exposure: Yes Recent Foreign Travel: No Contact w/Someone Who Travel: No Recent Infectious Disease Expo: No Recent Hopitalizations: Yes (STENT PA) (BARBARA OLIVA MD) Immunizations Up To Date Tetanus Booster (TDap): Unknown Date of Influenza Vaccine: Dec 06, 2016 (BARBARA OLIVA MD) Seasonal Allergies Seasonal Allergies: No (BARBARA OLIVA MD) Past Medical History Surgeries: Yes (left elbow surgery) Coronary Stent, Orthopedic Respiratory: No Cardiac: Yes Hypertension Neurological: No Reproductive Disorders: No Sexually Transmitted Disease: No HIV/AIDS: No Genitourinary: No Gastrointestinal: Yes Gastroesophageal Reflux, Chronic Diarrhea Musculoskeletal: Yes Arthritis Endocrine: No Diabetes, Non-Insulin dep HEENT: No Loss of Vision: Bilateral Hearing Impairment: Denies Cancer: No Psychosocial: No Integumentary: No Blood Disorders: No Adverse Reaction/Blood Tranf: No (N/A) (BARBARA OLIVA MD) Family Medical History Reviewed Nursing Family Hx (BARBARA OLIVA MD) Heart Disease, Diabetes, Hypertension (BARBARA OLIVA MD) Physical Exam Vital Signs Vital Signs - First Documented 09/10/18 09/10/18 19:34 19:58 Pulse 80 Resp 14 B/P (MAP) 149/81 (103) Pulse Ox 97 O2 Delivery Room Air (YOLANDA HASSAN MD) Vital Signs Capillary Refill : Less Than 3 Seconds (BARBARA LOIVA MD) Height, Weight, BMI Height: 6'2.00" Weight: 245lbs. 3.2oz. [id number]; 30.2 BMI Method:Stated General Appearance: No Apparent Distress, WD/WN HEENT: PERRL/EOMI, Pharynx Normal Neck: Non Tender, Supple Respiratory: Lungs Clear, Normal Breath Sounds Cardiovascular: Regular Rate, Rhythm, No Murmur Gastrointestinal: Non Tender, Soft Extremity: Normal Range of Motion, Non Tender Neurologic/Psychiatric: Alert, Oriented x3 Skin: Normal Color, Warm/Dry (BARBARA OLIVA MD) Progress/Results/Core Measures Results/Orders Lab Results Laboratory Tests Test 09/10/18 19:45 09/10/18 19:55 09/10/18 22:01 Range/Units Prothrombin Time 12.3 12.2-14.7 SEC INR Comment 0.9 0.8-1.4 Activated Partial Thromboplast Time < 20 L 24-35 SEC D-Dimer 0.57 H 0.00-0.49 UG/ML Sodium Level 134 L 135-145 MMOL/L Potassium Level 4.8 3.6-5.0 MMOL/L Chloride Level 104 98-107 MMOL/L Carbon Dioxide Level 14 L 21-32 MMOL/L Anion Gap 16 H 5-14 MMOL/L Blood Urea Nitrogen 13 7-18 MG/DL Creatinine 1.18 0.60-1.30 MG/DL Estimat Glomerular Filtration Rate > 60 BUN/Creatinine Ratio 11 Glucose Level 261 H 70-105 MG/DL Calcium Level 9.3 8.5-10.1 MG/DL Corrected Calcium 9.1 8.5-10.1 MG/DL Magnesium Level 2.9 H 1.8-2.4 MG/DL Total Bilirubin 0.5 0.1-1.0 MG/DL Aspartate Amino Transf (AST/SGOT) 41 H 5-34 U/L Alanine Aminotransferase (ALT/SGPT) 51 0-55 U/L Alkaline Phosphatase 78 40-136 U/L Myoglobin 36.3 10.0-92.0 NG/ML Troponin I < 0.028 < 0.028 <0.028 NG/ML Total Protein 7.9 6.4-8.2 GM/DL Albumin 4.2 3.2-4.5 GM/DL White Blood Count 6.4 4.3-11.0 10^3/uL Red Blood Count 4.42 4.35-5.85 10^6/uL Hemoglobin 14.1 13.3-17.7 G/DL Hematocrit 39 L 40-54 % Mean Corpuscular Volume 88 80-99 FL Mean Corpuscular Hemoglobin 32 25-34 PG Mean Corpuscular Hemoglobin Concent 36 32-36 G/DL Red Cell Distribution Width 12.7 10.0-14.5 % Platelet Count 231 130-400 10^3/uL Mean Platelet Volume 9.6 7.4-10.4 FL Neutrophils (%) (Auto) 50 42-75 % Lymphocytes (%) (Auto) 37 12-44 % Monocytes (%) (Auto) 10 0-12 % Eosinophils (%) (Auto) 3 0-10 % Basophils (%) (Auto) 1 0-10 % Neutrophils # (Auto) 3.2 1.8-7.8 X 10^3 Lymphocytes # (Auto) 2.4 1.0-4.0 X 10^3 Monocytes # (Auto) 0.7 0.0-1.0 X 10^3 Eosinophils # (Auto) 0.2 0.0-0.3 10^3/uL Basophils # (Auto) 0.0 0.0-0.1 10^3/uL (YOLANDA HASSAN MD) My Orders Orders - YOLANDA HASSAN MD Ct Angio Chest W (09/10/18 20:31) Nitroglycerin 0.4 Mg Btl 25's (Nitrostat (09/10/18 20:45) Aspirin Chewable Tablet (Baby Aspirin Ch (09/10/18 20:45) Iohexol Injection (Omnipaque 350 Mg/Ml 1 (09/10/18 20:45) Received Contrast (Hold Metformin- Contr (09/10/18 20:45) Ns (Ivpb) (Sodium Chloride 0.9% Ivpb Bag (09/10/18 20:45) Troponin I (09/10/18 22:09) (YOLANDA HASSAN MD) Medications Given in ED Current Medications Medications Dose Ordered Sig/Eboni Route Start Time Stop Time Status Last Admin Dose Admin Aspirin 243 mg ONCE ONCE PO 09/10/18 20:45 09/10/18 20:46 DC 09/10/18 20:50 243 MG Iohexol 125 ml ONCE ONCE IV 09/10/18 20:45 09/10/18 20:46 DC 09/10/18 21:03 125 ML Sodium Chloride 100 ml ONCE ONCE IV 09/10/18 20:45 09/10/18 20:46 DC 09/10/18 21:04 80 ML (YOLANDA HASSAN MD) Vital Signs/I&O 09/10/18 09/10/18 19:34 19:58 Pulse 80 Resp 14 B/P (MAP) 149/81 (103) Pulse Ox 97 97 O2 Delivery Room Air Room Air (YOLANDA HASSAN MD) Blood Pressure Mean: 103 Progress Progress Note : Progress Note Seen and evaluated. IV, labs, EKG and chest x-ray ordered. Patient currently pain-free. He has had aspirin today so we will hold that. No need for nitroglycerin as he is pain-free. Monitor patient. 2004: Care transferred to Dr. Charles pending results. (BARBARA OLIVA MD) Progress Note #1: Time: 20:37 Progress Note Care of this patient was assumed from Dr. Oliva at 20:00. Verbal report was received. I have visited with patient. He reports his pain is now minimal in the right shoulder rated as 2/10. We will give him the balance of a 324 mg dose of aspirin. He take a 1 mg of aspirin earlier today. We will trinitroglycerin to determine if that will alleviate the remainder of his pain. D-dimer was minimally elevated. CT angiogram of the chest has been ordered. Patient has been updated. Progress Note #2: Time: 22:17 Progress Note Patient has been pain-free since the administration of aspirin. Nitroglycerin was therefore never administered. He remains pain-free now. CT angiogram of the chest was negative for pulmonary emboli or other acute abnormalities. A repeat troponin is being processed now. Progress Note #3: Time: 23:23 Progress Note Patient remains pain free. Repeat troponin was negative. He is being dismissed to follow-up with Dr. Hurt in the morning. (YOLANDA HASSAN MD) Initial ECG Impression Date: Sep 10, 2018 Initial ECG Impression Time: 19:34 Initial ECG Rate: 83 Initial ECG Rhythm: Normal Sinus Comment Sinus rhythm with normal axis. No evidence of ST elevation PA. Similar to previous of 07/05/18. Interpreted by me. (BARBARA OLIVA MD) Diagnostic Imaging Diagonstic Imaging: CT Plain Films/CT/US/NM/MRI: chest Comments CT angiogram of the chest viewed by me and report reviewed. See report below: NAME: KARLA LLAMAS JR [facility] REC#: [id number] PT STATUS: REG ER : 1960 PHYSICIAN: YOLANDA HASSAN MD ADMIT DATE: 09/10/18/ER Draft Date of Exam:09/10/18 CT ANGIO CHEST W PROCEDURE: CT angiography of the chest with contrast. TECHNIQUE: Multiple contiguous axial images were obtained through the chest after uneventful bolus administration of intravenous contrast. 2D reconstructed CTA MIP acquisitions were also performed. Auto Exposure Controls were utilized during the CT exam to meet ALARA standards for radiation dose reduction. INDICATION: Chest pain. COMPARISONS: CTA chest performed on 06/14/2018. FINDINGS: CT ANGIOGRAM: No pulmonary embolism. Normal caliber pulmonary arteries. No acute aortic abnormality seen on this study performed without cardiac gating. TRACHEA AND MAIN BRONCHI: Patent without evidence of tracheal or endobronchial lesion. LUNGS AND PLEURA: Mild dependent subsegmental atelectasis. No consolidation or pulmonary mass. Unchanged 4 mm pulmonary nodules in the right middle lobe. No pleural effusion or pneumothorax. MEDIASTINUM AND MELISSA: Visualized thyroid gland is normal. No mediastinal or hilar lymphadenopathy. Esophagus is nondistended. HEART AND VESSELS: Heart is normal in size. No pericardial effusion. Atherosclerotic calcification involves the aorta and its branches, including the coronary arteries. There is unchanged ectasia of the ascending aorta, which measures up to 4.9 cm in AP diameter. DIAPHRAGM AND UPPER ABDOMEN: Unremarkable. CHEST WALL: Unremarkable. BONES: No acute osseous abnormality. IMPRESSION: No evidence of pulmonary embolism. No acute chest disease. Ectasia of the ascending thoracic aorta, similar in appearance to prior exam. Dictated on workstation # [id number] Dict: 09/10/186 Trans: 09/10/185 [id number] Interpreted by: RADHA JUDD DO Diagonstic Imaging: Xray Plain Films/CT/US/NM/MRI: chest Comments Chest x-ray viewed by me and report reviewed. See report below: NAME: KARLA LLAMAS JR [facility] REC#: [id number] PT STATUS: REG ER : 1960 PHYSICIAN: BARBARA OLIVA MD ADMIT DATE: 09/10/18/ER Draft Date of Exam:09/10/18 CHEST 1 VIEW, AP/PA ONLY EXAMINATION: AP upright portable chest INDICATION: Chest pain. COMPARISON: Multiple priors, most recent performed on 07/05/2018. FINDINGS: The lungs are clear and the pulmonary vasculature is normal. No pneumothorax or large pleural effusion. The cardiomediastinal silhouette is unchanged. No acute osseous abnormality is appreciated. IMPRESSION: No radiographic evidence of acute chest disease. No significant change from prior. Dictated on workstation # [id number] Dict: 09/10/182 Trans: 09/10/182 [id number] Interpreted by: RADHA JUDD DO (YOLANDA HASSAN MD) Departure Impression Primary Impression: Atypical chest pain Additional Impression: Dyspnea Qualified Codes: R06.00 - Dyspnea, unspecified Disposition: 01 HOME, SELF-CARE Condition: Improved Departure-Patient Inst. Decision time for Depature: 23:20 (YOLANDA HASSAN MD) Referrals: [facility] (PCP/Family) Primary Care Physician Kvng HURT MD Patient Instructions: Chest Pain (DC) Add. Discharge Instructions: Continue with your medications as previously prescribed. Follow-up with Dr. Hurt as soon as possible. Call his office first thing tomorrow morning. Return to care if you have worsening of symptoms or recurrence of chest pain. All discharge instructions reviewed with patient and/or family. Voiced understanding. Copy Copies To 1: Kvng HURT MD Copies To 2: MARION URIBE TIMOTHY D MD Sep 10, 2018 20:21 YOLANDA HASSAN MD Sep 10, 2018 20:39
[2018-09-10 20:28] LABS: INR 0.9 (0.8-1.4)
[2018-09-10 20:43] LABS: PARTIAL THROMBOPLASTIN TIME < 20 SEC (24-35); PROTHROMBIN TIME PATIENT 12.3 SEC (12.2-14.7)
[2018-09-10] MEDS ORDERED: IOHEXOL 350 MG/ML 150 ML (OMNIPAQUE 350) VIAL IV ONE (20:45)
[2018-09-10] MEDS ORDERED: NS 100 ML (IVPB) BAG IV ONE (20:45)
[2018-09-10] MEDS ORDERED: NITROGLYCERIN 0.4 MG SL TABS BTL 25'S SL PRN (20:45)
[2018-09-10] MEDS ORDERED: ASPIRIN 81 MG CHEW (CHILDREN'S ASA) PO ONE (20:45)
[2018-09-10] MEDS ORDERED: HOLD METFORMIN - RECEIVED CONTRAST 20 ML VIAL IV SCH (20:45)
--- NOTE | 2018-09-10 20:53 | NUR ---
Patient advises chest pain free post aspirin administration.
--- NOTE | 2018-09-10 22:06 | Diagnostic Imaging Report ---
PROCEDURE: CT angiography of the chest with contrast. TECHNIQUE: Multiple contiguous axial images were obtained through the chest after uneventful bolus administration of intravenous contrast. 2D reconstructed CTA MIP acquisitions were also performed. Auto Exposure Controls were utilized during the CT exam to meet ALARA standards for radiation dose reduction. INDICATION: Chest pain. COMPARISONS: CTA chest performed on 06/14/2018. FINDINGS: CT ANGIOGRAM: No pulmonary embolism. Normal caliber pulmonary arteries. No acute aortic abnormality seen on this study performed without cardiac gating. TRACHEA AND MAIN BRONCHI: Patent without evidence of tracheal or endobronchial lesion. LUNGS AND PLEURA: Mild dependent subsegmental atelectasis. No consolidation or pulmonary mass. Unchanged 4 mm pulmonary nodules in the right middle lobe. No pleural effusion or pneumothorax. MEDIASTINUM AND MELISSA: Visualized thyroid gland is normal. No mediastinal or hilar lymphadenopathy. Esophagus is nondistended. HEART AND VESSELS: Heart is normal in size. No pericardial effusion. Atherosclerotic calcification involves the aorta and its branches, including the coronary arteries. There is unchanged ectasia of the ascending aorta, which measures up to 4.9 cm in AP diameter. DIAPHRAGM AND UPPER ABDOMEN: Unremarkable. CHEST WALL: Unremarkable. BONES: No acute osseous abnormality. IMPRESSION: No evidence of pulmonary embolism. No acute chest disease. Ectasia of the ascending thoracic aorta, similar in appearance to prior exam. Dictated by: Dictated on workstation # [id number]
--- NOTE | 2018-09-10 23:12 | Diagnostic Imaging Report ---
EXAMINATION: AP upright portable chest INDICATION: Chest pain. COMPARISON: Multiple priors, most recent performed on 07/05/2018. FINDINGS: The lungs are clear and the pulmonary vasculature is normal. No pneumothorax or large pleural effusion. The cardiomediastinal silhouette is unchanged. No acute osseous abnormality is appreciated. IMPRESSION: No radiographic evidence of acute chest disease. No significant change from prior. Dictated by: Dictated on workstation # [id number]
[2018-09-10 23:23] VITALS: BP 124/81
== END 2018-09-10 23:28 | disposition home or self-care (01) ==
LOC: EDUNIT# 19:29 → ER 19:30
DX: R07.89 Other chest pain (principal); R06.00 Dyspnea, unspecified; I25.2 Old myocardial infarction; I10 Essential (primary) hypertension; K21.9 Gastro-esophageal reflux disease without esophagitis; E11.9 Type 2 diabetes mellitus without complications; Z95.5 Presence of coronary angioplasty implant and graft; Z79.82 Long term (current) use of aspirin; Z79.02 Long term (current) use of antithrombotics/antiplatelets; Z87.891 Personal history of nicotine dependence; Z82.49 Family history of ischemic heart disease and other diseases of the circulatory system
CPT/HCPCS: 36415; 71045; 71275; 80053; 83735; 83874; 84484; 85025; 85379; 85610; 85730; 93005; 93041

== ENCOUNTER 2020-05-07 11:35 | Inpatient (IN) | payer SELFPAY ==
[~2020-05-07] VITALS: Ht 187 cm; Wt 106.0 kg
[~2020-05-07 11:35] MED LIST changes: +ASPI-1238 PO; -ASPI-983 PO; -LISI-552 PO; +LISI1TAB46 PO; -LISI1TAB8 PO; +LISI20TA26 PO; -LISI40TA PO; +LISI40TA9 PO; -OMEP10CA4 PO; +OMEP10CA5 PO; -TRAM50TA2 PO; +TRM50T PO
[2020-05-07] MEDS ORDERED: ASPIRIN 81 MG CHEW (CHILDREN'S ASA) ONE (11:46)
[2020-05-07 12:02] LABS: BASOPHILS # (AUTO) 0.1 10^3/uL (0.0-0.1); BASOPHILS % (AUTO) 1 % (0-10); EOSINOPHILS # (AUTO) 0.1 10^3/uL (0.0-0.3); EOSINOPHILS % (AUTO) 1 % (0-10); HEMATOCRIT 44 % (40-54); HEMOGLOBIN 15.3 g/dL (13.3-17.7); LYMPHOCYTES # (AUTO) 2.3 10^3/uL (1.0-4.0); LYMPHOCYTES % (AUTO) 32 % (12-44); MEAN CORPUSCULAR HEMOGLOBIN 31 pg (25-34); MEAN CORPUSCULAR HGB CONC 35 g/dL (32-36); MEAN CORPUSCULAR VOLUME 89 fL (80-99); MONOCYTES # (AUTO) 0.7 10^3/uL (0.0-1.0); MONOCYTES % (AUTO) 10 % (0-12); NEUTROPHILS # (AUTO) 4.1 10^3/uL (1.8-7.8); NEUTROPHILS % (AUTO) 57 % (42-75); PLATELET COUNT 250 10^3/uL (130-400); WHITE BLOOD COUNT 7.2 10^3/uL (4.3-11.0)
--- NOTE | 2020-05-07 12:05 | ED Chest Pain ---
General Chief Complaint: Chest Pain Stated Complaint: CHEST PAIN Nursing Triage Note: PT ARRIVED PER EMS, PT WAS AT [facility] AND HAVING C/P. PT IS C/P FREE AT THIS X. PT STATES WAS FEELING WEIRD THIS AM AND WAS ON HIS WAY TO SEE HIS DR WHEN C/P STARTED. PT STATES HE HAS TAKEN AN 81MG ASA THIS AM. Nursing Sepsis Screen: No Definite Risk History of Present Illness Date Seen by Provider: May 07, 2020 Time Seen by Provider: 11:40 Initial Comments Patient is a 59-year-old male who presents to the emergency department today with a chief complaint of right-sided chest pain and shortness of breath and nausea. Patient states that he was very emotional earlier this morning and started feeling "off" and states he felt similar to when he had an acute [place] 2 years ago. Patient states that he noticed that he started to develop some chest pain in the right side of his chest and was going to [facility] for evaluation when he was told that he needed to come to the emergency room instead. Patient states at the time of the chest pain he was quite short of breath and nauseated but he denied any diaphoresis. He states it felt exactly like when he had his heart attack. Patient states that anytime he would start to exert himself after the onset of the pain it would intensify. At the time of my evaluation the patient is currently pain-free but he feels like again should he exert himself that the pain would return. Patient denies any recent illnesses such as fevers, chills cough congestion, nausea vomiting or GI or complaints. Patient states that he is compliant with his daily medications which include Plavix and Brilinta. Patient is a non-smoker. He does have a significant family history of coronary artery disease, including a brother who is 2 years his em who has 6 stents. All other review of systems reviewed and negative except as stated. Timing/Duration: 1-3 hours Severity/Quality: moderate, pressure Location: central, other (right chest) Activities at Onset: activity, emotional stress Prior CP/Workup: cardiac cath, heart attack ASA po RESEARCH TEST ENGINE OPERATOR: No NTG SL RESEARCH TEST ENGINE OPERATOR: No Associated Symptoms: nausea/vomiting Allergies and Home Medications Allergies Coded Allergies: No Known Allergies (Verified Allergy, Unknown, 11/23/17) Home Medications Aspirin 81 Mg Tablet., 81 MG PO DAILY, (Reported) Atorvastatin Calcium 80 Mg Tablet, 80 MG PO DAILY, (Reported) Clopidogrel Bisulfate 75 Mg Tablet, 75 MG PO DAILY, (Reported) Hydroxyzine HCl 10 Mg Tablet, 10 MG PO BID PRN for ANXIETY, (Reported) Lisinopril 40 Mg Tablet, 40 MG PO DAILY, (Reported) Metformin HCl 500 Mg Tab.er.24, 500 MG PO 1800 AFTER DINER, (Reported) Metoprolol Tartrate 50 Mg Tablet, 50 MG PO BID, (Reported) Omeprazole 20 Mg Capsule.dr, 20 MG PO DAILY, (Reported) Patient Home Medication List Home Medication List Reviewed: Yes Review of Systems Review of Systems Constitutional: see HPI EENTM: No Symptoms Reported Respiratory: SOA With Exertion, SOA at Rest Cardiovascular: Chest Pain Gastrointestinal: Nausea Genitourinary: No Symptoms Reported Musculoskeletal: no symptoms reported Skin: no symptoms reported Psychiatric/Neurological: Anxiety All Other Systems Reviewed Negative Unless Noted: Yes Past Nbwvnof-Eewytb-Bqwbyz Hx Patient Social History Alcohol Beverage of Choice: Beer Type Used: Cigarettes Former Smoker, Quit: Nov 09, 2015 2nd Hand Smoke Exposure: Yes Recent Infectious Disease Expo: No Recent Hopitalizations: Yes (STENT [place]) Immunizations Up To Date Tetanus Booster (TDap): Unknown Date of Influenza Vaccine: Dec 06, 2016 Seasonal Allergies Seasonal Allergies: No Past Medical History Surgeries: Yes (left elbow surgery) Coronary Stent, Orthopedic Respiratory: No Cardiac: Yes Hypertension Neurological: No Reproductive Disorders: No Sexually Transmitted Disease: No HIV/AIDS: No Genitourinary: No Gastrointestinal: Yes Gastroesophageal Reflux, Chronic Diarrhea Musculoskeletal: Yes Arthritis Endocrine: No Diabetes, Non-Insulin dep HEENT: No Loss of Vision: Bilateral Hearing Impairment: Denies Cancer: No Psychosocial: No Integumentary: No Blood Disorders: No Adverse Reaction/Blood Tranf: No (N/A) Family Medical History Heart Disease, Diabetes, Hypertension Physical Exam Vital Signs Vital Signs - First Documented 05/07/20 11:35 Temp 36.5 Pulse 63 Resp 18 B/P (MAP) 170/102 (124) Pulse Ox 98 O2 Delivery Room Air Capillary Refill : Less Than 3 Seconds Height, Weight, BMI Height: 6'2.00" Weight: 245lbs. 3.2oz. [id number]; 30.00 BMI Method:Stated General Appearance: No Apparent Distress, WD/WN HEENT: PERRL/EOMI Neck: Normal Inspection Respiratory: Lungs Clear, Normal Breath Sounds, No Accessory Muscle Use, No Respiratory Distress Cardiovascular: Regular Rate, Rhythm, No Gallop, No Murmur, Normal Peripheral Pulses Gastrointestinal: Normal Bowel Sounds, Non Tender, Soft Extremity: Normal Inspection, No Pedal Edema Neurologic/Psychiatric: Alert, Oriented x3, No Motor/Sensory Deficits, Normal Mood/Affect Skin: Normal Color, Warm/Dry Progress/Results/Core Measures Results/Orders Lab Results Laboratory Tests Test 05/07/20 11:40 Range/Units White Blood Count 7.2 4.3-11.0 10^3/uL Red Blood Count 4.88 4.30-5.52 10^6/uL Hemoglobin 15.3 13.3-17.7 g/dL Hematocrit 44 40-54 % Mean Corpuscular Volume 89 80-99 fL Mean Corpuscular Hemoglobin 31 25-34 pg Mean Corpuscular Hemoglobin Concent 35 32-36 g/dL Red Cell Distribution Width 12.0 10.0-14.5 % Platelet Count 250 130-400 10^3/uL Mean Platelet Volume 10.0 9.0-12.2 fL Immature Granulocyte % (Auto) 0 % Neutrophils (%) (Auto) 57 42-75 % Lymphocytes (%) (Auto) 32 12-44 % Monocytes (%) (Auto) 10 0-12 % Eosinophils (%) (Auto) 1 0-10 % Basophils (%) (Auto) 1 0-10 % Neutrophils # (Auto) 4.1 1.8-7.8 10^3/uL Lymphocytes # (Auto) 2.3 1.0-4.0 10^3/uL Monocytes # (Auto) 0.7 0.0-1.0 10^3/uL Eosinophils # (Auto) 0.1 0.0-0.3 10^3/uL Basophils # (Auto) 0.1 0.0-0.1 10^3/uL Immature Granulocyte # (Auto) 0.0 0.0-0.1 10^3/uL Prothrombin Time 13.0 12.2-14.7 SEC INR Comment 0.9 0.8-1.4 Activated Partial Thromboplast Time 24 24-35 SEC Sodium Level 138 135-145 MMOL/L Potassium Level 4.1 3.6-5.0 MMOL/L Chloride Level 103 98-107 MMOL/L Carbon Dioxide Level 25 21-32 MMOL/L Anion Gap 10 5-14 MMOL/L Blood Urea Nitrogen 11 7-18 MG/DL Creatinine 1.01 0.60-1.30 MG/DL Estimat Glomerular Filtration Rate > 60 BUN/Creatinine Ratio 11 Glucose Level 127 H 70-105 MG/DL Calcium Level 9.2 8.5-10.1 MG/DL Total Creatine Kinase 75 30-200 U/L Creatine Kinase MB 1.7 <6.6 NG/ML Troponin I < 0.028 <0.028 NG/ML My Orders Orders - LULY CHANG MD Aspirin Chewable Tablet (Baby Aspirin Ch (05/07/20 11:46) Ed Iv/Invasive Line Start (05/07/20 11:50) Cbc With Automated Diff (05/07/20 11:50) Basic Metabolic Panel (05/07/20 11:50) Creatine Kinase (05/07/20 11:50) Creatine Kinase Mb (05/07/20 11:50) Troponin I (05/07/20 11:50) Ekg Tracing (05/07/20 11:50) Chest 1 View, Ap/Pa Only (05/07/20 11:50) Protime With Inr (05/07/20 11:50) Partial Thromboplastin Time (05/07/20 11:50) Aspirin Chewable Tablet (Baby Aspirin Ch (05/08/20 09:00) Medications Given in ED Vital Signs/I&O 05/07/20 05/07/20 11:35 11:35 Temp 36.5 Pulse 63 Resp 18 B/P (MAP) 170/102 (124) Pulse Ox 98 O2 Delivery Room Air Blood Pressure Mean: 124 Progress Progress Note : Time: 12:56 Progress Note Case discussed with Dr. Olivo he requested a 300 mg Plavix load, followed by 75 mg daily, metoprolol XL 50 mg x 1 and daily and Lovenox 1 dose. Per review of the medical record and further history obtained from the patient he is currently on Plavix and Brilinta so we will hold off on the 300 mg Plavix. He is also already on metoprolol XL 50 mg twice daily so will not add additional metoprolol to him at this time. Initial ECG Impression Date: May 07, 2020 Initial ECG Impression Time: 11:40 Initial ECG Rate: 62 Initial ECG Rhythm: Normal Sinus Initial ECG Intervals: Normal Comment Patient has biphasic T waves in lead V3, deeply inverted T waves in the precordial leads, V4, V5, V6 Departure Communication (Admissions) Time/Spoke to Admitting Phy: 12:[address] Hines who accepts the patient for admission Time/Spoke to Consulting Phy: 12:[address] MARCUS who will see the patient in consult Impression Primary Impression: Chest wall pain Additional Impression: Coronary artery disease Qualified Codes: I25.110 - Atherosclerotic heart disease of [place] coronary artery with unstable angina pectoris Disposition: ADMITTED INPATIENT Condition: Stable Admissions Decision to Admit Reason: Admit from ER (General) Decision to Admit/Date: May 07, 2020 Time/Decision to Admit Time: 12:55 Departure-Patient Inst. Referrals: [facility] (PCP/Family) Primary Care Physician LULY CHANG MD May 07, 2020 12:05
[2020-05-07 12:07] LABS: CHLORIDE 103 MMOL/L (98-107); POTASSIUM 4.1 MMOL/L (3.6-5.0); SODIUM 138 MMOL/L (135-145)
[2020-05-07 12:08] LABS: CALCIUM 9.2 MG/DL (8.5-10.1); INR 0.9 (0.8-1.4)
[2020-05-07 12:09] LABS: GLUCOSE 127 MG/DL (70-105)
[2020-05-07 12:10] LABS: CARBON DIOXIDE 25 MMOL/L (21-32)
[2020-05-07 12:13] LABS: CREATININE SERUM 1.01 MG/DL (0.60-1.30); GFR ESTIMATED > 60
[2020-05-07 12:14] LABS: BUN/CREATININE RATIO 11
[2020-05-07 12:15] LABS: CREATINE KINASE 75 U/L (30-200)
[2020-05-07 12:21] LABS: CREATINE KINASE MB 1.7 NG/ML (<6.6)
[2020-05-07] MEDS ORDERED: ENOXAPARIN 100 MG/1 ML (LOVENOX) SYR SC ONE (13:00)
--- NOTE | 2020-05-07 13:20 | Diagnostic Imaging Report ---
CHEST 1 VIEW, AP/PA ONLY Indication: Chest pain, shortness of breath Comparison: 09/10/2018 Findings: No focal airspace disease in the visualized lungs. Please note that the posterior lower lobes are poorly evaluated by portable radiography. No pleural effusion or pneumothorax. Normal cardiomediastinal silhouette. Impression: 1. No acute cardiopulmonary process by portable radiography. Dictated by: Dictated on workstation # [id number]
[2020-05-07 13:42] VITALS: BP 154/90
[2020-05-07] MEDS ORDERED: ONDANSETRON 4 MG/2 ML (SDV) Z0FRAN IVP PRN (14:15)
--- NOTE | 2020-05-07 15:31 | History & Physical ---
BRANNON BADILLO MED STUDENT 05/07/20 1531: History of Present Illness History of Present Illness Reason for visit/HPI James is a 59 yo male that presented to the ER today with the chief complaint of right sided chest pain, SOB, light headedness, and nausea without vomiting. Pt described feeling very emotional this morning and not his usual self. Pt stated that the pain began after going to the bank and becoming very stressed. He described the pain as non radiating and similar to how his previous MS felt. He stated that there were multiple episodes of pain that he associated with e xertion. Since being at the hospital he denies having any episodes any chest pain. Pt does not smoke and has a significant PMH of hypertension and MS 2 years ago that required a stent. FH is significant for a brother with coronary artery disease and both his mother and father having heart disease. Pt was alert and oriented without distress upon questioning. Pt was not on supplemental O2. Date of Admission May 07, 2020 at 12:50 Date Seen by a Provider: May 07, 2020 Time Seen by a Provider: 14:30 I consulted on this patient on 05/07/20 15:22 Attending Physician Jennifer Hines MD Admitting Physician [facility] Consult Allergies and Home Medications Allergies Coded Allergies: No Known Allergies (Verified Allergy, Unknown, 11/23/17) Home Medications Aspirin 81 Mg Tablet., 81 MG PO DAILY, (Reported) Atorvastatin Calcium 80 Mg Tablet, 80 MG PO DAILY, (Reported) Clopidogrel Bisulfate 75 Mg Tablet, 75 MG PO DAILY, (Reported) Hydroxyzine HCl 10 Mg Tablet, 10 MG PO BID PRN for ANXIETY, (Reported) Lisinopril 40 Mg Tablet, 40 MG PO DAILY, (Reported) Metformin HCl 500 Mg Tab.er.24, 500 MG PO 1800 AFTER DINER, (Reported) Metoprolol Tartrate 50 Mg Tablet, 50 MG PO BID, (Reported) Omeprazole 20 Mg Capsule.dr, 20 MG PO DAILY, (Reported) Past Wcdorgr-Hxeboc-Mmwwbk Hx Patient Social History Alcohol Beverage of Choice: Beer Smoking Status: Former Smoker Former Smoker, Quit: Nov 09, 2015 2nd Hand Smoke Exposure: Yes Recent Hopitalizations: No Have you traveled recently?: No Alcohol Use?: No Pt feels they are or have been: No Immunizations Up To Date Tetanus Booster (TDap): Unknown Date of Influenza Vaccine: Dec 06, 2016 Seasonal Allergies Seasonal Allergies: No Surgeries Yes (left elbow surgery) Coronary Stent, Orthopedic Respiratory No Cardiovascular Yes Hypertension Neurological No Reproductive System Hx Reproductive Disorders: No Sexually Transmitted Disease: No HIV/AIDS: No Genitourinary No Gastrointestinal Yes Gastroesophageal Reflux, Chronic Diarrhea Musculoskeletal Yes Arthritis Endocrine History of Endocrine Disorders: No Endocrine Disorders: Diabetes, Non-Insulin dep HEENT History of HEENT Disorders: No Loss of Vision: Bilateral Hearing Impairment: Denies Cancer No Psychosocial History of Psychiatric Problem: No Integumentary History of Skin or Integumenta: No Blood Transfusions History of Blood Disorders: No Adverse Reaction to a Blood Tr: No (N/A) Family Medical History Significant Family History: Heart Disease, Diabetes, Hypertension Review of Systems Constitutional: No chills, No diaphoresis; dizziness; No malaise, No weakness EENTM: blurred vision (stated that this is not a new symptom, he hasn't had an eye exam in 4 years); No ear pain, No mouth pain, No throat pain Respiratory: No cough; dyspnea on exertion; No hemoptysis, No short of breath, No stridor Cardiovascular: chest pain; No edema; Hx of Intervention; No palpitations Gastrointestinal: No abdominal pain, No constipation, No diarrhea, No hematemesis, No heartburn, No loss of appetite, No melena; nausea; No vomiting Genitourinary: no symptoms reported; No dysuria, No frequency, No hematuria, No incontinence, No pain Musculoskeletal: no symptoms reported; No back pain, No muscle pain, No muscle stiffness, No neck pain Skin: no symptoms reported; No change in color, No dryness, No rash Psychiatric/Neurological: No Symptoms Reported; Denies Headache, Denies Numbness, Denies Weakness Physical Exam Vital Signs Vital Signs - First Documented 05/07/20 11:35 Temp 36.5 Pulse 63 Resp 18 B/P (MAP) 170/102 (124) Pulse Ox 98 O2 Delivery Room Air Capillary Refill : Less Than 3 Seconds Height, Weight, BMI Height: 6'2.00" Weight: 245lbs. 3.2oz. [id number]; 30.31 BMI Method:Stated General Appearance: No Apparent Distress, WD/WN HEENT: PERRL/EOMI, Pharynx Normal Neck: Normal Inspection, Non Tender, Supple Respiratory: Chest Non Tender, Lungs Clear, Normal Breath Sounds, No Accessory Muscle Use, No Respiratory Distress Cardiovascular: Regular Rate, Rhythm, No Edema, No Gallop, No Murmur Gastrointestinal: Normal Bowel Sounds, No Pulsatile Mass, Non Tender, Soft Rectal: Deferred Back: No CVA Tenderness, No Vertebral Tenderness Extremity: Normal Inspection, Non Tender, No Calf Tenderness, No Pedal Edema Neurologic/Psychiatric: Alert, Oriented x3, No Motor/Sensory Deficits, Normal Mood/Affect Skin: Normal Color, Warm/Dry Lymphatic: No Adenopathy Assessment/Plan Assessment and Plan Assessment: chest pain- possibly caused by unstable angina uncontrolled hypertension- currently 154/90 but states that he is stressed today and his BP is usually 130/85 pre-diabetes- blood glucose of 127 Plan: consult cardiology- possible stress test and ECHO review and continue home medication list Clinical Quality Measures AMI/AHF: ASA po Prior to arrival: No Copy Copies To 1: JENNIFER HINES MD, HOLLY R MD 05/08/202031: Allergies and Home Medications Allergies Coded Allergies: No Known Allergies (Verified Allergy, Unknown, 11/23/17) Home Medications Aspirin 81 Mg Tablet.dr, 81 MG PO DAILY, (Reported) Atorvastatin Calcium 80 Mg Tablet, 80 MG PO DAILY, (Reported) Clopidogrel Bisulfate 75 Mg Tablet, 75 MG PO DAILY, (Reported) Hydroxyzine HCl 10 Mg Tablet, 10 MG PO BID PRN for ANXIETY, (Reported) Lisinopril 40 Mg Tablet, 40 MG PO DAILY, (Reported) Metformin HCl 500 Mg Tab.er.24, 500 MG PO 1800 AFTER DINER, (Reported) Metoprolol Tartrate 50 Mg Tablet, 50 MG PO BID, (Reported) Omeprazole 20 Mg Capsule.dr, 20 MG PO DAILY, (Reported) Patient Home Medication List Home Medication List Reviewed: Yes Assessment/Plan Admission Diagnosis Admission Status: Observation Copy Copies To 1: JENNIFER HINES MD Supervisory-Addendum Brief Verification & Attestation Participated in pt care: other Personally performed: other Care discussed with: other Procedures: other Patient left AMA prior to being seen by attending BRANNON BADILLO MED STUDENT May 07, 2020 15:31 JENNIFER HINES MD May 08, 2020 20:32
[2020-05-07] MEDS ORDERED: OMEP20CA18 PO (16:57)
[2020-05-07] MEDS ORDERED: LISI40TA9 PO (16:57)
[2020-05-07] MEDS ORDERED: METO50TA15 PO (16:57)
[2020-05-07] MEDS ORDERED: ASPI-1238 PO (16:57)
[2020-05-07] MEDS ORDERED: METF-478 PO (16:57)
[2020-05-07] MEDS ORDERED: ATOR80TA76 PO (16:57)
[2020-05-07] MEDS ORDERED: CLOP75TA28 PO (16:57)
[2020-05-07] MEDS ORDERED: HYDR-3584 PO (16:57)
--- NOTE | 2020-05-07 17:41 | Consultation-Cardiology ---
HPI-Cardiology Cardiology Consultation: Date of Consultation 05/07/20 Time Seen by a Provider: 18:15 Date of Admission Attending Physician Jennifer Hines MD Admitting Physician [facility] Consulting Physician CARIE MARCUS MD, MA, FACP, FACC, FSCAI, CCDS HPI: Chief Complaint: CC: Chest discomfort HPI 59 yo man with known CAD who is admitted with R parasternal chest discomfort, sharp, mild to mod, localized to a relatively small area, but reminiscent of previous pain that he experienced with his [place] in 2019 (although less intense and of shorter duration). This has been intermittent, lasting a few min and brought on with activity. No shortness of breath or palp or syncope or swelling Review of Systems-Cardiology Review of Systems Constitutional: No lightheadedness, No malaise, No tiredness, No weight loss, No weight gain Eyes: No vision change Ears/Nose/Throat: No ear discharge, No nasal drainage, No recent hearing loss Respiratory: As described under HPI Cardiovascular: As described under HPI Gastrointestinal: No constipation, No diarrhea, No nausea, No vomiting Genitourinary: No dysuria, No hematuria, No urine frequency changes Musculoskeletal: No back pain, No joint pain Skin: No rash, No ulcerations Psychiatric/Neurological: No seizure, No focal weakness, No syncope Hematologic: No bleeding abnormalities All Other Systems Reviewed Negative Unless Noted: Yes EEU-Txfpal-Dhzawi Hx Patient Social History Smoking Status: Former Smoker 2nd Hand Smoke Exposure: Yes Have you traveled recently?: No Alcohol Use?: No Pt feels they are or have been: No Immunizations Up To Date Tetanus Booster (TDap): Unknown Date of Influenza Vaccine: Dec 06, 2016 Past Medical History PMH As described under Assessment. Family Medical History Family Medical History: He does not report fam h/o early CAD or SCD Allergies and Home Medications Allergies Coded Allergies: No Known Allergies (Verified Allergy, Unknown, 11/23/17) Home Medications Aspirin 81 Mg Tablet.dr, 81 MG PO DAILY, (Reported) Atorvastatin Calcium 80 Mg Tablet, 80 MG PO DAILY, (Reported) Clopidogrel Bisulfate 75 Mg Tablet, 75 MG PO DAILY, (Reported) Hydroxyzine HCl 10 Mg Tablet, 10 MG PO BID PRN for ANXIETY, (Reported) Lisinopril 40 Mg Tablet, 40 MG PO DAILY, (Reported) Metformin HCl 500 Mg Tab.er.24, 500 MG PO 1800 AFTER DINER, (Reported) Metoprolol Tartrate 50 Mg Tablet, 50 MG PO BID, (Reported) Omeprazole 20 Mg Capsule.dr, 20 MG PO DAILY, (Reported) Patient Home Medication List Home Medication List Reviewed: Yes Physical Exam-Cardiology Physical Exam Vital Signs/I&O 05/07/20 05/07/20 05/07/20 05/07/20 11:35 11:35 13:42 14:10 Temp 36.5 36.7 Pulse 63 59 57 Resp 18 18 18 B/P (MAP) 170/102 (124) 154/90 (124) 153/98 (116) Pulse Ox 98 98 96 O2 Delivery Room Air Room Air Room Air 05/07/20 05/07/20 05/07/20 05/07/20 14:22 14:40 15:06 15:29 Temp 37.0 Pulse 54 61 64 Resp 18 B/P (MAP) 142/91 (108) 164/84 (110) Pulse Ox 98 O2 Delivery Room Air Room Air 05/07/20 05/07/20 05/07/20 16:00 16:00 17:00 Pulse 59 60 Resp 18 B/P (MAP) 151/88 (109) 166/89 (114) Pulse Ox 97 O2 Delivery Room Air Room Air Capillary Refill : Less Than 3 Seconds Constitutional: AAO x 3, well-developed, well-nourished HEENT: hearing is well preserved; No xanthelasmas are seen Neck: carotid pulses are 2 + bilaterally Respiratory: No accessory muscle use; other (good, bilat air entry) Cardiovascular: regular rate-rhythm, S1 and S2, systolic murmur (faint OLGA at card ase) Gastrointestinal: No tender; soft; No guarding, No rebound; audible bowel sounds Extremities: No clubbing, No cyanosis, No significant edema Neurologic/Psychiatric: oriented x 3, other (moves all limbs equally) Skin: No rash on exposed areas, No ulcerations on exposed areas Data Review Labs Laboratory Tests 05/07/20 11:40: White Blood Count 7.2, Red Blood Count 4.88, Hemoglobin 15.3, Hematocrit 44, Mean Corpuscular Volume 89, Mean Corpuscular Hemoglobin 31, Mean Corpuscular Hemoglobin Concent 35, Red Cell Distribution Width 12.0, Platelet Count 250, Mean Platelet Volume 10.0, Immature Granulocyte % (Auto) 0, Neutrophils (%) (Auto) 57, Lymphocytes (%) (Auto) 32, Monocytes (%) (Auto) 10, Eosinophils (%) (Auto) 1, Basophils (%) (Auto) 1, Neutrophils # (Auto) 4.1, Lymphocytes # (Auto) 2.3, Monocytes # (Auto) 0.7, Eosinophils # (Auto) 0.1, Basophils # (Auto) 0.1, Immature Granulocyte # (Auto) 0.0, Prothrombin Time 13.0, INR Comment 0.9, Activated Partial Thromboplast Time 24, Sodium Level 138, Potassium Level 4.1, Chloride Level 103, Carbon Dioxide Level 25, Anion Gap 10, Blood Urea Nitrogen 11, Creatinine 1.01, Estimat Glomerular Filtration Rate > 60, BUN/Creatinine Ratio 11, Glucose Level 127H, Calcium Level 9.2, Total Creatine Kinase 75, C reatine Kinase MB 1.7, Troponin I < 0.028 05/07/20 18:05: Laboratory Tests 05/07/20 11:40 A/P-Cardiology Assessment/Admission Diagnosis Chest discomfort of undetermined etiology CAD - Cath on 06/10/2018 for acute inferior STEMI: occluded proximal RCA that was stented with a Xience Tiffanie 4 x 28 mm drug-eluting stent and postdilated with an NC Quantum 4.5 x 20 mm noncompliant balloon, mild LAD and diag disease Echo on 06/11/18: LVEF of 50-55 percent with mild LVH with mild diastolic dysfunction. Left atrial diameter 4.2 cm. Gmgi-hm-ubjborrh mitral valve regurgitation Hypertension: Continue beta yoana and a HIRAM inhibitor. Hyperlipidemia: Continue high-dose statin. CT chest 09/10/18: Ectasia of the ascending thoracic aorta, similar in appearance to prior exam Discussion and Recomendations * Treat with ASA and Plavix and bb and HIRAM-inhib * If evidence of ACS, then cath * If no evidence of ACS, then MPI * I discussed his CV issues with him and answered his questions Clinical Quality Measures AMI/AHF: ASA po Prior to arrival: CARIE Tesfaye MD FACP [facility] May 07, 2020 17:41
[2020-05-07] MEDS ORDERED: TICAGRELOR 90 MG TABLET (BRILINTA) PO SCH (21:00)
[2020-05-07] MEDS ORDERED: meTOproloL SUCCINATE 50 MG (TOPROL XL) TAB PO SCH ×2 (21:00)
[2020-05-08] MEDS ORDERED: lisINopril 40 MG (PRINIVIL) TABLET PO SCH (09:00)
[2020-05-08] MEDS ORDERED: CLOPIDOGREL 75 MG (PLAVIX) TABLET PO SCH (09:00)
[2020-05-08] MEDS ORDERED: ASPIRIN E.C. 81 MG (ECOTRIN) TAB PO SCH (09:00)
[2020-05-08] MEDS ORDERED: ASPIRIN 81 MG CHEW (CHILDREN'S ASA) PO SCH ×2 (09:00)
--- NOTE | 2020-05-08 22:16 | Short Stay Summary-Hospitalist ---
Short Stay Diagnosis D/C Date May 07, 2020 at 21:17 Patient left AMA prior to being seen by attending Dr Hines Chest pain CAD HTN HLD NIDDM Clinical Quality Measures AMI/AHF: ASA po Prior to arrival: MARIANA Crum MD May 08, 2020 22:16
== END 2020-05-07 21:17 | disposition left against medical advice (07) | DRG 313 ==
LOC: ER 11:36 → CSD 12:50
PROVIDERS: ADMIT Family Medicine; ATTEND Family Medicine
DX: R07.9 Chest pain, unspecified (principal); I25.110 Atherosclerotic heart disease of native coronary artery with unstable angina pectoris; I10 Essential (primary) hypertension; F41.9 Anxiety disorder, unspecified; I34.0 Nonrheumatic mitral (valve) insufficiency; E78.5 Hyperlipidemia, unspecified; K21.9 Gastro-esophageal reflux disease without esophagitis; M19.91 Primary osteoarthritis, unspecified site; R73.03 Prediabetes; H54.3 Unqualified visual loss, both eyes; Z87.891 Personal history of nicotine dependence; Z79.02 Long term (current) use of antithrombotics/antiplatelets; Z79.82 Long term (current) use of aspirin; Z82.49 Family history of ischemic heart disease and other diseases of the circulatory system
CPT/HCPCS: 36415; 71045; 80048; 82550; 82553; 84484; 85025; 85610; 85730; 87081; 93005

== ENCOUNTER → 2020-11-26 | Outpatient (CLI) | payer OTHER ==
[~2020-11-26] MED LIST changes: +CLOP75TA28 PO; +HYDR-3584 PO; +METF-478 PO; +METO50TA15 PO; +OMEP20CA18 PO
== END ==
LOC: CARD 12:00
PROVIDERS: ATTEND Internal Medicine Cardiovascular Disease
DX: Z01.810 Encounter for preprocedural cardiovascular examination (principal); I25.10 Atherosclerotic heart disease of native coronary artery without angina pectoris; I51.7 Cardiomegaly
CPT/HCPCS: 93306

== ENCOUNTER → 2020-12-11 | Outpatient (CLI) | payer OTHER ==
[~2020-12-11] MED LIST changes: +REGADENOSON 0.4 MG/5 ML SYR (LEXISCAN) IV ONE
[2020-12-11] MEDS: CATHETER FLUSH 10 ML SYR IV PRN ×2 (08:30→09:46)
[2020-12-11 09:39] VITALS: BP 164/89
--- NOTE | 2020-12-11 16:57 | NUCLEAR STRESS TEST ---
REGADENOSON NUCLEAR STRESS Date of procedure: 12/11/2020. Primary care provider: [facility] Admitting physician: Elias Fenton Jr., MD. INDICATION: Coronary artery disease. BASELINE ELECTROCARDIOGRAM: Sinus rhythm with inferolateral ST-T wave changes, consider ischemia. STRESS TEST PROCEDURE: The patient was administered 0.4 mg of intravenous Regadenoson. The resting heart rate was 67 bpm and the peak heart rate was 102 bpm. The resting blood pressure was 164/89 mmHg and the minimum blood pressure was 156/88 mmHg. This represents a [] heart rate and a [] blood pressure response to Regadenoson. The test was stopped due to the protocol. There was no chest discomfort during the test. There were no arrhythmias during the test. The stress electrocardiogram was indeterminate due to the baseline abnormalities. NUCLEAR PROCEDURE: The patient was administered 10.4 mCi of intravenous technetium 99m Tetrofosmin at rest for the rest images. The patient was subsequently administered 31 mCi of intravenous technetium 99m Tetrofosmin at peak stress for the stress images. Following an appropriate wait after each injection, imaging was obtained. The images were subsequently processed and reformatted in the usual views. Gated imaging was obtained. The image quality was adequate but with some gastrointestinal and motion artifacts. CT attenuation correction was used as a adjunct to standard imaging. Both the corrected and uncorrected images were reviewed for interpretation. NUCLEAR RESULTS: There was normal myocardial perfusion in all segments without evidence of infarction or ischemia. There was normal left ventricular chamber size with an end-diastolic volume of 81 mL and an end-systolic volume of 20 mL. There was no evidence of transient ischemic dilatation. The TID ratio was 1.16. There was normal wall motion in all segments with a calculated ejection fraction of 76%. IMPRESSION: 1. Normal heart rate and blood pressure response to regadenoson. 2. There was no chest discomfort or arrhythmias during the test. 3. The stress electrocardiogram was indeterminate due to the baseline abnormalities. 4. There was normal myocardial perfusion in all segments without evidence of infarction or ischemia. 5. There was normal wall motion in all segments with a calculated ejection fraction of 76%. Certain portions of this document may have been dictated utilizing voice recognition technology. Inherent to this technology, typographical and grammatical errors may exist. As much as I am diligent to identify and correct these mistakes, some errors may remain in the document. ELIAS FENTON JR, MD Dec 11, 2020 16:56
== END ==
LOC: CARD 08:16
PROVIDERS: ATTEND Internal Medicine Cardiovascular Disease
DX: I25.10 Atherosclerotic heart disease of native coronary artery without angina pectoris (principal)
CPT/HCPCS: 78452; 93017; A9502

== ENCOUNTER → 2020-12-18 | Outpatient (CLI) | payer OTHER ==
[~2020-12-18] MED LIST changes: -REGADENOSON 0.4 MG/5 ML SYR (LEXISCAN) IV ONE
[2020-12-18 08:43] LABS: HEMATOCRIT 45 % (40-54); MEAN CORPUSCULAR HEMOGLOBIN 32 pg (25-34); MEAN CORPUSCULAR HGB CONC 36 g/dL (32-36); MEAN CORPUSCULAR VOLUME 89 fL (80-99); MEAN PLATELET VOLUME 9.7 fL (9.0-12.2); PLATELET COUNT 262 10^3/uL (130-400); WHITE BLOOD COUNT 5.5 10^3/uL (4.3-11.0)
[2020-12-18 09:04] LABS: ALANINE AMINOTRANSFERASE 24 U/L (0-55); ALBUMIN 4.6 GM/DL (3.2-4.5); ALKALINE PHOSPHATASE 71 U/L (40-136); BILIRUBIN,TOTAL 1.5 MG/DL (0.1-1.0); BUN/CREATININE RATIO 12; CALCIUM 10.1 MG/DL (8.5-10.1); CARBON DIOXIDE 20 MMOL/L (21-32); CHLORIDE 105 MMOL/L (98-107); CHOLESTEROL 158 MG/DL (< 200); GFR ESTIMATED 68; GLUCOSE 185 MG/DL (70-105); HDL CHOLESTEROL 35 MG/DL (40-60); POTASSIUM 3.8 MMOL/L (3.6-5.0); SODIUM 139 MMOL/L (135-145); TOTAL PROTEIN 7.9 GM/DL (6.4-8.2); TRIGLYCERIDES 184 MG/DL (<150); VLDL CHOLESTEROL 37 MG/DL (5-40)
== END ==
LOC: RAD 08:22
PROVIDERS: ATTEND Internal Medicine Cardiovascular Disease
DX: I25.10 Atherosclerotic heart disease of native coronary artery without angina pectoris (principal)
CPT/HCPCS: 36415; 80053; 80061; 83036; 85027

== ENCOUNTER 2022-09-13 17:58 | Emergency (ER) | payer MEDICARE ==
[~2022-09-13] VITALS: Ht 187 cm; Wt 104.3 kg
[~2022-09-13 17:58] MED LIST changes: +CLOP-31 PO; -CLOP75TA69 PO
[2022-09-13 18:25] VITALS: BP 153/85
[2022-09-13] MEDS ORDERED: HYDROcodone/ACETAMINOPHEN 5 MG/325 MG TABLET PO ONE (18:30)
[2022-09-13] MEDS ORDERED: ACHD5005 PO (18:34)
[2022-09-13] MEDS ORDERED: AMOX1TAB12 PO (18:34)
--- NOTE | 2022-09-13 18:34 | ED EENT ---
History of Present Illness General Chief Complaint: Dental Problems/Pain Stated Complaint: DENTAL PAIN Source: patient Exam Limitations: no limitations History of Present Illness Date Seen by Provider: Sep 13, 2022 Time Seen by Provider: 18:30 Initial Comments Patient is a 62-year-old male who presents to ED with right lower dental pain. Dental pain started on Tuesday. This pain has progressively got worse. Pain is described as sharp. Patient states anytime he eats the pain increases. He does get some relief when he drinks some water. Has been taken Advil and Tylenol w ithout much improvement. Denies any facial swelling or redness. History of previous dental pain in the past. He is trying to get a follow-up with a dentist on Tuesday. Denies of any fever, chills, nausea, vomiting, diarrhea, headache or dizziness. Allergies and Home Medications Allergies Coded Allergies: No Known Allergies (Verified Allergy, Unknown, 11/23/17) Patient Home Medication List Home Medication List Reviewed: Yes Amoxicillin/Potassium Clav (Amox Tr-K Clv 875-125 mg Tab) 875 Mg-125 Mg Tablet, 1 EACH PO BID Prescribed by: KUNAL STAUFFER on 09/13/221833 Aspirin (Aspirin EC) 81 Mg Tablet.dr, 81 MG PO DAILY, (Reported) Entered as Reported by: EPI HARRIS on 05/07/201656 Atorvastatin Calcium (Atorvastatin Calcium) 80 Mg Tablet, 80 MG PO DAILY, (Reported) Entered as Reported by: EPI HARRIS on 05/07/201656 Clopidogrel Bisulfate (Clopidogrel) 75 Mg Tablet, 75 MG PO DAILY, (Reported) Entered as Reported by: EPI HARRIS on 05/07/201656 Hydrocodone/Acetaminophen (Hydrocodone-Acetamin 5-325 mg) 5 Mg-325 Mg Tablet, 1 TAB PO Q4H PRN for PAIN-MODERATE (5-7) Prescribed by: KUNAL STAUFFER on 09/13/221833 Hydroxyzine HCl (Hydroxyzine HCl) 10 Mg Tablet, 10 MG PO BID PRN for ANXIETY, (Reported) Entered as Reported by: EPI HARRIS on 05/07/201656 Lisinopril (Lisinopril) 40 Mg Tablet, 40 MG PO DAILY, (Reported) Entered as Reported by: EPI HARRIS on 05/07/201656 Metformin HCl (Metformin HCl ER) 500 Mg Tab.er.24, 500 MG PO 1800 AFTER DINER, (Reported) Entered as Reported by: EPI HARRIS on 05/07/201656 Metoprolol Tartrate (Metoprolol Tartrate) 50 Mg Tablet, 50 MG PO BID, (Reported) Entered as Reported by: EPI HARRIS on 05/07/201656 Omeprazole (Omeprazole) 20 Mg Capsule.dr, 20 MG PO DAILY, (Reported) Entered as Reported by: EPI HARRIS on 05/07/201656 Review of Systems Review of Systems Constitutional: No chills, No diaphoresis, No fever, No malaise, No weakness Eyes: Denies Blurred Vision, Denies Drainage, Denies Decreased Acuity Ears: Denies Dizziness, Denies Pain Nose: denies congestion Mouth: denies loose teeth, denies swelling, denies bloody discharge, denies purulent discharge, denies serosanguinous discharge, denies previous injury; other (Dental pain) Throat: denies pain Respiratory: No cough, No dyspnea on exertion Cardiovascular: No chest pain Gastrointestinal: No abdominal pain, No diarrhea, No nausea, No vomiting Musculoskeletal: No back pain, No joint pain All Other Systems Reviewed Negative Unless Noted: Yes Past Ubutros-Waqclr-Mvveft Hx Immunizations Up To Date Tetanus Booster (TDap): Unknown Seasonal Allergies Seasonal Allergies: No Past Medical History Surgeries: Yes (left elbow surgery) Coronary Stent, Orthopedic Respiratory: No Cardiac: Yes Hypertension Neurological: No Reproductive Disorders: No Sexually Transmitted Disease: No HIV/AIDS: No Genitourinary: No Gastrointestinal: Yes Gastroesophageal Reflux, Chronic Diarrhea Musculoskeletal: Yes Arthritis Endocrine: No Diabetes, Non-Insulin dep HEENT: No Loss of Vision: Bilateral Hearing Impairment: Denies Cancer: No Psychosocial: No Integumentary: No Blood Disorders: No Adverse Reaction/Blood Tranf: No (N/A) Family Medical History Heart Disease, Diabetes, Hypertension Physical Exam Height, Weight, BMI Height: 6'2.00" Weight: 245lbs. 3.2oz. [id number]; 30.31 BMI Method:Stated General Appearance: WD/WN, no apparent distress Eyes: bilateral eye normal inspection, bilateral eye PERRL, bilateral eye EOMI Ears: bilateral ear auricle normal, bilateral ear canal normal, bilateral ear TM normal Nose: normal inspection, active bleeding Mouth/Throat: pharynx normal, dental tenderness (Right lower molar tenderness. Mild decay. Cavity noted. 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 Differential diagnosis dental abscess, gingivitis, cavity. On exam does have a cavity noted to the right lower molar. Mild gum inflammation but without erythema. No evidence of. Dental abscess. No significant facial swelling or redness. No mastoid, parotid or submandibular tenderness. Relief when he drinks water. Has been using Tylenol ibuprofen without much improvement. Concerning for developing dental abscess. Received 1 dose of pain medication. Will discharge with Augmentin. We will provide a few days worth of stronger pain medication as needed. Continue with your anti-inflammatories. Discussed other conservative alternatives to use as well. If increasing pain, facial swelling or redness without improvement of antibiotic to return back to ED. Patient states he scheduled to follow-up with a dentist on Tuesday. Patient does not appear toxic or septic Impression Primary Impression: Pain, dental Disposition: HOME, SELF-CARE Condition: Stable Departure-Patient Inst. Decision time for Depature: 18:33 Referrals: MARIANA SOLER MD (PCP/Family) Primary Care Physician Patient Instructions: Dental Pain Add. Discharge Instructions: Recommend following up with your dentist. If any worsening symptoms return back to ED for further evaluation. All discharge instructions reviewed with patient and/or family. Voiced understanding. Scripts Hydrocodone/Acetaminophen (Hydrocodone-Acetamin 5-325 mg) 5 Mg-325 Mg Tablet 1 TAB PO Q4H PRN for PAIN-MODERATE (5-7), #8 TAB Prov: SHAHRZAD RAE 09/13/22 Amoxicillin/Potassium Clav (Amox Tr-K Clv 875-125 mg Tab) 875 Mg-125 Mg Tablet 1 EACH PO BID for 7 Days, #14 TAB Prov: SHAHRZAD RAE 09/13/22 SHAHRZAD RAE Sep 13, 2022 18:34
[2022-09-13] MEDS ORDERED: AMOXICILLIN/Clavulanate 875 MG TABLET PO STA (19:19)
[2022-09-14] MEDS ORDERED: AMOX1TAB12 PO (08:17)
== END 2022-09-13 18:40 | disposition home or self-care (01) ==
LOC: EDUNIT# 17:58 → ER 18:01
DX: K08.89 Other specified disorders of teeth and supporting structures (principal)
CPT/HCPCS: 99283

== ENCOUNTER 2023-01-05 06:18 | Outpatient (CLI) | payer MEDICARE ==
[~2023-01-05] VITALS: Ht 188 cm; Wt 104.3 kg
[~2023-01-05 06:18] MED LIST changes: +ACHD5005 PO; +AMOX1TAB12 PO
[2023-01-11] MEDS ORDERED: NF-GLIP2.5 PO (15:25)
[2023-01-11] MEDS ORDERED: HYDR12.56 PO (15:25)
[2023-01-11] MEDS ORDERED: AMLO-250 PO (15:25)
== END 2023-01-11 15:32 | disposition home or self-care (01) ==
LOC: PREOP 06:18
PROVIDERS: ATTEND Surgery
DX: Z01.818 Encounter for other preprocedural examination (principal)

== ENCOUNTER 2023-01-18 09:36 | Day surgery (SDC) | payer MEDICARE ==
[~2023-01-18] VITALS: Ht 188 cm; Wt 104.3 kg
[~2023-01-18 09:36] MED LIST changes: +AMLO-250 PO; +HYDR12.56 PO; +NF-GLIP2.5 PO
[2023-01-18] MEDS ORDERED: LACTATED RINGERS 1,000 ML 1,000 ML IV STA (09:44)
[2023-01-18 09:55] VITALS: BP 139/94
--- NOTE | 2023-01-18 09:59 | Progress Note-Pre Operative ---
Pre-Operative Progress Note Date of Available H&P: Jan 18, 2023 Date H&P Reviewed: Jan 18, 2023 Time H&P Reviewed: 10:00 History & Physical: H&P Reviewed, Patient Examed, No changes noted Pre-Operative Diagnosis: history of colon polyps AMY MORENO DO Jan 18, 2023 09:59
[2023-01-18 11:20] VITALS: BP 132/83
--- NOTE | 2023-01-18 11:20 | Progress Note-Post Operative ---
Post-Operative Progess Note Surgeon (s)/Insurance Assistant (s) Surgeon AMY MORENO DO Insurance Assistant: n/a Pre-Operative Diagnosis history of colon polyps Post-Operative Diagnosis transverse colon polyps, descending colon polyp Procedure & Operative Findings Date of Procedure 01/18/23 Procedure Performed/Findings colonoscopy with hot biopsy polypectomy x3 Anesthesia Type per PHOTOGRAPHER'S MODEL Estimated Blood Loss Estimated blood loss (mL): none Specimens/Packing Specimens Removed transverse polyp x2, descending polyp x1 AMY MORENO DO Jan 18, 2023 11:20
--- NOTE | 2023-01-18 11:22 | Discharge Inst-Simple/Standard ---
Discharge Inst-Standard Patient Instructions/Follow Up Plan of Care/Instructions/FU: 2 weeks nohemy Activity as Tolerated: Yes Discharge Diet: Regular Diet AMY MORENO DO Jan 18, 2023 11:22
[2023-01-18 11:25] VITALS: BP 128/79
[2023-01-18 11:30] VITALS: BP 126/83
[2023-01-18] MEDS ORDERED: LACTATED RINGERS IV ONE (11:34)
[2023-01-18 12:05] VITALS: BP 126/83
--- NOTE | 2023-01-18 13:29 | Anesthesia-General Post-Op ---
MAC Patient Condition Mental Status/LOC: Same as Preop Cardiovascular: Satisfactory Nausea/Vomiting: Absent Respiratory: Satisfactory Pain: Controlled Complications: Absent Post Op Complications Complications None Follow Up Care/Instructions Patient Instructions None needed. Anesthesiology Discharge Order Discharge Order Patient is doing well, no complaints, stable vital signs, no apparent adverse anesthesia problems. No complications reported per nursing. DENZEL HERRING CRNA Jan 18, 2023 13:29
--- NOTE | 2023-01-18 16:39 | OPERATIVE REPORT ---
DATE OF SERVICE: 01/18/2023 PREOPERATIVE DIAGNOSIS: History of polyps. POSTOPERATIVE DIAGNOSIS: Colon polyps. PROCEDURE: Colonoscopy with hot biopsy polypectomy. SURGEON: Amy Hays DO. ANESTHESIA: Per TIRE SERVICE SUPERVISOR. ESTIMATED BLOOD LOSS: None. COMPLICATIONS: None. INDICATIONS: The patient is a 62-year-old male with needing colonoscopy. He understands risks and benefits of procedure and wished to proceed. Consent was signed in chart. DESCRIPTION OF PROCEDURE: The patient was taken to endoscopy suite, placed in left lateral recumbent position. Timeout was performed. Digital rectal exam was performed. No palpable polyps, masses or ulcerations. Scope was inserted in the rectum, advanced all the way to the cecum without difficulty. Prep was adequate. Scope was slowly retracted back. No polyps, masses or ulcerations in the cecum or ascending colon. Transverse colon had 2 polyps, which hot biopsy polypectomy was performed. Scope was then continuously retracted back. No polyps, masses or ulcerations in the remainder of the transverse colon. In the descending colon, another small polyp was present, which hot biopsy polypectomy was performed. Scope was then continuously retracted back. No polyps, masses or ulcerations in the remainder of the descending, sigmoid and rectum. The scope was retroflexed noting no other pathology. Scope was returned to its normal position, slowly withdrawn until completely removed. The patient tolerated the procedure well without any complications, taken to recovery room in stable condition. RECOMMENDATIONS: The patient will need repeat colonoscopy in 5 years. Any issues before that, be seen at that time. He will follow up on pathology in 2 weeks. Job ID: [id number] DocumentID: [id number] Dictated Date: 01/18/2023 11:20:05 [employer] Picking Supervisor Date: 01/18/2023 16:38:00 Dictated By: AMY HAYS DO
== END 2023-01-18 12:05 | disposition home or self-care (01) ==
LOC: ENDO 09:36
PROVIDERS: ATTEND Surgery
DX: Z12.11 Encounter for screening for malignant neoplasm of colon (principal); D12.3 Benign neoplasm of transverse colon; D12.4 Benign neoplasm of descending colon; K63.5 Polyp of colon; Z79.02 Long term (current) use of antithrombotics/antiplatelets; Z95.5 Presence of coronary angioplasty implant and graft
CPT/HCPCS: 45384; G0416; 88305